=== PATIENT | female | born 1965 | race Two or more races ===

== ENCOUNTER 2022-08-26 19:22 | Inpatient (IN) | payer MEDICAID, OTHER ==
[~2022-08-26] VITALS: Ht 160 cm; Wt 41.3 kg
--- NOTE | 2022-08-26 19:35 | NUR ---
GALILEA CHOWDHURY FROM [facility] C/O POOR PO INTAKE SINCE 08/17. POSSIBLE GT PLACEMENT. PT A/OX1. TOLERATING O2 5LPM VIA N/C AT 100%. DENIES PAIN. SAFETY MEASURES IN PLACE.
[2022-08-26] MEDS ORDERED: IV NS 0.9% 500 ML BAG IV ONE (20:30)
--- NOTE | 2022-08-26 20:58 | NUR ---
COVID SWAB COLLECTED AND SENT TO LAB
[2022-08-26 21:05] LABS: BASOPHILS # (AUTO) 0.1 K/uL (0.0-0.2); BASOPHILS % (AUTO) 0.5 % (0.0-2.0); HEMATOCRIT 30 % (33-45); HEMOGLOBIN 9.6 g/dL (11.5-14.8); LYMPHOCYTES # (AUTO) 2.8 K/uL (0.8-4.8); LYMPHOCYTES % (AUTO) 23.8 % (20.0-44.0); MEAN CORPUSCULAR HGB CONC 32 g/dl (31.0-36.0); MEAN CORPUSCULAR VOLUME 94 fL (82-100); MONOCYTES # (AUTO) 0.9 K/uL (0.1-1.30); MONOCYTES % (AUTO) 7.5 % (2.0-12.0); NEUTROPHILS # (AUTO) 7.6 K/uL (1.8-8.9); NEUTROPHILS % (AUTO) 64.2 % (43.0-81.0); PLATELET COUNT (AUTO) 458 K/uL (150-450); RED BLOOD CELL COUNT(AUTO) 3.18 MIL/uL (4.0-5.2); WHITE BLOOD COUNT (AUTO) 11.8 K/uL (4.3-11.0)
--- NOTE | 2022-08-26 21:14 | NUR ---
IV LINE ESTABLISHED, RWRIST 22G
[2022-08-26 21:21] LABS: ALBUMIN 2.2 g/dL (3.4-5.0); BILIRUBIN,DIRECT 0.2 mg/dL (0.0-0.2); BILIRUBIN,TOTAL 0.4 mg/dL (0.2-1.0); CREATININE 3.7 mg/dL (0.6-1.3); POTASSIUM 3.2 mmol/L (3.5-5.1); TOTAL PROTEIN, SERUM 8.1 g/dL (6.4-8.2)
--- NOTE | 2022-08-26 22:08 | NUR ---
S/W DAVIE MEDTERI CASEMANAGER, VERBAL AUTH TO ADMIT PT
[2022-08-26] MEDS ORDERED: ACETAMINOPHEN 325 MG TABLET PO PRN (23:00)
[2022-08-26] MEDS ORDERED: ONDANSETRON HCL/PF 4 MG/2 ML VIAL IVP PRN (23:00)
[2022-08-26] MEDS ORDERED: DEXTROSE 50%-WATER 50 ML DISP.SYRIN IV PRN (23:00)
[2022-08-27] MEDS: BLOOD SUGAR DIAGNOSTIC 1 EACH STRIP IN SCH ×4 (02:00→17:02)
[2022-08-27] MEDS ORDERED: CEFEPIME 2 GM in IV D5W 100 ML IV ONE (02:00)
[2022-08-27] MEDS ORDERED: CEFEPIME 1 GM VIAL ONE ×2 (02:03→02:07)
--- NOTE | 2022-08-27 03:14 | NUR ---
PT IS RESTING IN BED WITH EYES CLOSED. RR EVEN AND NON LABORED. CONNECTED TO MONITOR. VITAL SIGNS WITHIN LIMITS
[2022-08-27 05:09] LABS: CALCIUM, SERUM 8.5 mg/dL (8.5-10.1); CREATININE 3.8 mg/dL (0.6-1.3); MAGNESIUM 2.2 mg/dL (1.8-2.4); PHOSPHORUS 3.1 mg/dL (2.5-4.9); POTASSIUM 3.5 mmol/L (3.5-5.1)
--- NOTE | 2022-08-27 07:21 | NUR ---
REPORT GIVEN TO MELISSA CHEN FOR TAYE
[2022-08-27] MEDS ORDERED: IPRA3AMP23 IH (08:00)
[2022-08-27] MEDS ORDERED: LOSA25TA27 PO (08:00)
[2022-08-27] MEDS ORDERED: ACET-868 PO (08:00)
[2022-08-27] MEDS ORDERED: APIX5TAB PO (08:00)
[2022-08-27] MEDS ORDERED: ONDA4TAB5 PO (08:00)
[2022-08-27] MEDS ORDERED: GLUC1KIT IM (08:00)
[2022-08-27] MEDS ORDERED: LEVO50TA8 PO (08:00)
[2022-08-27] MEDS ORDERED: ACET200V4 INH (08:00)
[2022-08-27] MEDS ORDERED: HYDR-4076 PO (08:00)
[2022-08-27] MEDS ORDERED: BISA10SU11 RC (08:00)
[2022-08-27] MEDS ORDERED: NIFE60TA2 PO (08:00)
[2022-08-27] MEDS ORDERED: ASPI-1169 PO (08:00)
[2022-08-27] MEDS ORDERED: BENZ-13 PO (08:00)
[2022-08-27] MEDS ORDERED: MELA3TAB41 PO (08:00)
[2022-08-27] MEDS ORDERED: MIRT-90 PO (08:00)
[2022-08-27] MEDS ORDERED: SENN-261 PO (08:00)
[2022-08-27] MEDS ORDERED: ROSU40TA PO (08:00)
[2022-08-27] MEDS ORDERED: FOLI0.8T2 PO (08:00)
[2022-08-27] MEDS ORDERED: POLY17PO4 PO (08:00)
[2022-08-27] MEDS ORDERED: INSU100V42 SQ (08:00)
--- NOTE | 2022-08-27 08:00 | NUR ---
PT REPORT GIVEN TO APRIL WESTON
[2022-08-27 08:20] LABS: BASOPHILS % (AUTO) 0.2 % (0.0-2.0); HEMATOCRIT 30 % (33-45); HEMOGLOBIN 9.7 g/dL (11.5-14.8); LYMPHOCYTES # (AUTO) 1.5 K/uL (0.8-4.8); LYMPHOCYTES % (AUTO) 10.8 % (20.0-44.0); MEAN CORPUSCULAR HGB CONC 33 g/dl (31.0-36.0); MEAN CORPUSCULAR VOLUME 94 fL (82-100); MONOCYTES % (AUTO) 7.1 % (2.0-12.0); NEUTROPHILS % (AUTO) 79.9 % (43.0-81.0); PLATELET COUNT (AUTO) 412 K/uL (150-450); RED BLOOD CELL COUNT(AUTO) 3.18 MIL/uL (4.0-5.2); WHITE BLOOD COUNT (AUTO) 13.8 K/uL (4.3-11.0)
--- NOTE | 2022-08-27 09:05 | NUR ---
PT TRANSFERRED TO UNIT VIA GURNEY. WARM HANDOFF GIVEN TO RN ASSIGNED.
[2022-08-27] MEDS: IV D5/ 0.9% NACL 1,000 ML IV PRN (11:03)
[2022-08-27] MEDS: PANTOPRAZOLE 40 MG VIAL IV SCH (11:09)
[2022-08-27 16:56] VITALS: BP 116/68
--- NOTE | 2022-08-27 18:28 | NUR ---
MS RN CLOSING NOTE PATIENT ADMITTED TO UNIT @ 0840 FROM ED VIA GURNEY. UNABLE TO TRANSFER WITHOUT ASSIST. PATIENT OBSERVED TO BE EXTREMELY WEAK TO BILATERAL EXTREMITIES. IV ACCESS TO R-WRIST 22G INTACT AND PATENT. D5NS RUNNING CONTINUOUSLY @ 75ML/HR. RECEIVED BEDSIDE HEMODIALYSIS WITH 2L OF FLUIDS TAKEN OFF. PERMA-CATH TO R-UPPER CHEST INTACT WITH NO S/SX OF BLEEDING OR TRAUMA. PATIENT REMAINS ON NPO STATUS SHE IS AWAITING SWALLOW EVALUATION DUE TO POOR ORAL INTAKE. RECEIVING SUPPLEMENTAL OXYGEN VIA NASAL CANNULA @ 2L. PATIENT TOLERATED WELL. SAFETY MEASURES IN PLACE WITH BED LOW AND LOCKED. SIDERAIL UP X2. CALL LIGHT WITHIN REACH. WILL CONTINUE TO MONITOR.
--- NOTE | 2022-08-27 19:30 | NUR ---
noc rn opening received patient in bed, with eyes closed, easy to arouse. not exhibiting pain via flacc. IV access on R. wrist 22g running D5NS @75mls/hr. call light within reach. Patient noted to have RCW permacath clean, dry and intact. will continue with the plan of care for patient.
[2022-08-27 20:00] VITALS: BP 110/59
[2022-08-28] MEDS: INSULIN REGULAR, HUMAN 100 UNIT/ML 3 ML VIAL SQ PRN ×2 (00:11→06:22)
[2022-08-28] MEDS: BLOOD SUGAR DIAGNOSTIC 1 EACH STRIP IN SCH ×4 (00:11→18:11)
[2022-08-28] MEDS: CEFEPIME 2 GM in IV D5W 100 ML IV SCH (02:30)
[2022-08-28 07:00] VITALS: BP 142/65
--- NOTE | 2022-08-28 07:36 | NUR ---
noc rn closing report given to APRIL Irby for continuity of patient care.
[2022-08-28] MEDS: IV D5/ 0.9% NACL 1,000 ML IV PRN (08:10)
[2022-08-28] MEDS: PANTOPRAZOLE 40 MG VIAL IV SCH (08:49)
--- NOTE | 2022-08-28 10:06 | NUR ---
WOUND CARE CONSULT: PT PRESENTS WITH SACRAL DEEP TISSUE INJURY WHICH IS INTACT AND BILATERAL LOWER LEG DRY ESCHARS (NECROTIC TISSUE), PRESENT ON ADMISSION. PT IS CACHECTIC. DPM CONSULT CALLED TO DR VALDEZ. DISCUSSED SKIN PROTECTION WITH NURSING STAFF. IN AGREEMENT WITH PLAN OF CARE. PT IS ON [facility] B[facility]. Addendum: 08/28/22 at 1007 by NGOC BATISTA WNDNU Amended: Links added.
[2022-08-28] MEDS ORDERED: Z GUARD REMEDY 4 OZ OINT TP PRN (10:30)
[2022-08-28 11:08] LABS: BASOPHILS % (AUTO) 0.2 % (0.0-2.0); EOSINOPHILS % (AUTO) 5.3 % (0.0-6.0); HEMATOCRIT 28 % (33-45); HEMOGLOBIN 9.2 g/dL (11.5-14.8); LYMPHOCYTES # (AUTO) 1.6 K/uL (0.8-4.8); LYMPHOCYTES % (AUTO) 17.3 % (20.0-44.0); MEAN CORPUSCULAR HGB CONC 32 g/dl (31.0-36.0); MEAN CORPUSCULAR VOLUME 95 fL (82-100); MONOCYTES # (AUTO) 0.6 K/uL (0.1-1.30); MONOCYTES % (AUTO) 6.6 % (2.0-12.0); NEUTROPHILS # (AUTO) 6.4 K/uL (1.8-8.9); NEUTROPHILS % (AUTO) 70.6 % (43.0-81.0); PLATELET COUNT (AUTO) 423 K/uL (150-450)
[2022-08-28 11:22] LABS: CALCIUM, SERUM 9.4 mg/dL (8.5-10.1); CREATININE 2.7 mg/dL (0.6-1.3); POTASSIUM 3.1 mmol/L (3.5-5.1)
[2022-08-28 12:04] LABS: THYROID STIMULATING HORMONE 1.461 uIU/mL (0.358-3.74)
[2022-08-28] MEDS: Z GUARD REMEDY 4 OZ OINT TP SCH (12:25)
[2022-08-28] MEDS: POTASSIUM CL. PREMIX PERIPHER. 50 ML IV SCH ×2 (14:02→15:24)
[2022-08-28] MEDS: GENTAMICIN 0.1% OINT 15 GM TUBE TP SCH (16:11)
--- NOTE | 2022-08-28 18:35 | NUR ---
MS RN CLOSING NOTE PATIENT RECEIVED IN BED AND RESTING; INTERMITTENTLY AWAKE. NO S/SX OF PAIN OR OR DISTRESS OBSERVED; NO FACIAL GRIMACING OR MOANING. PATIENT REMAINS EXTREMELY WEAK TO BILATERAL EXTREMITIES AND NEEDING MAXIMUM ASSISTANCE FOR ALL CARE. . IV ACCESS TO R-WRIST 22G INTACT AND PATENT WITH D5NS RUNNING CONTINUOUSLY @ 75ML/HR. PERMA-CATH TO R-UPPER CHEST REMAINS INTACT WITH NO S/SX OF BLEEDING OR TRAUMA. PATIENT REMAINS ON NPO STATUS AT THIS TIME SHAHRIAR TO POOR ORAL INTAKE AND POOR RESULTS FROM SWALLOW EVALUATION PERFORMED BY SPEECH THERAPY. PATIENT CONTINUES TO RECEIVING SUPPLEMENTAL OXYGEN VIA NASAL CANNULA @ 2L. BLOOD SUGAR LEVELS STABLE AND WNL ON SHIFT @ 83 & 95. BLOOD CX RESULTS PENDING AT THIS TIME. SAFETY MEASURES IN PLACE WITH BED LOW AND LOCKED. SIDERAIL UP X2. CALL LIGHT WITHIN REACH. WILL CONTINUE TO MONITOR.
--- NOTE | 2022-08-28 19:30 | NUR ---
noc rn opening received patient in bed, a/ox1 to name only. no s/s of apparent distress on 2lpm of o2 via nc. denies pain. IV access on R. wrist 22g running D5NS. call light within reach. Patient noted to have RCW permacath clean, dry and intact. safety in place. will continue with the plan of care for patient.
[2022-08-28 20:00] VITALS: BP 118/65
[2022-08-29] VITALS: BP 120/65
[2022-08-29] MEDS: INSULIN REGULAR, HUMAN 100 UNIT/ML 3 ML VIAL SQ PRN (00:02)
[2022-08-29] MEDS: BLOOD SUGAR DIAGNOSTIC 1 EACH STRIP IN SCH ×4 (00:02→17:27)
[2022-08-29] MEDS: CEFEPIME 2 GM in IV D5W 100 ML IV SCH (01:52)
--- NOTE | 2022-08-29 06:15 | NUR ---
noc rn note patient c/o severe chest pain, non-radiating with complaints of dizziness. front end architect Armin Sanchez NP made aware. STAT EKG ordered and TROPONIN. will monitor. bp 142/89 and hr 97. saturation 98% on 3lp of o2 via nc.
[2022-08-29] MEDS ORDERED: NITROGLYCERIN 0.4 MG/TAB BOTTLE SL PRN (06:30)
--- NOTE | 2022-08-29 07:28 | NUR ---
noc rn closing patient stable for now. no c/o chest pain now. report given to APRIL Dorado for continuity of care.
--- NOTE | 2022-08-29 07:35 | NUR ---
RN OPENING NOTES PATIENT AWAKE IN BED RESTING, A/O X 1. NO S/S OF PAIN NOTED AT THIS TIME. ON 2L OXYGEN VIA NC, NO DISTRESS OR SHORTNESS OF BREATH NOTED. IV ACCESS R WRIST #22G, INTACT, PATENT, FLUSHING WELL. FALL AND SAFETY MEASURES IN PLACE, BED ALARM ON, BED IN LOW LOCK POSITION, CALL LIGHT AND TABLE WITHIN EASY REACH, SIDE RAILS UP X2. WILL CONTINUE TO MONITOR.
[2022-08-29 08:00] VITALS: BP 155/72
[2022-08-29] MEDS: GENTAMICIN 0.1% OINT 15 GM TUBE TP SCH ×2 (08:37→17:28)
[2022-08-29] MEDS: PANTOPRAZOLE 40 MG VIAL IV SCH (08:37)
[2022-08-29] MEDS: Z GUARD REMEDY 4 OZ OINT TP SCH (08:38)
[2022-08-29] MEDS: ACETYLCYSTEINE 20% SOLN 800 MG/4 ML VIAL NEB SCH ×3 (08:43→18:01)
[2022-08-29] MEDS: IV D5/ 0.9% NACL 1,000 ML IV PRN (08:45)
[2022-08-29 12:00] VITALS: BP 129/61
--- NOTE | 2022-08-29 13:00 | NUR ---
RN NOTE PATIENT GLUCOSE AT 12:00 WAS 88, SMALL AMOUNT OF JUICE WAS GIVEN, PATIENT REFUSED TO DRINK. WILL CONTINUE TO MONITOR.
[2022-08-29 16:00] VITALS: BP 184/71
--- NOTE | 2022-08-29 18:37 | NUR ---
RN CLOSING NOTES PATIENT AWAKE IN BED RESTING, A/O X 1. NO S/S OF PAIN NOTED AT THIS TIME. ON 2L OXYGEN VIA NC, NO DISTRESS OR SHORTNESS OF BREATH NOTED. IV ACCESS R WRIST #22G, INTACT, PATENT, FLUSHING WELL. SCHEDULE MEDICATIONS ADMINISTERED. ALL NEEDS ATTENDED AND ANTICIPATED. WOUND CARE IMPLEMENTED. PATIENT WAS TURNED AND REPOSITIONED PER PROTOCOL. FALL AND SAFETY MEASURES IN PLACE, BED ALARM ON, BED IN LOW LOCK POSITION, CALL LIGHT AND TABLE WITHIN EASY REACH, SIDE RAILS UP X2. WILL ENDORSE TO PROCUREMENT ACCOUNTANT.
[2022-08-29 20:00] VITALS: BP 117/64
--- NOTE | 2022-08-29 20:39 | NUR ---
HD TREATMENT Dialysis treatment at bedside done with output 1L, patient tolerated treatment BP 117/64 HR 88 post HD treatment. Per RN Lalo/HD nurse, new order Albumin IV PRN during dialysis faxed to pharmacy.
[2022-08-30] VITALS: BP 134/56
[2022-08-30] MEDS: BLOOD SUGAR DIAGNOSTIC 1 EACH STRIP IN SCH ×5 (00:50→23:37)
[2022-08-30] MEDS: INSULIN REGULAR, HUMAN 100 UNIT/ML 3 ML VIAL SQ PRN ×3 (00:50→23:37)
--- NOTE | 2022-08-30 00:51 | NUR ---
ACCU CHECK Bld glucose 94mg/dl. Hold insulin per level ordered.
--- NOTE | 2022-08-30 02:48 | NUR ---
NO IV ACCESS IV Right wrist infiltrate. Unable to re insert new IV line, unsuccessful attempt. No IV access, patient hard stick. Notified IT ARCHITECT Armin with order MIDLINE.
[2022-08-30] MEDS: CEFEPIME 2 GM in IV D5W 100 ML IV SCH (03:51)
[2022-08-30] MEDS: IV D5/ 0.9% NACL 1,000 ML IV PRN ×2 (05:22→21:46)
--- NOTE | 2022-08-30 05:29 | NUR ---
ACCU CHECK Bld glucose 92mg/dl. Hold insulin per level ordered.
--- NOTE | 2022-08-30 06:12 | NUR ---
END OF SHIFT REPORT Patient in bed, A/O x1 to self only. New IV line in left hand, IVF infusing. On IV abx. Afebrile. Oxygen sat 94% in 2L NC. Patient appears very weak, poor appetite. Incontinent care done, turned and repositioned q 2h. BLE dressing C/D/I. MIDLINE placement in am. Plan for Debridement BLE wound. Consent in the chart. Fall/skin precaution maintained. Will endorse to oncoming RN.
--- NOTE | 2022-08-30 07:10 | NUR ---
ms rn received on bed, awake,oriented x1,no distress noted, on 2 liters nc, w/ adequate saturation noted, iv infusing well at left hand, no s/s of pain, repositioned for comfort, fall precaution, observed,all needs attended.
[2022-08-30 08:00] VITALS: BP 125/52
[2022-08-30 08:03] LABS: CREATININE 2.1 mg/dL (0.6-1.3); MAGNESIUM 1.8 mg/dL (1.8-2.4); PHOSPHORUS 1.3 mg/dL (2.5-4.9); POTASSIUM 3.6 mmol/L (3.5-5.1)
[2022-08-30] MEDS: ACETYLCYSTEINE 20% SOLN 800 MG/4 ML VIAL NEB SCH ×3 (08:14→16:42)
[2022-08-30 10:03] LABS: BASOPHILS % (AUTO) 0.3 % (0.0-2.0); EOSINOPHILS % (AUTO) 3.8 % (0.0-6.0); HEMATOCRIT 24 % (33-45); LYMPHOCYTES # (AUTO) 1.1 K/uL (0.8-4.8); LYMPHOCYTES % (AUTO) 10.7 % (20.0-44.0); MEAN CORPUSCULAR HGB CONC 33 g/dl (31.0-36.0); MEAN CORPUSCULAR VOLUME 95 fL (82-100); MONOCYTES # (AUTO) 0.7 K/uL (0.1-1.30); MONOCYTES % (AUTO) 6.5 % (2.0-12.0); NEUTROPHILS # (AUTO) 8.1 K/uL (1.8-8.9); NEUTROPHILS % (AUTO) 78.7 % (43.0-81.0); PLATELET COUNT (AUTO) 325 K/uL (150-450); RED BLOOD CELL COUNT(AUTO) 2.53 MIL/uL (4.0-5.2); WHITE BLOOD COUNT (AUTO) 10.3 K/uL (4.3-11.0)
[2022-08-30] MEDS: PANTOPRAZOLE 40 MG VIAL IV SCH (10:04)
[2022-08-30] MEDS: GENTAMICIN 0.1% OINT 15 GM TUBE TP SCH ×2 (10:48→17:29)
[2022-08-30] MEDS: Z GUARD REMEDY 4 OZ OINT TP SCH (10:48)
[2022-08-30] MEDS ORDERED: ALBUMIN 25% 25 GM in PREMIX 1 EA IV PRN (11:30)
--- NOTE | 2022-08-30 12:00 | NUR ---
ms rn patient refusing to eat,blood sugar wnl. repositioned for comfort.
[2022-08-30] MEDS ORDERED: NEUTRA PHOS 1 POWD.PACKET PO ONE (13:00)
[2022-08-30] MEDS: ENSURE ENLIVE 237 ML LIQUID (VANILLA) PO SCH ×2 (14:00→17:00)
[2022-08-30 16:00] VITALS: BP 97/71
--- NOTE | 2022-08-30 18:00 | NUR ---
ms rn bs- 147- coverage was not given, patient is refusing dinner, no distress noted,all needs attended.
--- NOTE | 2022-08-30 19:30 | NUR ---
MS RN NOTES RECEIVED PATIENT LAYING IN BED UNDERGOING HEMODIALYSIS. A/O X1. OPENS EYES TO STIMULI BUT DOESN'T ANSWER QUESTIONS. BREATHING EVEN AND NON-LABORED. ON O2 AT 2LPM VIA NASAL CANULA. NOT IN APPARENT DISTRESS. NO PAIN NOTED. HAS THE FF IV ACCESS: LEFT HAND #22G AND SALINE LOCKED, AND LEFT FOREARM #20G WITH D5 NS RUNNING AT 75 ML/HR. NO S/S OF INFILTRATION NOTED. HAS RIGHT CHEST WALL IJ HD CATHETER. BILATERAL LEGS WOUND DRESSING C/D/I. SAFETY PRECAUTIONS IN PLACE: BED LOW AND LOCKED, SIDE RAILS UP X2, CALL LIGHT WITHIN REACH. WILL CONTINUE POC.
[2022-08-30 20:00] VITALS: BP 105/61
--- NOTE | 2022-08-30 21:30 | NUR ---
MS RN NOTES HD DONE OUTPUT OF 500 ML, RECORDED BY HD NURSE.
[2022-08-31] MEDS: CEFEPIME 2 GM in IV D5W 100 ML IV SCH (02:31)
[2022-08-31] MEDS: INSULIN REGULAR, HUMAN 100 UNIT/ML 3 ML VIAL SQ PRN (05:43)
[2022-08-31] MEDS: BLOOD SUGAR DIAGNOSTIC 1 EACH STRIP IN SCH ×2 (05:43→12:26)
--- NOTE | 2022-08-31 06:26 | NUR ---
MS RN CLOSING NOTES PATIENT LAYING IN BED ASLEEP. RESPONSIVE TO TACTILE STIMULI. A/O X1, ANSWERED NO WHEN I ASKED IF SHE HAS PAIN AND DIFFICULTY OF BREATHING. ON O2 AT 2LPM VIA NASAL CANULA. NO RESPIRATORY DISTRESS NOTED. AFEBRILE. HAS THE FF IV ACCESS: LEFT HAND #22G AND SALINE LOCKED, AND LEFT FOREARM #20G WITH D5 NS RUNNING AT 75 ML/HR. INTACT, PATENT AND FLUSHING. RIGHT CHEST WALL IJ HD CATHETER DRESSING C/D/I. WOUND CARE RENDERED. ALL DUE MEDS GIVEN AND NEEDS ATTENDED. SAFETY PRECAUTIONS MAINTAINED. WILL ENDORSE TO NEXT SHIFT FOR TAYE.
[2022-08-31 07:00] VITALS: BP 118/70
--- NOTE | 2022-08-31 07:05 | NUR ---
ms rn received on bed, awake,oriented x1-2,not in any form of distress, respirations even and unlabored,no sob noted, lungs have crackles bilaterally,abdomen soft,positive bowel sounds, denies pain a this time, failure to thrive, still refusing to eat, son declines peg tube placement, repositione for comfort,all needs attended.
[2022-08-31] MEDS: ENSURE ENLIVE 237 ML LIQUID (VANILLA) PO SCH (08:00)
[2022-08-31] MEDS: ACETYLCYSTEINE 20% SOLN 800 MG/4 ML VIAL NEB SCH ×2 (08:24→14:23)
--- NOTE | 2022-08-31 08:30 | NUR ---
ms rn refused break fast and oral meds,all needs attended.
[2022-08-31 09:00] LABS: CALCIUM, SERUM 8.1 mg/dL (8.5-10.1); CREATININE 1.9 mg/dL (0.6-1.3); MAGNESIUM 1.7 mg/dL (1.8-2.4); PHOSPHORUS 1.2 mg/dL (2.5-4.9); POTASSIUM 3.1 mmol/L (3.5-5.1)
[2022-08-31] MEDS ORDERED: PANTOPRAZOLE 40 MG/PACK PACK PO SCH (09:00)
[2022-08-31 09:15] LABS: BASOPHILS % (AUTO) 0.3 % (0.0-2.0); EOSINOPHILS % (AUTO) 2.3 % (0.0-6.0); HEMATOCRIT 26 % (33-45); HEMOGLOBIN 8.6 g/dL (11.5-14.8); LYMPHOCYTES # (AUTO) 1.6 K/uL (0.8-4.8); LYMPHOCYTES % (AUTO) 11.2 % (20.0-44.0); MEAN CORPUSCULAR HGB CONC 33 g/dl (31.0-36.0); MEAN CORPUSCULAR VOLUME 93 fL (82-100); MONOCYTES # (AUTO) 0.9 K/uL (0.1-1.30); MONOCYTES % (AUTO) 6.5 % (2.0-12.0); NEUTROPHILS % (AUTO) 79.7 % (43.0-81.0); PLATELET COUNT (AUTO) 343 K/uL (150-450); RED BLOOD CELL COUNT(AUTO) 2.79 MIL/uL (4.0-5.2); WHITE BLOOD COUNT (AUTO) 13.9 K/uL (4.3-11.0)
--- NOTE | 2022-08-31 11:00 | NUR ---
ms rn was seen by zonia flowers/ radha to go back to snf today.
[2022-08-31] MEDS ORDERED: AMOX600S16 PO (11:41)
[2022-08-31] MEDS ORDERED: NEUTRA PHOS 1 POWD.PACKET PO ONE (13:00)
[2022-08-31] MEDS: GENTAMICIN 0.1% OINT 15 GM TUBE TP SCH (13:19)
[2022-08-31] MEDS: Z GUARD REMEDY 4 OZ OINT TP SCH (13:19)
--- NOTE | 2022-08-31 15:05 | NUR ---
ms rn patient transferred to [facility], all needs attended.
== END 2022-08-31 15:15 | DRG 137 ==
LOC: ER 19:24 → TRANSITION 08-27 00:48 → MED 08-27 08:02 → TELE 08-28 21:22 → MED 08-29 05:42 → TELE 08-29 07:08 → MED 08-30 01:21
PROVIDERS: ADMIT Nurse Practitioner Acute Care; ATTEND Nurse Practitioner Acute Care
PROC: 5A1D70Z Performance of Urinary Filtration, Intermittent, Less than 6 Hours Per Day (ICD-10-PCS; principal; 2022-08-27)
DX: J69.0 Pneumonitis due to inhalation of food and vomit (principal); I12.0 Hypertensive chronic kidney disease with stage 5 chronic kidney disease or end stage renal disease; E43 Unspecified severe protein-calorie malnutrition; R64 Cachexia; E88.09 Other disorders of plasma-protein metabolism, not elsewhere classified; D63.8 Anemia in other chronic diseases classified elsewhere; L97.919 Non-pressure chronic ulcer of unspecified part of right lower leg with unspecified severity; E11.22 Type 2 diabetes mellitus with diabetic chronic kidney disease; N18.6 End stage renal disease; R62.7 Adult failure to thrive; E03.9 Hypothyroidism, unspecified; D72.829 Elevated white blood cell count, unspecified; E78.5 Hyperlipidemia, unspecified; Z86.718 Personal history of other venous thrombosis and embolism; Z99.2 Dependence on renal dialysis; F32.A Depression, unspecified; I69.398 Other sequelae of cerebral infarction; E87.6 Hypokalemia; J15.6 Pneumonia due to other Gram-negative bacteria; L97.929 Non-pressure chronic ulcer of unspecified part of left lower leg with unspecified severity; M89.8X9 Other specified disorders of bone, unspecified site; J15.9 Unspecified bacterial pneumonia
CPT/HCPCS: 36415; 71045-TC; 80048-TC; 80061-TC; 80076-TC; 82962-TC; 83690-TC; 83735-TC; 84100-TC; 84443-TC; 84484-TC; 85025-TC; 86706; 87040-TC; 87081-TC; 87340; 90935-TC; 92526; 92611-TC; 94799-TC; A6403; C9113; C9803; G0378; J0692; J1815; J2405; J3480; J7030; J7040; J7042; J7060

== ENCOUNTER 2022-09-01 19:53 | Inpatient (IN) | payer MEDICAID ==
[~2022-09-01] VITALS: Ht 167.6 cm; Wt 44.9 kg
[~2022-09-01 19:53] MED LIST: ACET-868 GT; ACET200V4 INH; AMOX600S16 PO; APIX5TAB GT; ASPI-1169 GT; BENZ-13 GT; BISA10SU11 RC; FOLI0.8T2 PO; GLUC1KIT IM; HYDR-4076 PO; INSU100V42 SQ; IPRA3AMP23 IH; LEVO50TA8 GT; LOSA25TA27 GT; MELA3TAB41 PO; MIRT-90 GT; NIFE60TA2 GT; ONDA4TAB5 PO; POLY17PO4 PO; ROSU40TA PO; SENN-261 PO
--- NOTE | 2022-09-01 20:10 | NUR ---
Patient bibpa from snf failure to thrive. On room air, breathing evenly and unlabored. Kept comfortable, will continue to monitor accordingly.
--- NOTE | 2022-09-01 20:14 | NUR ---
COVID SWAB COLLECTED
--- NOTE | 2022-09-01 20:26 | NUR ---
in and out f/c inserted, Pt is a HD, no urine output
[2022-09-01] MEDS ORDERED: IV NS 0.9% 500 ML BAG IV ONE (20:30)
[2022-09-01 20:42] LABS: CALCIUM, SERUM 8.6 mg/dL (8.5-10.1); CARBON DIOXIDE 27 mmol/L (21-32); CHLORIDE 108 mmol/L (98-107); GLUCOSE 69 mg/dL (74-106); SODIUM SERUM 144 mmol/L (136-145); UREA NITROGEN, BLOOD 20 mg/dL (7-18)
[2022-09-01 20:45] LABS: POTASSIUM 2.5 mmol/L (3.5-5.1)
[2022-09-01 20:49] LABS: ALANINE AMINOTRANSFERASE < 6 U/L (12-78); ALBUMIN 1.5 g/dL (3.4-5.0); ALKALINE PHOSPHATASE 143 U/L (46-116); ASPARTATE AMINOTRANSFERASE 16 U/L (15-37); BILIRUBIN,DIRECT 0.1 mg/dL (0.0-0.2); BILIRUBIN,TOTAL 0.4 mg/dL (0.2-1.0); TOTAL PROTEIN, SERUM 6.4 g/dL (6.4-8.2)
--- NOTE | 2022-09-01 21:01 | NUR ---
SPOKE TO RIMA THE FIELD OBSERVER. PT CAN STAY HERE.
[2022-09-01] MEDS ORDERED: POTASSIUM CL. PREMIX PERIPHER. 50 ML ONE (21:40)
[2022-09-01] MEDS: POTASSIUM CL. PREMIX PERIPHER. 50 ML IV SCH ×2 (21:45→22:40)
[2022-09-01 21:46] LABS: BASOPHILS # (AUTO) 0.1 K/uL (0.0-0.2); BASOPHILS % (AUTO) 0.3 % (0.0-2.0); EOSINOPHILS % (AUTO) 0.4 % (0.0-6.0); HEMATOCRIT 25 % (33-45); HEMOGLOBIN 8.5 g/dL (11.5-14.8); LYMPHOCYTES # (AUTO) 1.4 K/uL (0.8-4.8); LYMPHOCYTES % (AUTO) 6.3 % (20.0-44.0); MEAN CORPUSCULAR HGB CONC 34 g/dl (31.0-36.0); MEAN CORPUSCULAR VOLUME 91 fL (82-100); MONOCYTES # (AUTO) 1.1 K/uL (0.1-1.30); PLATELET COUNT (AUTO) 364 K/uL (150-450); RED BLOOD CELL COUNT(AUTO) 2.76 MIL/uL (4.0-5.2); WHITE BLOOD COUNT (AUTO) 21.6 K/uL (4.3-11.0)
[2022-09-01 22:09] LABS: BAND % (MANUAL) 3 % (0.0-5.0); LYMPHOCYTES % (MANUAL) 6 % (16-48); MONOCYTES % (MANUAL) 3 % (0-11.0); NEUTROPHILS % (MANUAL) 88 (42-76)
--- NOTE | 2022-09-01 22:48 | NUR ---
BED 323-2
--- NOTE | 2022-09-01 23:09 | NUR ---
report given to RR RN to continue care.
[2022-09-01] MEDS ORDERED: Z GUARD REMEDY 4 OZ OINT TP PRN (23:30)
[2022-09-01] MEDS ORDERED: ACETAMINOPHEN 325 MG TABLET PO PRN (23:30)
[2022-09-01] MEDS ORDERED: DEXTROSE 50%-WATER 50 ML DISP.SYRIN IV PRN (23:30)
[2022-09-01] MEDS ORDERED: IV D5/0.45 NACL 1,000 ML IV PRN (23:30)
[2022-09-01] MEDS ORDERED: ONDANSETRON HCL/PF 4 MG/2 ML VIAL IVP PRN (23:30)
--- NOTE | 2022-09-01 23:30 | NUR ---
RN ADMITTING NOTES RECEIVED PATIENT VIA GURNEY FROM ER, ACCOMPANIED BY RN AND LENS SHAPER GRINDER. A/0 X1, DROWSY. ATTACHED TO 02 2LPM VIA NASAL CANNULA, TOLERATING WELL. NOTED PRODUCTIVE COUGH. WITH IV ACCESS LEFT HAND #18, SALINE LOCK, PATENT AND INTACT. WITH MULTIPLE SKIN IMPAIRMENT NOTED, PHOTOGRAPHED AND DOCUMENTED, KEPT DRY AND INTACT. HD ACCESS PERM CATH AT RIGHT UPPER CHEST, INTACT. SAFETY PRECAUTIONS INITIATED, SIDE RAILS UP, BED LOCKED AND LOWERED. WILL CONTINUE TO MONITOR.
--- NOTE | 2022-09-01 23:39 | NUR ---
TRANSERRED TO 323 UNDER ACLS IN STABLE CONDITION
[2022-09-02] MEDS ORDERED: ZOSYN IVPB 3.375 G in IV D5W 50ml IV ONE ×2
[2022-09-02] MEDS ORDERED: VANCOMYCIN 1.25 GM in IV D5W 250 ML IV ONE (00:30)
--- NOTE | 2022-09-02 01:30 | NUR ---
BLOOD SUGAR LEVEL: 57. GIVEN D50 50. WILL CONTINUE TO MONITOR.
[2022-09-02] MEDS: BLOOD SUGAR DIAGNOSTIC 1 EACH STRIP IN SCH ×4 (02:04→17:33)
--- NOTE | 2022-09-02 02:30 | NUR ---
RECHECKED BLOOD SUGAR LEVEL: 124. NO SIGNS AND SYMPTOMS OF HYPOGLYCEMIA. KEPT COMFORTABLE.
[2022-09-02] MEDS: POTASSIUM CL. PREMIX PERIPHER. 50 ML IV SCH ×2 (03:24→06:25)
[2022-09-02] MEDS ORDERED: POTASSIUM CL. PREMIX PERIPHER. 50 ML ONE (06:20)
[2022-09-02] MEDS ORDERED: VANCOMYCIN 1 GM in IV D5W 250 ML IV ONE (06:30)
[2022-09-02 07:00] VITALS: BP 135/82
[2022-09-02 07:04] LABS: CALCIUM, SERUM 8.5 mg/dL (8.5-10.1); CREATININE 3.1 mg/dL (0.6-1.3); MAGNESIUM 1.7 mg/dL (1.8-2.4); PHOSPHORUS 1.7 mg/dL (2.5-4.9)
[2022-09-02 07:50] LABS: BASOPHILS % (AUTO) 0.2 % (0.0-2.0); EOSINOPHILS % (AUTO) 0.4 % (0.0-6.0); HEMATOCRIT 25 % (33-45); LYMPHOCYTES # (AUTO) 1.7 K/uL (0.8-4.8); MEAN CORPUSCULAR HGB CONC 33 g/dl (31.0-36.0); MEAN CORPUSCULAR VOLUME 93 fL (82-100); MONOCYTES # (AUTO) 0.6 K/uL (0.1-1.30); MONOCYTES % (AUTO) 3.7 % (2.0-12.0); NEUTROPHILS # (AUTO) 14.6 K/uL (1.8-8.9); NEUTROPHILS % (AUTO) 85.7 % (43.0-81.0); PLATELET COUNT (AUTO) 334 K/uL (150-450); RED BLOOD CELL COUNT(AUTO) 2.64 MIL/uL (4.0-5.2)
--- NOTE | 2022-09-02 07:54 | NUR ---
RN CLOSING NOTES PATIENT IS LYING AWAKE IN BED. A/0 X1, DROWSY. ATTACHED TO 02 2LPM VIA NASAL CANNULA, TOLERATING WELL. NOTED PRODUCTIVE COUGH. WITH IV ACCESS LEFT HAND #18, SALINE LOCK, PATENT AND INTACT. WITH MULTIPLE SKIN IMPAIRMENT NOTED, PHOTOGRAPHED AND DOCUMENTED, KEPT DRY AND INTACT. HD ACCESS PERM CATH AT RIGHT UPPER CHEST, INTACT. SAFETY PRECAUTIONS INITIATED, SIDE RAILS UP, BED LOCKED AND LOWERED. DUE MEDS GIVEN. WILL ENDORSE TO DAY SHIFT RN FOR TAYE
--- NOTE | 2022-09-02 08:36 | NUR ---
RN OPENING NOTES PATIENT NOTED SLEEPING, ALERT AND RESPONSIVE WHEN AWAKEN,ON 02 2LPM VIA NASAL CANNULA, TOLERATING WELL, NO SOB NOTED, NOT IN DISTRESS, NO FACIAL GRIMACING NOTED, NO COUGHING NOTED AT THIS TIME. WITH MULTIPLE SKIN IMPAIRMENT NOTED. HD ACCESS PERM CATH AT RIGHT UPPER CHEST, INTACT. NOTED POTASSIUM, PHOSPHOROUS AND MAGNESIUM LEVEL IS LOW, DR. PRASAD NOTIFIED, WITH NEW ORDER NOTED. SAFETY PRECAUTIONS INITIATED, SIDE RAILS UP, BED LOCKED AND LOWERED. DUE MEDS GIVEN. WILL CONTINUE PLAN OF CARE.
[2022-09-02] MEDS: PANTOPRAZOLE 40 MG VIAL IV SCH (08:38)
[2022-09-02] MEDS: PIPERACILLIN /TAZOBACTAM 2.25 G in IV D5W 50 ML IV SCH ×5 (08:39→18:00)
[2022-09-02] MEDS ORDERED: POTASSIUM PHOSPHATE MM 7.5 MMOL in IV NS 0.9% 100 ML IV ONE (09:00)
[2022-09-02] MEDS: HEPARIN SODIUM, PORCINE 5000 UNITS/1 ML VIAL SQ SCH ×2 (10:22→22:03)
[2022-09-02] MEDS: IV D5/0.45 NACL 1,000 ML IV PRN (10:57)
--- NOTE | 2022-09-02 12:10 | NUR ---
RN NOTES SUGAR= 88MG/DL, NO S/X OF HYPOGLYCEMIA, NO INSULIN COVERAGE.
--- NOTE | 2022-09-02 14:28 | NUR ---
RN NOTES FAMILY MEMBER AT THE BEDSIDE, REQUESTING ABOUT PATIENT UPDATES, PER SON RAINA ON THE PHONE NOBODY NOTIFY THEM ABOUT PATIENT BEING DISCHARGE BACK TO THE SNF ON 08/31, CALLED BOARDING KENNEL OR CATTERY OPERATOR, GAVE BOARDING KENNEL OR CATTERY OPERATOR NO. TO RAINA. WILL CONTINUE PLAN OF CARE.
--- NOTE | 2022-09-02 16:01 | NUR ---
RN NOTES URINE COLLECTED VIA STRAIGHT CATH, PLACED AT THE FRIDGE FOR LAB TO COLLECT, WILL CONTINUE PLAN OF CARE.
--- NOTE | 2022-09-02 18:51 | NUR ---
RN CLOSING NOTES: PATIENT NOTED AWAKE, ALERT AND RESPONSIVE, FAMILY AT THE BEDSIDE, ON 02 2LPM VIA NASAL CANNULA, TOLERATING WELL, NO SOB NOTED, NOT IN DISTRESS, COUGHING NOTED, PATIENT UNABLE TO EXPECTORATE, NOTIFIED, WITH NEW ORDER ALBUTEROL PRN AND DEEP SUCTIONING PRN, VASYL RT NOTIFIED, PER VASYL THEY ARE ENDORSING RIGHT NOW, WILL LET THE INCOMING RT KNOW. BLE WOUNDS NOTED COVERED WITH MEPILEX, AWAITING FOR WOUND CONSULT. HD ACCESS PERM CATH AT RIGHT UPPER CHEST, C/D/I. LEFT ARM PIV FLUSHED, PATIENT C/O OF PAIN, MULTPLE ATTEMPTS TO REINSERT A NEW PIV LINE, UNSUCCESSFUL, DR. PRASAD NOTIFIED, WITH ORDER TO INSERT MIDLINE, SEARCH MARKETING ANALYST NOTIFIED. SAFETY PRECAUTIONS INITIATED, SIDE RAILS UP, BED LOCKED AND LOWERED.CALL LIGHT WITHIN REACH. WILL ENDORSE TO WAITRESS NURSE.
--- NOTE | 2022-09-02 18:59 | NUR ---
RN NOTES UNABLE TO HANG 1800 IV ATB DUE TO NO PERIPHERAL LINE AVAILABLE, WILL ENDORSE TO INSULATION TECHNICIAN NURSE.
--- NOTE | 2022-09-02 19:30 | NUR ---
RN OPENING NOTE RECEIVED PATIENT AWAKE , RESTING IN BED. PT ALERT AND RESPONSIVE WHEN AWAKEN. ON 02 2 LPM VIA NASAL CANNULA, TOLERATING WELL, NO SOB NOTED, NOT IN DISTRESS, NO FACIAL GRIMACING NOTED, NO COUGHING AT THIS TIME. PT HAS MULTIPLE SKIN IMPAIRMENT. HD ACCESS PERM CATH AT RIGHT UPPER CHEST, INTACT. SAFETY PRECAUTIONS INITIATED, SIDE RAILS UP X 3, BED LOCKED AND LOWERED. DUE MEDS GIVEN. WILL CONTINUE TO MONITOR PT.
[2022-09-02] MEDS: ALBUTEROL FS 2.5 MG/3 ML VIAL.NEB NEB PRN (19:47)
--- NOTE | 2022-09-02 20:28 | NUR ---
Pt recvd on 3lpm NC, no SOB or respiratory distress noted. PRN tx given and lópez well.
[2022-09-02 20:45] VITALS: BP 156/67
[2022-09-02 21:29] LABS: BILIRUBIN,URINE NEGATIVE (NEGATIVE); COLOR,URINE YELLOW (YELLOW); LEUKOCYTE ESTERASE ,URINE 1+ (NEGATIVE); NITRITE, URINE NEGATIVE (NEGATIVE); PROTEIN,URINE 3+ mg/dl (NEGATIVE); UGLUCOSE TRACE mg/dL (NEGATIVE); UROBILINOGEN,URINE 0.2 EU/dL (0.2)
[2022-09-02 21:36] LABS: BACTERIA,URINE 2+ /HPF (None Seen); RBC,URINE 21-50 /HPF (0-2); SQUAMOUS EPITHELIAL CELL,UR Moderate /HPF (None Seen)
[2022-09-03] MEDS: PIPERACILLIN /TAZOBACTAM 2.25 G in IV D5W 50 ML IV SCH ×4 (00:23→17:44)
[2022-09-03] MEDS: BLOOD SUGAR DIAGNOSTIC 1 EACH STRIP IN SCH ×4 (00:57→17:13)
[2022-09-03] MEDS: INSULIN REGULAR, HUMAN 100 UNIT/ML 3 ML VIAL SQ PRN ×2 (00:58→11:39)
[2022-09-03 06:31] LABS: CREATININE 3.5 mg/dL (0.6-1.3)
[2022-09-03 06:52] LABS: POTASSIUM 2.6 mmol/L (3.5-5.1)
--- NOTE | 2022-09-03 07:15 | NUR ---
MS RN CLOSING NOTE LEFT PATIENT IS SLEEPING IN BED. A/0 X1, DROWSY. ON 02 2 LPM VIA NASAL CANNULA, TOLERATING WELL. PT HAS PRODUCTIVE COUGH. WITH IV ACCESS TO RIGHT HAND # 24 G, PATENT AND INTACT. HAS MULTIPLE SKIN IMPAIRMENT. KEPT DRY AND INTACT. HD ACCESS PERM CATH AT RIGHT UPPER CHEST, INTACT. SAFETY PRECAUTIONS INITIATED, SIDE RAILS UP, BED LOCKED, AND IN LOW POSITION. DUE MEDS GIVEN ON TIMELY MANNER. WILL ENDORSE TO DAY SHIFT RN FOR TAYE.
--- NOTE | 2022-09-03 07:35 | NUR ---
RN OPENING NOTE RECEIVED PATIENT AWAKE , RESTING IN BED. AOX1, APPEARS TO BE LETHARGIC, RESPONSIVE WHEN AWAKEN. ON 2 LPM VIA NASAL CANNULA, TOLERATING WELL, NO SOB NOTED, NOT IN ANY DISTRESS NOTED, NO FACIAL GRIMACING NOTED, NO COUGHING AT THIS TIME.WITH HD ACCESS PERM CATH AT RIGHT UPPER CHEST, INTACT, COVERED WITH DRY DRESSING. SAFETY PRECAUTIONS IN PLACE: SIDE RAILS UP X 3, BED LOCKED AT LOWEST POSITION, TRAY TABLE AND CALL LIGHT WITHIN REACH. WILL CONTINUE TO MONITOR DURING MY SHIFT.
[2022-09-03 08:29] VITALS: BP 126/56
[2022-09-03] MEDS: PANTOPRAZOLE 40 MG VIAL IV SCH (08:49)
[2022-09-03] MEDS: HEPARIN SODIUM, PORCINE 5000 UNITS/1 ML VIAL SQ SCH ×2 (08:51→22:04)
--- NOTE | 2022-09-03 09:09 | NUR ---
WOUND CARE CONSULT: PT PRESENTS WITH LOWER LEG WOUNDS AND SACRAL INTACT DEEP TISSUE INJURY WITH SURROUNDING SCARRING, PRESENT ON ADMISSION. PT IS CACHECTIC. RECOMMENDATIONS MADE FOR SKIN PROTECTION. DISCUSSED WITH NURSING STAFF. DR VALDEZ CALLED FOR DPM CONSULT. IN AGREEMENT WITH PLAN OF CARE.
[2022-09-03] MEDS: IV D5/0.45 NACL 1,000 ML IV PRN (11:47)
--- NOTE | 2022-09-03 13:15 | NUR ---
RN NOTES INFORMED RENATE PRASAD ABOUT THE PATIENT'S POTASSIUM LEVEL AT 2.6, ORDERED 20 MEQ POTASSIUM CHLORIDE TO BE INFUSED OVER 2HOURS IVPB. CARRIED OUT.
[2022-09-03] MEDS ORDERED: POTASSIUM CHLORIDE 10 MEQ/50 ML PREMIXED IVPB FOR PERIPHERAL LINE IV ONE (13:30)
--- NOTE | 2022-09-03 14:54 | NUR ---
RN NOTES SIGNED CONSENTS FOR EGD WITH PEG TUBE PLACEMENT. NURSE DIRECTOR STEWART CONFIRMED WITH DIRECTOR RACHEL THAT THERE WILL BE PROCEDURE TONIGHT AT AROUND 9PM. HOSPITALIST HAS BEEN INFORMED.
[2022-09-03 16:14] VITALS: BP 174/60
[2022-09-03] MEDS ORDERED: VANCOMYCIN 0.75 GM in IV D5W 250 ML IV SCH (18:00)
--- NOTE | 2022-09-03 18:00 | NUR ---
RN NOTES - CONSENTS SIGNED FOR HEMODIALYSIS, STARTED AT 1800
--- NOTE | 2022-09-03 19:25 | NUR ---
MS RN OPENING NOTE PATIENT IS SLEEPING IN BED. A/0 X1, DROWSY. ON 02 2 LPM VIA NASAL CANNULA, TOLERATING WELL. WITH IV ACCESS TO RIGHT HAND # 24 G, PATENT AND INTACT, AND MIDLINE TO LEFT UA, PATENT. HD ACCESS PERM CATH AT RIGHT UPPER CHEST, INTACT. PT ON HEMODIALYSIS NOW. HD NURSE PRESENT AT BED SIDE. SAFETY PRECAUTIONS INITIATED, SIDE RAILS UP, BED LOCKED, AND IN LOW POSITION. WILL MONITOR PT ACCORDINGLY.
--- NOTE | 2022-09-03 19:40 | NUR ---
RN CLOSING NOTE PATIENT AWAKE , RESTING IN BED. AOX1, APPEARS TO BE LETHARGIC, RESPONSIVE WHEN AWAKEN. WITH ON-GOING HD WITH HD NURSE, ON 2 LPM VIA NASAL CANNULA, TOLERATING WELL, NO SOB NOTED, NOT IN ANY DISTRESS NOTED. WITH HD ACCESS PERM CATH AT RIGHT UPPER CHEST, INTACT, COVERED WITH DRY DRESSING. STILL WITH 24G R HAND SL AND LEFT AC MIDLINE G#18 WITH RUNNING D5 1/2 NS AT 50 ML/HR. WOUND CARE GIVEN, DUE MEDS GIVEN, ALL NEEDS MET. SAFETY PRECAUTIONS IN PLACE: SIDE RAILS UP X 3, BED LOCKED AT LOWEST POSITION, TRAY TABLE AND CALL LIGHT WITHIN REACH. ENDORSED TO THE MINERAL ECONOMIST NURSE.
[2022-09-03 20:00] VITALS: BP 118/56
[2022-09-03] MEDS: VANCOMYCIN POST DIALYSIS 500MG IV PRN ×2 (21:46)
--- NOTE | 2022-09-03 22:00 | NUR ---
SURGERY DEPARTMENT IS CALLED TO ASK WHAT TIME PT IS GETTING NG TUBE PLACEMENT. SURGERY NURSE STATES THAT SURGERY IS POSTPONED FOR TOMORROW.
[2022-09-04] MEDS: BLOOD SUGAR DIAGNOSTIC 1 EACH STRIP IN SCH ×4 (00:09→17:24)
[2022-09-04] MEDS: PIPERACILLIN /TAZOBACTAM 2.25 G in IV D5W 50 ML IV SCH ×5 (00:09→23:53)
--- NOTE | 2022-09-04 04:30 | NUR ---
PT'S POTASSIUM LEVEL IS 3.3. MD SEGURA CALLED, AND MADE AWARE. NO NEW ORDER RECEIVED.
[2022-09-04] MEDS: ALBUTEROL FS 2.5 MG/3 ML VIAL.NEB NEB PRN (06:09)
[2022-09-04 06:20] LABS: BASOPHILS # (AUTO) 0.1 K/uL (0.0-0.2); BASOPHILS % (AUTO) 0.5 % (0.0-2.0); EOSINOPHILS % (AUTO) 3.8 % (0.0-6.0); HEMATOCRIT 23 % (33-45); HEMOGLOBIN 7.5 g/dL (11.5-14.8); LYMPHOCYTES # (AUTO) 1.8 K/uL (0.8-4.8); LYMPHOCYTES % (AUTO) 14.1 % (20.0-44.0); MEAN CORPUSCULAR HGB CONC 33 g/dl (31.0-36.0); MEAN CORPUSCULAR VOLUME 93 fL (82-100); MONOCYTES # (AUTO) 0.6 K/uL (0.1-1.30); MONOCYTES % (AUTO) 4.3 % (2.0-12.0); NEUTROPHILS % (AUTO) 77.3 % (43.0-81.0); PLATELET COUNT (AUTO) 302 K/uL (150-450); RED BLOOD CELL COUNT(AUTO) 2.46 MIL/uL (4.0-5.2); WHITE BLOOD COUNT (AUTO) 12.9 K/uL (4.3-11.0)
--- NOTE | 2022-09-04 07:10 | NUR ---
MS RN CLOSING NOTE LEFT PATIENT IS SLEEPING IN BED. A/0 X1, DROWSY. ON 02 2 LPM VIA NASAL CANNULA, TOLERATING WELL. PT HAS PRODUCTIVE COUGH, RECEIVED BREATHING TREATMENT. WITH IV ACCESS TO RIGHT HAND # 24 G, AND MIDLINE TO LEFT AC , PATENT AND INTACT. HAS MULTIPLE SKIN IMPAIRMENT. KEPT DRY AND INTACT. HD ACCESS PERM CATH AT RIGHT UPPER CHEST, INTACT. SAFETY PRECAUTIONS INITIATED, SIDE RAILS UP, BED LOCKED, AND IN LOW POSITION. DUE MEDS GIVEN ON TIMELY MANNER. WILL ENDORSE TO DAY SHIFT RN FOR TAYE.
[2022-09-04 07:33] LABS: CALCIUM, SERUM 8.2 mg/dL (8.5-10.1); CREATININE 2.2 mg/dL (0.6-1.3); POTASSIUM 3.1 mmol/L (3.5-5.1)
--- NOTE | 2022-09-04 07:35 | NUR ---
MS RN OPENING NOTE RECEIVED PATIENT AWAKE , RESTING IN BED. AOX1, APPEARS TO BE LETHARGIC, RESPONSIVE WHEN AWAKEN. ON 3 LPM VIA NASAL CANNULA, TOLERATING WELL, NO SOB NOTED, NOT IN ANY DISTRESS NOTED, NO FACIAL GRIMACING NOTED, COUGHING AT THIS TIME.WITH HD ACCESS PERM CATH AT RIGHT UPPER CHEST, INTACT, COVERED WITH DRY DRESSING. SAFETY PRECAUTIONS IN PLACE: SIDE RAILS UP X 3, BED LOCKED AT LOWEST POSITION, TRAY TABLE AND CALL LIGHT WITHIN REACH. WILL CONTINUE TO MONITOR DURING MY SHIFT.
[2022-09-04 08:00] VITALS: BP 135/60
[2022-09-04] MEDS: PANTOPRAZOLE 40 MG VIAL IV SCH (08:13)
[2022-09-04] MEDS ORDERED: Medication Not On Formulary EA (Melatonin 3 MG) PO PRN (09:00)
[2022-09-04] MEDS: HEPARIN SODIUM, PORCINE 5000 UNITS/1 ML VIAL SQ SCH ×2 (09:00→21:00)
[2022-09-04] MEDS ORDERED: Medication Not On Formulary EA (Ipratropium/Albuterol Sulfate (Duoneb 2.5-0.5 Mg/3 Ml So IH PRN (09:00)
[2022-09-04] MEDS: LOSARTAN POTASSIUM 25 MG TABLET PO SCH (09:00)
[2022-09-04] MEDS ORDERED: ASPIRIN 81 MG TAB.CHEW PO SCH (09:00)
--- NOTE | 2022-09-04 09:00 | NUR ---
RN NOTES - DR GRADY PLACED A HOLD ON ALL ANTICOAGULANTS AND ORDERED POTASSIUM REPLACEMENT OF 60 MEQ IVPB BUT PHARMACY RECOMMENDED 30 MEQ ONLY D/T KIDNEY PROBLEMS. DR BAZAN.
[2022-09-04] MEDS ORDERED: IPRATROPIUM NEB FS 0.5 MG/2.5 ML AMPUL.NEB NEB PRN (09:30)
[2022-09-04] MEDS ORDERED: ALBUTEROL FS 2.5 MG/0.5 ML VIAL.NEB NEB PRN (09:30)
[2022-09-04] MEDS: NIFEdipine XL (30MG) 30 MG TAB PO SCH (09:30)
[2022-09-04] MEDS ORDERED: APIXABAN 2.5 MG TABLET PO SCH (09:30)
[2022-09-04] MEDS: MULTIVITAMINS,THERAGRAN 1 UDTAB TABLET PO SCH (09:30)
[2022-09-04] MEDS: ATORVASTATIN 40 MG TABLET PO SCH (09:30)
[2022-09-04] MEDS: ACETYLCYSTEINE 20% SOLN 800 MG/4 ML VIAL NEB SCH ×3 (10:25→15:59)
[2022-09-04] MEDS: POTASSIUM CL. PREMIX PERIPHER. 50 ML IV SCH ×3 (10:34→12:30)
[2022-09-04] MEDS ORDERED: GLUCERNA 1.2 1,000 ML BOTTLE NG PRN (11:00)
--- NOTE | 2022-09-04 11:00 | NUR ---
RN NOTES - SOFT RESTRAINTS WERE ORDERED BY DR GRADY PATIENT IS PULLING HER NGT. WILL MONITOR EVERY 2 HOURS FOR CIRCULATION AND SAFETY
--- NOTE | 2022-09-04 11:15 | NUR ---
RN NOTES - NGT INSERTED SUCCESSFULLY PER DR GRADY'S RECOMMENDATION, ORDERED XRAY FOR PLACEMENT AND WILL DO DIET CONSULT FOR TUBE FEEDING.
[2022-09-04] MEDS ORDERED: NEPRO 1,000 ML BOTTLE GT PRN (13:00)
[2022-09-04] MEDS ORDERED: NEPRO 1,000 ML BOTTLE NG PRN (13:30)
[2022-09-04] MEDS ORDERED: SEVOFLURANE 250 ML BOTTLE IH ONE (13:31)
--- NOTE | 2022-09-04 13:52 | NUR ---
RN NOTES - NEPHRO 35 ML/HR VIA NGT WAS ORDERED BY REGULATORY AFFAIRS SPEC BUT WAS PLACED ON HOLD PT MIGHT HAVE A PEG TUBE INSERTION TONIGHT. AWAITING A CALL FROM SURGERY.
--- NOTE | 2022-09-04 15:11 | NUR ---
RN NOTES COVID ANTIGEN RETEST REQUESTED.
--- NOTE | 2022-09-04 15:38 | NUR ---
CONSENTS FOR WOUND DEBRIDEMENT DONE
[2022-09-04 16:00] VITALS: BP 123/60
[2022-09-04] MEDS: THERAHONEY GEL 1.5 OZ TUBE TP SCH (18:21)
--- NOTE | 2022-09-04 18:30 | NUR ---
RN NOTES PEG TUBE INSERTION HAS BEEN MOVED TO NEXT MORNING PER CHARGE NURSE, WILL START NGT FEEDING OF NEPHRO AT 10 ML/HR THEN ADVANCE TO 10 ML PER HOUR TO REACH 35 ML/HR GOAL.
--- NOTE | 2022-09-04 19:37 | NUR ---
MS RN CLOSING NOTE PATIENT AWAKE , RESTING IN BED. AOX1, APPEARS TO BE LETHARGIC, RESPONSIVE WHEN AWAKEN. STILL ON 3 LPM VIA NASAL CANNULA, TOLERATING WELL, NO SOB NOTED, NOT IN ANY DISTRESS NOTED, NO FACIAL GRIMACING NOTED. WITH HD ACCESS PERM CATH AT RIGHT UPPER CHEST, INTACT, COVERED WITH DRY DRESSING. WITH NGT WITH RUNNING NEPHRO AT 10 ML/HR AT THIS TIME. PATIENT STILL WITH RESTRAINTS, CHECKED Q2H FOR COMFORT AND SAFETY. WOUND CARE PROVIDED, ALL DUE MEDS GIVEN, ALL NEEDS MET. SAFETY PRECAUTIONS MAINTAINED: SIDE RAILS UP X 3, BED LOCKED AT LOWEST POSITION, TRAY TABLE AND CALL LIGHT WITHIN REACH. ENDORSED TO CIGAR BANDER NURSE.
--- NOTE | 2022-09-04 19:40 | NUR ---
MS RN OPENING NOTE; RECEIVED PATIENT IN BED SLEPPING BUT EASY TO AROUSED,OWEN WELL ON 3 LPM VIA NASAL CANNULA, TOLERATING WELL, NO SOB/DISTRESS NOTED, HD ACCESS PERM CATH AT RIGHT UPPER CHEST, INTACT, COVERED WITH DRY DRESSING. WITH NGT WITH RUNNING NEPHRO AT 10 ML/HR AT THIS TIME.OWEN WELL,NO RESIDUAL NOTED, PATIENT STILL WITH RESTRAINTS,SAFETY PRECAUTIONS MAINTAINED: SIDE RAILS UP X 3, BED LOCKED AT LOWEST,WILL CONTINUE TO MONITOR.
[2022-09-04 20:00] VITALS: BP 134/57
[2022-09-04] MEDS: MIRTAZAPINE 15 MG TABLET PO SCH (21:20)
[2022-09-05] MEDS: BLOOD SUGAR DIAGNOSTIC 1 EACH STRIP IN SCH ×4 (00:12→17:50)
[2022-09-05] MEDS: IV D5/0.45 NACL 1,000 ML IV PRN ×2 (02:06→20:08)
[2022-09-05 04:00] VITALS: BP 133/61
[2022-09-05] MEDS: PIPERACILLIN /TAZOBACTAM 2.25 G in IV D5W 50 ML IV SCH ×4 (05:07→23:35)
[2022-09-05 05:14] LABS: CALCIUM, SERUM 8.2 mg/dL (8.5-10.1); CREATININE 2.8 mg/dL (0.6-1.3); POTASSIUM 3.5 mmol/L (3.5-5.1)
--- NOTE | 2022-09-05 06:14 | NUR ---
MS RN CLOSING NOTES;323 PATIENT IN BED SLEEPING BUT EASY TO AROUSED,OWEN WELL ON 2 LPM VIA NASAL CANNULA, TOLERATING WELL, NO SOB/DISTRESS NOTED,NO SIGN OF PAIN/DISCOFORT DURING SHIFT,DUE MEDS GIVEN ORDER,ALL NEEDS ATTENDED,HD ACCESS PERM CATH AT RIGHT UPPER CHEST, INTACT, PATIENT ON RESTRAIN PROCTOCOL FOLLOW,CALL LIGHT WITHIN REACH,SAFETY PRECAUTIONS MAINTAINED: SIDE RAILS UP X 3, BED LOCKED AT LOWEST,WILL ENDORSED TO NEXT SHIFT.
[2022-09-05 07:06] LABS: CALCIUM, SERUM 8.1 mg/dL (8.5-10.1); CREATININE 2.8 mg/dL (0.6-1.3); POTASSIUM 3.5 mmol/L (3.5-5.1)
[2022-09-05] MEDS: LEVOTHYROXINE SODIUM 50 MCG TABLET PO SCH (07:30)
[2022-09-05 08:00] VITALS: BP 155/78
[2022-09-05] MEDS: ATORVASTATIN 40 MG TABLET PO SCH (08:56)
[2022-09-05] MEDS: MULTIVITAMINS,THERAGRAN 1 UDTAB TABLET PO SCH (08:56)
[2022-09-05] MEDS: POTASSIUM CL. PREMIX PERIPHER. 50 ML IV SCH ×2 (08:57→09:57)
[2022-09-05] MEDS: PANTOPRAZOLE 40 MG/PACK PACK NG SCH (08:58)
[2022-09-05] MEDS: LOSARTAN POTASSIUM 25 MG TABLET PO SCH (08:59)
[2022-09-05] MEDS: NIFEdipine XL (30MG) 30 MG TAB PO SCH (08:59)
[2022-09-05] MEDS: HEPARIN SODIUM, PORCINE 5000 UNITS/1 ML VIAL SQ SCH (09:00)
[2022-09-05] MEDS ORDERED: PANTOPRAZOLE 40 MG/PACK PACK GT SCH (09:00)
[2022-09-05] MEDS: ACETYLCYSTEINE 20% SOLN 800 MG/4 ML VIAL NEB SCH ×3 (09:06→17:23)
[2022-09-05 16:00] VITALS: BP 126/64
--- NOTE | 2022-09-05 19:15 | NUR ---
MS RN OPENING NOTE RECEIVED REPORT FROM DAY SHIFT RN, ENDORSED THAT THE PATIENT JUST RECEIVED NEW PEG-TUBE. WAS TOLD THAT THE NEW PEG-TUBE CAN BE USED FOR GIVING MEDICATION ONLY. WAIT FOR PHYSICIAN'S ORDER TO START THE G-TUBE FEEDING. PATIENT HAS DM2. DISCUSSED WITH CHARGE NURSE, SUKHWINDER, WITH THIS SITUATION. WAS TOLD TO MONITOR THE PATIENT'S CONDITION AND WAIT FOR PHYSICIAN'S FURTHER ORDER RELATED TO THE FEEDING. PATIENT IS ON IV FLUID D5 1/2 NS @ 50 ML/ HOUR. WILL CLOSELY MONITOR PATIENT'S CONDITION.
[2022-09-05 20:00] VITALS: BP 131/49
[2022-09-05] MEDS: MUPIROCIN OINT 2% 22 GM TUBE NS SCH (21:55)
[2022-09-05] MEDS: MIRTAZAPINE 15 MG TABLET PO SCH (22:00)
--- NOTE | 2022-09-06 | NUR ---
MS RN NOTE PATIENT'S BS LEVEL IS 86, 100 ML OF APPLE JUICE GIVEN THROUGH G-TUBE. CHARGE NURSE, SUKHWINDER, NOTIFIED. WILL CONTINUE MONITOR PATIENT'S CONDITION.
[2022-09-06] MEDS: BLOOD SUGAR DIAGNOSTIC 1 EACH STRIP IN SCH ×4 (00:03→18:18)
--- NOTE | 2022-09-06 06:00 | NUR ---
MS RN NOTE PATIENT'S BS LEVEL IS 80, 100 ML OF APPLE JUICE GIVEN THROUGH G-TUBE. CHARGE NURSE, SUKHWINDER, NOTIFIED. WILL CONTINUE MONITOR PATIENT'S CONDITION.
[2022-09-06] MEDS: PIPERACILLIN /TAZOBACTAM 2.25 G in IV D5W 50 ML IV SCH ×3 (07:08→18:18)
--- NOTE | 2022-09-06 07:30 | NUR ---
MS RN CLOSING NOTE PATIENT IS ON 2 LPM OF OXYGEN VIA NC, TOLERATED WELL. NO S/S OF SOB OR DISTRESS. CHANGE REPORT GIVEN TO APRIL GROSS. ENDORSED TO FOLLOW UP WITH THE PATIENT'S FEEDING ORDER.
--- NOTE | 2022-09-06 07:35 | NUR ---
ms rn patient is awake, oriented x1,not in any form of distress, respirations even and unlabored,no sob noted, no s/s of pain at this time, g tube intact, will start feeding today, repositioned for comfort,all needs attended.
[2022-09-06 07:58] LABS: CALCIUM, SERUM 7.8 mg/dL (8.5-10.1); CREATININE 2.1 mg/dL (0.6-1.3); POTASSIUM 3.2 mmol/L (3.5-5.1)
[2022-09-06 08:26] VITALS: BP 140/54
[2022-09-06] MEDS: ACETYLCYSTEINE 20% SOLN 800 MG/4 ML VIAL NEB SCH ×3 (08:51→16:33)
[2022-09-06] MEDS: APIXABAN 2.5 MG TABLET PO SCH ×3 (09:00→16:43)
[2022-09-06] MEDS: NIFEdipine XL (30MG) 30 MG TAB PO SCH (09:00)
[2022-09-06] MEDS: LOSARTAN POTASSIUM 25 MG TABLET PO SCH (09:00)
--- NOTE | 2022-09-06 09:00 | NUR ---
ms laura due meds given,via g tube,tolerated well.
[2022-09-06] MEDS: ATORVASTATIN 40 MG TABLET PO SCH (09:23)
[2022-09-06] MEDS: PANTOPRAZOLE 40 MG/PACK PACK NG SCH (09:23)
[2022-09-06] MEDS: MULTIVITAMINS,THERAGRAN 1 UDTAB TABLET PO SCH (09:23)
[2022-09-06] MEDS: ASPIRIN EC 81 MG TABLET.DR PO SCH (09:23)
[2022-09-06] MEDS: LEVOTHYROXINE SODIUM 50 MCG TABLET PO SCH (09:29)
[2022-09-06] MEDS ORDERED: POTASSIUM CHLORIDE 10 MEQ TABLET.SA GT ONE (10:30)
[2022-09-06] MEDS ORDERED: POTASSIUM CHLORIDE 20 MEQ POWDER PACKET PO ONE (11:00)
--- NOTE | 2022-09-06 11:30 | NUR ---
ms rn was seen by kavon rodriguez/ orders made and carried out.
[2022-09-06] MEDS ORDERED: NEPRO 1,000 ML BOTTLE GT PRN (12:00)
--- NOTE | 2022-09-06 12:54 | NUR ---
THORACENTESIS WILL BE DONE TOMORROW, PATIENT HAD ELIQUIS AT 9.00 AM, APRIL GROSS AWARE SHE WILL NOTIFY THE ORDERING MD
--- NOTE | 2022-09-06 16:00 | NUR ---
ms rn feeding increased to 20ml/hour,tolerated well w/o residual.repositioned for comfort.
[2022-09-06 16:18] VITALS: BP 125/54
[2022-09-06] MEDS: THERAHONEY GEL 1.5 OZ TUBE TP SCH (18:33)
[2022-09-06] MEDS: MUPIROCIN OINT 2% 22 GM TUBE NS SCH ×2 (18:34→21:44)
--- NOTE | 2022-09-06 18:51 | NUR ---
ms rn on bed,nodistress noted,allneeds attended.
--- NOTE | 2022-09-06 19:42 | NUR ---
MS RN OPENING NOTES: RECEIVED PATIENT IN BED, BED IN LOW POSITION CALL LIGHTS WITHIN REACH, NO COMPLAIN OF PAIN AND DISCOMFORT AT THIS TIME, ON O2 INHALATION AT 2LPM SATURATING WELL, ON G TUBE FEEDING OF NEPHRO@20ML/HR TO INCREASE TO 50 ML TOLERATING WELL, WITH IV LINE AT LFA ML WITH ONGOING D5 1/2 NSS@50ML/HR INFUSING WELL, TO HOLD ELIQUIS DUE TO SCHEDULE ULTRASOUND GUIDED THORACENTESIS CONSENT SIGNED, ON BILATERAL SOFT RESTRAINT, PATIENT KEPT CLEAN AND DRY ALL NEEDS MET WILL CONTINUE TO MONITOR.
[2022-09-06 20:00] VITALS: BP 111/51
[2022-09-06 20:36] VITALS: BP 111/51
[2022-09-06] MEDS: MIRTAZAPINE 15 MG TABLET PO SCH (22:46)
[2022-09-07] MEDS: PIPERACILLIN /TAZOBACTAM 2.25 G in IV D5W 50 ML IV SCH ×5 (00:26→23:46)
--- NOTE | 2022-09-07 00:26 | NUR ---
RN NOTES: BLOOD SUGAR FRO [id number]-[id number] NO INSULIN GIVEN PER SLIDING SCALE.
[2022-09-07] MEDS: IV D5/0.45 NACL 1,000 ML IV PRN (03:39)
[2022-09-07] MEDS: BLOOD SUGAR DIAGNOSTIC 1 EACH STRIP IN SCH ×4 (06:00→17:45)
--- NOTE | 2022-09-07 06:05 | NUR ---
RN NOTES: BLOOD SUGAR-127/ NO INSULIN GIVEN PER SLIDING SCALE.
--- NOTE | 2022-09-07 06:37 | NUR ---
MS RN CLOSING NOTES: PATIENT SLEEP IN BED COMFORTABLY, AROUSABLE TO VERBAL, TACTILE STIMULI, BED IN LOW POSITION CALL LIGHTS WITHIN REACH, NO COMPLAIN OF PAIN AND DISCOMFORT AT THIS TIME, ON O2 INHALATION AT 3LPM SATURATING WELL, WITH RCW HD PERMCATH, ON G TUBE FEEDING SATURATING WELL, WITH IV LINE OF D5 1/2 NN@50ML/HR INFUSING WELL, PATIENT KEPT CLEAN AND DRY ALL NEEDS MET ENDORSE TO INCOMING SHIFT,
[2022-09-07 07:22] LABS: BASOPHILS % (AUTO) 0.4 % (0.0-2.0); EOSINOPHILS % (AUTO) 5.8 % (0.0-6.0); HEMATOCRIT 21 % (33-45); LYMPHOCYTES # (AUTO) 1.9 K/uL (0.8-4.8); LYMPHOCYTES % (AUTO) 20.3 % (20.0-44.0); MEAN CORPUSCULAR HGB CONC 33 g/dl (31.0-36.0); MEAN CORPUSCULAR VOLUME 92 fL (82-100); MONOCYTES # (AUTO) 0.6 K/uL (0.1-1.30); MONOCYTES % (AUTO) 6.2 % (2.0-12.0); NEUTROPHILS # (AUTO) 6.2 K/uL (1.8-8.9); NEUTROPHILS % (AUTO) 67.3 % (43.0-81.0); PLATELET COUNT (AUTO) 200 K/uL (150-450); RED BLOOD CELL COUNT(AUTO) 2.28 MIL/uL (4.0-5.2); WHITE BLOOD COUNT (AUTO) 9.3 K/uL (4.3-11.0)
--- NOTE | 2022-09-07 08:00 | NUR ---
PER RN,RENATO PT WAS GIVEN APIXABAN(ELIQUIS) ON 09/06/22 AT 09:00. RN IS AWARE THAT BLOOD THINNER NEEDS TO BE ON HOLD FOR 48 HOURS. RN CONTACTED ORDERING MD. TO GET HIS CONSENT ACCEPTING RISKS IF MD WANTS TO PROCEED WITH THORACENTESIS TODAY. OTHERWISE IT WILL BE DONE TOMORROW.
[2022-09-07 08:01] LABS: CALCIUM, SERUM 7.7 mg/dL (8.5-10.1); CREATININE 2.6 mg/dL (0.6-1.3); POTASSIUM 3.2 mmol/L (3.5-5.1)
[2022-09-07] MEDS: ACETYLCYSTEINE 20% SOLN 800 MG/4 ML VIAL NEB SCH ×3 (08:18→17:00)
--- NOTE | 2022-09-07 08:20 | NUR ---
ms rn received on bed, awake,oriented x1,not in any form of distress, respirations even and unlabored, no sob noted, lungs have crackles bilaterally, denies pain, g tube intact w/ 40ml /hour rate tolerated well w/o residual, repositioned for comfort,all needs attended
[2022-09-07 08:38] VITALS: BP 144/56
[2022-09-07] MEDS: THERAHONEY GEL 1.5 OZ TUBE TP SCH (09:00)
[2022-09-07] MEDS: ASPIRIN EC 81 MG TABLET.DR PO SCH (09:00)
--- NOTE | 2022-09-07 09:30 | NUR ---
ms rn meds held at this time, patient is having dialysis at this time.
[2022-09-07] MEDS ORDERED: Magnesium 1GM/D5W 100ML PREMIX 100 ML IV SCH ×2 (10:00→17:00)
[2022-09-07] MEDS ORDERED: POTASSIUM PHOSPHATE MM 7.5 MMOL in IV NS 0.9% 100 ML IV SCH (12:00)
[2022-09-07] MEDS: INSULIN REGULAR, HUMAN 100 UNIT/ML 3 ML VIAL SQ PRN ×2 (12:34→17:48)
[2022-09-07] MEDS: PANTOPRAZOLE 40 MG/PACK PACK NG SCH (13:01)
[2022-09-07] MEDS: LEVOTHYROXINE SODIUM 50 MCG TABLET PO SCH (13:01)
[2022-09-07] MEDS: ATORVASTATIN 40 MG TABLET PO SCH (13:01)
[2022-09-07] MEDS: BENZONATATE 100 MG CAPSULE PO PRN (13:01)
[2022-09-07] MEDS: MIRTAZAPINE 15 MG TABLET PO SCH (13:01)
[2022-09-07] MEDS: LOSARTAN POTASSIUM 25 MG TABLET PO SCH (13:02)
[2022-09-07] MEDS: MULTIVITAMINS,THERAGRAN 1 UDTAB TABLET PO SCH (13:02)
[2022-09-07] MEDS: NIFEdipine XL (30MG) 30 MG TAB PO SCH (13:02)
[2022-09-07] MEDS: MUPIROCIN OINT 2% 22 GM TUBE NS SCH ×2 (13:05→21:24)
[2022-09-07] MEDS: THERAHONEY GEL 1.5 OZ TUBE TP PRN (13:05)
[2022-09-07] MEDS: ALBUTEROL FS 2.5 MG/3 ML VIAL.NEB NEB PRN (13:41)
[2022-09-07 14:24] LABS: BAND % (MANUAL) 3 % (0.0-5.0); EOSINOPHILS % (MANUAL) 11 % (0-4); LYMPHOCYTES % (MANUAL) 21 % (16-48); MONOCYTES % (MANUAL) 2 % (0-11.0); NEUTROPHILS % (MANUAL) 63 (42-76)
[2022-09-07 14:36] LABS: HEMOGLOBIN 7.5 g/dL (11.5-14.8)
--- NOTE | 2022-09-07 15:00 | NUR ---
ms laura hd done w/ 500ml output . all needs attended.
[2022-09-07 15:47] VITALS: BP 118/44
[2022-09-07] MEDS ORDERED: NEUTRA PHOS 1 POWD.PACKET NG ONE (17:00)
--- NOTE | 2022-09-07 17:35 | NUR ---
laura came back from surgery, awake,alert,oriented x4,not in any form of distress, respirations even and unlabored,no sob noted, specimen sent to lab.all needs attended. Addendum: 09/07/22 at 1936 by RENATO BLANDON RN disregard this notes, wrong patient entry.
--- NOTE | 2022-09-07 18:00 | NUR ---
ms rn bilateral venous doppler done w/ result- positive dvt for both legs, will let md know.
--- NOTE | 2022-09-07 19:00 | NUR ---
ms rn on bed,no distress noted, all needs attended.endorse to slot shift supervisor for paty.
[2022-09-07] MEDS: POTASSIUM PHOSPHATE MM 7.5 MMOL in IV NS 0.9% 100 ML IV SCH ×2 (19:06→21:24)
[2022-09-07] MEDS: VANCOMYCIN POST DIALYSIS 500MG IV PRN ×2 (19:08)
[2022-09-07 20:00] VITALS: BP 125/44
--- NOTE | 2022-09-07 20:00 | NUR ---
RN NOTES: PER AM NURSE RENATO RECEIVED A CALL THAT PATIENT IS POSITIVE WITH DVT ON BLE NOTIFIED DR YSABEL HOUSER AND ORDERED TO CONTINUE TO HOLD ANTICOAGULANT NOTED AND CARRIED OUT.
--- NOTE | 2022-09-07 20:09 | NUR ---
MS RN OPENING NOTES: RECEIVED PATIENT SLEEP IN BED COMFORTABLY, AROUSABLE TO VERBAL STIMULI, BED IN LOW POSITION CALL LIGHTS WITHIN REACH, NO COMPLAIN OF PAIN AND DISCOMFORT AT THIS TIME, ON O2 INHALATION AT 3LPM SATURATING WELL, PATIENT ON G TUBE OF NEPRO @40ML/HR INFUSING WELL, WITH IV LINE AT LFA ML WITH ONGOING D5 1/2 NSS@50ML/HR INFUSING WELL, WITH RCW PERMACATH DIALYSIS DONE WITH 500CC OUTPUT TODAY, PATIENT KEPT CLEAN AND DRY ALL NEEDS MET WILL CONTINUE TO MONITOR.
[2022-09-07] MEDS: NEPRO 1,000 ML BOTTLE GT PRN (22:16)
--- NOTE | 2022-09-07 22:46 | NUR ---
RN NOTES: PATIENT REFUSED SERIAL H AND H AT 2200 TRIED TO CONVINCED EXPLAIN THE RISK AND BENEFITS APPROACH CN AND CONVINCED PATIENT ALSO BUT PATIENT STRONGLY REFUSED, KEPT ON SCREAMING NO, MOST RECENT HGB WAS 7.5 WILL CONTINUE TO MONITOR.
[2022-09-08] MEDS: INSULIN REGULAR, HUMAN 100 UNIT/ML 3 ML VIAL SQ PRN ×3 (00:18→23:32)
[2022-09-08] MEDS: BLOOD SUGAR DIAGNOSTIC 1 EACH STRIP IN SCH ×5 (00:22→23:24)
--- NOTE | 2022-09-08 00:22 | NUR ---
RN NOTES: 12:00 MN BLOOD SUGAR- 204/ 4 UNITS REGULAR INSULIN GIVEN PER SLIDING SCALE
[2022-09-08] MEDS: PIPERACILLIN /TAZOBACTAM 2.25 G in IV D5W 50 ML IV SCH (05:51)
--- NOTE | 2022-09-08 06:22 | NUR ---
RN NOTES: 0600AM BLOOD SUGAR-91/ NO INSULIN GIVEN PER SLIDING SCALE.
--- NOTE | 2022-09-08 06:23 | NUR ---
MS RN CLOSING NOTES: PATIENT SLEEP IN BED COMFORTABLY, BED IN LOW POSITION, CALL LIGHTS WITHIN REACH, NO COMPLAIN OF PAIN AND DISCOMFORT AT THIS TIME ON O2 INHALATION AT 3LPM SATURATING WELL, NO SOB WAS OBSERVED, ON G TUBE FEEDING OF NEPRO 1.8@ 35 ML PER HOUR INFUSING WELL, IV LINE AT LFA ML WITH ONGOING D5 1/2 NSS@50ML/HR INFUSING WELL, WITH RCW PERMACATH CLEAN AND SACRAL DRESSING CHANGE, ON SOFT WRIST RESTRAINT, PATIENT KEPT CLEAN AND DRY ALL NEEDS MET ENDORSE TO INCOMING SHIFT.
--- NOTE | 2022-09-08 07:15 | NUR ---
MS RN RECEIVED ON BED, AWAKE,ORIENTED X1,NOT IN ANY FORM OF DISTRESS, RESPIRATIONS EVEN AND UNLABORED, NO SOB NOTED, LUNGS HAVE BILATERAL CRACKLES WHEN COUGHING, ABDOMEN SOFT, GTUBE ON AT 40 ML /HOUR,TOLERATING WELL W/O RESIDUAL, DENIES PAIN AT THIS TIME,REPOSITIONED FOR COMFORT,ALL NEEDS ATTENDED.
[2022-09-08 07:37] LABS: CALCIUM, SERUM 8.2 mg/dL (8.5-10.1); CARBON DIOXIDE 25 mmol/L (21-32); CHLORIDE 103 mmol/L (98-107); CREATININE 2.2 mg/dL (0.6-1.3); GLUCOSE 94 mg/dL (74-106); MAGNESIUM 1.9 mg/dL (1.8-2.4); PHOSPHORUS 1.7 mg/dL (2.5-4.9); POTASSIUM 3.5 mmol/L (3.5-5.1); SODIUM SERUM 135 mmol/L (136-145); UREA NITROGEN, BLOOD 13 mg/dL (7-18)
[2022-09-08 08:00] VITALS: BP 143/75
[2022-09-08] MEDS: ACETYLCYSTEINE 20% SOLN 800 MG/4 ML VIAL NEB SCH ×3 (08:19→15:32)
[2022-09-08] MEDS: THERAHONEY GEL 1.5 OZ TUBE TP SCH (09:00)
[2022-09-08] MEDS ORDERED: APIXABAN 2.5 MG TABLET PO SCH (09:00)
[2022-09-08] MEDS: ASPIRIN EC 81 MG TABLET.DR PO SCH (09:00)
[2022-09-08 09:22] LABS: ALKALINE PHOSPHATASE 112 U/L (46-116); ASPARTATE AMINOTRANSFERASE 16 U/L (15-37); BILIRUBIN,TOTAL 0.2 mg/dL (0.2-1.0); TOTAL PROTEIN, SERUM 5.4 g/dL (6.4-8.2)
[2022-09-08 09:31] LABS: ALANINE AMINOTRANSFERASE < 6 U/L (12-78)
[2022-09-08 09:36] LABS: ALBUMIN 1.2 g/dL (3.4-5.0)
[2022-09-08] MEDS ORDERED: POTASSIUM PHOSPHATE MM 15 MMOL in IV NS 0.9% 250 ML IV SCH ×4 (10:00)
--- NOTE | 2022-09-08 10:00 | NUR ---
ms rn was seen by w/ orders made and carried out.
[2022-09-08] MEDS: MULTIVITAMINS,THERAGRAN 1 UDTAB TABLET PO SCH (10:07)
[2022-09-08] MEDS: BENZONATATE 100 MG CAPSULE PO PRN (10:07)
[2022-09-08] MEDS: LEVOTHYROXINE SODIUM 50 MCG TABLET PO SCH (10:08)
[2022-09-08] MEDS: LOSARTAN POTASSIUM 25 MG TABLET PO SCH (10:09)
[2022-09-08] MEDS: NIFEdipine XL (30MG) 30 MG TAB PO SCH (10:09)
[2022-09-08] MEDS: ATORVASTATIN 40 MG TABLET PO SCH (10:09)
[2022-09-08] MEDS: PANTOPRAZOLE 40 MG/PACK PACK NG SCH (10:10)
[2022-09-08] MEDS: MUPIROCIN OINT 2% 22 GM TUBE NS SCH ×2 (10:20→20:40)
[2022-09-08] MEDS: THERAHONEY GEL 1.5 OZ TUBE TP PRN (10:20)
--- NOTE | 2022-09-08 11:30 | NUR ---
ms laura u/s tech called that thoracentesis can not be done today, will be done in am, told her to contact doctor jasmyne.
[2022-09-08] MEDS: IV D5/0.45 NACL 1,000 ML IV PRN (11:47)
[2022-09-08] MEDS: POTASSIUM PHOSPHATE MM 7.5 MMOL in IV NS 0.9% 100 ML IV SCH ×2 (11:48→14:27)
--- NOTE | 2022-09-08 12:00 | NUR ---
ms rn blood sugar - 137 - did not gave coverage, patient tends to go low at 65-69.
[2022-09-08 12:06] LABS: BASOPHILS % (AUTO) 0.5 % (0.0-2.0); EOSINOPHILS % (AUTO) 5.9 % (0.0-6.0); HEMATOCRIT 22 % (33-45); HEMOGLOBIN 7.4 g/dL (11.5-14.8); LYMPHOCYTES # (AUTO) 1.9 K/uL (0.8-4.8); LYMPHOCYTES % (AUTO) 23.5 % (20.0-44.0); MEAN CORPUSCULAR HGB CONC 33 g/dl (31.0-36.0); MEAN CORPUSCULAR VOLUME 92 fL (82-100); MONOCYTES # (AUTO) 0.5 K/uL (0.1-1.30); MONOCYTES % (AUTO) 6.2 % (2.0-12.0); NEUTROPHILS # (AUTO) 5.2 K/uL (1.8-8.9); NEUTROPHILS % (AUTO) 63.9 % (43.0-81.0); PLATELET COUNT (AUTO) 185 K/uL (150-450); WHITE BLOOD COUNT (AUTO) 8.1 K/uL (4.3-11.0)
--- NOTE | 2022-09-08 14:05 | NUR ---
ms rn u/s called, dr. hawthorne is aware that procedure will be in am.
[2022-09-08 14:14] LABS: HEMOGLOBIN 7.1 g/dL (11.5-14.8)
[2022-09-08 16:00] VITALS: BP 138/70
--- NOTE | 2022-09-08 19:28 | NUR ---
ms rn on bed, no distress noted.
[2022-09-08 19:37] VITALS: BP 138/61
[2022-09-08 20:00] VITALS: BP 138/61
[2022-09-08 22:37] LABS: HEMOGLOBIN 6.6 g/dL (11.5-14.8)
[2022-09-08] MEDS: MIRTAZAPINE 15 MG TABLET PO SCH (23:15)
[2022-09-09] VITALS (12 sets, daily range): BP systolic 99–186; BP diastolic 47–75
[2022-09-09] MEDS: NEPRO 1,000 ML BOTTLE GT PRN ×2 (00:35→23:56)
--- NOTE | 2022-09-09 00:50 | NUR ---
Called the blood bank to inquire about the 1 unit of PRBCs needed to be infused [facility] [place] stated give me 15 minutes I'll call you Waited until 0110 spoke to a [place] and she stated that they were unable to get the blood will come by to try again noted blood band is on the patient left arm ? will inquire when lab get here
--- NOTE | 2022-09-09 02:00 | NUR ---
lab here to draw blood for type and screen unable to get from the midline flushes easily no blood draws back
--- NOTE | 2022-09-09 03:00 | NUR ---
Peg tube feeding placed on HOLD d/t pending Thoracentisis this am 09/09 peg flushed feeding off
--- NOTE | 2022-09-09 03:28 | NUR ---
Called Blood [facility] to inquire about the blood unit stated he is working on it will call me when ready
--- NOTE | 2022-09-09 03:57 | NUR ---
Call from the blood bank the blood is ready vitals signs taken off to get the unit of blood
--- NOTE | 2022-09-09 04:16 | NUR ---
Blood transfusion started as ordered B/P elevated will monitor
--- NOTE | 2022-09-09 05:27 | NUR ---
Notified MD Mendoza about the elevated B/P 172/65 178/67 he is okay with giving her AM dose or Procardia Xl early.
[2022-09-09] MEDS: NIFEdipine XL (30MG) 30 MG TAB PO SCH (05:30)
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
[2022-09-09] MEDS: BLOOD SUGAR DIAGNOSTIC 1 EACH STRIP IN SCH ×4 (06:24→23:54)
[2022-09-09] MEDS: ACETYLCYSTEINE 20% SOLN 800 MG/4 ML VIAL NEB SCH ×3 (07:21→16:56)
--- NOTE | 2022-09-09 07:50 | NUR ---
RN OPENING NOTE PATIENT RECEIVED IN BED AND ASLEEP. A/O X0-1; UNABLE TO VERBALIZE NEEDS. IV ACCESS TO TAMIKO-MIDLINE, INTACT AND PATENT. G-TUBE INTACT AND RUNNING @ 50ML/HR. NO S/SX OF PAIN OT DISTRESS OBSERVED. SAFETY MEASURES IN TACT WITH BED LOW AND LOCKED AND SIDERAIL UP X2. CALL LIGHT WITHIN REACH. WILL CONT TO MONITOR.
[2022-09-09] MEDS: THERAHONEY GEL 1.5 OZ TUBE TP SCH (09:00)
[2022-09-09] MEDS: LEVOTHYROXINE SODIUM 50 MCG TABLET PO SCH (10:41)
[2022-09-09] MEDS: LOSARTAN POTASSIUM 25 MG TABLET PO SCH (10:41)
[2022-09-09] MEDS: ATORVASTATIN 40 MG TABLET PO SCH (10:41)
[2022-09-09] MEDS: MULTIVITAMINS,THERAGRAN 1 UDTAB TABLET PO SCH (10:41)
[2022-09-09] MEDS: ASPIRIN EC 81 MG TABLET.DR PO SCH (10:41)
[2022-09-09] MEDS: PANTOPRAZOLE 40 MG VIAL IV SCH ×3 (10:42→17:40)
[2022-09-09 12:02] LABS: BASOPHILS % (AUTO) 0.3 % (0.0-2.0); EOSINOPHILS % (AUTO) 4.4 % (0.0-6.0); HEMATOCRIT 26 % (33-45); HEMOGLOBIN 8.6 g/dL (11.5-14.8); LYMPHOCYTES # (AUTO) 1.6 K/uL (0.8-4.8); LYMPHOCYTES % (AUTO) 15.5 % (20.0-44.0); MEAN CORPUSCULAR HGB CONC 33 g/dl (31.0-36.0); MEAN CORPUSCULAR VOLUME 92 fL (82-100); MONOCYTES # (AUTO) 0.5 K/uL (0.1-1.30); MONOCYTES % (AUTO) 4.6 % (2.0-12.0); NEUTROPHILS # (AUTO) 7.7 K/uL (1.8-8.9); NEUTROPHILS % (AUTO) 75.2 % (43.0-81.0); PLATELET COUNT (AUTO) 191 K/uL (150-450); RED BLOOD CELL COUNT(AUTO) 2.78 MIL/uL (4.0-5.2); WHITE BLOOD COUNT (AUTO) 10.2 K/uL (4.3-11.0)
[2022-09-09] MEDS: ALBUMIN 25% 25 GM in PREMIX 1 EA IV SCH ×2 (12:17→21:03)
[2022-09-09] MEDS: THERAHONEY GEL 1.5 OZ TUBE TP PRN (12:18)
[2022-09-09] MEDS: MUPIROCIN OINT 2% 22 GM TUBE NS SCH ×2 (12:19→21:08)
[2022-09-09 12:28] LABS: ALANINE AMINOTRANSFERASE < 6 U/L (12-78); ALKALINE PHOSPHATASE 122 U/L (46-116); ASPARTATE AMINOTRANSFERASE 17 U/L (15-37); BILIRUBIN,TOTAL 0.3 mg/dL (0.2-1.0); CALCIUM, SERUM 8.1 mg/dL (8.5-10.1); CARBON DIOXIDE 24 mmol/L (21-32); CREATININE 2.8 mg/dL (0.6-1.3); GLUCOSE 129 mg/dL (74-106); PHOSPHORUS 2.4 mg/dL (2.5-4.9); POTASSIUM 3.7 mmol/L (3.5-5.1); SODIUM SERUM 135 mmol/L (136-145); TOTAL PROTEIN, SERUM 5.8 g/dL (6.4-8.2); UREA NITROGEN, BLOOD 20 mg/dL (7-18)
[2022-09-09 12:44] LABS: ALBUMIN 1.3 g/dL (3.4-5.0)
[2022-09-09] MEDS ORDERED: NEUTRA PHOS 1 POWD.PACKET GT ONE (16:00)
[2022-09-09] MEDS: INSULIN REGULAR, HUMAN 100 UNIT/ML 3 ML VIAL SQ PRN (17:39)
--- NOTE | 2022-09-09 18:55 | NUR ---
RN CLOSING NOTE PATIENT REMAINED BEDBOUND, A/OX0-1 AND UNABLE TO VERBALIZE NEEDS, HOWEVER DID VERBALLY REFUSE LAB DRAW ON SHIFT YELLING "NO BLOOD" DURING POTENTIAL LAB PROCEDURE. CHARGE NURSE MADE AWARE. IV ACCESS TO TAIMKO AND R-HAND BOTH REMAIN INTACT AND PATENT. ALBUMIN LEVELS DECREASED , HOWEVER REPLACED ON SHIFT. THORACENTESIS COMPLETED AT BEDSIDE WITH 650CC BODILY FLUID REMOVED AND SENT TO LAB FOR FURTHER TESTING. TUBE FEEDING RESUMED AFTER PROCEDURE. BLOOD SUGAR LEVELS STABLE ON SHIFT. EGD SCHEDULED FOR 09/10/22-CONSENT SIGNED AND PLACED IN CHART. SAFETY PRECAUTIONS REMAIN INTACT WITH BED LOW AND LOCKED. CALL LIGHT WITHIN REACH. WILL CONTINUE TO MONITOR.
--- NOTE | 2022-09-09 19:00 | NUR ---
received in bed awake and alert more keenly alert and awake then 24 hours prior
[2022-09-09] MEDS: IV D5/0.45 NACL 1,000 ML IV PRN (19:36)
[2022-09-09] MEDS: MIRTAZAPINE 15 MG TABLET PO SCH (21:30)
[2022-09-10] MEDS: INSULIN REGULAR, HUMAN 100 UNIT/ML 3 ML VIAL SQ PRN (00:13)
--- NOTE | 2022-09-10 04:29 | NUR ---
closing notes: alert and orientated x2 refusing labs to be drawn explained to her the importance her dentures were removed and placed in a labeled cup she is kept dry and repositioned q 2 hours max assist needed NPO since 2400 scheduled for EGD this am
[2022-09-10] MEDS: BLOOD SUGAR DIAGNOSTIC 1 EACH STRIP IN SCH ×3 (05:32→18:05)
--- NOTE | 2022-09-10 05:53 | NUR ---
Made SURTASS ANALYST Ranjit Mendoza aware that her Blood sugar this AM is 75 from 138 last night That her feeding is on hold D/T being NPO for the AM procedure EGD and my concern that her sugar level my drop waiting for a response
[2022-09-10 06:28] LABS: BASOPHILS # (AUTO) 0.1 K/uL (0.0-0.2); BASOPHILS % (AUTO) 0.5 % (0.0-2.0); EOSINOPHILS % (AUTO) 4.5 % (0.0-6.0); HEMATOCRIT 21 % (33-45); HEMOGLOBIN 7.2 g/dL (11.5-14.8); LYMPHOCYTES # (AUTO) 2.5 K/uL (0.8-4.8); LYMPHOCYTES % (AUTO) 17.7 % (20.0-44.0); MEAN CORPUSCULAR HGB CONC 34 g/dl (31.0-36.0); MEAN CORPUSCULAR VOLUME 92 fL (82-100); MONOCYTES # (AUTO) 0.9 K/uL (0.1-1.30); MONOCYTES % (AUTO) 6.6 % (2.0-12.0); NEUTROPHILS % (AUTO) 70.7 % (43.0-81.0); PLATELET COUNT (AUTO) 178 K/uL (150-450); RED BLOOD CELL COUNT(AUTO) 2.33 MIL/uL (4.0-5.2); WHITE BLOOD COUNT (AUTO) 14.2 K/uL (4.3-11.0)
[2022-09-10 06:58] LABS: CALCIUM, SERUM 7.5 mg/dL (8.5-10.1); CARBON DIOXIDE 24 mmol/L (21-32); CHLORIDE 101 mmol/L (98-107); GLUCOSE 75 mg/dL (74-106); POTASSIUM 3.2 mmol/L (3.5-5.1); SODIUM SERUM 135 mmol/L (136-145); UREA NITROGEN, BLOOD 25 mg/dL (7-18)
[2022-09-10] MEDS: LEVOTHYROXINE SODIUM 50 MCG TABLET PO SCH (07:30)
[2022-09-10 07:39] LABS: BILIRUBIN,TOTAL 0.3 mg/dL (0.2-1.0)
[2022-09-10 07:40] LABS: ALBUMIN 1.9 g/dL (3.4-5.0); ALKALINE PHOSPHATASE 94 U/L (46-116); ASPARTATE AMINOTRANSFERASE 12 U/L (15-37); TOTAL PROTEIN, SERUM 5.3 g/dL (6.4-8.2)
[2022-09-10 08:00] VITALS: BP 152/74
[2022-09-10 08:06] LABS: ALANINE AMINOTRANSFERASE < 6 U/L (12-78)
[2022-09-10] MEDS: ACETYLCYSTEINE 20% SOLN 800 MG/4 ML VIAL NEB SCH ×3 (08:39→17:00)
[2022-09-10] MEDS: ASPIRIN EC 81 MG TABLET.DR PO SCH (09:00)
[2022-09-10] MEDS: MULTIVITAMINS,THERAGRAN 1 UDTAB TABLET PO SCH (09:00)
[2022-09-10] MEDS: NIFEdipine XL (30MG) 30 MG TAB PO SCH (10:26)
[2022-09-10] MEDS: LOSARTAN POTASSIUM 25 MG TABLET PO SCH (10:26)
[2022-09-10] MEDS: PANTOPRAZOLE 40 MG VIAL IV SCH ×2 (10:27→18:05)
[2022-09-10] MEDS: ATORVASTATIN 40 MG TABLET PO SCH (10:34)
[2022-09-10] MEDS: MUPIROCIN OINT 2% 22 GM TUBE NS SCH (10:44)
[2022-09-10] MEDS: THERAHONEY GEL 1.5 OZ TUBE TP SCH (10:45)
[2022-09-10] MEDS: IV D5/0.45 NACL 1,000 ML IV PRN (15:36)
[2022-09-10 16:00] VITALS: BP 98/80
[2022-09-10] MEDS: APIXABAN 5 MG TABLET PO SCH (17:00)
[2022-09-10] MEDS ORDERED: NEUTRA PHOS 1 POWD.PACKET GT ONE ×2 (18:00→19:30)
--- NOTE | 2022-09-10 19:04 | NUR ---
RN CLOSING NOTE PATIENT RECEIVED IN BED AND SLEEPING. A/OX0-1 AND UNABLE TO VERBALIZE NEEDS. IV ACCESS TO TAMIKO AND R-HAND BOTH REMAIN INTACT AND PATENT. REMAINS NPO STATUS AT THIS TIME DUE TO SCHEDULED EGD PROCEDURE ALBUMIN LEVELS DECREASED , HOWEVER REPLACED ON SHIFT. THORACENTESIS COMPLETED AT BEDSIDE WITH 650CC BODILY FLUID REMOVED AND SENT TO LAB FOR FURTHER TESTING. TUBE FEEDING RESUMED AFTER PROCEDURE. BLOOD SUGAR LEVELS STABLE ON SHIFT. EGD SCHEDULED FOR 09/10/22-CONSENT SIGNED AND PLACED IN CHART. SAFETY PRECAUTIONS REMAIN INTACT WITH BED LOW AND LOCKED. CALL LIGHT WITHIN REACH. WILL CONTINUE TO MONITOR. Addendum: 09/10/22 at 1909 by ENIRCO TSAI RN RN CLOSING NOTE PATIENT RECEIVED IN BED AND SLEEPING. A/OX0-1 AND UNABLE TO VERBALIZE NEEDS. IV ACCESS TO TAMIKO AND R-HAND BOTH REMAIN INTACT AND PATENT. REMAINS NPO STATUS AT THIS TIME DUE TO SCHEDULED EGD PROCEDURE; G-TUBE FEEDING HELD. BLOOD SUGAR LEVELS STABLE ON SHIFT @ 86 & 85. HEMODIALYSIS BEING STARTED AT BEDSIDE ( WILL COMPLETE AT FOLLOWING SHIFT). SAFETY PRECAUTIONS REMAIN INTACT WITH BED LOW AND LOCKED. CALL LIGHT WITHIN REACH. WILL CONTINUE TO MONITOR.
--- NOTE | 2022-09-10 19:45 | NUR ---
MS RN NOTE SURGERY RN ON FLOOR TO TAKE PATIENT FOR EGD, HOWEVER, PATIENT CURRENTLY UNDERGOING DIALYSIS. RN SPOKE TO DR. POLLOCK, PER RN PATIENT WILL NOT BE GOING FOR EGD D/T DIALYSIS AT THIS TIME
[2022-09-10 20:00] VITALS: BP 86/56
--- NOTE | 2022-09-10 20:25 | NUR ---
MS RN OPENING NOTE PATIENT SLEEPING IN BED, PATIENT ALERT/ORIENTED X 0-1, PT UNABLE TO MAKE NEEDS KNOWN. PT STABLE ON 2LPM OF O2 VIA NASAL CANNULA, NO S/S OF DISTRESS OR SOB NOTED, BREATHING EVEN AND UNLABORED. IV ACCESS ON TAMIKO MIDLINE INTACT AND INFUSING D5 1/2 NS @ 50 ML/HR. PT NPO AT THIS TIME, AWAITING EGD. DIALYSIS FINISHED, 500 ML OUT. SAFETY MEASURES IN PLACE: CALL LIGHT WITHIN REACH, SIDE RAILS UP X 2, BED LOCKED IN LOWEST POSITION, BED ALARM ON. WILL CONTINUE TO MONITOR PATIENT
[2022-09-10 20:30] VITALS: BP 128/59
[2022-09-10] MEDS: MIRTAZAPINE 15 MG TABLET PO SCH (21:30)
[2022-09-10 22:39] LABS: HEMOGLOBIN 7.2 g/dL (11.5-14.8)
[2022-09-11] MEDS: BLOOD SUGAR DIAGNOSTIC 1 EACH STRIP IN SCH ×5 (00:45→23:58)
[2022-09-11] MEDS: INSULIN REGULAR, HUMAN 100 UNIT/ML 3 ML VIAL SQ PRN ×2 (00:46→06:49)
[2022-09-11] MEDS: IV D5/0.45 NACL 1,000 ML IV PRN ×2 (04:57→21:42)
[2022-09-11 06:20] LABS: BASOPHILS % (AUTO) 0.6 % (0.0-2.0); EOSINOPHILS % (AUTO) 5.1 % (0.0-6.0); HEMATOCRIT 21 % (33-45); HEMOGLOBIN 7.1 g/dL (11.5-14.8); LYMPHOCYTES # (AUTO) 2.1 K/uL (0.8-4.8); LYMPHOCYTES % (AUTO) 24.5 % (20.0-44.0); MEAN CORPUSCULAR HGB CONC 34 g/dl (31.0-36.0); MEAN CORPUSCULAR VOLUME 92 fL (82-100); MONOCYTES # (AUTO) 0.6 K/uL (0.1-1.30); MONOCYTES % (AUTO) 7.6 % (2.0-12.0); NEUTROPHILS # (AUTO) 5.2 K/uL (1.8-8.9); NEUTROPHILS % (AUTO) 62.2 % (43.0-81.0); PLATELET COUNT (AUTO) 197 K/uL (150-450); WHITE BLOOD COUNT (AUTO) 8.4 K/uL (4.3-11.0)
[2022-09-11 07:00] LABS: ALANINE AMINOTRANSFERASE < 6 U/L (12-78); ALKALINE PHOSPHATASE 89 U/L (46-116); ASPARTATE AMINOTRANSFERASE 17 U/L (15-37); BILIRUBIN,TOTAL 0.3 mg/dL (0.2-1.0); CALCIUM, SERUM 7.7 mg/dL (8.5-10.1); CARBON DIOXIDE 27 mmol/L (21-32); CHLORIDE 106 mmol/L (98-107); CREATININE 1.9 mg/dL (0.6-1.3); GLUCOSE 79 mg/dL (74-106); PHOSPHORUS 2.3 mg/dL (2.5-4.9); POTASSIUM 3.3 mmol/L (3.5-5.1); SODIUM SERUM 138 mmol/L (136-145); TOTAL PROTEIN, SERUM 4.7 g/dL (6.4-8.2); UREA NITROGEN, BLOOD 13 mg/dL (7-18)
--- NOTE | 2022-09-11 07:01 | NUR ---
MS RN CLOSING NOTE PATIENT SLEEPING IN BED, PATIENT ALERT/ORIENTED X 0-1, PT UNABLE TO MAKE NEEDS KNOWN. PT STABLE ON 2LPM OF O2 VIA NASAL CANNULA, NO S/S OF DISTRESS OR SOB NOTED, BREATHING EVEN AND UNLABORED. IV ACCESS ON TAMIKO MIDLINE INTACT AND INFUSING D5 1/2 NS @ 50 ML/HR. GT FEEDING STILL ON HOLD, AWAITING EGD, PT WAS SUPPOSED TO GET EGD YESTERDAY BUT WHEN SURGERY RN CAME PATIENT WAS GETTING DIALYSIS AND COULDN'T GET IT DONE. SAFETY MEASURES IN PLACE: CALL LIGHT WITHIN REACH, SIDE RAILS UP X 2, BED LOCKED IN LOWEST POSITION, BED ALARM ON. WILL ENDORSE TO DAYSHIFT RN FOR CONTINUITY OF CARE
[2022-09-11 07:05] LABS: ALBUMIN 1.4 g/dL (3.4-5.0)
[2022-09-11] MEDS: LEVOTHYROXINE SODIUM 50 MCG TABLET PO SCH (07:30)
--- NOTE | 2022-09-11 07:30 | NUR ---
RN MS NOTES PT IN BED, ASLEEP, EASY TO AROUSE, NO SIGN OF PAIN, NOT IN DISTRESS, IV FLUIDS INFUSING WELL, CALL LIGHT WITHIN REACH, KEPT CLEAN, DRY AND COMFORTABLE.
[2022-09-11 08:00] VITALS: BP 156/66
[2022-09-11] MEDS: APIXABAN 5 MG TABLET PO SCH ×2 (08:44→17:00)
[2022-09-11] MEDS: NIFEdipine XL (30MG) 30 MG TAB PO SCH (09:00)
[2022-09-11] MEDS: ATORVASTATIN 40 MG TABLET PO SCH (09:00)
[2022-09-11] MEDS: LOSARTAN POTASSIUM 25 MG TABLET PO SCH (09:00)
[2022-09-11] MEDS: MULTIVITAMINS,THERAGRAN 1 UDTAB TABLET PO SCH (09:00)
[2022-09-11] MEDS: ASPIRIN EC 81 MG TABLET.DR PO SCH (09:00)
[2022-09-11] MEDS: PANTOPRAZOLE 40 MG/PACK PACK GT SCH ×2 (09:00→17:25)
[2022-09-11] MEDS: ACETYLCYSTEINE 20% SOLN 800 MG/4 ML VIAL NEB SCH ×3 (09:02→16:03)
[2022-09-11] MEDS: THERAHONEY GEL 1.5 OZ TUBE TP SCH (09:37)
--- NOTE | 2022-09-11 10:00 | NUR ---
RN MS NOTES CALLED O.R. SPOKE WITH AIRAM PT NOT IN THE SCHEDULE FOR EGD OF THIS TIME, WILL FOLLOW UP.
[2022-09-11 14:56] LABS: HEMOGLOBIN 7.1 g/dL (11.5-14.8)
[2022-09-11] MEDS ORDERED: K PHOS NEUTRAL 250 MG TABLET PO ONE (15:00)
[2022-09-11] MEDS ORDERED: NEUTRA PHOS 1 POWD.PACKET PO ONE (15:00)
[2022-09-11 16:00] VITALS: BP 162/71
[2022-09-11 16:57] VITALS: BP 151/47
[2022-09-11] MEDS: NEPRO 1,000 ML BOTTLE GT PRN (17:30)
[2022-09-11] MEDS ORDERED: POTASSIUM PHOSPHATE MM 7.5 MMOL in IV NS 0.9% 100 ML IV SCH (18:00)
--- NOTE | 2022-09-11 18:52 | NUR ---
RN MS NOTES PT IN BED, RESTING, ALERT AND VERBALLY RESPONSIVE, NO COMPLAINT AT THIS TIME, RESPIRATIONS NORMAL, CALL LIGHT WITHIN REACH RESTARTED GT FEEDING PER MD ORDER, WILL BE NPO AFTER MIDNIGHT FOR GI FOLLOW UP/POSSIBLE EGD, PM CARE PROVIDED, BS CHECKED, NO S/S OF HYPER/HYPOGLYCEMIA NOTED, ALL NEEDS ATTENDED.
--- NOTE | 2022-09-11 19:00 | NUR ---
MS RN OPENING NOTE PATIENT IS SLEEPING IN BED, EASILY BEING AROUSED BY CALLING HER NAME OR BY TOUCH. ALERT/ORIENTED X 0-1, PT IS UNABLE TO MAKE NEEDS KNOWN. PT IS STABLE ON 2LPM OF O2 VIA NASAL CANNULA, NO S/S OF DISTRESS OR SOB. BREATHING EVENLY AND UNLABORED. IV ACCESS IS ON LFA , MIDLINE, PATENT AND INTACT. IV RUNNING D5 1/2 NS @ 50 ML/HR. PT IS ON G-TUBE FEEDING , NEPRO, ZERO RESIDUAL. TOLERATED WELL. PATIENT WILL HAVE EGD TOMORROW, SO SHE WILL BE ON NPO AFTER 2300 TONIGHT. SAFETY MEASURES IN PLACE: CALL LIGHT WITHIN REACH, SIDE RAILS UP X 3, BED LOCKED IN LOWE POSITION, HOB IS ELEVATED ABOVE 45 DEGREE. BED ALARM IS SET. WILL CONTINUE TO MONITOR PATIENT'S CONDITION.
[2022-09-11 20:00] VITALS: BP 149/45
[2022-09-11] MEDS: MIRTAZAPINE 15 MG TABLET PO SCH (21:40)
--- NOTE | 2022-09-11 22:56 | NUR ---
MS RN NOTE RECEIVED PHONE CALL FROM [facility], GIVING REPORT THAT PATIENT HAS LAB VALUE HEMOGLOBIN / HEMATOCRIT WAS 05/10. CHARGE NURSE, JODEE NOTIFIED.
[2022-09-12] MEDS: BLOOD SUGAR DIAGNOSTIC 1 EACH STRIP IN SCH ×3 (06:33→18:16)
--- NOTE | 2022-09-12 07:28 | NUR ---
MS RN CLOSING NOTE PATIENT IS SLEEPING IN BED, EASILY BEING AROUSED BY CALLING HER NAME OR BY TOUCH. ALERT/ORIENTED X 0-1, PT IS UNABLE TO MAKE NEEDS KNOWN. PT IS STABLE ON 2LPM OF O2 VIA NASAL CANNULA, NO S/S OF DISTRESS OR SOB. BREATHING EVENLY AND UNLABORED. IV ACCESS IS ON LFA , MIDLINE, PATENT AND INTACT. IV RUNING D5 1/2 NS @ 50 ML/HR. PT IS ON G-TUBE FEEDING , NEPRO, ZERO RESIDUAL. TOLERATED WELL. NPO AFTER 2300 ON 09/11/2022 PER MD ORDER. PATIENT WILL HAVE EGD TODAY. SAFETY MEASURES IN PLACE: CALL LIGHT WITHIN REACH, SIDE RAILS UP X 3, BED LOCKED IN LOW POSITION, HOB IS ELEVATED ABOVE 45 DEGREE. BED ALARM IS SET. WILL ENDORSE NEXT SHIFT NURSE FOR CONTINUING PATIENT CARE AND CLOSELY MONITOR PATIENT'S BLOOD SUGAR LEVEL DUE TO NPO.
--- NOTE | 2022-09-12 07:48 | NUR ---
RN MS NOTES PT IN BED, ASLEEP, EASY TO AROUSE, NO SIGN OF PAIN OR DISTRESS, IV FLUIDS INFUSING WELL, CALL LIGHT WITHIN REACH, KEPT WARM AND COMFORTABLE IN BED.
[2022-09-12 08:00] VITALS: BP 150/79
[2022-09-12] MEDS: LEVOTHYROXINE SODIUM 50 MCG TABLET PO SCH (08:01)
[2022-09-12] MEDS: APIXABAN 5 MG TABLET PO SCH ×2 (09:00→16:55)
[2022-09-12] MEDS: ACETYLCYSTEINE 20% SOLN 800 MG/4 ML VIAL NEB SCH ×3 (09:00→17:00)
[2022-09-12] MEDS: LOSARTAN POTASSIUM 25 MG TABLET PO SCH (10:53)
[2022-09-12] MEDS: ATORVASTATIN 40 MG TABLET PO SCH (10:56)
[2022-09-12] MEDS: NIFEdipine XL (30MG) 30 MG TAB PO SCH (10:57)
[2022-09-12] MEDS: MULTIVITAMINS,THERAGRAN 1 UDTAB TABLET PO SCH (10:57)
[2022-09-12] MEDS: PANTOPRAZOLE 40 MG/PACK PACK GT SCH ×2 (11:03→17:48)
[2022-09-12] MEDS: ASPIRIN EC 81 MG TABLET.DR PO SCH (11:04)
[2022-09-12] MEDS: THERAHONEY GEL 1.5 OZ TUBE TP SCH (11:12)
[2022-09-12 16:00] VITALS: BP 115/64
--- NOTE | 2022-09-12 18:29 | NUR ---
RN MS NOTES PT IN BED, RESTING, NO COMPLAINT OF PAIN OR ANY DISCOMFORT, RESPIRATIONS NORMAL, CALL LIGHT WITHIN REACH, PM CARE PROVIDED, PM MEDS GIVEN, ALL NEEDS ATTENDED.
--- NOTE | 2022-09-12 19:25 | NUR ---
MS RN OPENING NOTE PATIENT RESTING IN BED, WITH EYES OPENED. ALERT/ORIENTED X 1. PT STABLE ON 2LPM OF O2 VIA NASAL CANNULA, NO S/S OF DISTRESS OR SOB NOTED, BREATHING EVEN AND UNLABORED. IV ACCESS TO LEFT UA MIDLINE INTACT, AND INFUSING D5 1/2 NS @ 50 ML/HR. PT ON G TUBE FEEDING. SAFETY MEASURES IN PLACE: CALL LIGHT WITHIN REACH, SIDE RAILS UP X 2, BED LOCKED IN LOWEST POSITION, BED ALARM ON. WILL CONTINUE TO MONITOR PATIENT.
[2022-09-12 20:00] VITALS: BP 146/62
[2022-09-12] MEDS: MIRTAZAPINE 15 MG TABLET PO SCH (22:51)
--- NOTE | 2022-09-13 | NUR ---
MS RN NOTE PT NPO AT THIS TIME, AWAITING EGD SCHEDULED IN MORNING.
[2022-09-13] MEDS: BLOOD SUGAR DIAGNOSTIC 1 EACH STRIP IN SCH ×5 (00:53→23:30)
[2022-09-13] MEDS: INSULIN REGULAR, HUMAN 100 UNIT/ML 3 ML VIAL SQ PRN ×4 (00:54→23:30)
[2022-09-13 06:02] LABS: BASOPHILS # (AUTO) 0.1 K/uL (0.0-0.2); BASOPHILS % (AUTO) 0.6 % (0.0-2.0); EOSINOPHILS % (AUTO) 3.5 % (0.0-6.0); HEMATOCRIT 22 % (33-45); HEMOGLOBIN 7.4 g/dL (11.5-14.8); LYMPHOCYTES # (AUTO) 2.1 K/uL (0.8-4.8); LYMPHOCYTES % (AUTO) 17.6 % (20.0-44.0); MEAN CORPUSCULAR HGB CONC 33 g/dl (31.0-36.0); MEAN CORPUSCULAR VOLUME 92 fL (82-100); MONOCYTES # (AUTO) 0.7 K/uL (0.1-1.30); MONOCYTES % (AUTO) 6.2 % (2.0-12.0); NEUTROPHILS # (AUTO) 8.5 K/uL (1.8-8.9); NEUTROPHILS % (AUTO) 72.1 % (43.0-81.0); PLATELET COUNT (AUTO) 287 K/uL (150-450); RED BLOOD CELL COUNT(AUTO) 2.42 MIL/uL (4.0-5.2); WHITE BLOOD COUNT (AUTO) 11.9 K/uL (4.3-11.0)
--- NOTE | 2022-09-13 07:05 | NUR ---
MS RN CLOSING NOTE PATIENT IS SLEEPING IN BED, EASILY AROUSED. ALERT/ORIENTED X1. STABLE ON 2LPM OF O2 VIA NASAL CANNULA, NO S/S OF DISTRESS OR SOB. BREATHING EVEN AND UNLABORED. IV ACCESS TO LEFT FA , MIDLINE, PATENT AND INTACT, RUNNING D5 1/2 NS @ 50 ML/HR. PT IS NPO. PATIENT WILL HAVE EGD TODAY. SAFETY MEASURES IN PLACE: CALL LIGHT WITHIN REACH, SIDE RAILS UP X 3, BED LOCKED IN LOW POSITION, HOB IS ELEVATED ABOVE 45 DEGREE. BED ALARM ON. WILL ENDORSE TO NEXT SHIFT NURSE FOR CONTINUING OF CARE.
[2022-09-13] MEDS: LEVOTHYROXINE SODIUM 50 MCG TABLET PO SCH (07:30)
--- NOTE | 2022-09-13 07:30 | NUR ---
MS RN OPENING NOTE RECEIVED PATIENT RESTING ON BED, WITH EYES OPENED AND A/O X1. ON 2LPM OF O2 VIA NASAL CANNULA, NO S/S OF DISTRESS OR SOB NOTED, BREATHING EVEN AND UNLABORED. WITH IV ACCESS AT LEFT UPPER ARM MIDLINE INTACT WITH D5 1/2 NS @ 50 ML/HR. ON NPO AWAITING FOR EGD PROCEDURE. SAFETY MEASURES IN PLACED: CALL LIGHT WITHIN REACH, SIDE RAILS UP X 2, BED LOCKED IN LOWEST POSITION, BED ALARM ON. WILL CONTINUE TO MONITOR.
[2022-09-13 08:00] VITALS: BP 151/71
[2022-09-13 08:14] LABS: CALCIUM, SERUM 7.6 mg/dL (8.5-10.1); CREATININE 2.9 mg/dL (0.6-1.3); MAGNESIUM 1.7 mg/dL (1.8-2.4); PHOSPHORUS 3.9 mg/dL (2.5-4.9); POTASSIUM 3.5 mmol/L (3.5-5.1)
[2022-09-13] MEDS: APIXABAN 5 MG TABLET PO SCH ×2 (09:00→17:00)
[2022-09-13] MEDS: LOSARTAN POTASSIUM 25 MG TABLET PO SCH (09:00)
[2022-09-13] MEDS: NIFEdipine XL (30MG) 30 MG TAB PO SCH (09:00)
[2022-09-13] MEDS: ACETYLCYSTEINE 20% SOLN 800 MG/4 ML VIAL NEB SCH ×2 (10:04→14:17)
[2022-09-13] MEDS: MULTIVITAMINS,THERAGRAN 1 UDTAB TABLET PO SCH (11:11)
[2022-09-13] MEDS: PANTOPRAZOLE 40 MG/PACK PACK GT SCH ×2 (11:11→17:10)
[2022-09-13] MEDS: ASPIRIN EC 81 MG TABLET.DR PO SCH (11:12)
[2022-09-13] MEDS: THERAHONEY GEL 1.5 OZ TUBE TP SCH (11:12)
[2022-09-13] MEDS: ATORVASTATIN 40 MG TABLET PO SCH (11:12)
--- NOTE | 2022-09-13 13:30 | NUR ---
RN NOTE S/P HEMODIALYSIS WITH 1L OUTPUT.
[2022-09-13 16:00] VITALS: BP 157/77
--- NOTE | 2022-09-13 18:47 | NUR ---
MS RN CLOSING NOTE PATIENT RESTING ON BED, WITH EYES OPENED AND A/O X1. ON 2LPM OF O2 VIA NASAL CANNULA, NO S/S OF DISTRESS OR SOB NOTED, BREATHING EVEN AND UNLABORED. WITH IV ACCESS AT LEFT UPPER ARM MIDLINE INTACT AND AT LEFT HAND G20 WITH D5 1/2 NS @ 50 ML/HR.DUE MEDS GIVEN. SAFETY MEASURES IN PLACED: CALL LIGHT WITHIN REACH, SIDE RAILS UP X 2, BED LOCKED IN LOWEST POSITION, BED ALARM ON. WILL ENDORSE TO NEXT SHIFT FOR TAYE.
--- NOTE | 2022-09-13 19:40 | NUR ---
RN OPENING NOTES RECEIVED PT IN BED, AWAKE, CONFUSED. AOx2, WITH PERIODS OF CONFUSION. ON NC 2LPM AND TOLERATING WELL. NO SOB NOTED. NO S/SX OF RESPIRATORY DISTRESS NOTED. IV ACCESS IN L WRIST #20G RUNNING D51/2NS @ 50 ML/HR. SAFETY PRECAUTIONS IN PLACE: BED IN LOWEST, LOCKED POSITION, SIDERAILS UPx2, AND BRAKES ON. TABLE AND CALL LIGHT WITHIN REACH. ALL NEEDS MET AT THIS TIME.
[2022-09-13 20:14] VITALS: BP 147/78
[2022-09-13] MEDS: MIRTAZAPINE 15 MG TABLET PO SCH (21:08)
[2022-09-13] MEDS: NEPRO 1,000 ML BOTTLE GT PRN (21:10)
[2022-09-14] MEDS: INSULIN REGULAR, HUMAN 100 UNIT/ML 3 ML VIAL SQ PRN ×3 (06:03→17:14)
[2022-09-14] MEDS: BLOOD SUGAR DIAGNOSTIC 1 EACH STRIP IN SCH ×3 (06:03→17:13)
[2022-09-14 06:27] LABS: BASOPHILS # (AUTO) 0.1 K/uL (0.0-0.2); BASOPHILS % (AUTO) 0.5 % (0.0-2.0); EOSINOPHILS % (AUTO) 3.3 % (0.0-6.0); HEMATOCRIT 21 % (33-45); HEMOGLOBIN 7.1 g/dL (11.5-14.8); LYMPHOCYTES % (AUTO) 19.4 % (20.0-44.0); MEAN CORPUSCULAR HGB CONC 34 g/dl (31.0-36.0); MEAN CORPUSCULAR VOLUME 94 fL (82-100); MONOCYTES # (AUTO) 0.7 K/uL (0.1-1.30); MONOCYTES % (AUTO) 6.3 % (2.0-12.0); NEUTROPHILS # (AUTO) 7.4 K/uL (1.8-8.9); NEUTROPHILS % (AUTO) 70.5 % (43.0-81.0); PLATELET COUNT (AUTO) 297 K/uL (150-450); RED BLOOD CELL COUNT(AUTO) 2.25 MIL/uL (4.0-5.2); WHITE BLOOD COUNT (AUTO) 10.5 K/uL (4.3-11.0)
[2022-09-14 06:44] LABS: CALCIUM, SERUM 8.3 mg/dL (8.5-10.1); CREATININE 1.9 mg/dL (0.6-1.3); MAGNESIUM 1.8 mg/dL (1.8-2.4); PHOSPHORUS 2.9 mg/dL (2.5-4.9); POTASSIUM 3.6 mmol/L (3.5-5.1)
--- NOTE | 2022-09-14 06:46 | NUR ---
RN CLOSING NOTES PT IN BED, ASLEEP, AWAKENS TO VERBAL STIMULI. AOx2, WITH PERIODS OF CONFUSION. ON NC 2LPM AND TOLERATING WELL. NO SOB NOTED. NO S/SX OF RESPIRATORY DISTRESS NOTED. IV ACCESS IN L WRIST #20G RUNNING D51/2NS @ 50 ML/HR. ALL ORDERS CARRIED OUT. ALL NEEDS MET. PT KEPT CLEAN AND DRY. SAFETY PRECAUTIONS IN PLACE: BED IN LOWEST, LOCKED POSITION, SIDERAILS UPx2, AND BRAKES ON. TABLE AND CALL LIGHT WITHIN REACH. WILL ENDORSE TO ONCOMING SHIFT FOR TAYE.
[2022-09-14 07:00] VITALS: BP 152/77
--- NOTE | 2022-09-14 07:30 | NUR ---
MS RN OPENING NOTES RECEIVED PATIENT RESTING ON BED, WITH EYES OPENED AND A/O X1. ON 2LPM OF O2 VIA NASAL CANNULA, NO S/S OF DISTRESS OR SOB NOTED, BREATHING EVEN AND UNLABORED. WITH IV ACCESS AT THE LEFT WRIST G20 WITH D5 1/2 NS @ 50 ML/HR. SAFETY MEASURES IN PLACED: CALL LIGHT WITHIN REACH, SIDE RAILS UP X 2, BED LOCKED IN LOWEST POSITION, BED ALARM ON. WILL CONTINUE TO MONITOR.
[2022-09-14] MEDS: LEVOTHYROXINE SODIUM 50 MCG TABLET PO SCH (07:57)
[2022-09-14] MEDS: ATORVASTATIN 40 MG TABLET PO SCH (08:01)
[2022-09-14] MEDS: LOSARTAN POTASSIUM 25 MG TABLET PO SCH (08:01)
[2022-09-14] MEDS: NIFEdipine XL (30MG) 30 MG TAB PO SCH (08:01)
[2022-09-14] MEDS: PANTOPRAZOLE 40 MG/PACK PACK GT SCH ×2 (08:01→16:19)
[2022-09-14] MEDS: MULTIVITAMINS,THERAGRAN 1 UDTAB TABLET PO SCH (08:01)
[2022-09-14] MEDS: APIXABAN 5 MG TABLET PO SCH ×2 (08:02→16:52)
[2022-09-14] MEDS: THERAHONEY GEL 1.5 OZ TUBE TP SCH (08:02)
[2022-09-14] MEDS: ASPIRIN EC 81 MG TABLET.DR PO SCH (08:02)
[2022-09-14] MEDS: ACETYLCYSTEINE 20% SOLN 800 MG/4 ML VIAL NEB SCH ×3 (09:22→17:00)
[2022-09-14 16:00] VITALS: BP 101/53
--- NOTE | 2022-09-14 17:25 | NUR ---
RECEIVED PATIENT ON 2LNC SATURATIONS AT 96%. TID HHN TXS OWEN WELL WITH NO ADVERSE REACTION NOTED. NO SOB NOTED.
--- NOTE | 2022-09-14 18:27 | NUR ---
MS RN CLOSING NOTE PATIENT RESTING ON BED, WITH EYES OPENED AND A/O X1. ON 2LPM OF O2 VIA NASAL CANNULA, NO S/S OF DISTRESS OR SOB NOTED, BREATHING EVEN AND UNLABORED. WITH IV ACCESS AT LEFT UPPER ARM MIDLINE INTACT AND AT LEFT WRIST G20 WITH D5 1/2 NS @ 50 ML/HR.DUE MEDS GIVEN. SAFETY MEASURES IN PLACED: CALL LIGHT WITHIN REACH, SIDE RAILS UP X 2, BED LOCKED IN LOWEST POSITION, BED ALARM ON. WILL ENDORSE TO NEXT SHIFT FOR TAYE.
[2022-09-14] MEDS: IV D5/0.45 NACL 1,000 ML IV PRN (18:31)
--- NOTE | 2022-09-14 19:25 | NUR ---
MS RN OPENING NOTE RECEIVED PATIENT IN BED; AWAKE, ALERT AND ORIENTED X 1-2. ON O2 INHALATION @ 2LPM VIA NASAL CANNULA; TOLERATING WELL. BREATHING EVEN AND NONLABORED. NOT IN ANY FORM OF RESPIRATORY DISTRESS. NO S/S OF ANY PAIN OR DISCOMFORT NOTED AT THIS TIME. WITH IV ACCESS ON LEFT WRIST 20g; PATENT AND INTACT RUNNING WITH D5 1/2 NS 1L REGULATED @ 50 ML/HR; FLUSHING WELL. WITH GTUBE IN PLACE; PATENT AND INTACT. DRESSING C/D/I. ON NEPRO FEEDING INFUSING @ 35 ML/HR. NEEDS ANTICIPATED. SAFETY AND ASPIRATION PRECAUTIONS IMPLEMENTED: HEAD OF BED ELEVATED @ 30-45 DEGREES, CALL LIGHT AND TABLE WITHIN REACH, SIDE RAILS UP X 3, BED IN LOWEST LOCKED POSITION. WILL CONTINUE PLAN OF CARE.
[2022-09-14 20:00] VITALS: BP_SYST 126; BP_DIAS 24; BP_DIAS 54
[2022-09-14] MEDS: MIRTAZAPINE 15 MG TABLET PO SCH (22:24)
[2022-09-15] MEDS: BLOOD SUGAR DIAGNOSTIC 1 EACH STRIP IN SCH ×3 (00:58→12:04)
--- NOTE | 2022-09-15 00:58 | NUR ---
RN NOTE BLOOD SUGAR CHECKED - 118 MG/DL; NO INSULIN COVERAGE GIVEN PER SLIDING SCALE. WILL CONTINUE TO MONITOR FOR S/S OF HYPOGLYCEMIA/HYPERGLYCEMIA.
[2022-09-15] MEDS: INSULIN REGULAR, HUMAN 100 UNIT/ML 3 ML VIAL SQ PRN (01:15)
[2022-09-15] MEDS: NEPRO 1,000 ML BOTTLE GT PRN (05:14)
--- NOTE | 2022-09-15 06:45 | NUR ---
MS RN CLOSING NOTE PATIENT IN BED; AWAKE, A/O X 2. ON O2 INHALATION @ 2LPM VIA NASAL CANNULA; WELL TOLERATED. IN NO APPARENT DISTRESS. NO S/S OF ANY PAIN OR DISCOMFORT NOTED AT THIS TIME. WITH IV ACCESS ON LEFT WRIST 20g; PATENT AND INTACT RUNNING WITH D5 1/2 NS 1L REGULATED @ 50 ML/HR; FLUSHING WELL. WITH PICC LINE @ LEFT FOREARM 18g; INTACT AND SALINE LOCKED. WITH G-TUBE IN PLACE; PATENT AND INTACT. DRESSING C/D/I. ON NEPRO FEEDING INFUSING @ 35 ML/HR. ALL NEEDS ATTENDED. SAFETY AND ASPIRATION PRECAUTIONS MAINTAINED: HEAD OF BED ELEVATED @ 30-45 DEGREES, CALL LIGHT AND TABLE WITHIN REACH, SIDE RAILS UP X 3, BED IN LOWEST LOCKED POSITION. ENDORSED TO APRIL BELTRE FOR TAYE.
[2022-09-15 07:00] VITALS: BP 164/71
--- NOTE | 2022-09-15 07:11 | NUR ---
MS CHEN OPENING NOTES RECEIVED PATIENT RESTING IN BED ON 4 L VIA NC, NO S/S OF RESPIRATORY DISTRESS. PATIENT IS A/Ox2. IV ACCESS PICC L FA #18 SL, L WRIST #20G RUNNING D5 1/2NS @50 ML/HR. INTACT AND PATENT. PATIENT HAS RCW PERMACATH FOR HD, DRESSING INTACT. SKIN ISSUES: SACRAL ULCER AND BILATERAL LEG WOUNDS, DRESSINGS INTACT. ON NEPHRO @35 ML/HR, TOLERATING WELL. SAFETY PRECAUTIONS IN PLACE: BED LOCKED AND IN LOWEST POSITION, SIDE RAILS UPx2, HOB ELEVATED, CALL LIGHT WITHIN REACH. WILL CONTINUE TO MONITOR. Addendum: 09/15/22 at 1055 by PATT PEARSON RN PT HAS MIDLINE NOT PICC LINE
[2022-09-15] MEDS: ATORVASTATIN 40 MG TABLET PO SCH (08:16)
[2022-09-15] MEDS: PANTOPRAZOLE 40 MG/PACK PACK GT SCH (08:16)
[2022-09-15] MEDS: LOSARTAN POTASSIUM 25 MG TABLET PO SCH (08:16)
[2022-09-15 08:17] VITALS: BP 164/71
[2022-09-15] MEDS: NIFEdipine XL (30MG) 30 MG TAB PO SCH (08:17)
[2022-09-15] MEDS: APIXABAN 5 MG TABLET PO SCH (08:17)
[2022-09-15] MEDS: LEVOTHYROXINE SODIUM 50 MCG TABLET PO SCH (08:17)
[2022-09-15] MEDS: MULTIVITAMINS,THERAGRAN 1 UDTAB TABLET PO SCH (08:17)
[2022-09-15] MEDS: THERAHONEY GEL 1.5 OZ TUBE TP SCH (08:18)
[2022-09-15] MEDS: ACETYLCYSTEINE 20% SOLN 800 MG/4 ML VIAL NEB SCH (08:18)
[2022-09-15] MEDS: ASPIRIN EC 81 MG TABLET.DR PO SCH (08:20)
[2022-09-15] MEDS ORDERED: ALBUMIN 25% 25 GM in PREMIX 1 EA IV PRN (11:30)
--- NOTE | 2022-09-15 12:36 | NUR ---
GALLERY DIRECTOR NOTES PATIENT D/C TO SNF, STABLE, A/Ox2. PATIENT IS STABLE ON 2L OF O2 VIA NC, NO S/S OF RESPIRATORY DISTRESS. PATIENT HAS GTUBE FEEDING, TOLERATING WELL, SITE CLEAN AND DRESSING IN PLACE. PATIENT UNABLE TO SIGN FORMS, TWO RN SIGNED FORM FOR PATIENT. CALLED SNF, BUT NO ONE WAS AVAILABLE FOR REPORT, GIVEN PHONE NUMBER TO CALL IF THERE ARE ANY QUESTIONS. IV SITES REMOVED, PRESSURE DRESSINGS APPLIED. PHOTOS OF SKIN ISSUES TAKEN AND FILED INTO CHART. PATIENT LEFT UNIT WITH scholastic aptitude test grader @1215, CHARGE KATERINA AND AWARE OF DISCHARGE.
== END 2022-09-15 12:15 | DRG 720 ==
LOC: ER 20:02 → MED 23:07
PROVIDERS: ADMIT Nurse Practitioner Family; ATTEND Nurse Practitioner Acute Care
PROC: 5A1D70Z Performance of Urinary Filtration, Intermittent, Less than 6 Hours Per Day (ICD-10-PCS; 2022-09-03)
PROC: 05HF33Z Insertion of Infusion Device into Left Cephalic Vein, Percutaneous Approach (ICD-10-PCS; 2022-09-03)
PROC: 0DH63UZ Insertion of Feeding Device into Stomach, Percutaneous Approach (ICD-10-PCS; principal; 2022-09-05)
PROC: 30233N1 Transfusion of Nonautologous Red Blood Cells into Peripheral Vein, Percutaneous Approach (ICD-10-PCS; 2022-09-08)
PROC: 0W9B3ZZ Drainage of Left Pleural Cavity, Percutaneous Approach (ICD-10-PCS; 2022-09-09)
PROC: 0DJ08ZZ Inspection of Upper Intestinal Tract, Via Natural or Artificial Opening Endoscopic (ICD-10-PCS; 2022-09-13)
DX: A41.9 Sepsis, unspecified organism (principal); J69.0 Pneumonitis due to inhalation of food and vomit; G93.40 Encephalopathy, unspecified; E43 Unspecified severe protein-calorie malnutrition; R64 Cachexia; I82.413 Acute embolism and thrombosis of femoral vein, bilateral; R53.2 Functional quadriplegia; D68.59 Other primary thrombophilia; I12.0 Hypertensive chronic kidney disease with stage 5 chronic kidney disease or end stage renal disease; D63.8 Anemia in other chronic diseases classified elsewhere; E83.39 Other disorders of phosphorus metabolism; J90 Pleural effusion, not elsewhere classified; T17.990A Other foreign object in respiratory tract, part unspecified in causing asphyxiation, initial encounter; N18.6 End stage renal disease; E88.09 Other disorders of plasma-protein metabolism, not elsewhere classified; I69.351 Hemiplegia and hemiparesis following cerebral infarction affecting right dominant side; R62.7 Adult failure to thrive; Z20.822 Contact with and (suspected) exposure to COVID-19; K29.70 Gastritis, unspecified, without bleeding; E11.22 Type 2 diabetes mellitus with diabetic chronic kidney disease; E78.5 Hyperlipidemia, unspecified; Z79.899 Other long term (current) drug therapy; Z79.4 Long term (current) use of insulin; Z79.01 Long term (current) use of anticoagulants; Z79.82 Long term (current) use of aspirin; E87.6 Hypokalemia; E03.9 Hypothyroidism, unspecified; Z99.2 Dependence on renal dialysis; Z86.718 Personal history of other venous thrombosis and embolism; R13.10 Dysphagia, unspecified; E83.42 Hypomagnesemia; M89.8X9 Other specified disorders of bone, unspecified site; F03.90 Unspecified dementia, unspecified severity, without behavioral disturbance, psychotic disturbance, mood disturbance, and anxiety; Z68.1 Body mass index [BMI] 19.9 or less, adult; X58.XXXA Exposure to other specified factors, initial encounter; Y92.9 Unspecified place or not applicable; J98.11 Atelectasis; E87.70 Fluid overload, unspecified
CPT/HCPCS: 36410; 36415; 43760; 71045-TC; 71250-TC; 74018; 76604-TC; 80048-TC; 80053-TC; 80076-TC; 80202-TC; 81001; 82962-TC; 83605-TC; 83735-TC; 84100-TC; 84132-TC; 85025-TC; 85027-TC; 85610-TC; 85730-TC; 86850-TC; 87040-TC; 87070-TC; 87081-TC; 87086-TC; 90935-TC; 93970-TC; 94799-TC; A4216; A6253; A6403; C9113; C9803; G0378; J0690; J1644; J1815; J2543; J2704; J3370; J3475; J3480; J3490; J7030; J7040; J7050; J7060; P9016; P9047

== ENCOUNTER 2022-09-19 15:10 | Inpatient (IN) | payer MEDICAID, OTHER ==
[~2022-09-19] VITALS: Ht 165.1 cm; Wt 50.4 kg
[~2022-09-19 15:10] MED LIST changes: -AMOX600S16 PO
--- NOTE | 2022-09-19 15:15 | NUR ---
RECEIVE PT 57YRS FEMALE CAME FROM SNF FOR LOW H&H NO ACTIVE BLEEDING PT ON HD EYES open fallow command
--- NOTE | 2022-09-19 15:30 | NUR ---
BLOOD DROW BY LAB TACH AT BED
[2022-09-19] MEDS ORDERED: PANT40SU2 GT (15:54)
[2022-09-19] MEDS ORDERED: NUT.237L67 GT (15:54)
[2022-09-19] MEDS ORDERED: ATOR40TA GT (15:54)
[2022-09-19] MEDS ORDERED: ZINC57OI4 TP (15:54)
[2022-09-19] MEDS ORDERED: INSU100V3 SQ (15:54)
[2022-09-19] MEDS ORDERED: MULT-447 GT (15:54)
--- NOTE | 2022-09-19 16:07 | NUR ---
MOVE SHEET SUBMITTED.
[2022-09-19 16:20] LABS: BASOPHILS # (AUTO) 0.1 K/uL (0.0-0.2); BASOPHILS % (AUTO) 0.6 % (0.0-2.0); LYMPHOCYTES % (AUTO) 17.6 % (20.0-44.0); MEAN CORPUSCULAR HGB CONC 33 g/dl (31.0-36.0); MEAN CORPUSCULAR VOLUME 94 fL (82-100); MONOCYTES # (AUTO) 0.6 K/uL (0.1-1.30); MONOCYTES % (AUTO) 5.2 % (2.0-12.0); NEUTROPHILS # (AUTO) 8.3 K/uL (1.8-8.9); NEUTROPHILS % (AUTO) 73.6 % (43.0-81.0); PLATELET COUNT (AUTO) 494 K/uL (150-450); WHITE BLOOD COUNT (AUTO) 11.3 K/uL (4.3-11.0)
[2022-09-19 16:37] LABS: BILIRUBIN,DIRECT 0.1 mg/dL (0.0-0.2); BILIRUBIN,TOTAL 0.2 mg/dL (0.2-1.0); CALCIUM, SERUM 8.4 mg/dL (8.5-10.1); CREATININE 2.7 mg/dL (0.6-1.3); POTASSIUM 3.3 mmol/L (3.5-5.1); TOTAL PROTEIN, SERUM 6.1 g/dL (6.4-8.2)
[2022-09-19 16:38] LABS: RED BLOOD CELL COUNT(AUTO) 1.98 MIL/uL (4.0-5.2)
[2022-09-19 16:40] LABS: HEMATOCRIT 19 % (33-45); HEMOGLOBIN 6.1 g/dL (11.5-14.8)
[2022-09-19 16:42] LABS: ALBUMIN 1.4 g/dL (3.4-5.0)
--- NOTE | 2022-09-19 17:41 | NUR ---
MADI LOZA SENT TO LAB
--- NOTE | 2022-09-19 18:55 | NUR ---
NO ACTIVE BLEEDING VS SABLE
--- NOTE | 2022-09-19 19:20 | NUR ---
CALLED (KAREN CONNER ) ABOUT CONSENT FOR BLOOD TRANSUTION WITH 2 ND NURSE (ELIA CHEN
--- NOTE | 2022-09-19 19:25 | NUR ---
HAND OFF SANTY RN
[2022-09-19] MEDS ORDERED: ACETAMINOPHEN 325 MG TABLET PO PRN ×2 (20:00→20:30)
[2022-09-19] MEDS ORDERED: BENZONATATE 100 MG CAPSULE PO PRN (20:00)
[2022-09-19] MEDS ORDERED: Z GUARD REMEDY 4 OZ OINT TP PRN (20:30)
[2022-09-19] MEDS ORDERED: ZOLPIDEM TARTRATE 5 MG TABLET PO PRN (20:30)
[2022-09-19] MEDS ORDERED: DEXTROSE 50%-WATER 50 ML DISP.SYRIN IV PRN (20:30)
[2022-09-19] MEDS ORDERED: MAG HYDROX/AL HYDROX/SIMETH 30 ML UDC PO PRN (20:30)
[2022-09-19] MEDS ORDERED: MAGNESIUM HYDROXIDE 30 ML UDC PO PRN (20:30)
--- NOTE | 2022-09-19 21:14 | NUR ---
BED GIVEN 325-1
[2022-09-19 21:57] LABS: EOSINOPHILS % (MANUAL) 1 % (0-4); LYMPHOCYTES % (MANUAL) 17 % (16-48); MONOCYTES % (MANUAL) 5 % (0-11.0); NEUTROPHILS % (MANUAL) 77 (42-76)
--- NOTE | 2022-09-19 22:55 | NUR ---
DR TINOCO ON THE PHONE WITH DR JULIO FROM INSURANCE WHOAUTHORIZED THE PT TO STAY...
[2022-09-19 23:15] VITALS: BP 139/75
[2022-09-19 23:30] VITALS: BP 151/74
--- NOTE | 2022-09-19 23:59 | NUR ---
PT TRANSPORTED TO ROOM 325 ON CARDIAC PER ACLS
[2022-09-20] VITALS (7 sets, daily range): BP systolic 146–160; BP diastolic 60–82
--- NOTE | 2022-09-20 | NUR ---
PARTICLEBOARD FACTORY WORKER NOTES RECEIVED PATIENT FROM ER VIA GURNEY, ACCOMPANIED BY RN AND PEDIATRIC DENTAL ASSISTANT. ON 02 2LPM VIA NASAL CANNULA, SATURATING 100%, TOLERATING WELL. ONGOING TRANSFUSION WITH 1 UNIT OF PRBC, INFUSING WELL AT RIGHT FA #18. BLOOD PRODUCT HAS BEEN VERIFIED TOGETHER WITH APRIL CASTRO. NO INITIAL TRANSFUSION REACTIONS NOTED. WITH G-TUBE IN PLACED, PATENCY CHECKED, HYPOACTIVE BOWEL SOUNDS ALL QUADRANTS. VERIFIED WITH DR. FRANKLIN, ENGINEERING LECTURER FOR DIET ORDERS, TO CONTINUE NEPRO 1L FOR TO RUN 60ML/H. DUE MEDS GIVEN. INITIAL ANTIBIOTIC GIVEN. SKIN ASSESSMENT DONE. WITH HD ACCESS AT RIGHT CHEST PERMACATH, HD EVERY MWF, MISSED HD YESTERDAY 09/19. WILL CONTINUE TO MONITOR.
[2022-09-20] MEDS: BLOOD SUGAR DIAGNOSTIC 1 EACH STRIP IN SCH ×5 (00:22→23:21)
[2022-09-20] MEDS ORDERED: CEFEPIME 1 GM VIAL ONE (00:40)
[2022-09-20] MEDS: IPRATROPIUM NEB FS 0.5 MG/2.5 ML AMPUL.NEB NEB PRN (01:34)
[2022-09-20] MEDS: ALBUTEROL FS 2.5 MG/3 ML VIAL.NEB NEB PRN ×4 (01:34→23:44)
[2022-09-20] MEDS: ACETYLCYSTEINE 20% SOLN 800 MG/4 ML VIAL NEB SCH ×4 (01:34→23:44)
--- NOTE | 2022-09-20 02:10 | NUR ---
RN NOTES - BLOOD TRANSFUSION ENDED WITH STABLE VITAL SIGNS. NO REACTIONS NOTED.
[2022-09-20] MEDS: CEFEPIME 1 GM in IV D5W 50 ML IV SCH ×2 (02:15→23:11)
[2022-09-20] MEDS: NEPRO 1,000 ML BOTTLE GT SCH (02:33)
[2022-09-20] MEDS: MIRTAZAPINE 15 MG TABLET GT SCH ×2 (03:12→21:36)
[2022-09-20] MEDS ORDERED: MAG HYDROX/AL HYDROX/SIMETH 30 ML UDC GT PRN (06:36)
[2022-09-20] MEDS ORDERED: MAGNESIUM HYDROXIDE 30 ML UDC GT PRN (06:37)
--- NOTE | 2022-09-20 06:59 | NUR ---
RN CLOSING NOTES PATIENT IS SLEEPING IN BED. ON 02 2LPM VIA NASAL CANNULA, SATURATING 100%, TOLERATING WELL. IV ACCESS AT RIGHT FA #18. WITH G-TUBE IN PLACED, PATENCY CHECKED, HYPOACTIVE BOWEL SOUNDS ALL QUADRANTS. DUE MEDS GIVEN. INITIAL ANTIBIOTIC GIVEN. WITH HD ACCESS AT RIGHT CHEST PERMACATH, HD EVERY MWF, MISSED HD YESTERDAY 09/19. WILL ENDORSE TO DAY SHIFT FOR TAYE.
[2022-09-20] MEDS ORDERED: BENZONATATE 100 MG CAPSULE PO PRN (07:00)
--- NOTE | 2022-09-20 07:56 | NUR ---
RN OPENING NOTES PATIENT IS SLEEPING IN BED. ON 02 2LPM VIA NASAL CANNULA, SATURATING 99%, TOLERATING WELL. IV ACCESS AT RIGHT FA #18. WITH G-TUBE IN PLACED, PATENCY CHECKED, HYPOACTIVE BOWEL SOUNDS ALL QUADRANTS. WITH HD ACCESS AT RIGHT CHEST PERMACATH, HD EVERY MWF, MISSED HD YESTERDAY 09/19. ALL SAFETY PRECAUTIONS RENDERED. WILL CONTINUE TO MONITOR.
[2022-09-20] MEDS: ASPIRIN 81 MG TAB.CHEW GT SCH (08:30)
[2022-09-20] MEDS: PANTOPRAZOLE 40 MG/PACK PACK GT SCH (08:30)
[2022-09-20] MEDS: LOSARTAN POTASSIUM 25 MG TABLET GT SCH (08:30)
--- NOTE | 2022-09-20 08:49 | NUR ---
WOUND CARE CONSULT: PT PRESENTS WITH SACRAL INTACT DEEP TISSUE INJURY AND DRY WOUNDS TO LOWER LEGS, PRESENT ON ADMISSION. DR VALDEZ CALLED FOR DPM CONSULT. RECOMMENDATIONS MADE FOR SKIN PROTECTION. DISCUSSED WITH NURSING STAFF. PT TO BE PLACED ON ISOFLEX LOW AIRLOSS BED. MD IN AGREEMENT WITH PLAN OF CARE.
[2022-09-20] MEDS: MULTIVITAMINS,THERAGRAN 1 UDTAB TABLET GT SCH (08:54)
[2022-09-20] MEDS ORDERED: NIFEdipine XL (30MG) 30 MG TAB PO SCH (09:00)
[2022-09-20] MEDS ORDERED: APIXABAN 5 MG TABLET GT SCH (09:00)
[2022-09-20] MEDS ORDERED: PANTOPRAZOLE 40 MG VIAL IV SCH (09:00)
[2022-09-20 11:39] LABS: BASOPHILS # (AUTO) 0.1 K/uL (0.0-0.2); BASOPHILS % (AUTO) 1.1 % (0.0-2.0); EOSINOPHILS % (AUTO) 3.2 % (0.0-6.0); HEMATOCRIT 24 % (33-45); HEMOGLOBIN 8.3 g/dL (11.5-14.8); LYMPHOCYTES # (AUTO) 1.5 K/uL (0.8-4.8); LYMPHOCYTES % (AUTO) 15.6 % (20.0-44.0); MEAN CORPUSCULAR HGB CONC 34 g/dl (31.0-36.0); MEAN CORPUSCULAR VOLUME 91 fL (82-100); MONOCYTES # (AUTO) 0.6 K/uL (0.1-1.30); MONOCYTES % (AUTO) 5.8 % (2.0-12.0); NEUTROPHILS # (AUTO) 7.3 K/uL (1.8-8.9); NEUTROPHILS % (AUTO) 74.3 % (43.0-81.0); PLATELET COUNT (AUTO) 528 K/uL (150-450); RED BLOOD CELL COUNT(AUTO) 2.67 MIL/uL (4.0-5.2); WHITE BLOOD COUNT (AUTO) 9.8 K/uL (4.3-11.0)
[2022-09-20 13:02] LABS: ALBUMIN 1.5 g/dL (3.4-5.0); BILIRUBIN,DIRECT 0.1 mg/dL (0.0-0.2); BILIRUBIN,TOTAL 0.3 mg/dL (0.2-1.0); CALCIUM, SERUM 9.3 mg/dL (8.5-10.1); CREATININE 3.1 mg/dL (0.6-1.3); MAGNESIUM 2.3 mg/dL (1.8-2.4); PHOSPHORUS 2.1 mg/dL (2.5-4.9); POTASSIUM 3.3 mmol/L (3.5-5.1); TOTAL PROTEIN, SERUM 6.5 g/dL (6.4-8.2)
[2022-09-20 13:16] LABS: THYROID STIMULATING HORMONE 4.394 uIU/mL (0.358-3.74)
[2022-09-20] MEDS: LEVOTHYROXINE SODIUM 50 MCG TABLET GT SCH (13:56)
[2022-09-20] MEDS ORDERED: POTASSIUM CHLORIDE 20 MEQ POWDER PACKET GT SCH (16:00)
--- NOTE | 2022-09-20 16:15 | NUR ---
NOTIFIED DR. PRASAD OF THE LATEST LAB TEST, CARRIED OUT NEW ORDERS PRESCRIBED. TO MONITOR.
[2022-09-20] MEDS ORDERED: NEUTRA PHOS 1 POWD.PACKET PO ONE (17:00)
[2022-09-20] MEDS ORDERED: POTASSIUM CHLORIDE 20 MEQ POWDER PACKET GT ONE (17:00)
[2022-09-20] MEDS: ATORVASTATIN 40 MG TABLET GT SCH (17:50)
[2022-09-20] MEDS: INSULIN REGULAR, HUMAN 100 UNIT/ML 3 ML VIAL SQ PRN ×2 (17:54→23:26)
--- NOTE | 2022-09-20 18:25 | NUR ---
RN CLOSING NOTES PATIENT IS SLEEPING IN BED. ON 02 2LPM VIA NASAL CANNULA, SATURATING 100%, TOLERATING WELL. IV ACCESS AT RIGHT FA #18. WITH G-TUBE IN PLACED, PATENCY CHECKED, HYPOACTIVE BOWEL SOUNDS ALL QUADRANTS. DUE MEDS GIVEN. WITH HD ACCESS AT RIGHT CHEST PERMACATH, HD EVERY MWF, MISSED HD YESTERDAY 09/19. WILL ENDORSE TO WOODWORK TEACHER FOR TAYE.
--- NOTE | 2022-09-20 19:20 | NUR ---
MS RN OPENING NOTE PATIENT IS SLEEPING IN BED. EASILY BEING AROUSED BY CALLING HER NAME AND BY TOUCHING HER SHOULDER. A/O X 1. SHE IS ON 02 2 LPM VIA NASAL CANNULA, OXYGENT SATURATING RATE IS 99%, TOLERATING WELL. NO S/S OF SOB ORE DISTRESS. IV ACCESS IS AT RIGHT FA #18. INFILTRATED. APPLIED WITH ONE ICE PACK. INSERTED A NEW IV ACCESS AT PATIENT'S LEFT FOREARM, #22G, SL. G-TUBE IS FLUSHED WITH 30 ML OF WATER; G-TUBE PLACEMENT IS CHECKED AND IS IN PLACED, RUNNING NEPRO @ 60 ML/HR. PATENT AND INTACT. ZERO RESIDUAL. HD ACCESS IS AT HER RIGHT CHEST, IJ PERMCATH. HD EVERY M W F, MISSED HD YESTERDAY 09/19. ACCORDING TO CHANGE SHIFT REPORT, TRANSPORTATION OFFICER, DR. ANTONIO AWARE. SAFETY MEASURES ARE IN PLACE: BED IS IN LOWEST AND LOCKED POSITION; HOB IS ELEVATED > 45 DEGREE DURING FEEDING; BED ALARM IS SET, SIDE RAILS UP X 3. WILL CONTINUE MONITOR PATIENT'S CONDITION AND THE CARE PATIENT NEEDS THROUGHOUT THE SHIFT.
--- NOTE | 2022-09-21 02:00 | NUR ---
MS RN NOTE G-TUBE FEEDING STOPPED AFTER THE FEEDING VOLUMN REACHES 1200ML DURING THE PAST 24 HOURS PER MD ORDER. G-TUBE IS FLUSHED WITH 30 ML OF WATER. PATIENT AND INTACT.
[2022-09-21] MEDS: NEPRO 1,000 ML BOTTLE GT SCH (05:47)
--- NOTE | 2022-09-21 05:58 | NUR ---
MS RN NOTE CHECKED THE G-TUBE, ZERO RESIDUAL. FLUSHED WITH 30 ML OF WATER. PATIENT AND INTACT. G-TUBE FEEDING IS RESUMED PER MD ORDER.
[2022-09-21 06:53] LABS: BASOPHILS # (AUTO) 0.1 K/uL (0.0-0.2); BASOPHILS % (AUTO) 0.7 % (0.0-2.0); EOSINOPHILS % (AUTO) 4.3 % (0.0-6.0); HEMATOCRIT 22 % (33-45); HEMOGLOBIN 7.3 g/dL (11.5-14.8); LYMPHOCYTES # (AUTO) 1.9 K/uL (0.8-4.8); LYMPHOCYTES % (AUTO) 19.7 % (20.0-44.0); MEAN CORPUSCULAR HGB CONC 34 g/dl (31.0-36.0); MEAN CORPUSCULAR VOLUME 92 fL (82-100); MONOCYTES # (AUTO) 0.6 K/uL (0.1-1.30); MONOCYTES % (AUTO) 6.5 % (2.0-12.0); NEUTROPHILS # (AUTO) 6.6 K/uL (1.8-8.9); NEUTROPHILS % (AUTO) 68.8 % (43.0-81.0); PLATELET COUNT (AUTO) 479 K/uL (150-450); RED BLOOD CELL COUNT(AUTO) 2.34 MIL/uL (4.0-5.2); WHITE BLOOD COUNT (AUTO) 9.6 K/uL (4.3-11.0)
[2022-09-21] MEDS: BLOOD SUGAR DIAGNOSTIC 1 EACH STRIP IN SCH ×4 (06:55→23:23)
--- NOTE | 2022-09-21 07:39 | NUR ---
MS RN CLOSING NOTE PATIENT IS SLEEPING IN BED. EASILY BEING AROUSED BY CALLING HER NAME AND BY TOUCHING HER SHOULDER. A/O X 1. SHE IS ON 02 2 LPM VIA NASAL CANNULA, OXYGENT SATURATING RATE IS 99%, TOLERATING WELL. NO S/S OF SOB ORE DISTRESS. IV ACCESS AT PATIENT'S LEFT FOREARM, #22G, SL. G-TUBE IS PATENT AND INTACT, RUNNING NEPRO @ 60 ML/HR. TOLERATED WELL. HD ACCESS IS AT HER RIGHT CHEST, IJ PERMCATH. HD EVERY M W , MISSED HD YESTERDAY 09/19. NOTIFIED DAY SHIFT NURSE TO F/U WITH THE HD AND DOCTOR'S ORDER. SAFETY MEASURES ARE IN PLACE: BED IS IN LOWEST AND LOCKED POSITION; HOB IS ELEVATED > 45 DEGREE DURING FEEDING; BED ALARM IS SET, SIDE RAILS UP X 3. ENDORSED THE NEXT SHIFT NURSE FOR CONTINUE PATIENT CARE.
[2022-09-21 07:43] LABS: CALCIUM, SERUM 8.4 mg/dL (8.5-10.1); CREATININE 3.1 mg/dL (0.6-1.3); MAGNESIUM 2.3 mg/dL (1.8-2.4); PHOSPHORUS 2.6 mg/dL (2.5-4.9); POTASSIUM 3.5 mmol/L (3.5-5.1)
[2022-09-21] MEDS: ACETYLCYSTEINE 20% SOLN 800 MG/4 ML VIAL NEB SCH ×3 (08:08→23:11)
[2022-09-21 08:30] VITALS: BP 120/68
[2022-09-21] MEDS: MULTIVITAMINS,THERAGRAN 1 UDTAB TABLET GT SCH (09:32)
[2022-09-21] MEDS: PANTOPRAZOLE 40 MG/PACK PACK GT SCH (09:32)
[2022-09-21] MEDS: LOSARTAN POTASSIUM 25 MG TABLET GT SCH (09:32)
[2022-09-21] MEDS: ASPIRIN 81 MG TAB.CHEW GT SCH (09:32)
[2022-09-21] MEDS: LEVOTHYROXINE SODIUM 50 MCG TABLET GT SCH (14:13)
[2022-09-21 16:32] VITALS: BP 150/74
[2022-09-21] MEDS: ATORVASTATIN 40 MG TABLET GT SCH (17:22)
--- NOTE | 2022-09-21 19:20 | NUR ---
MS RN OPENING NOTE PATIENT IS IN BED. AWAKE. A/O X 1. SHE IS ON 02 2 LPM VIA NASAL CANNULA, OXYGENT SATURATING RATE IS 99%, TOLERATING WELL. NO S/S OF SOB ORE DISTRESS. IV ACCESS IS AT HER LEFT FOREARM, #22G, SL. G-TUBE IS G-TUBE PLACEMENT IS CHECKED AND IS IN PLACED;PATENT AND INTACT. FLUSHED WITH 30 ML OF WATER. PATIENT HAS NEPRO @ 60 ML/HR RUNNING THROUGH G-TUBE. ZERO RESIDUAL. HD ACCESS IS AT HER RIGHT CHEST, IJ PERMCATH. SAFETY MEASURES ARE IN PLACE: BED IS IN LOWEST AND LOCKED POSITION; HOB IS ELEVATED > 45 DEGREE DURING FEEDING; BED ALARM IS SET, SIDE RAILS UP X 3. WILL CONTINUE MONITOR PATIENT'S CONDITION AND THE CARE PATIENT NEEDS THROUGHOUT THE SHIFT.
--- NOTE | 2022-09-21 19:30 | NUR ---
MS RN NOTE ACCORDING TO CHANGE SHIFT NURSE REPORT, PATIENT DID NOT HAVE HEMO DIALYSIS TODAY. NOTIFIED CHARGE NURSE, AND WRITE IT DOWN ON CHANGE SHIFT REPORT TO LET NEXT SHIFT DAYTIME NURSE FOLLOW UP AND SCHEDULE THE DIALYSIS.
--- NOTE | 2022-09-21 19:41 | NUR ---
RN NOTES PATIENT RESTING IN BED, EASY TO AROUSE, A AND O X 1 , OXYGEN 2 LPM VIA NASAL CANNULA, OXYGENT SATURATING RATE IS 98%, TOLERATING WELL. NO SOB NOTED, NO DISTRESS, IV PATENT FOREARM # 22 GAUGE FLUSHING WELL, G-TUBE IS PATENT AND INTACT, RUNNING NEPRO @ 60 ML/HR. TOLERATING WELL. HD ACCESS IS AT HER RIGHT CHEST, IJ PERMCATH. HD EVERY M W F, SAFETY MEASURES ARE IN PLACE: BED IS IN LOWEST POSITIN ALL WHEELS LOCKED AND SIDE RAILS UP X 2, HOB IS ELEVATED > 45 DEGREE DURING FEEDING; ENDORSED THE NEXT SHIFT NURSE FOR CONTINUE PATIENT CARE, ALL NEEDS MET AND PT KEPT DRY AND CLEAN DURING AM SHIFT.
[2022-09-21] MEDS: MIRTAZAPINE 15 MG TABLET GT SCH (21:24)
--- NOTE | 2022-09-21 22:30 | NUR ---
MS RN ADMITTING NOTE PATIENT ARRIVED FROM ER IN [facility]. HE IS ALERT, AO X 2, KNOWING HIS NAME AND WHERE HE IS. PATIENT DOES NOT KNOW HIS BIRTHDAY AND WHAT THE DATE IS TODAY. IV ACCESS IS AT HIS LEFT AC, #20G, SL. IV ACCESS IS PATENT AND INTACT. HE IS ON RA, NO S/S OF SOB OR DISTRESS. HE HAS GENERALIZED RASHES ON HIS LOWER LEGS BILATERAL; BOTH HANDS. REDNESS ON HIS RIGHT ELBOW. SCARS ON HIS ABDOMEN. PICTURES ARE TAKEN AND PUT IN PATIENT'S CHART. UPON ARRIVING, VITAL SIGNS WERE TAKEN. BS IS 91. PROVIDED PATIENT A SANDWICH AND A CARTON OF MILK. ORIENTED PATIENT WITH THE SURROUNDINGS, HOW TO MAKE PHONE CALLS, AND HOW TO USE CALL ZHENG AND REMOTE CONTROL. INSTRUCTED PATIENT TO CALL FOR HELP WHEN HE NEEDS. SAFETY MEASURES ARE IN PLACE: BED IS IN LOWEST AND LOCKED POSITION; SIDE RAILS UP X 2; CALL ZHENG AND BEDSIDE TABLE ARE IN REACH. WILL CONTINUE MONITORING THE PATIENT AND PROVIDE THE CARE HE NEEDS. Addendum: 09/22/22 at 0101 by SHANE HAWKINS RN THE NOTE IS NOT FOR THIS PATIENT. ERROR
[2022-09-21] MEDS: CEFEPIME 1 GM in IV D5W 50 ML IV SCH (23:22)
[2022-09-22] MEDS: NEPRO 1,000 ML BOTTLE GT SCH (04:43)
[2022-09-22] MEDS: BLOOD SUGAR DIAGNOSTIC 1 EACH STRIP IN SCH ×4 (06:22→23:34)
[2022-09-22] MEDS: INSULIN REGULAR, HUMAN 100 UNIT/ML 3 ML VIAL SQ PRN ×3 (06:29→23:42)
--- NOTE | 2022-09-22 06:48 | NUR ---
MS RN CLOSING NOTE PATIENT IS IN BED. AWAKE. A/O X 1. SHE IS ON 02 2 LPM VIA NASAL CANNULA, OXYGENT SATURATING RATE IS 99%, TOLERATING WELL. NO S/S OF SOB ORE DISTRESS. IV ACCESS IS AT HER LEFT FOREARM, #22G, SL. G-TUBE PLACEMENT IS CHECKED AND IS IN PLACED; PATENT AND INTACT. 30 ML RESIDUAL. RETURNED THE FORMULA THROUGH G-TUBE AND FLUSHED WITH 30 ML OF WATER. RESUME THE FEEDING OF NEPRO @ 60 ML/HR RUNNING THROUGH G-TUBE. HD ACCESS IS AT HER RIGHT CHEST, CLEAN, DRY, AND INTACT. IJ PERMCATH. SAFETY MEASURES ARE IN PLACE: BED IS IN LOWEST AND LOCKED POSITION; HOB IS ELEVATED > 45 DEGREE DURING FEEDING; BED ALARM IS SET, SIDE RAILS UP X 3. PATIENT IS ON SCHEDULED HEMO DIALYSIS ON MONDAYS, WEDNESDAYS, AND FRIDAYS. HOWEVER, PATIENT MISSED THE DIALYSIS ON 09/19 AND 09/21 . CHARGE NURSE, JODEE NOTIFIED. WILL ENDORSE NEXT SHIFT NURSE FOR CONTINUING PATIENT CARE AND FOLLOW UP WITH THE SCHEDULE OF THE DIALYSIS.
[2022-09-22 06:57] LABS: BASOPHILS % (AUTO) 0.4 % (0.0-2.0); EOSINOPHILS % (AUTO) 5.9 % (0.0-6.0); HEMATOCRIT 22 % (33-45); HEMOGLOBIN 7.6 g/dL (11.5-14.8); LYMPHOCYTES # (AUTO) 1.6 K/uL (0.8-4.8); MEAN CORPUSCULAR HGB CONC 35 g/dl (31.0-36.0); MEAN CORPUSCULAR VOLUME 92 fL (82-100); MONOCYTES # (AUTO) 0.8 K/uL (0.1-1.30); MONOCYTES % (AUTO) 8.2 % (2.0-12.0); NEUTROPHILS # (AUTO) 6.5 K/uL (1.8-8.9); NEUTROPHILS % (AUTO) 68.5 % (43.0-81.0); PLATELET COUNT (AUTO) 490 K/uL (150-450); RED BLOOD CELL COUNT(AUTO) 2.38 MIL/uL (4.0-5.2); WHITE BLOOD COUNT (AUTO) 9.5 K/uL (4.3-11.0)
[2022-09-22 07:30] LABS: CALCIUM, SERUM 8.6 mg/dL (8.5-10.1); CREATININE 3.5 mg/dL (0.6-1.3); MAGNESIUM 2.2 mg/dL (1.8-2.4); PHOSPHORUS 2.2 mg/dL (2.5-4.9); POTASSIUM 3.4 mmol/L (3.5-5.1)
--- NOTE | 2022-09-22 07:30 | NUR ---
MS RN AM NOTE PATIENT IS IN BED. AWAKE. A/O X 1. ON 2 LPM VIA NASAL CANNULA, NO SOB, NO DISTRESS, O2 SAT 97%.NO SIGNS OF PAIN/DISCOMFORT. IV ACCESS ON LEFT FOREARM, #22G, FLUSHES WELL, SITE CLEAR. WITH RIGHT IJ PERMACATH, CDI DRESSING. ONGOING GT FEEDING NEPRO 60 ML/HR. CHECKED FOR PLACEMENT, 10ML RESIDUAL. ON 444 OFF 44, SEE NURSING FLOWSHEET FOR SKIN ISSUES. RIGHT SIDED WEAKNESS. SAFETY MEASURES ARE IN PLACE: BED IS IN LOWEST AND LOCKED POSITION; HOB IS ELEVATED > 45 DEGREE DURING FEEDING; BED ALARM ON, SIDE RAILS UP X 3. PT WITH HD SCHEDULE OF MWF.PATIENT MISSED THE DIALYSIS ON 09/19 AND 09/21 . WILL FOLLOW UP WITH DR. STRANGE. WILL TURN AND REPOSITION Q 2 HOURS. SKIN CARE, WILL CONT TO MONITOR.
[2022-09-22] MEDS: PANTOPRAZOLE 40 MG/PACK PACK GT SCH (07:50)
[2022-09-22 08:00] VITALS: BP 141/72
[2022-09-22] MEDS: ALBUTEROL FS 2.5 MG/3 ML VIAL.NEB NEB PRN ×2 (08:20→16:16)
[2022-09-22] MEDS: ACETYLCYSTEINE 20% SOLN 800 MG/4 ML VIAL NEB SCH ×3 (08:20→23:56)
[2022-09-22] MEDS: MULTIVITAMINS,THERAGRAN 1 UDTAB TABLET GT SCH (08:33)
[2022-09-22] MEDS: LOSARTAN POTASSIUM 25 MG TABLET GT SCH (08:33)
[2022-09-22] MEDS: ASPIRIN 81 MG TAB.CHEW GT SCH (08:33)
[2022-09-22] MEDS: THERAHONEY GEL 1.5 OZ TUBE TP SCH (08:34)
--- NOTE | 2022-09-22 09:30 | NUR ---
RN NOTES DUE MEDS GIVEN
[2022-09-22] MEDS ORDERED: POTASSIUM CL. PREMIX PERIPHER. 50 ML IV SCH (11:00)
[2022-09-22] MEDS ORDERED: POTASSIUM CHLORIDE 20 MEQ POWDER PACKET GT ONE (11:00)
[2022-09-22] MEDS ORDERED: NEUTRA PHOS 1 POWD.PACKET GT ONE (11:00)
--- NOTE | 2022-09-22 12:46 | NUR ---
RN NOTES ARIELLE BAKER, HD NURSE AT BEDSIDE FOR DIALYSIS
[2022-09-22] MEDS: LEVOTHYROXINE SODIUM 50 MCG TABLET GT SCH (14:53)
--- NOTE | 2022-09-22 15:46 | NUR ---
RN NOTE HD COMPLETED 1 LITER OUT
[2022-09-22 16:00] VITALS: BP_SYST 139; BP_SYST 155; BP_DIAS 100; BP_DIAS 81
[2022-09-22] MEDS: ATORVASTATIN 40 MG TABLET GT SCH (18:22)
--- NOTE | 2022-09-22 19:30 | NUR ---
MS RN CLOSING NOTE PATIENT RESTING. A/O X 1. ON 02 2 LPM VIA NASAL CANNULA, NO SOB, NO DISTRESS, O2 SAT 97%.NO SIGNS OF PAIN/DISCOMFORT. IV ACCESS ON LEFT FOREARM, #22G, FLUSHES WELL, SITE CLEAR. WITH RIGHT IJ PERMACATH, CDI DRESSING. ONGOING GT FEEDING NEPRO 60 ML/HR. CHECKED FOR PLACEMENT, 10ML RESIDUAL. ON 444 OFF 5, RIGHT SIDED WEAKNESS. SAFETY MEASURES ARE IN PLACE: BED IS IN LOWEST AND LOCKED POSITION; HOB IS ELEVATED > 45 DEGREE DURING FEEDING; BED ALARM ON, SIDE RAILS UP X 3. TURNED AND REPOSITIONED Q 2 HOURS. SKIN CARE, ALLNEEDS MET AT THIS TIME. WILL ENDORSE TO NEXT SHIFT FOR TAYE.
--- NOTE | 2022-09-22 19:40 | NUR ---
MS RN NOTES RECEIVED ON BED SLEEPING,AROUSABLE TO VERBAL STIMULI,BREATHING NON LABORED,O2 IN USED AT 2L/NC TO KEEP O2 SAT ABOVE 90%.INCONTINENT OF URINE.WITH RIGHT CHEST WALL PERMA CATH FOR HD ACCESS.HAD TREATMENT TODAY,1 LITER OUT.WITH GT FEEDING OF NEPRO AT 60ML/HR RATE X20 HOURS,OFF AT 0045,ON AT 0445.HOB ELEVATED FOR ASPIRATION PRECAUTION.FLUSHED WITH H2O 150ML,NO RESIDUAL VOLUME NOTED.WILL CONTINUE TO MONITOR STATUS.
[2022-09-22 20:00] VITALS: BP 137/63
[2022-09-22] MEDS: MIRTAZAPINE 15 MG TABLET GT SCH (22:13)
[2022-09-22] MEDS: CEFEPIME 1 GM in IV D5W 50 ML IV SCH (23:34)
--- NOTE | 2022-09-23 05:30 | NUR ---
MS RN NOTES ACCU-CHECK BLOOD SUGAR CHECK 96,NO INSULIN COVERAGE.
[2022-09-23] MEDS: BLOOD SUGAR DIAGNOSTIC 1 EACH STRIP IN SCH ×4 (06:01→23:51)
--- NOTE | 2022-09-23 06:32 | NUR ---
MS RN NOTES NO SIGNIFICANT CHANGE IN STATUS.GT FEEDING TOLERATED WELL,NO N/V/D NOTED.NO DISTRESS.CALL LIGHT IN REACH NEEDS ATTENDED.
[2022-09-23 06:46] LABS: CALCIUM, SERUM 8.8 mg/dL (8.5-10.1); CREATININE 2.5 mg/dL (0.6-1.3); MAGNESIUM 2.1 mg/dL (1.8-2.4); PHOSPHORUS 1.8 mg/dL (2.5-4.9)
[2022-09-23] MEDS: NEPRO 1,000 ML BOTTLE GT SCH (06:46)
[2022-09-23 06:52] LABS: BASOPHILS # (AUTO) 0.1 K/uL (0.0-0.2); BASOPHILS % (AUTO) 0.9 % (0.0-2.0); EOSINOPHILS % (AUTO) 6.3 % (0.0-6.0); HEMATOCRIT 22 % (33-45); HEMOGLOBIN 7.2 g/dL (11.5-14.8); LYMPHOCYTES # (AUTO) 2.1 K/uL (0.8-4.8); LYMPHOCYTES % (AUTO) 24.2 % (20.0-44.0); MEAN CORPUSCULAR HGB CONC 33 g/dl (31.0-36.0); MEAN CORPUSCULAR VOLUME 93 fL (82-100); MONOCYTES # (AUTO) 0.7 K/uL (0.1-1.30); MONOCYTES % (AUTO) 8.3 % (2.0-12.0); NEUTROPHILS # (AUTO) 5.3 K/uL (1.8-8.9); NEUTROPHILS % (AUTO) 60.3 % (43.0-81.0); PLATELET COUNT (AUTO) 453 K/uL (150-450); RED BLOOD CELL COUNT(AUTO) 2.34 MIL/uL (4.0-5.2); WHITE BLOOD COUNT (AUTO) 8.7 K/uL (4.3-11.0)
[2022-09-23 07:05] LABS: OCCULT BLOOD STOOL NEGATIVE (NEGATIVE)
[2022-09-23] MEDS: ACETYLCYSTEINE 20% SOLN 800 MG/4 ML VIAL NEB SCH ×3 (07:33→23:02)
[2022-09-23 08:00] VITALS: BP 123/69
[2022-09-23] MEDS: PANTOPRAZOLE 40 MG/PACK PACK GT SCH (08:44)
[2022-09-23] MEDS: ASPIRIN 81 MG TAB.CHEW GT SCH (08:44)
[2022-09-23] MEDS: MULTIVITAMINS,THERAGRAN 1 UDTAB TABLET GT SCH (08:45)
[2022-09-23] MEDS: THERAHONEY GEL 1.5 OZ TUBE TP SCH (08:45)
[2022-09-23] MEDS: LOSARTAN POTASSIUM 25 MG TABLET GT SCH (08:45)
[2022-09-23] MEDS ORDERED: K PHOS NEUTRAL 250 MG TABLET PO ONE (09:00)
[2022-09-23] MEDS: INSULIN REGULAR, HUMAN 100 UNIT/ML 3 ML VIAL SQ PRN ×2 (12:27→17:33)
[2022-09-23] MEDS: LEVOTHYROXINE SODIUM 50 MCG TABLET GT SCH (13:43)
[2022-09-23 16:00] VITALS: BP 132/73
[2022-09-23] MEDS ORDERED: NEUTRA PHOS 1 POWD.PACKET PO ONE (16:00)
[2022-09-23] MEDS: ATORVASTATIN 40 MG TABLET GT SCH (17:31)
--- NOTE | 2022-09-23 18:21 | NUR ---
END OF SHIFT SUMMARY PATIENT IS A/O X1-2. OPENS EYES. ON 02 AT 2 LPM VIA NC FOR SUPPORT. IV ACCESS ON . INTACT AND PATENT. RCW PERMA CATH, DRESSING C/D/I. GTF RUNNING AT 60 ML/HR, TOLERATING FEEDING WELL. REPOSITIONED EVERY 2 HRS FOR COMFORT. SAFETY MEASURES MAINTAINED. BED IN LOWEST POSITION, BRAKES LOCKED. SIDE RAILS UP X. CALL LIGHT WITHIN REACH. WILL ENDORSE CONTINUITY OF CARE TO ONCOMING SHIFT.
--- NOTE | 2022-09-23 20:00 | NUR ---
MS RN OPENING NOTES PATIENT IS IN BED. AWAKE. A/O X 1. ON 02 2 LPM VIA NASAL CANNULA, NO SOB, NO DISTRESS, O2 SAT 97%.NO SIGNS OF PAIN/DISCOMFORT. IV ACCESS ON LEFT FOREARM, #22G, FLUSHES WELL, SITE CLEAR. WITH RIGHT IJ PERMACATH, CDI DRESSING. ONGOING GT FEEDING NEPRO 60 ML/HR. RIGHT SIDED WEAKNESS. SAFETY MEASURES ARE IN PLACE: BED IS IN LOWEST AND LOCKED POSITION; HOB IS ELEVATED > 45 DEGREE DURING FEEDING; BED ALARM ON, SIDE RAILS UP X 3. WILL TURN AND REPOSITION Q 2 HOURS. SKIN CARE, WILL CONT TO MONITOR.
[2022-09-23 21:11] VITALS: BP 147/74
[2022-09-23] MEDS: MIRTAZAPINE 15 MG TABLET GT SCH (22:36)
[2022-09-23] MEDS: IPRATROPIUM NEB FS 0.5 MG/2.5 ML AMPUL.NEB NEB PRN (23:02)
[2022-09-23] MEDS: ALBUTEROL FS 2.5 MG/3 ML VIAL.NEB NEB PRN (23:02)
--- NOTE | 2022-09-23 23:17 | NUR ---
Q8 Mucomyst given with PRN Albuterol & Atrovent. Done to dilate passageways and prevent possible bronchospasm from only giving Mucomyst. RN notified and aware. Pt is stable and no adverse reactions to nebulizer Tx.
[2022-09-23] MEDS: CEFEPIME 1 GM in IV D5W 50 ML IV SCH (23:50)
[2022-09-24] VITALS (8 sets, daily range): BP systolic 130–160; BP diastolic 65–79
[2022-09-24] MEDS: INSULIN REGULAR, HUMAN 100 UNIT/ML 3 ML VIAL SQ PRN ×2 (00:17→19:25)
[2022-09-24 05:11] LABS: BASOPHILS # (AUTO) 0.1 K/uL (0.0-0.2); EOSINOPHILS % (AUTO) 4.9 % (0.0-6.0); HEMATOCRIT 21 % (33-45); LYMPHOCYTES # (AUTO) 1.8 K/uL (0.8-4.8); LYMPHOCYTES % (AUTO) 18.2 % (20.0-44.0); MEAN CORPUSCULAR HGB CONC 33 g/dl (31.0-36.0); MEAN CORPUSCULAR VOLUME 92 fL (82-100); MONOCYTES # (AUTO) 0.7 K/uL (0.1-1.30); MONOCYTES % (AUTO) 6.9 % (2.0-12.0); PLATELET COUNT (AUTO) 428 K/uL (150-450); RED BLOOD CELL COUNT(AUTO) 2.28 MIL/uL (4.0-5.2); WHITE BLOOD COUNT (AUTO) 10.1 K/uL (4.3-11.0)
[2022-09-24 05:23] LABS: CREATININE 2.3 mg/dL (0.6-1.3); POTASSIUM 3.8 mmol/L (3.5-5.1)
[2022-09-24 05:32] LABS: HEMOGLOBIN 6.9 g/dL (11.5-14.8)
--- NOTE | 2022-09-24 05:38 | NUR ---
RN NOTES - HGB 6.9, HCT 21 LAB CALLED TO REPORT VALUES ABOVE. INFORMED WALLPAPERER HELPER RIGOBERTO FOR ORDERS. TO TRANSFUSE 1 BAG PRBC ORDERED.
[2022-09-24] MEDS: BLOOD SUGAR DIAGNOSTIC 1 EACH STRIP IN SCH ×3 (06:57→18:57)
--- NOTE | 2022-09-24 07:11 | NUR ---
MS RN CLOSING NOTE PATIENT RESTING. A/O X 1. ON 02 2 LPM VIA NASAL CANNULA, NO SOB, NO DISTRESS, O2 SAT 97%.NO SIGNS OF PAIN/DISCOMFORT. ONGOING DIALYSIS AT THIS TIME. IV ACCESS ON LEFT FOREARM, #22G, FLUSHES WELL, SITE CLEAR. WITH RIGHT IJ PERMACATH, CDI DRESSING. ONGOING GT FEEDING NEPRO 60 ML/HR. CHECKED FOR PLACEMENT, 10ML RESIDUAL. ON 444 OFF 5, RIGHT SIDED WEAKNESS. SAFETY MEASURES ARE IN PLACE: BED IS IN LOWEST AND LOCKED POSITION; HOB IS ELEVATED > 45 DEGREE DURING FEEDING; BED ALARM ON, SIDE RAILS UP X 3. TURNED AND REPOSITIONED Q 2 HOURS. SKIN CARE, ALL NEEDS MET AT THIS TIME. WILL ENDORSE TO NEXT SHIFT FOR TAYE.
[2022-09-24] MEDS: ACETYLCYSTEINE 20% SOLN 800 MG/4 ML VIAL NEB SCH ×3 (07:35→23:30)
[2022-09-24] MEDS: NEPRO 1,000 ML BOTTLE GT SCH (07:42)
[2022-09-24 08:36] LABS: BAND % (MANUAL) 2 % (0.0-5.0); EOSINOPHILS % (MANUAL) 4 % (0-4); LYMPHOCYTES % (MANUAL) 25 % (16-48); MONOCYTES % (MANUAL) 4 % (0-11.0); NEUTROPHILS % (MANUAL) 65 (42-76)
[2022-09-24] MEDS: PANTOPRAZOLE 40 MG/PACK PACK GT SCH (08:47)
[2022-09-24] MEDS: THERAHONEY GEL 1.5 OZ TUBE TP SCH (08:47)
[2022-09-24] MEDS: LOSARTAN POTASSIUM 25 MG TABLET GT SCH (08:47)
[2022-09-24] MEDS: MULTIVITAMINS,THERAGRAN 1 UDTAB TABLET GT SCH (08:47)
[2022-09-24] MEDS: ASPIRIN 81 MG TAB.CHEW GT SCH (08:47)
[2022-09-24] MEDS ORDERED: NEUTRA PHOS 1 POWD.PACKET GT ONE (10:00)
[2022-09-24] MEDS: LEVOTHYROXINE SODIUM 50 MCG TABLET GT SCH (14:46)
[2022-09-24] MEDS: ATORVASTATIN 40 MG TABLET GT SCH (18:57)
--- NOTE | 2022-09-24 19:00 | NUR ---
RN CLOSING NOTE PATIENT RESTING. A/O X 1. ON 02 2 LPM VIA NASAL CANNULA, NO SOB, NO DISTRESS, O2 SAT 96%.NO SIGNS OF PAIN/DISCOMFORT. IV ACCESS ON RIGHT HAND 20 G, FLUSHES WELL, SITE CLEAR 1 UNIT OF RBC ADMINISTERED TO PATIENT DUE TO HGB 6.9 STARTED AT 1157 FINISHED AT 1530 PATIENT TOLERATED WELL NO FEVER NO ALLERGIC REACTION. RIGHT IJ PERMACATH, CDI DRESSING. ONGOING GT FEEDING NEPRO 60 ML/HR. CHECKED FOR PLACEMENT, 10ML RESIDUAL. ON 444 OFF 44, RIGHT SIDED WEAKNESS. SAFETY MEASURES ARE IN PLACE: BED IS IN LOWEST AND LOCKED POSITION; HOB IS ELEVATED > 45 DEGREE DURING FEEDING; BED ALARM ON, SIDE RAILS UP X 3. PATIENT HAS DVT ON BOTH LEGS PATIENT IS GOING TO BE ON HEPARIN DRIP STARTING FROM NEXT SHIFT FOR 24 HRS.TURNED AND REPOSITIONED Q 2 HOURS. SKIN CARE, ALL NEEDS MET AT THIS TIME. WILL ENDORSE TO CMO & PRESIDENT FOR TAYE.
[2022-09-24] MEDS ORDERED: HEPARIN SODIUM, PORCINE 5000 UNITS/1 ML VIAL IV ONE (19:30)
--- NOTE | 2022-09-24 21:00 | NUR ---
RN NOTES - HEPARIN DRIP STARTED AND VERIFIED WITH APRIL DAVE. ORDERED LABS AFTER 6 HOURS. WILL TITRATE ORDERED. WILL CONTINUE TO MONITOR.
[2022-09-24] MEDS: HEPARIN INFUSION/D5W 500 ML IV PRN (21:02)
[2022-09-24 22:14] LABS: IRON, SERUM 20 ug/dl (50-175); TOTAL IRON BINDING CAPACITY 107 ug/dl (250-450)
[2022-09-24] MEDS: MIRTAZAPINE 15 MG TABLET GT SCH (22:58)
--- NOTE | 2022-09-24 23:25 | NUR ---
MS RN OPENING NOTES PATIENT IS IN BED. AWAKE. A/O X 1. ON 02 2 LPM VIA NASAL CANNULA, NO SOB, NO DISTRESS, O2 SAT 98%.NO SIGNS OF PAIN/DISCOMFORT. IV ACCESS ON RIGHT HAND #20, FLUSHES WELL. WITH RIGHT IJ PERMACATH, CDI DRESSING. ONGOING GT FEEDING NEPRO 60 ML/HR. RIGHT SIDED WEAKNESS. SAFETY MEASURES ARE IN PLACE: BED IS IN LOWEST AND LOCKED POSITION; HOB IS ELEVATED > 45 DEGREE DURING FEEDING; BED ALARM ON, SIDE RAILS UP X 3. WILL TURN AND REPOSITION Q 2 HOURS. SKIN CARE, WILL CONT TO MONITOR.
[2022-09-25] MEDS: CEFEPIME 1 GM in IV D5W 50 ML IV SCH ×2 (00:41→23:35)
[2022-09-25] MEDS: BLOOD SUGAR DIAGNOSTIC 1 EACH STRIP IN SCH ×5 (00:42→23:33)
[2022-09-25] MEDS: INSULIN REGULAR, HUMAN 100 UNIT/ML 3 ML VIAL SQ PRN ×4 (01:07→23:53)
[2022-09-25 02:03] LABS: FERRITIN 831 ng/mL (8-388)
--- NOTE | 2022-09-25 03:40 | NUR ---
RN NOTES - CALLED LABORATORY TO FOLLOW UP BLOOD EXTRACTION FOR PTT AND PT.
[2022-09-25] MEDS: NEPRO 1,000 ML BOTTLE GT SCH (04:00)
--- NOTE | 2022-09-25 05:31 | NUR ---
RN NOTES - RESULT FOR PT/PTT STILL PENDING. WILL FOLLOW UP LAB FOR VALUES.
--- NOTE | 2022-09-25 06:51 | NUR ---
RN NOTES - RECEIVED COAGULATION RESULTS (APTT/PTT) FOR HEPARIN DRIP AFTER 6 HOURS. NO CHANGES TO THE NUMBER OF DOSE PER PROTOCOL FOR NON CORONARY SYNDROME. HEPARIN DRIP: 1150 UNITS/ HOUR
--- NOTE | 2022-09-25 07:04 | NUR ---
RN CLOSING NOTE PATIENT RESTING. A/O X 1. ON 02 2 LPM VIA NASAL CANNULA, NO SOB, NO DISTRESS, O2 SAT 96%.NO SIGNS OF PAIN/DISCOMFORT. IV ACCESS ON RIGHT HAND 20 G, FLUSHES WELL. RIGHT IJ PERMACATH, CDI DRESSING. ONGOING GT FEEDING NEPRO 60 ML/HR. CHECKED FOR PLACEMENT, 5ML RESIDUAL. ON 444 OFF 5, RIGHT SIDED WEAKNESS. SAFETY MEASURES ARE IN PLACE: BED IS IN LOWEST AND LOCKED POSITION; HOB IS ELEVATED > 45 DEGREE DURING FEEDING; BED ALARM ON, SIDE RAILS UP X 3. PATIENT HAS DVT ON BOTH LEGS PATIENT IS GOING TO BE ON HEPARIN DRIP STARTING FROM NEXT SHIFT FOR 24 HRS.TURNED AND REPOSITIONED Q 2 HOURS. SKIN CARE, ALL NEEDS MET AT THIS TIME. WILL ENDORSE TO DAY SHIFT FOR TAYE.
--- NOTE | 2022-09-25 07:20 | NUR ---
MS RN OPENING NOTES PATIENT RECEIVED AWAKE IN BED IN NO ACUTE SIGNS OF DISTRESS. A/O X 2. ABLE TO MAKE NEEDS KNOWN, DENIES PAIN OR ANY DISCOMFORTS AT THIS TIME. ON SUPPLEMENTAL 02 @ 2 LPM VIA N/C, TOLERATING WELL, BREATHING EVEN AND UNLABORED. IV ACCESS ON RIGHT HAND #20G WITH HEPATIN DRIP AT 1150 U/HR ( 23ML/HR) INFUSING WELL, NO S/S OF INFILTRATION AT SITE NOTED. RIGHT IJ PERMACATH IN PLACE WITH C/D/I DRESSING. GT FEEDING OF NEPRO @ 60 ML/HR ONGOING, TOLERATING WELL. ASPIRATION AND ALL SAFETY MEASURES ARE IN PLACE: BED IS IN LOWEST LOCKED POSITION; HOB IS ELEVATED, BED ALARM ON, SIDE RAILS UP X 3. WILL CONTINUE TO MONITOR PT.
[2022-09-25] MEDS: ACETYLCYSTEINE 20% SOLN 800 MG/4 ML VIAL NEB SCH ×3 (07:35→23:42)
[2022-09-25 08:00] VITALS: BP 158/74
[2022-09-25 08:15] LABS: BASOPHILS # (AUTO) 0.1 K/uL (0.0-0.2); BASOPHILS % (AUTO) 0.6 % (0.0-2.0); EOSINOPHILS % (AUTO) 5.7 % (0.0-6.0); HEMATOCRIT 27 % (33-45); LYMPHOCYTES # (AUTO) 2.2 K/uL (0.8-4.8); LYMPHOCYTES % (AUTO) 21.4 % (20.0-44.0); MEAN CORPUSCULAR HGB CONC 33 g/dl (31.0-36.0); MEAN CORPUSCULAR VOLUME 89 fL (82-100); MONOCYTES % (AUTO) 9.4 % (2.0-12.0); NEUTROPHILS # (AUTO) 6.5 K/uL (1.8-8.9); NEUTROPHILS % (AUTO) 62.9 % (43.0-81.0); PLATELET COUNT (AUTO) 445 K/uL (150-450); RED BLOOD CELL COUNT(AUTO) 3.02 MIL/uL (4.0-5.2); WHITE BLOOD COUNT (AUTO) 10.3 K/uL (4.3-11.0)
[2022-09-25] MEDS: ASPIRIN 81 MG TAB.CHEW GT SCH (08:35)
[2022-09-25] MEDS: PANTOPRAZOLE 40 MG/PACK PACK GT SCH (08:35)
[2022-09-25] MEDS: MULTIVITAMINS,THERAGRAN 1 UDTAB TABLET GT SCH (08:35)
[2022-09-25] MEDS: LOSARTAN POTASSIUM 25 MG TABLET GT SCH (08:36)
[2022-09-25] MEDS: THERAHONEY GEL 1.5 OZ TUBE TP SCH (09:32)
[2022-09-25] MEDS: LEVOTHYROXINE SODIUM 50 MCG TABLET GT SCH (14:02)
[2022-09-25] MEDS: ALBUTEROL FS 2.5 MG/3 ML VIAL.NEB NEB PRN (15:50)
[2022-09-25 16:00] VITALS: BP 156/78
[2022-09-25] MEDS: ATORVASTATIN 40 MG TABLET GT SCH (17:37)
[2022-09-25] MEDS: HEPARIN INFUSION/D5W 500 ML IV PRN (18:03)
[2022-09-25] MEDS: ONDANSETRON HCL/PF 4 MG/2 ML VIAL IVP PRN (18:29)
--- NOTE | 2022-09-25 18:34 | NUR ---
RN NOTES PT COUGHING INTERMITTENTLY ACCOMPANIED WITH THROWING UP THICK CLEAR SECRETIONS MIXED WITH UNDIGESTED FEEDING. GAVE PRN IV ZOFRAN 4MG AND HOLDING FEEDING AT THIS TIME. SAT UP AND TURNED TO SIDE TO PREVENT ASPIRATION. WILL CONTINUE TO MONITOR.
--- NOTE | 2022-09-25 18:41 | NUR ---
MS RN CLOSING NOTES PATIENT IN BED RESTING AT MODERATE HIGH BACKREST POSITION. A/O X 2. VERBALLY RESPONSIVE WITH PERIODS OF CONFUSION AND FORGETFULNESS NOTED. ON 02 @ 2 LPM VIA N/C, TOLERATING WELL, BREATHING EVEN AND UNLABORED. IV ACCESS ON RIGHT HAND #20G INTACT WITH HEPATIN DRIP AT 1150 U/HR ( 23ML/HR) INFUSING WELL, NO S/S OF INFILTRATION AT SITE NOTED. RIGHT IJ PERMACATH IN PLACE WITH C/D/I DRESSING. GT FEEDING OF NEPRO @ 60 ML/HR HELD AT THIS TIME, PT JUST VOMITED FEW MINUTES AGO. PT TURNED AND REPOSITIONED Q 2HRS AND PRN. ALL NEEDS ANTICIPATED AND MET. ASPIRATION AND ALL SAFETY MEASURES KEPT IN PLACE: BED IN LOWEST LOCKED POSITION, HOB IS ELEVATED, BED ALARM ON, SIDE RAILS UP X 3. WILL ENDORSE TAYE TO SHIFT SUPERINTENDENT NURSE.
--- NOTE | 2022-09-25 20:00 | NUR ---
MS RN OPENING NOTES PATIENT RECEIVED AWAKE IN BED IN NO ACUTE SIGNS OF DISTRESS. A/O X 2. ON SUPPLEMENTAL 02 @ 2 LPM VIA N/C, TOLERATING WELL, BREATHING EVEN AND UNLABORED. IV ACCESS ON RIGHT HAND #20G WITH HEPARIN DRIP AT 1150 U/HR ( 23ML/HR) INFUSING WELL, NO S/S OF INFILTRATION AT SITE NOTED. RIGHT IJ PERMACATH IN PLACE WITH C/D/I DRESSING. GT FEEDING OF NEPRO @ 60 ML/HR. HELD FEEDING FOR NOW. EPISODES OF PRODUCTIVE EMESIS DURING THE DAY. ASPIRATION AND ALL SAFETY MEASURES ARE IN PLACE: BED IS IN LOWEST LOCKED POSITION; HOB IS ELEVATED, BED ALARM ON, SIDE RAILS UP X 3. WILL CONTINUE TO MONITOR PATIENT.
[2022-09-25 20:53] VITALS: BP 142/64
[2022-09-25] MEDS: MIRTAZAPINE 15 MG TABLET GT SCH (23:23)
--- NOTE | 2022-09-26 04:20 | NUR ---
RN NOTES - PRODUCTIVE EMESIS PATIENT HAS PRODUCTIVE EMESIS OF APPROXIMATELY 250CC OF FOOD RESIDUAL. FEEDING WAS OFF FOR 8 HOURS PRIOR TO VOMITING. GIVEN ZOFRAN 4MG IV PRN. WILL CONTINUE TO MONITOR.
[2022-09-26] MEDS: ONDANSETRON HCL/PF 4 MG/2 ML VIAL IVP PRN (04:44)
[2022-09-26] MEDS: NEPRO 1,000 ML BOTTLE GT SCH (05:36)
[2022-09-26] MEDS: BLOOD SUGAR DIAGNOSTIC 1 EACH STRIP IN SCH ×3 (06:04→17:31)
[2022-09-26 06:51] LABS: BASOPHILS % (AUTO) 0.2 % (0.0-2.0); EOSINOPHILS % (AUTO) 0.5 % (0.0-6.0); HEMATOCRIT 26 % (33-45); HEMOGLOBIN 8.7 g/dL (11.5-14.8); LYMPHOCYTES # (AUTO) 0.7 K/uL (0.8-4.8); LYMPHOCYTES % (AUTO) 6.1 % (20.0-44.0); MEAN CORPUSCULAR HGB CONC 34 g/dl (31.0-36.0); MEAN CORPUSCULAR VOLUME 88 fL (82-100); MONOCYTES # (AUTO) 1.1 K/uL (0.1-1.30); MONOCYTES % (AUTO) 9.5 % (2.0-12.0); NEUTROPHILS # (AUTO) 9.9 K/uL (1.8-8.9); NEUTROPHILS % (AUTO) 83.7 % (43.0-81.0); PLATELET COUNT (AUTO) 391 K/uL (150-450); RED BLOOD CELL COUNT(AUTO) 2.98 MIL/uL (4.0-5.2); WHITE BLOOD COUNT (AUTO) 11.9 K/uL (4.3-11.0)
--- NOTE | 2022-09-26 07:03 | NUR ---
MS APRIL OPENING NOTES PATIENT IS AWAKE IN BED IN NO ACUTE SIGNS OF DISTRESS. A/O X 2. ON SUPPLEMENTAL 02 @ 2 LPM VIA N/C, TOLERATING WELL, BREATHING EVEN AND UNLABORED. IV ACCESS ON RIGHT HAND #20G WITH HEPARIN DRIP AT 1150 U/HR ( 23ML/HR) INFUSING WELL, NO S/S OF INFILTRATION AT SITE NOTED. RIGHT IJ PERMACATH IN PLACE WITH C/D/I DRESSING. ONGOING DIALYSIS WITH HD NURSE AT BEDSIDE. GT FEEDING OF NEPRO @ 60 ML/HR. ASPIRATION AND ALL SAFETY MEASURES ARE IN PLACE: BED IS IN LOWEST LOCKED POSITION; HOB IS ELEVATED, BED ALARM ON, SIDE RAILS UP X 3. WILL ENDORSE TO NEXT SHIFT TAYE. Addendum: 09/26/22 at 0708 by KENNY PAIZ RN ERROR PLEASE DISREGARD
--- NOTE | 2022-09-26 07:08 | NUR ---
MS RN CLOSING NOTES PATIENT IS AWAKE IN BED IN NO ACUTE SIGNS OF DISTRESS. A/O X 2. ON SUPPLEMENTAL 02 @ 2 LPM VIA N/C, TOLERATING WELL, BREATHING EVEN AND UNLABORED. IV ACCESS ON RIGHT HAND #20G WITH HEPARIN DRIP AT 1150 U/HR ( 23ML/HR) INFUSING WELL, NO S/S OF INFILTRATION AT SITE NOTED. RIGHT IJ PERMACATH IN PLACE WITH C/D/I DRESSING. ONGOING DIALYSIS WITH HD NURSE AT BEDSIDE. GT FEEDING OF NEPRO @ 60 ML/HR. ASPIRATION AND ALL SAFETY MEASURES ARE IN PLACE: BED IS IN LOWEST LOCKED POSITION; HOB IS ELEVATED, BED ALARM ON, SIDE RAILS UP X 3. WILL ENDORSE TO NEXT SHIFT TAYE.
[2022-09-26 07:22] LABS: CALCIUM, SERUM 9.3 mg/dL (8.5-10.1); CREATININE 2.2 mg/dL (0.6-1.3); POTASSIUM 3.9 mmol/L (3.5-5.1)
--- NOTE | 2022-09-26 07:25 | NUR ---
MS RN OPENING NOTES PATIENT RECEIVED AWAKE IN BED WITH ONGOING HEMODIALYSIS VIA RIGHT IJ PERMACATH, NO ACUTE DISTRESS NOTED. PT IS A/O X 2. VERBALLY RESPONSIVE, DENIES PAIN OR ANY DISCOMFORTS AT THIS TIME. ON SUPPLEMENTAL 02 @ 2 LPM VIA N/C, TOLERATING WELL, BREATHING EVEN AND UNLABORED. IV ACCESS ON RIGHT HAND #20G INTACT WITH HEPARIN DRIP AT 1150 U/HR ( 23ML/HR) INFUSING WELL, NO S/S OF INFILTRATION AT SITE NOTED. GT IN PLACE WITH FEEDING OF NEPRO @ 60 ML/HR IN PROGRESS, TOLERATING AT THIS TIME. ASPIRATION AND ALL SAFETY MEASURES IN PLACE: BED IS IN LOWEST LOCKED POSITION, HOB IS ELEVATED, BED ALARM ON, SIDE RAILS UP X 3 AND CALL LIGHT W/I REACH. WILL CONTINUE TO MONITOR PATIENT THROUGHOUT THE SHIFT.
[2022-09-26] MEDS: PANTOPRAZOLE 40 MG/PACK PACK GT SCH (07:41)
[2022-09-26 08:00] VITALS: BP 139/75
[2022-09-26] MEDS: HEPARIN INFUSION/D5W 500 ML IV PRN (08:06)
[2022-09-26 08:07] LABS: IMMUNOGLOBULIN A, SERUM 812 mg/dL (87-352); IMMUNOGLOBULIN G, SERUM 1291 mg/dL (586-1602); IMMUNOGLOBULIN M, SERUM 73 mg/dL (26-217)
--- NOTE | 2022-09-26 08:12 | NUR ---
RN NOTES LATEST PTT 64.3 TODAY, NO CHANGED IN HEPARIN DRIP DOSAGE, STILL 1150 U/HR (23 ML/H). NEXT PTT DRAW WILL BE TOMORROW MORNING,09/27/22.
[2022-09-26] MEDS: ACETYLCYSTEINE 20% SOLN 800 MG/4 ML VIAL NEB SCH ×2 (08:16→15:30)
[2022-09-26] MEDS: MULTIVITAMINS,THERAGRAN 1 UDTAB TABLET GT SCH (08:31)
[2022-09-26] MEDS: ASPIRIN 81 MG TAB.CHEW GT SCH (08:31)
[2022-09-26] MEDS: LOSARTAN POTASSIUM 25 MG TABLET GT SCH (08:31)
--- NOTE | 2022-09-26 08:49 | NUR ---
RN NOTES HEMODIALYSIS VIA RCW PERMACATH JUST COMPLETED WITH 1,000ML OUTPUT. V/S S/P HD: BP 151/72, P 90, R 18 AND TEMP 98.3f AND SP02 99%.
[2022-09-26] MEDS: THERAHONEY GEL 1.5 OZ TUBE TP SCH (09:15)
[2022-09-26] MEDS ORDERED: CEFEPIME 1 GM in IV D5W 50 ML IV SCH (10:00)
[2022-09-26 11:07] LABS: *SPE A/G RATIO 0.5 (0.7-1.7); *SPE ALPHA-1-GLOBULIN 0.3 g/dL (0.0-0.4); *SPE ALPHA-2-GLOBULIN 0.9 g/dL (0.4-1.0); *SPE BETA GLOBULIN 1.2 g/dL (0.7-1.3); *SPE M-SPIKE Not Observed g/dL (Not Observed)
[2022-09-26] MEDS: INSULIN REGULAR, HUMAN 100 UNIT/ML 3 ML VIAL SQ PRN ×2 (11:12→17:34)
[2022-09-26] MEDS: ALBUTEROL FS 2.5 MG/3 ML VIAL.NEB NEB SCH ×2 (13:47→20:32)
[2022-09-26] MEDS: IPRATROPIUM NEB FS 0.5 MG/2.5 ML AMPUL.NEB NEB SCH ×2 (13:47→20:32)
[2022-09-26] MEDS: LEVOTHYROXINE SODIUM 50 MCG TABLET GT SCH (14:55)
[2022-09-26 16:00] VITALS: BP 149/70
[2022-09-26] MEDS: ATORVASTATIN 40 MG TABLET GT SCH (17:10)
--- NOTE | 2022-09-26 18:52 | NUR ---
MS RN CLOSING NOTES PATIENT IN BED ASLEEP AT THIS TIME, EASILY AROUSABLE. HOB ELEVATED. A/O X 2. VERBALLY RESPONSIVE WITH PERIODS OF CONFUSION AND FORGETFULNESS NOTED. ON 02 @ 2 LPM VIA N/C, TOLERATING WELL, BREATHING EVEN AND UNLABORED. IV ACCESS ON RIGHT HAND #20G INTACT WITH HEPATIN DRIP AT 1150 U/HR ( 23ML/HR) INFUSING WELL, NO S/S OF INFILTRATION AT SITE NOTED. RIGHT IJ PERMACATH IN PLACE WITH C/D/I DRESSING. G-TUBE IN PLACE WITH FEEDING OF NEPRO @ 60 ML/HR IN PROGRESS, TOLERATING WELL. PT TURNED AND REPOSITIONED Q 2HRS AND PRN. ALL NEEDS ANTICIPATED AND MET. ASPIRATION AND ALL SAFETY MEASURES KEPT IN PLACE: BED IN LOWEST LOCKED POSITION, HOB IS ELEVATED, BED ALARM ON, SIDE RAILS UP X 3. WILL ENDORSE TAYE TO AGRICULTURAL ENGINEER NURSE.
--- NOTE | 2022-09-26 19:15 | NUR ---
MS RN NOTES RECEIVED ON BED ASLEEP,EASILY AROUSABLE TO VERBAL STIMULI,BREATHING EVEN AND UNLABORED,O2 IN USED AT 2L/NC TO KEEP O2 SAT ABOVE 90%.O2 SAT 100 THIS TIME.ON HEPARIN DRIP AT 23ML/HR RATE,INFUSING WELL ON RIGHT HAND SALINE LOCK VIA IV PUMP,FOR POSITIVE DVT ON BLE AND RIGHT UPPER ARM.WITH NEPRO GT FEEDING AT 60ML/HR RATE,NOTED 5ML RESIDUAL VOLUME.HOB ELEVATED FOR ASPIRATION.WITH RIGHT PERMA CATH FOR HD ACCESS/TREATMENT.SACRAL DTI DRESSING INTACT AND DRY.WILL REPOSITION PER PROTOCOL,CALL LIGHT IN REACH,NEEDS ANTICIPATED.
[2022-09-26] MEDS: MIRTAZAPINE 15 MG TABLET GT SCH (21:41)
[2022-09-26 23:13] VITALS: BP 122/60
[2022-09-27] MEDS: BLOOD SUGAR DIAGNOSTIC 1 EACH STRIP IN SCH ×4 (00:23→17:34)
[2022-09-27] MEDS: INSULIN REGULAR, HUMAN 100 UNIT/ML 3 ML VIAL SQ PRN ×3 (00:27→17:35)
[2022-09-27] MEDS: ACETYLCYSTEINE 20% SOLN 800 MG/4 ML VIAL NEB SCH ×4 (01:24→23:54)
[2022-09-27] MEDS: IPRATROPIUM NEB FS 0.5 MG/2.5 ML AMPUL.NEB NEB SCH ×4 (01:24→20:15)
[2022-09-27] MEDS: ALBUTEROL FS 2.5 MG/3 ML VIAL.NEB NEB SCH ×4 (01:24→20:15)
[2022-09-27] MEDS: NEPRO 1,000 ML BOTTLE GT SCH (04:23)
[2022-09-27 04:32] VITALS: BP 108/58
--- NOTE | 2022-09-27 05:15 | NUR ---
MS RN NOTES ACCU-CHECK BLOOD SUGAR CHECKED 128MG/DL,NO INSULIN COVERAGE.GT FEEDING OG NEPRO IN PROGRESS VIA IV PUMP.HOB ELEVATED.
--- NOTE | 2022-09-27 06:53 | NUR ---
MS RN NOTES MORNING CARE RENDERED,TOLERATED WELL.GT FEEDING IN PROGRESS,WITH FIVE ML RESIDUAL VOLUME.HOB ELEVATED.NEGATIVE FOR ASPIRATION.IN NO ACUTE DISTRESS.WILL ENDORSE TO FOLLOW UP REGARDING HEPARIN DRIP TO BE DISCONTINUED PER DR BAHENA.NO ACTIVE BLEEDING NOTED.
[2022-09-27 07:12] LABS: BASOPHILS % (AUTO) 0.4 % (0.0-2.0); EOSINOPHILS % (AUTO) 1.4 % (0.0-6.0); HEMATOCRIT 25 % (33-45); HEMOGLOBIN 8.2 g/dL (11.5-14.8); LYMPHOCYTES # (AUTO) 1.2 K/uL (0.8-4.8); LYMPHOCYTES % (AUTO) 10.2 % (20.0-44.0); MEAN CORPUSCULAR HGB CONC 33 g/dl (31.0-36.0); MEAN CORPUSCULAR VOLUME 89 fL (82-100); MONOCYTES # (AUTO) 1.5 K/uL (0.1-1.30); MONOCYTES % (AUTO) 12.4 % (2.0-12.0); NEUTROPHILS # (AUTO) 9.1 K/uL (1.8-8.9); NEUTROPHILS % (AUTO) 75.6 % (43.0-81.0); PLATELET COUNT (AUTO) 355 K/uL (150-450)
[2022-09-27 07:34] LABS: CALCIUM, SERUM 9.2 mg/dL (8.5-10.1); CREATININE 2.2 mg/dL (0.6-1.3); POTASSIUM 3.7 mmol/L (3.5-5.1)
[2022-09-27 08:00] VITALS: BP 142/82
[2022-09-27] MEDS: HEPARIN INFUSION/D5W 500 ML IV PRN ×2 (08:00→11:36)
--- NOTE | 2022-09-27 08:00 | NUR ---
RN OPENING NOTE PATIENT RECEIVED ASLEEP IN BED, EASILY AWAKENED. PT IS A/O X 2. VERBALLY RESPONSIVE, DENIES PAIN OR ANY DISCOMFORTS AT THIS TIME. ON SUPPLEMENTAL 02 @ 2 LPM VIA N/C, TOLERATING WELL, BREATHING EVEN AND NONLABORED. IV ACCESS: RIGHT HAND #20G INTACT WITH HEPARIN DRIP AT 1000 U/HR ( 20ML/HR) INFUSING WELL STARTING @0800, NO S/S OF INFILTRATION AT SITE NOTED. GT IN PLACE WITH FEEDING OF NEPRO @ 60 ML/HR IN PROGRESS, TOLERATING WELL AT THIS TIME. ASPIRATION AND ALL SAFETY MEASURES IN PLACE: BED IS IN LOWEST LOCKED POSITION, HOB IS ELEVATED, BED ALARM ON, SIDE RAILS UP X 3 AND CALL LIGHT WITHIN REACH. WILL CONTINUE TO MONITOR PATIENT THROUGHOUT THE SHIFT.
[2022-09-27] MEDS: LOSARTAN POTASSIUM 25 MG TABLET GT SCH (09:17)
[2022-09-27] MEDS: PANTOPRAZOLE 40 MG/PACK PACK GT SCH (09:17)
[2022-09-27] MEDS: ASPIRIN 81 MG TAB.CHEW GT SCH (09:18)
[2022-09-27] MEDS: MULTIVITAMINS,THERAGRAN 1 UDTAB TABLET GT SCH (09:18)
[2022-09-27] MEDS: THERAHONEY GEL 1.5 OZ TUBE TP SCH (10:01)
[2022-09-27] MEDS: LEVOTHYROXINE SODIUM 50 MCG TABLET GT SCH (13:43)
[2022-09-27 16:00] VITALS: BP 134/79
[2022-09-27] MEDS: APIXABAN 2.5 MG TABLET PO SCH (17:12)
[2022-09-27] MEDS: ATORVASTATIN 40 MG TABLET GT SCH (17:21)
--- NOTE | 2022-09-27 18:35 | NUR ---
RN CLOSING NOTE PT ASLEEP IN BED AT THIS TIME, EASILY AROUSAL. A/O X 2. PT ON 02 @ 2 LPM VIA N/C, TOLERATING WELL, BREATHING EVEN AND NON-LABORED. IV ACCESS: R HAND #20G INTACT, PATENT, AND FLUSHING WELL, NO S/S OF INFILTRATION AT SITE NOTED. G-TUBE IN PLACE WITH FEEDING OF NEPRO 1.8 @ 60 ML/HR IN PROGRESS, TOLERATING WELL. SAFETY PRECAUTIONS IN PLACE AT ALL TIMES. BED IN LOWEST LOCKED POSITION, HOB ELEVATED, SIDE RAILS UP X2, AND CALL LIGHT AND TABLE WITHIN REACH. ALL NEEDS MET AT THIS TIME AND WILL ENDORSE TO ONCOMING NURSE FOR TAYE.
--- NOTE | 2022-09-27 19:20 | NUR ---
MS RN NOTES RECEIVED ON BED ON SUPINE POSITION,SLEEPING,AROUSABLE TO VERBAL STIMULI.A/OP X2-3,WITJ LIMITS VERBAL RESPONSE.SALINE LOCK RIGHT INTACT AND PATENT.PRESENT GT FEEDING OF NEPRO IN PROGRESS AT 60ML/HR RATE X20 HOURS,TOLERATED WELL.NO RESIDUAL VOLUME NOTED.HOB ELEVATED FOR ASPIRATION PRECAUTION.INCONTINENT OF B/B WITH RIGHT UPPER ARM PERMA CATH FOR HD ACCESS.DRESSING DRY AND INTACT.CALL LIGHT IN REACH,NEEDS ANTICIPATED.
[2022-09-27 20:00] VITALS: BP 119/63
[2022-09-27] MEDS: MIRTAZAPINE 15 MG TABLET GT SCH (21:31)
[2022-09-28] MEDS: BLOOD SUGAR DIAGNOSTIC 1 EACH STRIP IN SCH ×4 (00:27→17:24)
--- NOTE | 2022-09-28 00:28 | NUR ---
MS RN NOTES ACCU-CHECK BLOOD SUGAR CHECK 128MG/DL,NO INSULIN COVERAGE.
[2022-09-28] MEDS: ALBUTEROL FS 2.5 MG/3 ML VIAL.NEB NEB SCH ×4 (01:21→20:15)
[2022-09-28] MEDS: IPRATROPIUM NEB FS 0.5 MG/2.5 ML AMPUL.NEB NEB SCH ×4 (01:21→20:15)
[2022-09-28] MEDS: NEPRO 1,000 ML BOTTLE GT SCH (04:10)
[2022-09-28 04:59] LABS: BASOPHILS % (AUTO) 0.5 % (0.0-2.0); EOSINOPHILS % (AUTO) 5.7 % (0.0-6.0); HEMATOCRIT 23 % (33-45); HEMOGLOBIN 7.5 g/dL (11.5-14.8); LYMPHOCYTES # (AUTO) 1.4 K/uL (0.8-4.8); LYMPHOCYTES % (AUTO) 14.1 % (20.0-44.0); MEAN CORPUSCULAR HGB CONC 32 g/dl (31.0-36.0); MEAN CORPUSCULAR VOLUME 90 fL (82-100); MONOCYTES % (AUTO) 10.3 % (2.0-12.0); NEUTROPHILS # (AUTO) 6.8 K/uL (1.8-8.9); NEUTROPHILS % (AUTO) 69.4 % (43.0-81.0); PLATELET COUNT (AUTO) 335 K/uL (150-450); RED BLOOD CELL COUNT(AUTO) 2.57 MIL/uL (4.0-5.2); WHITE BLOOD COUNT (AUTO) 9.8 K/uL (4.3-11.0)
[2022-09-28 05:04] LABS: CALCIUM, SERUM 9.2 mg/dL (8.5-10.1); CREATININE 2.3 mg/dL (0.6-1.3); POTASSIUM 3.8 mmol/L (3.5-5.1)
--- NOTE | 2022-09-28 05:30 | NUR ---
MS RN NOTES HD TREATMENT COMPLETED TOLERATED WELL,TAKEN OUT 2LITERS.ON BED AWAKE,ALERT,ORIENTED X3
--- NOTE | 2022-09-28 06:50 | NUR ---
MS RN NOTES ACCU-CHECK BLOOD SUGAR CHECK 107,NO INSULIN COVERAGE.
--- NOTE | 2022-09-28 07:23 | NUR ---
RN OPENING NOTE RECEIVED PATIENT IN BED AWAKE, A/O X2, VERBALLY RESPONSIVE. NO SIGNS OF ACUTE DISTRESS NOTED. ON O2 INHALATION @ 2LPM VIA N/C, NO SOB NOTED, BREATHING EVEN AND UNLABORED. NOTED WITH IV ACCESS ON RIGHT HAND #20G, INTACT AND PATENT SALINE LOCKED. ALSO NOTED WITH RIGHT CHEST WALL PERMACATH WITH DRESSING C/D/I. WITH G-TUBE INTACT AND PATENT. NEPRO @ 60ML/HR RUNNING, OWEN WELL. HOB ELEVATED. PATIENT WITHOUT ANY S/SX OF PAIN. SAFETY MEASURE IN PLACE. BED IN LOWEST AND LOCKED POSITION. SIDE RAILS UP X3, CALL LIGHT PLACED WITHIN EASY REACH. WILL CONTINUE TO MONITOR PATIENT.
--- NOTE | 2022-09-28 07:26 | NUR ---
MS RN NOTES CALM AND QUIET ON BED.HD TREATMENT TOLERATED WELL,GT FEEDING TOLERATED WELL,NO DIARRHEA NOTED.ENDORSED TO MICHELET FOR TAYE.
[2022-09-28] MEDS: ACETYLCYSTEINE 20% SOLN 800 MG/4 ML VIAL NEB SCH ×2 (08:37→14:44)
[2022-09-28] MEDS: LOSARTAN POTASSIUM 25 MG TABLET GT SCH (09:27)
[2022-09-28] MEDS: MULTIVITAMINS,THERAGRAN 1 UDTAB TABLET GT SCH (09:27)
[2022-09-28] MEDS: PANTOPRAZOLE 40 MG/PACK PACK GT SCH ×2 (09:27→21:53)
[2022-09-28] MEDS: ASPIRIN 81 MG TAB.CHEW GT SCH (09:27)
[2022-09-28] MEDS: APIXABAN 2.5 MG TABLET PO SCH ×2 (09:29→17:24)
[2022-09-28] MEDS: THERAHONEY GEL 1.5 OZ TUBE TP SCH (09:41)
[2022-09-28] MEDS: INSULIN REGULAR, HUMAN 100 UNIT/ML 3 ML VIAL SQ PRN ×2 (11:27→17:25)
[2022-09-28] MEDS: LEVOTHYROXINE SODIUM 50 MCG TABLET GT SCH (14:40)
[2022-09-28] MEDS: ATORVASTATIN 40 MG TABLET GT SCH (17:22)
--- NOTE | 2022-09-28 18:37 | NUR ---
RN CLOSING NOTE PATIENT IN BED AWAKE, VERBALLY RESPONSIVE. NO SIGNS OF ACUTE DISTRESS NOTED. REMAINS STABLE ON O2 @ 2LPM VIA N/C, NO SOB NOTED, BREATHING EVEN AND UNLABORED. IV ACCESS ON RIGHT HAND #20G, INTACT AND PATENT SALINE LOCKED. ALSO NOTED WITH RIGHT CHEST WALL PERMACATH WITH DRESSING C/D/I. WITH G-TUBE INTACT AND PATENT. NEPRO @ 60ML/HR RUNNING, OWEN WELL. HOB ELEVATED. ALL DUE MEDS GIVEN, TAKEN WELL. PATIENT WITHOUT ANY S/SX OF PAIN. SAFETY MEASURE MAINTAINED. BED IN LOWEST AND LOCKED POSITION. SIDE RAILS UP X3, CALL LIGHT PLACED WITHIN EASY REACH. WILL ENDORSE TO NEXT SHIFT FOR CONTINUITY OF CARE.
--- NOTE | 2022-09-28 19:45 | NUR ---
RN OPENING NOTE PATIENT AWAKE IN BED. A/OX1 (NAME). NO S/S OF DISTRESS, BREATHING WITHOUT DIFFICULTY ON 2L NC. PATIENT HAS PULLED OUT HER IV ACCESS. PRESSURE DRESSING APPLIED. ON-CALL NOTIFIED AND RESTRAINTS REQUESTED. ORDER GIVEN FOR RESTRAINTS. SAFETY MEASURES IN PLACE: BED LOCKED AND AT LOWEST POSITION, RAILS UP X2, CALL ZHENG WITHIN REACH. WILL CONTINUE TO MONITOR PATIENT.
[2022-09-28 20:00] VITALS: BP 130/68
[2022-09-28] MEDS: MIRTAZAPINE 15 MG TABLET GT SCH (21:53)
[2022-09-29] MEDS: ACETYLCYSTEINE 20% SOLN 800 MG/4 ML VIAL NEB SCH ×3 (00:03→14:41)
[2022-09-29] MEDS: IPRATROPIUM NEB FS 0.5 MG/2.5 ML AMPUL.NEB NEB PRN (00:03)
[2022-09-29] MEDS: BLOOD SUGAR DIAGNOSTIC 1 EACH STRIP IN SCH ×4 (00:42→17:28)
[2022-09-29] MEDS: INSULIN REGULAR, HUMAN 100 UNIT/ML 3 ML VIAL SQ PRN ×4 (00:46→17:55)
[2022-09-29] MEDS: IPRATROPIUM NEB FS 0.5 MG/2.5 ML AMPUL.NEB NEB SCH ×4 (02:14→19:30)
[2022-09-29] MEDS: ALBUTEROL FS 2.5 MG/3 ML VIAL.NEB NEB SCH ×4 (02:14→19:30)
[2022-09-29] MEDS: NEPRO 1,000 ML BOTTLE GT SCH ×2 (04:03→22:30)
--- NOTE | 2022-09-29 06:54 | NUR ---
RN CLOSING NOTE PATIENT ASLEEP IN BED. A/OX1 (NAME). NO S/S OF DISTRESS, BREATHING WITHOUT DIFFICULTY ON 2L NC. LFA #22 SL INTACT AND PATENT; RCW PERMACATH INTACT W/ NO BLEEDING NOTED. SAFETY MEASURES IN PLACE: BED LOCKED AND AT LOWEST POSITION, RAILS UP X2, CALL ZHENG WITHIN REACH. WILL ENDORSE TO NEXT SHIFT FOR TAYE.
[2022-09-29 07:00] VITALS: BP 130/64
[2022-09-29 07:22] LABS: BASOPHILS # (AUTO) 0.1 K/uL (0.0-0.2); BASOPHILS % (AUTO) 0.5 % (0.0-2.0); EOSINOPHILS % (AUTO) 4.9 % (0.0-6.0); HEMATOCRIT 25 % (33-45); LYMPHOCYTES # (AUTO) 1.3 K/uL (0.8-4.8); LYMPHOCYTES % (AUTO) 10.8 % (20.0-44.0); MEAN CORPUSCULAR HGB CONC 32 g/dl (31.0-36.0); MEAN CORPUSCULAR VOLUME 90 fL (82-100); MONOCYTES # (AUTO) 1.4 K/uL (0.1-1.30); MONOCYTES % (AUTO) 11.7 % (2.0-12.0); NEUTROPHILS # (AUTO) 8.8 K/uL (1.8-8.9); NEUTROPHILS % (AUTO) 72.1 % (43.0-81.0); PLATELET COUNT (AUTO) 379 K/uL (150-450); RED BLOOD CELL COUNT(AUTO) 2.74 MIL/uL (4.0-5.2); WHITE BLOOD COUNT (AUTO) 12.1 K/uL (4.3-11.0)
--- NOTE | 2022-09-29 07:26 | NUR ---
MS RN OPENING NOTES RECEIVED PATIENT AWAKE IN BED IN NO ACUTE SIGNS OF DISTRESS. A/O X2, VERBALLY RESPONSIVE, NO S/S OF PAIN OBSERVED AT THIS TIME. ON O2 @ 2LPM VIA N/C, TOLERATING WELL, BREATHING EVEN AND UNLABORED. PT WITH B/L SOFT WRIST RESTRAINTS IN PLACE, BUE CIRCULATIONS WNL. IV ACCESS ON LFA #22G INTACT, PATENT AND SALINE LOCKED. RIGHT CHEST WALL PERMACATH WITH DRESSING C/D/I. G-TUBE IN P[LACE WITH FEEDING OF NEPRO @ 60ML/HR RUNNING, TOLERATING WELL WELL. ASPIRATION AND ALL SAFETY MEASURES IN PLACE: BED IN LOWEST LOCKED POSITION, SIDE RAILS UP X3, HOB ELEVATED AND CALL LIGHT WITHIN EASY REACH. WILL CONTINUE TO MONITOR PATIENT.
[2022-09-29 07:57] LABS: CALCIUM, SERUM 9.4 mg/dL (8.5-10.1); CREATININE 2.1 mg/dL (0.6-1.3)
[2022-09-29] MEDS: PANTOPRAZOLE 40 MG/PACK PACK GT SCH ×2 (08:55→21:31)
[2022-09-29] MEDS: APIXABAN 5 MG TABLET PO SCH ×2 (08:58→16:19)
[2022-09-29] MEDS: LOSARTAN POTASSIUM 25 MG TABLET GT SCH (08:59)
[2022-09-29] MEDS: ASPIRIN 81 MG TAB.CHEW GT SCH (08:59)
[2022-09-29] MEDS: MULTIVITAMINS,THERAGRAN 1 UDTAB TABLET GT SCH (08:59)
[2022-09-29] MEDS: THERAHONEY GEL 1.5 OZ TUBE TP SCH (09:11)
[2022-09-29] MEDS: LEVOTHYROXINE SODIUM 50 MCG TABLET GT SCH (13:47)
[2022-09-29] MEDS: ACETAMINOPHEN 650 MG/20.3 ML UDC GT PRN ×2 (16:27→22:29)
[2022-09-29] MEDS: ATORVASTATIN 40 MG TABLET GT SCH (17:11)
--- NOTE | 2022-09-29 18:40 | NUR ---
MS RN CLOSING NOTES PATIENT IN BED AWAKE AT THIS TIME AND LYING AT SEMI-[place]LLING[place]ORTH'S POSITION. A/O X2, VERBALLY RESPONSIVE, LATVIAN SPEAKING, CONFUSED AND FORGETFUL. ON O2 @ 2LPM VIA N/C, TOLERATING WELL, BREATHING EVEN AND UNLABORED. PT WITH LEFT SOFT WRIST RESTRAINTS IN PLACE, SKIN AND CIRCULATIONS WNL. IV ACCESS ON LFA #22G INTACT, PATENT AND SALINE LOCKED. RIGHT CHEST WALL PERMACATH INTACT WITH DRESSING C/D/I. G-TUBE IN PLACE WITH FEEDING OF NEPRO @ 60ML/HR IN PROGRESS, TOLERATING WELL. PT TURNED AND REPOSITIONED Q 2HRS AND PRN. KEPT CLEAN, DRY AND COMFORTABLE. ASPIRATION AND ALL SAFETY MEASURES IN PLACE: BED IN LOWEST LOCKED POSITION, SIDE RAILS UP X3, HOB ELEVATED AND CALL LIGHT WITHIN EASY REACH. WILL ENDORSE TAYE TO MOTION DESIGNER NURSE.
[2022-09-29 20:00] VITALS: BP 137/73
--- NOTE | 2022-09-29 20:05 | NUR ---
MS RN OPENING NOTE PATIENT AWAKE IN BED, ALERT/ORIENTED TO NAME. PT STABLE ON 2 LPM OF O2 VIA NASAL CANNULA, NO S/S OF DISTRESS OR SOB NOTED, BREATHING EVEN AND UNLABORED. IV ACCESS ON LFA #22G INTACT AND SALINE LOCKED. PATIENT ON GTF NEPRO @ 60 ML/HR WITH 5 ML RESIDUAL, TO BE OFF AT MIDNIGHT AND BACK ON AT 4 AM. PATIENT WITH LEFT WRIST RESTRAINT D/T PULLING ON LINES. PATIENT NOTED WITH RCW PERMACATH, CLEAN, DRY AND INTACT. SAFETY MEASURES IN PLACE: CALL LIGHT WITHIN REACH, SIDE RAILS UP X 3, BED LOCKED IN LOWEST POSITION, HOB ELEVATED, BED ALARM ON. WILL CONTINUE TO MONITOR PATIENT
[2022-09-29] MEDS: MIRTAZAPINE 15 MG TABLET GT SCH (21:32)
--- NOTE | 2022-09-29 22:30 | NUR ---
MS RN NOTE PATIENT MOANING IN BED, PATIENT REPOSITIONED AND MADE COMFORTABLE BUT CONTINUES TO MOAN. TYLENOL 650 MG GIVEN FOR PAIN
[2022-09-29] MEDS: ZOLPIDEM TARTRATE 5 MG TABLET GT PRN (23:53)
[2022-09-30] MEDS: INSULIN REGULAR, HUMAN 100 UNIT/ML 3 ML VIAL SQ PRN ×3 (00:04→16:57)
[2022-09-30] MEDS: ACETYLCYSTEINE 20% SOLN 800 MG/4 ML VIAL NEB SCH ×4 (01:59→23:30)
[2022-09-30] MEDS: ALBUTEROL FS 2.5 MG/3 ML VIAL.NEB NEB SCH ×4 (01:59→20:02)
[2022-09-30] MEDS: IPRATROPIUM NEB FS 0.5 MG/2.5 ML AMPUL.NEB NEB SCH ×4 (01:59→20:02)
[2022-09-30] MEDS: BLOOD SUGAR DIAGNOSTIC 1 EACH STRIP IN SCH ×4 (06:53→17:13)
[2022-09-30 07:00] VITALS: BP 135/81
--- NOTE | 2022-09-30 07:41 | NUR ---
MS RN CLOSING NOTE PATIENT AWAKE IN BED, ALERT/ORIENTED TO NAME, PT CONFUSED. PT STABLE ON 2 LPM OF O2 VIA NASAL CANNULA, NO S/S OF DISTRESS OR SOB NOTED, BREATHING EVEN AND UNLABORED. IV ACCESS ON LFA #22G INTACT AND SALINE LOCKED. PATIENT ON GTF NEPRO @ 60 ML/HR X 20H, TURNED OFF AT MIDNIGHT AND BACK ON AT 4 AM. LEFT WRIST RESTRAINT REMAINED OFF MOST OF SHIFT, NO PULLING OF LINES OBSERVED THIS SHIFT. PATIENT NOTED WITH RCW PERMACATH, CLEAN, DRY AND INTACT. MEDICATIONS GIVEN ORDERED, PT NEEDS MET THROUGHOUT SHIFT. SAFETY MEASURES IN PLACE: CALL LIGHT WITHIN REACH, SIDE RAILS UP X 3, BED LOCKED IN LOWEST POSITION, HOB ELEVATED, BED ALARM ON. ENDORSED TO DAYSHIFT RN FOR CONTINUITY OF CARE
--- NOTE | 2022-09-30 07:57 | NUR ---
MS RN OPENING NOTES RECEIVED PATIENT AWAKE IN BED IN NO ACUTE SIGNS OF DISTRESS. A/O X2, VERBALLY RESPONSIVE, SPEAKING ONLU AMHARIC. PT C/O SMALL AMOUNT OF STOMACH BURNING PAIN, UNABLE TO GIVE NUMERICAL SCALE TO NURSE.. ON O2 @ 2LPM VIA N/C, TOLERATING WELL, BREATHING EVEN AND UNLABORED. PT WITH B/L SOFT WRIST RESTRAINTS OFF AND BUE CIRCULATIONS WNL. IV ACCESS ON LFA #22G INTACT, PATENT AND SALINE LOCKED. RIGHT CHEST WALL PERMACATH WITH DRESSING C/D/I. G-TUBE IN P[LACE WITH FEEDING OF NEPRO @ 60ML/HR RUNNING, TOLERATING WELL. ASPIRATION PRECAUTIONS AND ALL SAFETY MEASURES IN PLACE: BED IN LOWEST LOCKED POSITION, SIDE RAILS UP X3, HOB ELEVATED. wILL CONTINUE TO MONITOR CAREFULLY AND ADDRESS PT'S NEEDS.
[2022-09-30] MEDS: ASPIRIN 81 MG TAB.CHEW GT SCH (08:38)
[2022-09-30] MEDS: LOSARTAN POTASSIUM 25 MG TABLET GT SCH (08:39)
[2022-09-30] MEDS: MULTIVITAMINS,THERAGRAN 1 UDTAB TABLET GT SCH (08:39)
[2022-09-30] MEDS: PANTOPRAZOLE 40 MG/PACK PACK GT SCH ×2 (08:39→21:13)
[2022-09-30] MEDS: APIXABAN 5 MG TABLET PO SCH ×2 (08:44→16:55)
[2022-09-30] MEDS: THERAHONEY GEL 1.5 OZ TUBE TP SCH (09:25)
[2022-09-30] MEDS: LEVOTHYROXINE SODIUM 50 MCG TABLET GT SCH (13:46)
[2022-09-30] MEDS: ATORVASTATIN 40 MG TABLET GT SCH (16:54)
--- NOTE | 2022-09-30 18:23 | NUR ---
MS RN CLOSING NOTE PATIENT IN BED AWAKE AT THIS TIME AND LYING AT SEMI-[place]LLINGSWORTH'S POSITION. A/O X2, VERBALLY RESPONSIVE, INDONESIAN SPEAKING, CONFUSED AND FORGETFUL. ON O2 @ 2LPM VIA N/C, TOLERATING WELL, BREATHING EVEN AND UNLABORED. PT DID NOT NEED USE OF SOFT WRIST RESTRAINTS ALL DAY, SKIN AND CIRCULATIONS WNL. IV ACCESS ON LFA #22G INTACT, PATENT AND SALINE LOCKED. RIGHT CHEST WALL PERMACATH INTACT WITH DRESSING C/D/I. G-TUBE IN PLACE WITH FEEDING OF NEPRO @ 60ML/HR IN PROGRESS, TOLERATING WELL. PT TURNED AND REPOSITIONED Q 2HRS AND PRN. KEPT CLEAN, DRY AND COMFORTABLE. MEDICATED X 1 WITH TYLENOL FOR MILD ABDOMINAL PAIN WITH GOOD RELIEF FROM PAIN. ALL WOUND CARE AND DRESSING CHANGES COMPLETED WITH APPROPRIATE SKIN CARE PROVIDER ORDERED. ASPIRATION PRECAUTIONS AND ALL SAFETY MEASURES IN PLACE: BED IN LOWEST LOCKED POSITION, SIDE RAILS UP X3, HOB ELEVATED AND CALL LIGHT WITHIN EASY REACH. WILL ENDORSE TAYE TO MAIL SORTER AND DELIVERY NURSE.
--- NOTE | 2022-09-30 19:58 | NUR ---
MS RN OPENING NOTE PATIENT AWAKE IN BED, ALERT/ORIENTED TO NAME, PT CONFUSED, PT STABLE ON 2 LPM OF O2 VIA NASAL CANNULA, NO S/S OF DISTRESS OR SOB NOTED, BREATHING EVEN AND UNLABORED. IV ACCESS ON LFA #22G INTACT AND SALINE LOCKED. PATIENT ON GTF NEPRO @ 60 ML/HR WITH 5 ML RESIDUAL, TO BE OFF AT MIDNIGHT AND BACK ON AT 4 AM. NO RESTRAINTS ON PATIENT AT THIS TIME. PATIENT NOTED WITH RCW PERMACATH, CLEAN, DRY AND INTACT. SAFETY MEASURES IN PLACE: CALL LIGHT WITHIN REACH, SIDE RAILS UP X 3, BED LOCKED IN LOWEST POSITION, HOB ELEVATED, BED ALARM ON. WILL CONTINUE TO MONITOR PATIENT
[2022-09-30 20:09] LABS: BASOPHILS # (AUTO) 0.1 K/uL (0.0-0.2); BASOPHILS % (AUTO) 0.9 % (0.0-2.0); EOSINOPHILS % (AUTO) 5.7 % (0.0-6.0); HEMATOCRIT 21 % (33-45); LYMPHOCYTES # (AUTO) 1.5 K/uL (0.8-4.8); LYMPHOCYTES % (AUTO) 13.9 % (20.0-44.0); MEAN CORPUSCULAR HGB CONC 33 g/dl (31.0-36.0); MEAN CORPUSCULAR VOLUME 90 fL (82-100); MONOCYTES # (AUTO) 1.1 K/uL (0.1-1.30); MONOCYTES % (AUTO) 10.1 % (2.0-12.0); NEUTROPHILS # (AUTO) 7.5 K/uL (1.8-8.9); NEUTROPHILS % (AUTO) 69.4 % (43.0-81.0); PLATELET COUNT (AUTO) 356 K/uL (150-450); RED BLOOD CELL COUNT(AUTO) 2.35 MIL/uL (4.0-5.2); WHITE BLOOD COUNT (AUTO) 10.9 K/uL (4.3-11.0)
--- NOTE | 2022-09-30 20:45 | NUR ---
MS RN NOTE LAB CALLED REGARDING HGB 7.0, HCT 21, CONTACTED PANTOGRAPHER MD WITH ORDER FOR 1 UNIT PRBC. ORDER CONFIRMED AND CARRIED OUT
[2022-09-30 21:10] VITALS: BP 138/58
[2022-09-30] MEDS: MIRTAZAPINE 15 MG TABLET GT SCH (21:13)
[2022-09-30 22:20] LABS: BAND % (MANUAL) 2 % (0.0-5.0); EOSINOPHILS % (MANUAL) 6 % (0-4); LYMPHOCYTES % (MANUAL) 13 % (16-48); MONOCYTES % (MANUAL) 8 % (0-11.0); NEUTROPHILS % (MANUAL) 71 (42-76)
--- NOTE | 2022-09-30 22:33 | NUR ---
MS RN NOTE CALLED LAB RE MY ORDER FOR PRBC ORDER BEING CANCELLED, PER LAB A NEW ORDER NEEDS TO BE PLACED
[2022-10-01] VITALS (9 sets, daily range): BP systolic 138–167; BP diastolic 54–84
[2022-10-01] MEDS: INSULIN REGULAR, HUMAN 100 UNIT/ML 3 ML VIAL SQ PRN ×2 (00:23→06:19)
[2022-10-01] MEDS: BLOOD SUGAR DIAGNOSTIC 1 EACH STRIP IN SCH ×4 (00:23→17:08)
--- NOTE | 2022-10-01 00:23 | NUR ---
Pt refused Q8 [place] Tx. RN aware.
[2022-10-01] MEDS: IPRATROPIUM NEB FS 0.5 MG/2.5 ML AMPUL.NEB NEB SCH ×4 (01:59→20:19)
[2022-10-01] MEDS: ALBUTEROL FS 2.5 MG/3 ML VIAL.NEB NEB SCH ×4 (01:59→20:19)
[2022-10-01] MEDS: NEPRO 1,000 ML BOTTLE GT SCH (04:04)
--- NOTE | 2022-10-01 05:10 | NUR ---
MS RN NOTE BLOOD TRANSFUSION FINISHED, PATIENT TOLERATED WELL, NO ADVERSE REACTIONS
--- NOTE | 2022-10-01 07:08 | NUR ---
MS RN CLOSING NOTE PATIENT AWAKE IN BED, ALERT/ORIENTED TO NAME, PT CONFUSED. PT STABLE ON 2 LPM OF O2 VIA NASAL CANNULA, NO S/S OF DISTRESS OR SOB NOTED, BREATHING EVEN AND UNLABORED. IV ACCESS ON LFA #22G INTACT AND SALINE LOCKED. PATIENT ON GTF NEPRO @ 60 ML/HR X 20H, TURNED OFF AT MIDNIGHT AND BACK ON AT 4 AM. PATIENT NOTED WITH RCW PERMACATH, CLEAN, DRY AND INTACT. MEDICATIONS GIVEN ORDERED, PT NEEDS MET THROUGHOUT SHIFT, PT TURNED Q2H. SAFETY MEASURES IN PLACE: CALL LIGHT WITHIN REACH, SIDE RAILS UP X 3, BED LOCKED IN LOWEST POSITION, HOB ELEVATED, BED ALARM ON. WILL ENDORSE TO DAYSHIFT RN FOR CONTINUITY OF CARE
[2022-10-01 07:09] LABS: BASOPHILS # (AUTO) 0.1 K/uL (0.0-0.2); BASOPHILS % (AUTO) 0.9 % (0.0-2.0); EOSINOPHILS % (AUTO) 4.2 % (0.0-6.0); HEMATOCRIT 29 % (33-45); HEMOGLOBIN 9.3 g/dL (11.5-14.8); LYMPHOCYTES # (AUTO) 1.6 K/uL (0.8-4.8); LYMPHOCYTES % (AUTO) 13.2 % (20.0-44.0); MEAN CORPUSCULAR HGB CONC 33 g/dl (31.0-36.0); MEAN CORPUSCULAR VOLUME 89 fL (82-100); MONOCYTES # (AUTO) 1.2 K/uL (0.1-1.30); MONOCYTES % (AUTO) 10.3 % (2.0-12.0); NEUTROPHILS # (AUTO) 8.6 K/uL (1.8-8.9); NEUTROPHILS % (AUTO) 71.4 % (43.0-81.0); PLATELET COUNT (AUTO) 389 K/uL (150-450); RED BLOOD CELL COUNT(AUTO) 3.19 MIL/uL (4.0-5.2); WHITE BLOOD COUNT (AUTO) 12.1 K/uL (4.3-11.0)
[2022-10-01 07:17] LABS: POTASSIUM 4.4 mmol/L (3.5-5.1)
[2022-10-01 07:18] LABS: CALCIUM, SERUM 9.2 mg/dL (8.5-10.1); CREATININE 2.9 mg/dL (0.6-1.3)
[2022-10-01] MEDS: ACETYLCYSTEINE 20% SOLN 800 MG/4 ML VIAL NEB SCH ×3 (07:35→23:28)
[2022-10-01] MEDS: ACETAMINOPHEN 650 MG/20.3 ML UDC GT PRN (08:08)
[2022-10-01] MEDS: LOSARTAN POTASSIUM 25 MG TABLET GT SCH (09:34)
[2022-10-01] MEDS: ASPIRIN 81 MG TAB.CHEW GT SCH (09:34)
[2022-10-01] MEDS: MULTIVITAMINS,THERAGRAN 1 UDTAB TABLET GT SCH (09:34)
[2022-10-01] MEDS: PANTOPRAZOLE 40 MG/PACK PACK GT SCH ×2 (09:34→21:48)
[2022-10-01] MEDS: APIXABAN 5 MG TABLET PO SCH ×2 (09:35→17:09)
[2022-10-01] MEDS: THERAHONEY GEL 1.5 OZ TUBE TP SCH (09:44)
--- NOTE | 2022-10-01 11:30 | NUR ---
MS RN NOTE SEEN BY HOSPITALIST MONA. S/P HD WITH 1L OUT. PROCEDURE TOLERATED WELL. IN STABLE CONDITION.
[2022-10-01] MEDS ORDERED: EPOETIN ALFA (10,000 UNIT) 10,000 UNIT/ML VIAL SQ ONE (13:30)
[2022-10-01] MEDS ORDERED: EPOETIN ALFA-EPBX 10,000 UNIT/ML VIAL SQ ONE ×2 (14:00→18:00)
[2022-10-01] MEDS: LEVOTHYROXINE SODIUM 50 MCG TABLET GT SCH (14:23)
[2022-10-01] MEDS: ATORVASTATIN 40 MG TABLET GT SCH (17:08)
--- NOTE | 2022-10-01 19:22 | NUR ---
MS RN CLOSING NOTE PATIENT AWAKE IN BED, ALERT/ORIENTED TO NAME. PT STABLE ON 2 LPM OF O2 VIA NASAL CANULA, NO S/S OF DISTRESS OR SOB NOTED, BREATHING EVEN AND UNLABORED. WITH IV ACCESS ON LFA #22G ON SALINE LOCK, PATENT AND INTACT. PATIENT ON GTF NEPRO @ 60 ML/HR X 20H, INFUSING WELL, AND TOLERATED WELL. WITH RIGHT CHEST WALL PERMACATH, DRY AND INTACT. SAFETY MEASURES IN PLACE: CALL LIGHT WITHIN REACH, SIDE RAILS UP X 3, BED LOCKED IN LOWEST POSITION, HOB ELEVATED, BED ALARM ON. ON NORMAL BODY ALIGNMENT. ENDORSED TO NEXT SHIFT FOR CONTINUITY OF CARE.
--- NOTE | 2022-10-01 20:32 | NUR ---
MS RN OPENING NOTE PATIENT AWAKE IN BED, ALERT/ORIENTED TO NAME. PT STABLE ON 2 LPM OF O2 VIA NASAL CANULA, NO S/S OF DISTRESS OR SOB NOTED, BREATHING EVEN AND UNLABORED. WITH IV ACCESS ON LFA #22G ON SALINE LOCK, PATENT AND INTACT. PATIENT ON GTF NEPRO @ 60 ML/HR X 20H, INFUSING WELL, AND TOLERATED WELL. WITH RIGHT CHEST WALL PERMACATH, DRY AND INTACT. SAFETY MEASURES IN PLACE: CALL LIGHT WITHIN REACH, SIDE RAILS UP X 3, BED LOCKED IN LOWEST POSITION, HOB ELEVATED, BED ALARM ON. ON NORMAL BODY ALIGNMENT. WILL CONTINUE TO MONITOR. Addendum: 10/01/22 at 2151 by KENNY PAIZ RN G-TUBE PLACEMENT CHECKED. INTACT. DUE MEDS GIVEN.
[2022-10-01] MEDS: MIRTAZAPINE 15 MG TABLET GT SCH (21:48)
[2022-10-01] MEDS: ZOLPIDEM TARTRATE 5 MG TABLET GT PRN (23:08)
[2022-10-02] MEDS: BLOOD SUGAR DIAGNOSTIC 1 EACH STRIP IN SCH ×5 (00:13→23:08)
[2022-10-02] MEDS: INSULIN REGULAR, HUMAN 100 UNIT/ML 3 ML VIAL SQ PRN ×3 (00:27→23:11)
[2022-10-02] MEDS: ALBUTEROL FS 2.5 MG/3 ML VIAL.NEB NEB SCH ×4 (02:09→20:35)
[2022-10-02] MEDS: IPRATROPIUM NEB FS 0.5 MG/2.5 ML AMPUL.NEB NEB SCH ×4 (02:09→20:35)
[2022-10-02 04:00] VITALS: BP 124/59
[2022-10-02] MEDS: NEPRO 1,000 ML BOTTLE GT SCH (04:11)
--- NOTE | 2022-10-02 06:49 | NUR ---
MS RN CLOSING NOTES PATIENT AWAKE IN BED, ALERT/ORIENTED TO NAME. PT STABLE ON 2 LPM OF O2 VIA NASAL CANULA, NO S/S OF DISTRESS OR SOB NOTED, BREATHING EVEN AND UNLABORED. WITH IV ACCESS ON LFA #22G ON SALINE LOCK, PATENT AND INTACT. PATIENT ON GTF NEPRO @ 60 ML/HR X 20H, INFUSING WELL, AND TOLERATED WELL. WITH RIGHT CHEST WALL PERMACATH, DRY AND INTACT. DUE MEDS GIVEN. WOUND CARE DONE ORDERED. SAFETY MEASURES IN PLACE: CALL LIGHT WITHIN REACH, SIDE RAILS UP X 3, BED LOCKED IN LOWEST POSITION, HOB ELEVATED, BED ALARM ON. ON NORMAL BODY ALIGNMENT.WILL ENDORSE TO NEXT SHIFT RN FOR TAYE.
[2022-10-02] MEDS: ACETYLCYSTEINE 20% SOLN 800 MG/4 ML VIAL NEB SCH ×3 (07:39→23:43)
[2022-10-02 08:00] VITALS: BP_SYST 157; BP_SYST 194; BP_DIAS 77; BP_DIAS 85
[2022-10-02] MEDS: THERAHONEY GEL 1.5 OZ TUBE TP SCH (09:00)
[2022-10-02] MEDS: ASPIRIN 81 MG TAB.CHEW GT SCH (10:35)
[2022-10-02] MEDS: MULTIVITAMINS,THERAGRAN 1 UDTAB TABLET GT SCH (10:35)
[2022-10-02] MEDS: PANTOPRAZOLE 40 MG/PACK PACK GT SCH ×2 (10:35→21:27)
[2022-10-02] MEDS: LOSARTAN POTASSIUM 25 MG TABLET GT SCH (10:36)
[2022-10-02] MEDS: APIXABAN 5 MG TABLET PO SCH ×2 (10:37→17:55)
[2022-10-02 12:08] LABS: BASOPHILS # (AUTO) 0.1 K/uL (0.0-0.2); BASOPHILS % (AUTO) 1.1 % (0.0-2.0); EOSINOPHILS % (AUTO) 4.6 % (0.0-6.0); HEMATOCRIT 31 % (33-45); HEMOGLOBIN 9.7 g/dL (11.5-14.8); LYMPHOCYTES # (AUTO) 1.5 K/uL (0.8-4.8); LYMPHOCYTES % (AUTO) 11.1 % (20.0-44.0); MEAN CORPUSCULAR HGB CONC 32 g/dl (31.0-36.0); MEAN CORPUSCULAR VOLUME 91 fL (82-100); MONOCYTES # (AUTO) 1.4 K/uL (0.1-1.30); MONOCYTES % (AUTO) 10.3 % (2.0-12.0); NEUTROPHILS # (AUTO) 10.1 K/uL (1.8-8.9); NEUTROPHILS % (AUTO) 72.9 % (43.0-81.0); PLATELET COUNT (AUTO) 443 K/uL (150-450); RED BLOOD CELL COUNT(AUTO) 3.35 MIL/uL (4.0-5.2); WHITE BLOOD COUNT (AUTO) 13.8 K/uL (4.3-11.0)
[2022-10-02] MEDS: LEVOTHYROXINE SODIUM 50 MCG TABLET GT SCH (13:39)
[2022-10-02 16:00] VITALS: BP 155/77
[2022-10-02] MEDS: ATORVASTATIN 40 MG TABLET GT SCH (17:51)
--- NOTE | 2022-10-02 19:30 | NUR ---
MS RN OPENING NOTE RECEIVED PT AWAKE IN BED. A/O X1 AND [place] CITIZ[place] SPEAKING. PT ON O2 @ 2LPM VIA NC, TOLERATING WELL. NO SOB OR S/S OF RESPIRATORY DISTRESS. BREATHING EVEN AND UNLABORED. IV ACCESS LFA 22G, INTACT AND PATENT. WITH RCW PERMACATH, DRY AND INTACT. WITH GTUBE RUNNING NEPRO @ 60 ML/HR, TOLERATING WELL. SAFETY PRECAUTIONS IN PLACE. BED IN LOWEST LOCKED POSITION, HOB ELEVATED, SIDE RAILS UP X3, AND CALL LIGHT AND TABLE WITHIN REACH. ALL NEEDS MET AT THIS TIME.
[2022-10-02 20:00] VITALS: BP 151/68
--- NOTE | 2022-10-02 21:16 | NUR ---
RN NOTE PT NOTED WITH O2 SATURATION OF 89% ON 2 LPM VIA NC. PT WAS BREATHING WITH MOUTH. DRIVER MANAGER WAS OBTAINED SINCE PT IS [place] SPEAKING ONLY AND TOLD PT TO BREATH THROUGH NOSE. PT SAID OKAY BUT CONTINUED TO BREATH THROUGH THE MOUTH. STARTED PT ON SIMPLE MASK @ 6 LPM AND CURRENT O2 SATURATION IS 97%. CHARGE NURSE ALEXY FAN.
[2022-10-02] MEDS: MIRTAZAPINE 15 MG TABLET GT SCH (21:27)
[2022-10-03] MEDS: IPRATROPIUM NEB FS 0.5 MG/2.5 ML AMPUL.NEB NEB SCH ×4 (01:32→20:46)
[2022-10-03] MEDS: ALBUTEROL FS 2.5 MG/3 ML VIAL.NEB NEB SCH ×4 (01:32→20:46)
--- NOTE | 2022-10-03 03:11 | NUR ---
RN NOTE PT O2 SATURATION 100% ON 6 LPM VIA SIMPLE MASK. RT MOVED PT BACK ONTO NC @ 4LPM, SATURATING 95%. UNABLE TO TOLERATE 2LPM VIA NC AT THIS TIME. CHARGE NURSE ALEXY FAN.
[2022-10-03] MEDS: BLOOD SUGAR DIAGNOSTIC 1 EACH STRIP IN SCH ×3 (05:15→18:00)
--- NOTE | 2022-10-03 05:18 | NUR ---
RN NOTE PT NOTED WITH O2 SATURATION 100% ON 4 LPM VIA NC. TITRATED O2 DOWN TO 3 LPM AND STILL SATURATING 99%. PT NOTED TO STILL BE BREATHING OUT OF HER MOUTH INSTEAD OF HER NOSE. ATTEMPTED TO EDUCATE PT BUT SHE IS CONFUSED AND NOT FOLLOWING DIRECTIONS AT THIS TIME. NO SOB OR S/S OF RESPIRATORY DISTRESS. BREATHING EVEN AND UNLABORED. CHARGE NURSE MARY FAN.
--- NOTE | 2022-10-03 06:50 | NUR ---
MS RN CLOSING NOTE PT AWAKE IN BED. A/O X1 AND [place]OV[place] SPEAKING. PT ON O2 @ 3LPM VIA NC, TOLERATING WELL, SATURATING 98%. NO SOB OR S/S OF RESPIRATORY DISTRESS. BREATHING EVEN AND UNLABORED. IV ACCESS LFA 22G, INTACT AND PATENT. WITH RCW PERMACATH, DRY AND INTACT. WITH GTUBE RUNNING NEPRO @ 60 ML/HR, TOLERATING WELL. ALL DUE MEDS GIVEN ORDERED. KEPT CLEAN AND DRY. SAFETY PRECAUTIONS IN PLACE AT ALL TIMES. BED IN LOWEST LOCKED POSITION, HOB ELEVATED, SIDE RAILS UP X3, AND CALL LIGHT AND TABLE WITHIN REACH. ALL NEEDS MET AT THIS TIME AND WILL ENDORSE TO ONCOMING NURSE FOR TAYE.
[2022-10-03 06:58] LABS: BASOPHILS # (AUTO) 0.1 K/uL (0.0-0.2); BASOPHILS % (AUTO) 0.8 % (0.0-2.0); EOSINOPHILS % (AUTO) 4.4 % (0.0-6.0); HEMATOCRIT 27 % (33-45); HEMOGLOBIN 8.9 g/dL (11.5-14.8); LYMPHOCYTES # (AUTO) 2.2 K/uL (0.8-4.8); LYMPHOCYTES % (AUTO) 16.3 % (20.0-44.0); MEAN CORPUSCULAR HGB CONC 33 g/dl (31.0-36.0); MEAN CORPUSCULAR VOLUME 90 fL (82-100); MONOCYTES # (AUTO) 1.6 K/uL (0.1-1.30); MONOCYTES % (AUTO) 11.8 % (2.0-12.0); NEUTROPHILS % (AUTO) 66.7 % (43.0-81.0); PLATELET COUNT (AUTO) 422 K/uL (150-450); WHITE BLOOD COUNT (AUTO) 13.5 K/uL (4.3-11.0)
[2022-10-03 07:24] LABS: CREATININE 2.5 mg/dL (0.6-1.3); MAGNESIUM 2.4 mg/dL (1.8-2.4); PHOSPHORUS 2.3 mg/dL (2.5-4.9); POTASSIUM 3.9 mmol/L (3.5-5.1)
[2022-10-03] MEDS: ACETYLCYSTEINE 20% SOLN 800 MG/4 ML VIAL NEB SCH ×2 (07:35→15:50)
[2022-10-03 08:00] VITALS: BP 137/89
[2022-10-03] MEDS: APIXABAN 5 MG TABLET PO SCH ×2 (09:00→17:50)
[2022-10-03] MEDS: LOSARTAN POTASSIUM 25 MG TABLET GT SCH (09:00)
[2022-10-03] MEDS: THERAHONEY GEL 1.5 OZ TUBE TP SCH (09:00)
[2022-10-03] MEDS: PANTOPRAZOLE 40 MG/PACK PACK GT SCH ×2 (09:00→21:17)
[2022-10-03] MEDS: ASPIRIN 81 MG TAB.CHEW GT SCH (09:00)
[2022-10-03] MEDS: MULTIVITAMINS,THERAGRAN 1 UDTAB TABLET GT SCH (09:00)
--- NOTE | 2022-10-03 10:46 | NUR ---
Am meds not administered due to patient being in Dialysis at this time
[2022-10-03] MEDS: LEVOTHYROXINE SODIUM 50 MCG TABLET GT SCH (15:02)
[2022-10-03 16:00] VITALS: BP 138/75
[2022-10-03] MEDS ORDERED: GENTAMICIN 80 MG in IV D5W 50 ML IV ONE (17:00)
[2022-10-03] MEDS: ATORVASTATIN 40 MG TABLET GT SCH (17:43)
[2022-10-03] MEDS ORDERED: VANCOMYCIN 1 GM in IV D5W 250 ML IV ONE (18:00)
[2022-10-03 20:00] VITALS: BP 145/56
--- NOTE | 2022-10-03 20:19 | NUR ---
MS RN OPENING NOTE PT AWAKE IN BED. A/O X1 AND GREEK SPEAKING. PT ON O2 @ 3LPM VIA NC,TOLERATING WELL, SATURATING 98%. NO SOB OR S/S OF RESPIRATORY DISTRESS. BREATHING EVEN AND UNLABORED. IV ACCESS LFA 22G, INTACT AND PATENT. WITH RCW PERMACATH, DRY AND INTACT. WITH G-TUBE RUNNING NEPRO @ 60 ML/HR, TOLERATING WELL. KEPT CLEAN AND DRY. SAFETY PRECAUTIONS IN PLACE AT ALL TIMES. BED IN LOWEST LOCKED POSITION, HOB ELEVATED, SIDE RAILS UP X3, AND CALL LIGHT AND TABLE WITHIN REACH. ALL NEEDS MET AT THIS TIME
[2022-10-03] MEDS: MIRTAZAPINE 15 MG TABLET GT SCH (21:17)
[2022-10-04] MEDS: BLOOD SUGAR DIAGNOSTIC 1 EACH STRIP IN SCH ×4 (00:07→17:15)
[2022-10-04] MEDS: INSULIN REGULAR, HUMAN 100 UNIT/ML 3 ML VIAL SQ PRN ×2 (00:15→05:33)
[2022-10-04] MEDS: ACETYLCYSTEINE 20% SOLN 800 MG/4 ML VIAL NEB SCH ×3 (00:33→14:39)
[2022-10-04] MEDS: ALBUTEROL FS 2.5 MG/3 ML VIAL.NEB NEB SCH ×4 (01:56→21:02)
[2022-10-04] MEDS: IPRATROPIUM NEB FS 0.5 MG/2.5 ML AMPUL.NEB NEB SCH ×4 (01:56→21:02)
--- NOTE | 2022-10-04 06:43 | NUR ---
MS RN CLOSING NOTE PT AWAKE IN BED. A/O X1 AND CROATIAN SPEAKING. PT ON O2 @ 3LPM VIA NC,TOLERATING WELL, SATURATING 98%. NO SOB OR S/S OF RESPIRATORY DISTRESS. BREATHING EVEN AND UNLABORED. IV ACCESS LFA 22G, INTACT AND PATENT. WITH RCW PERMACATH, DRY AND INTACT. WITH G-TUBE RUNNING NEPRO @ 60 ML/HR, TOLERATING WELL. KEPT CLEAN AND DRY. SAFETY PRECAUTIONS IN PLACE AT ALL TIMES. BED IN LOWEST LOCKED POSITION, HOB ELEVATED, SIDE RAILS UP X3, AND CALL LIGHT AND TABLE WITHIN REACH. ALL NEEDS MET AT THIS TIME WILL ENDORSE TAYE TO DAY SHIFT NURSE.
[2022-10-04 07:12] LABS: CALCIUM, SERUM 9.6 mg/dL (8.5-10.1); CREATININE 1.9 mg/dL (0.6-1.3); MAGNESIUM 2.3 mg/dL (1.8-2.4); PHOSPHORUS 2.3 mg/dL (2.5-4.9)
--- NOTE | 2022-10-04 07:20 | NUR ---
MS RN OPENING NOTE RECEIVED PATIENT AWAKE IN BED, ALERT/ORIENTED TO NAME. PT STABLE ON 2 LPM OF O2 VIA NASAL CANULA, NO S/S OF DISTRESS OR SOB NOTED, BREATHING EVEN AND UNLABORED. WITH IV ACCESS ON LFA #22G ON SALINE LOCK, PATENT AND INTACT. PATIENT ON GTF NEPRO @ 60 ML/HR X 20H, INFUSING WELL, AND TOLERATED WELL. WITH RIGHT CHEST WALL PERMACATH, DRY AND INTACT. SAFETY MEASURES IN PLACE: CALL LIGHT WITHIN REACH, SIDE RAILS UP X 3, BED LOCKED IN LOWEST POSITION, HOB ELEVATED, BED ALARM ON. ON NORMAL BODY ALIGNMENT. WILL CONTINUE WITH PLAN OF CARE.
[2022-10-04 07:37] LABS: BASOPHILS # (AUTO) 0.1 K/uL (0.0-0.2); EOSINOPHILS % (AUTO) 3.9 % (0.0-6.0); HEMATOCRIT 28 % (33-45); HEMOGLOBIN 8.9 g/dL (11.5-14.8); LYMPHOCYTES # (AUTO) 2.1 K/uL (0.8-4.8); LYMPHOCYTES % (AUTO) 15.1 % (20.0-44.0); MEAN CORPUSCULAR HGB CONC 32 g/dl (31.0-36.0); MEAN CORPUSCULAR VOLUME 92 fL (82-100); MONOCYTES # (AUTO) 1.7 K/uL (0.1-1.30); MONOCYTES % (AUTO) 12.1 % (2.0-12.0); NEUTROPHILS # (AUTO) 9.3 K/uL (1.8-8.9); NEUTROPHILS % (AUTO) 67.9 % (43.0-81.0); PLATELET COUNT (AUTO) 455 K/uL (150-450); RED BLOOD CELL COUNT(AUTO) 3.03 MIL/uL (4.0-5.2); WHITE BLOOD COUNT (AUTO) 13.6 K/uL (4.3-11.0)
[2022-10-04 08:00] VITALS: BP 128/68
[2022-10-04] MEDS: MULTIVITAMINS,THERAGRAN 1 UDTAB TABLET GT SCH (08:28)
[2022-10-04] MEDS: PANTOPRAZOLE 40 MG/PACK PACK GT SCH ×2 (08:28→21:46)
[2022-10-04] MEDS: ASPIRIN 81 MG TAB.CHEW GT SCH (08:28)
[2022-10-04] MEDS: APIXABAN 5 MG TABLET PO SCH ×2 (08:31→17:15)
[2022-10-04] MEDS: LOSARTAN POTASSIUM 25 MG TABLET GT SCH (08:34)
[2022-10-04] MEDS: THERAHONEY GEL 1.5 OZ TUBE TP SCH (08:35)
[2022-10-04] MEDS ORDERED: K PHOS NEUTRAL 250 MG TABLET PO ONE (11:00)
[2022-10-04] MEDS ORDERED: VANCOMYCIN 500 MG in IV D5W 100 ML IV PRN (12:30)
[2022-10-04] MEDS ORDERED: GENTAMICIN 80 MG in IV D5W 50 ML IV PRN (12:30)
[2022-10-04] MEDS: LEVOTHYROXINE SODIUM 50 MCG TABLET GT SCH (14:18)
[2022-10-04 16:00] VITALS: BP 149/74
[2022-10-04] MEDS: ATORVASTATIN 40 MG TABLET GT SCH (17:14)
[2022-10-04] MEDS: NEPRO 1,000 ML BOTTLE GT SCH (18:15)
--- NOTE | 2022-10-04 19:50 | NUR ---
MS RN OPENING NOTE RECEIVED PATIENT IN BED; AWAKE, ALERT AND ORIENTED X1. [place] SPEAKING. ON O2 INHALATION @ 3LPM VIA NC, TOLERATING WELL. NO SOB OR S/S OF RESPIRATORY DISTRESS. BREATHING EVEN AND NONLABORED. WITH IV ACCESS @ LEFT FOREARM 22G: PATENT,INTACT AND SALINE LOCKED. WITH RIGHT CHEST WALL PERMACATH; CLEAN, DRY AND INTACT. WITH G-TUBE IN PLACE RUNNING WITH NEPRO @ 60 ML/HR, TOLERATING WELL. SAFETY PRECAUTIONS IMPLEMENTED: HEAD OF BED ELEVATED @ ALL TIMES, CALL LIGHT AND TABLE WITHIN REACH, SIDE RAILS UP X 3, BED IN LOWEST LOCKED POSITION. WILL CONTINUE TO MONITOR PATIENT.
[2022-10-04 20:00] VITALS: BP 134/67
[2022-10-04 21:10] VITALS: BP 134/67
[2022-10-04] MEDS: MIRTAZAPINE 15 MG TABLET GT SCH (21:46)
[2022-10-05] MEDS: ACETYLCYSTEINE 20% SOLN 800 MG/4 ML VIAL NEB SCH ×4 (00:13→23:25)
[2022-10-05] MEDS: ALBUTEROL FS 2.5 MG/3 ML VIAL.NEB NEB SCH ×4 (01:03→19:30)
[2022-10-05] MEDS: IPRATROPIUM NEB FS 0.5 MG/2.5 ML AMPUL.NEB NEB SCH ×4 (01:03→19:30)
[2022-10-05] MEDS: BLOOD SUGAR DIAGNOSTIC 1 EACH STRIP IN SCH ×5 (01:23→23:21)
[2022-10-05] MEDS: INSULIN REGULAR, HUMAN 100 UNIT/ML 3 ML VIAL SQ PRN ×4 (01:38→23:23)
[2022-10-05 03:24] LABS: ABG BASE EXCESS -0.8 mmol/L; ABG OXYGEN SATURATION 92.5 % (92.0-98.5); ABG PCO2 31.9 mmHg (35.0-45.0); ABG PH 7.468 (7.350-7.450); ABG PO2 62.9 mmHg (75.0-100.0); AaDO2 394.7 mmHg; COHb 0.4 % (0.5-1.5); MetHb 0.2 % (0.0-1.5); O2Hb 91.9 % (94.0-97.0); SITE, ABG Right Radial; VENT MODE, BG SIMPLE MASK
--- NOTE | 2022-10-05 03:45 | NUR ---
RN NOTE PLACED BACK ON SIMPLE MASK @ 6LPM O2 INHALATION SATING @ 93%. WILL CONTINUE TO MONITOR PT.
[2022-10-05 06:09] VITALS: BP 148/86
[2022-10-05 06:12] VITALS: BP 148/86
[2022-10-05 06:59] LABS: BASOPHILS # (AUTO) 0.1 K/uL (0.0-0.2); BASOPHILS % (AUTO) 0.9 % (0.0-2.0); EOSINOPHILS % (AUTO) 3.3 % (0.0-6.0); HEMATOCRIT 24 % (33-45); HEMOGLOBIN 7.7 g/dL (11.5-14.8); LYMPHOCYTES # (AUTO) 1.6 K/uL (0.8-4.8); LYMPHOCYTES % (AUTO) 11.5 % (20.0-44.0); MEAN CORPUSCULAR HGB CONC 32 g/dl (31.0-36.0); MEAN CORPUSCULAR VOLUME 91 fL (82-100); MONOCYTES # (AUTO) 1.2 K/uL (0.1-1.30); MONOCYTES % (AUTO) 8.8 % (2.0-12.0); NEUTROPHILS # (AUTO) 10.5 K/uL (1.8-8.9); NEUTROPHILS % (AUTO) 75.5 % (43.0-81.0); PLATELET COUNT (AUTO) 466 K/uL (150-450); RED BLOOD CELL COUNT(AUTO) 2.63 MIL/uL (4.0-5.2); WHITE BLOOD COUNT (AUTO) 13.9 K/uL (4.3-11.0)
--- NOTE | 2022-10-05 07:14 | NUR ---
MS RN CLOSING NOTE PATIENT IN BED; AWAKE, A/O X1. BULGARIAN SPEAKING. ON O2 INHALATION @ 6 LPM VIA SIMPLE MASK, TOLERATING WELL. NO SOB OR S/S OF RESPIRATORY DISTRESS. BREATHING EQUAL AND UNLABORED. WITH IV ACCESS @ LEFT FOREARM 22G: PATENT,INTACT AND SALINE LOCKED. WITH RIGHT CHEST WALL PERMACATH; CLEAN, DRY AND INTACT. WITH G-TUBE IN PLACE RUNNING NEPRO @ 60 ML/HR, TOLERATING WELL. SAFETY PRECAUTIONS MAINTAINED: HEAD OF BED ELEVATED @ ALL TIMES, CALL LIGHT AND TABLE WITHIN REACH, SIDE RAILS UP X 3, BED IN LOWEST LOCKED POSITION. ENDORSED TO MORNING SHIFT FOR TAYE.
[2022-10-05 07:19] LABS: CALCIUM, SERUM 9.3 mg/dL (8.5-10.1); CREATININE 2.5 mg/dL (0.6-1.3); MAGNESIUM 2.4 mg/dL (1.8-2.4); PHOSPHORUS 3.1 mg/dL (2.5-4.9); POTASSIUM 4.1 mmol/L (3.5-5.1)
--- NOTE | 2022-10-05 07:44 | NUR ---
MS RN OPENING NOTES PATIENT LAYING IN BED, A/O X 1, ABLE TO MAKE NEEDS KNOWN, TOLERATING WELL ON 6 LPM O2 VIA SIMPLE MASK. RT AT BEDSIDE TO PERFORM BREATHING TREATMENT. IV ACCESS L FA # 22 SL CLEAN, INTACT, FLUSHING WELL. RCW PERMACATH CLEAN, DRY, INTACT. G-TUBE IN PLACE RUNNING NEPRO @ 60 ML/HR, TOLERATING WELL. SAFETY PRECAUTIONS MAINTAINED: HEAD OF BED ELEVATED @ ALL TIMES, CALL LIGHT AND TABLE WITHIN REACH, SIDE RAILS UP X 3, BED IN LOWEST LOCKED POSITION. WILL CONTINUE TO MONITOR.
[2022-10-05 08:32] VITALS: BP 145/60
[2022-10-05] MEDS: PANTOPRAZOLE 40 MG/PACK PACK GT SCH ×2 (09:14→21:15)
[2022-10-05] MEDS: ASPIRIN 81 MG TAB.CHEW GT SCH (09:14)
[2022-10-05] MEDS: MULTIVITAMINS,THERAGRAN 1 UDTAB TABLET GT SCH (09:14)
[2022-10-05] MEDS: LOSARTAN POTASSIUM 25 MG TABLET GT SCH (09:15)
[2022-10-05] MEDS: THERAHONEY GEL 1.5 OZ TUBE TP SCH (09:16)
[2022-10-05] MEDS: APIXABAN 5 MG TABLET PO SCH ×2 (09:16→17:09)
[2022-10-05 12:04] LABS: IRON, SERUM 21 ug/dl (50-175); TOTAL IRON BINDING CAPACITY 159 ug/dl (250-450)
[2022-10-05 12:43] LABS: FERRITIN 2015 ng/mL (8-388)
[2022-10-05] MEDS ORDERED: EPOETIN ALFA-EPBX 10,000 UNIT/ML VIAL SQ SCH (13:00)
[2022-10-05] MEDS: LEVOTHYROXINE SODIUM 50 MCG TABLET GT SCH (14:46)
[2022-10-05 16:00] VITALS: BP 140/84
[2022-10-05] MEDS: ATORVASTATIN 40 MG TABLET GT SCH (17:08)
--- NOTE | 2022-10-05 19:06 | NUR ---
MS RN CLOSING NOTES PATIENT LAYING IN BED, A/O X 1, TOLERATING WELL ON 8 LPM O2 VIA SIMPLE MASK. IV ACCESS L FA # 22 SL CLEAN, INTACT, FLUSHING WELL. RCW PERMACATH CLEAN, DRY, INTACT. G-TUBE IN PLACE RUNNING NEPRO @ 60 ML/HR, TOLERATING WELL. SAFETY PRECAUTIONS MAINTAINED: HEAD OF BED ELEVATED @ ALL TIMES, CALL LIGHT AND TABLE WITHIN REACH, SIDE RAILS UP X 3, BED IN LOWEST LOCKED POSITION. ALL NEEDS MET. TURNED Q2H. WILL ENDORSE TO VETERINARY ASSISTANT FOR TAYE.
--- NOTE | 2022-10-05 19:30 | NUR ---
MS RN OPENING NOTE RECEIVED PT AWAKE IN BED. A/O X1 WITH EPISODES OF CONFUSION, [place] SPEAKING. PT NOTED WITH O2 SAT 79%, PUT ON NON REBREATHER @ 15 LPM. O2 SATURATION WENT UP TO 95%. SWITCHED TO SIMPLE MASK @ 10 LPM, TOLERATING WELL. IV ACCESS LFA 22G SL, INTACT AND PATENT. WITH RCW PERMACATH, CLEAN AND DRY. WITH GTUBE RUNNING NEPRO @ 60 ML/HR, TOLERATING WELL. GAVE BED BATH AND CHANGED LINEN. SAFETY PRECAUTIONS IN PLACE. BED IN LOWEST LOCKED POSITION, HOB ELEVATED, SIDE RAILS UP X3, AND CALL LIGHT AND TABLE WITHIN REACH. ALL NEEDS MET AT THIS TIME.
[2022-10-05] MEDS: MIRTAZAPINE 15 MG TABLET GT SCH (21:15)
--- NOTE | 2022-10-05 23:23 | NUR ---
RN NOTE BS 157 AT THIS TIME. INSULIN 2 UNITS HELD D/T CURRENTLY RECEIVING DIALYSIS. CHARGE NURSE JODEE FAN.
[2022-10-06] MEDS: IPRATROPIUM NEB FS 0.5 MG/2.5 ML AMPUL.NEB NEB SCH ×4 (01:30→20:27)
[2022-10-06] MEDS: ALBUTEROL FS 2.5 MG/3 ML VIAL.NEB NEB SCH ×4 (01:30→20:27)
--- NOTE | 2022-10-06 02:21 | NUR ---
RN NOTE PT JUST FINISHED DIALYSIS AT THIS TIME. 2 L OUT, TOLERATING WELL. ADMINISTERING ANTIBIOTICS ORDERED POST HD. ALL NEEDS MET AT THIS TIME.
[2022-10-06] MEDS ORDERED: GENTAMICIN 80 MG/2 ML VIAL ONE (02:38)
[2022-10-06] MEDS: BLOOD SUGAR DIAGNOSTIC 1 EACH STRIP IN SCH ×3 (06:14→17:56)
--- NOTE | 2022-10-06 06:54 | NUR ---
MS RN CLOSING NOTE PT AWAKE IN BED. A/O X1 WITH EPISODES OF CONFUSION, WELSH SPEAKING. PT TITRATED DOWN TO 7LPM VIA NC, TOLERATING WELL, O2 SATURATION 95%. NO SOB OR S/S OF RESPIRATORY DISTRESS. BREATHING EVEN AND UNLABORED. IV ACCESS LFA 22G SL, INTACT AND PATENT. WITH RCW PERMACATH, CLEAN AND DRY. WITH GTUBE RUNNING NEPRO @ 60 ML/HR, TOLERATING WELL. KEPT CLEAN AND DRY. ALL DUE MEDS GIVEN ORDERED. SAFETY PRECAUTIONS IN PLACE AT ALL TIMES. BED IN LOWEST LOCKED POSITION, HOB ELEVATED, SIDE RAILS UP X3, AND CALL LIGHT AND TABLE WITHIN REACH. ALL NEEDS MET AT THIS TIME AND WILL ENDORSE TO ONCOMING NURSE FOR TAYE.
--- NOTE | 2022-10-06 07:15 | NUR ---
MS APRIL OPENING NOTES RECEIVED PATIENT AWAKE IN BED, A/Ox1, CONFUSED, MALIAN SPEAKING. PATIENT ON ROOM AIR NO S/S OF RESPIRATORY DISTRESS OR DISCOMFORT. PATIENT HAS IV ACCESS L FA #22G S/L. INTACT AND PATENT. PATIENT IS INCONTINENT. BEDREST. SKIN ISSUES: BILATERAL WOUNDS AND SACRAL DTI. HAS GTUBE FEEDING NEPRO @60 MK/HR. TOLERATING WELL. SAFETY MEASURES IN PLACE: BED LOCKED AND IN LOWEST POSITION, SIDE RAILS UPx2, CALL LIGHT WITHIN REACH, HOB ELEVATED. WILL CONTINUE TO MONITOR. Addendum: 10/06/22 at 0938 by PATT PEARSON RN ADDENDUM: RECEIVED PATIENT ON 7L NON-REBREATHER MASK, CURRENTLY NOW ON 6L SATURATING 97%. NO S/S OF RESPIRATORY DISTRESS OR DISCOMFORT.
[2022-10-06 08:00] VITALS: BP 150/49
[2022-10-06 08:05] LABS: BASOPHILS # (AUTO) 0.1 K/uL (0.0-0.2); BASOPHILS % (AUTO) 0.8 % (0.0-2.0); EOSINOPHILS % (AUTO) 3.5 % (0.0-6.0); HEMATOCRIT 23 % (33-45); HEMOGLOBIN 7.7 g/dL (11.5-14.8); LYMPHOCYTES # (AUTO) 1.8 K/uL (0.8-4.8); LYMPHOCYTES % (AUTO) 11.8 % (20.0-44.0); MEAN CORPUSCULAR HGB CONC 33 g/dl (31.0-36.0); MEAN CORPUSCULAR VOLUME 90 fL (82-100); MONOCYTES # (AUTO) 1.1 K/uL (0.1-1.30); NEUTROPHILS # (AUTO) 11.6 K/uL (1.8-8.9); NEUTROPHILS % (AUTO) 76.9 % (43.0-81.0); PLATELET COUNT (AUTO) 528 K/uL (150-450); RED BLOOD CELL COUNT(AUTO) 2.57 MIL/uL (4.0-5.2); WHITE BLOOD COUNT (AUTO) 15.1 K/uL (4.3-11.0)
[2022-10-06] MEDS: ACETYLCYSTEINE 20% SOLN 800 MG/4 ML VIAL NEB SCH ×3 (08:08→23:58)
[2022-10-06 08:23] LABS: CALCIUM, SERUM 9.6 mg/dL (8.5-10.1); CREATININE 1.8 mg/dL (0.6-1.3); MAGNESIUM 2.3 mg/dL (1.8-2.4); PHOSPHORUS 2.2 mg/dL (2.5-4.9); POTASSIUM 3.8 mmol/L (3.5-5.1)
[2022-10-06] MEDS: MULTIVITAMINS,THERAGRAN 1 UDTAB TABLET GT SCH (09:23)
[2022-10-06] MEDS: PANTOPRAZOLE 40 MG/PACK PACK GT SCH ×2 (09:23→21:21)
[2022-10-06] MEDS: LOSARTAN POTASSIUM 25 MG TABLET GT SCH (09:23)
[2022-10-06] MEDS: ASPIRIN 81 MG TAB.CHEW GT SCH (09:23)
[2022-10-06] MEDS: APIXABAN 5 MG TABLET PO SCH ×2 (09:26→17:41)
[2022-10-06] MEDS: THERAHONEY GEL 1.5 OZ TUBE TP SCH (09:28)
[2022-10-06] MEDS: INSULIN REGULAR, HUMAN 100 UNIT/ML 3 ML VIAL SQ PRN ×2 (12:34→17:45)
[2022-10-06] MEDS: LEVOTHYROXINE SODIUM 50 MCG TABLET GT SCH (14:13)
[2022-10-06 16:00] VITALS: BP 114/46
[2022-10-06] MEDS: ATORVASTATIN 40 MG TABLET GT SCH (17:41)
--- NOTE | 2022-10-06 18:00 | NUR ---
RN NOTES ATTEMPTED STRAIGHT CATHETERIZATION OF PT x3, NO OUTPUT HOWEVER, WILL ENDORSE TO NEXT SHIFT TO ATTEMPT.
--- NOTE | 2022-10-06 18:51 | NUR ---
MS RN CLOSING NOTES PATIENT AWAKE IN BED, A/Ox1, CONFUSED, CENTRAL AFRICAN SPEAKING. PATIENT ON NON-REBREATHER MASK ON 4L OF O2, STABLE. NO S/S OF RESPIRATORY DISTRESS OR DISCOMFORT. PATIENT HAS IV ACCESS L HAND #24 G S/L. INTACT AND PATENT. PATIENT IS INCONTINENT. BEDREST. SKIN ISSUES: BILATERAL WOUNDS AND SACRAL DTI. HAS GTUBE FEEDING NEPRO @60 MK/HR. TOLERATING WELL. SAFETY MEASURES MAINTAINED: BED LOCKED AND IN LOWEST POSITION, SIDE RAILS UPx2, CALL LIGHT WITHIN REACH, HOB ELEVATED. WILL ENDORSE TO NEXT SHIFT ANY TAYE.
--- NOTE | 2022-10-06 19:30 | NUR ---
MS RN OPENING NOTE RECEIVED PT AWAKE IN BED. A/O X1 WITH EPISODES OF CONFUSION, [place] ISLANDER SPEAKING. PT ON O2 @ 6 LPM VIA SIMPLE FACE MASK, SATURATING @ 96%. NO SOB OR S/S OF RESPIRATORY DISTRESS. BREATHING EVEN AND UNLABORED. IV ACCESS LFA 22G SL AND L HAND 24G, INTACT AND PATENT. WITH RCW PERMACATH, CLEAN AND DRY. WITH GTUBE RUNNING NEPRO @ 60 ML/HR, TOLERATING WELL. SAFETY PRECAUTIONS IN PLACE. BED IN LOWEST LOCKED POSITION, HOB ELEVATED, SIDE RAILS UP X3, AND CALL LIGHT AND TABLE WITHIN REACH. ALL NEEDS MET AT THIS TIME.
[2022-10-06 20:00] VITALS: BP 104/49
[2022-10-06] MEDS: MIRTAZAPINE 15 MG TABLET GT SCH (21:21)
[2022-10-06] MEDS: NEPRO 1,000 ML BOTTLE GT SCH (22:35)
[2022-10-07] MEDS: BLOOD SUGAR DIAGNOSTIC 1 EACH STRIP IN SCH ×5 (00:08→23:22)
[2022-10-07] MEDS: INSULIN REGULAR, HUMAN 100 UNIT/ML 3 ML VIAL SQ PRN ×3 (00:10→17:35)
[2022-10-07] MEDS: IPRATROPIUM NEB FS 0.5 MG/2.5 ML AMPUL.NEB NEB SCH ×4 (02:19→19:53)
[2022-10-07] MEDS: ALBUTEROL FS 2.5 MG/3 ML VIAL.NEB NEB SCH ×4 (02:20→19:53)
--- NOTE | 2022-10-07 06:48 | NUR ---
MS RN CLOSING NOTE PT AWAKE IN BED. A/O X1 WITH EPISODES OF CONFUSION, LEBAN[place] SPEAKING. PT ON O2 @ 6 LPM VIA SIMPLE MASK, TOLERATING WELL. NO SOB OR S/S OF RESPIRATORY DISTRESS. BREATHING EVEN AND UNLABORED. IV ACCESS LFA 22G SL, INTACT AND PATENT. WITH RCW PERMACATH, CLEAN AND DRY. WITH GTUBE RUNNING NEPRO @ 60 ML/HR, TOLERATING WELL. KEPT CLEAN AND DRY. ALL DUE MEDS GIVEN ORDERED. SAFETY PRECAUTIONS IN PLACE AT ALL TIMES. BED IN LOWEST LOCKED POSITION, HOB ELEVATED, SIDE RAILS UP X3, AND CALL LIGHT AND TABLE WITHIN REACH. ALL NEEDS MET AT THIS TIME AND WILL ENDORSE TO ONCOMING NURSE FOR TAYE.
[2022-10-07] MEDS: ACETYLCYSTEINE 20% SOLN 800 MG/4 ML VIAL NEB SCH ×3 (07:54→23:40)
[2022-10-07 07:59] LABS: BASOPHILS # (AUTO) 0.1 K/uL (0.0-0.2); BASOPHILS % (AUTO) 0.8 % (0.0-2.0); HEMATOCRIT 22 % (33-45); HEMOGLOBIN 7.1 g/dL (11.5-14.8); LYMPHOCYTES % (AUTO) 12.3 % (20.0-44.0); MEAN CORPUSCULAR HGB CONC 32 g/dl (31.0-36.0); MEAN CORPUSCULAR VOLUME 92 fL (82-100); MONOCYTES # (AUTO) 1.5 K/uL (0.1-1.30); MONOCYTES % (AUTO) 9.1 % (2.0-12.0); NEUTROPHILS # (AUTO) 11.6 K/uL (1.8-8.9); NEUTROPHILS % (AUTO) 72.8 % (43.0-81.0); PLATELET COUNT (AUTO) 476 K/uL (150-450)
--- NOTE | 2022-10-07 08:16 | NUR ---
MS RN OPENING NOTE Patient in bed, awake. A/O x 1, Portuguese speaking. On O2 at 6 LPM via simple mask. No SOB or s/s of distress noted. G-tube in place running Nepro at 60 ml/hr. IV access on LFA #22 SL, intact and patent. Safety precautions in place: bed in low, locked position; siderails up x2; call light within reach. Will continue to monitor.
[2022-10-07 08:20] LABS: CALCIUM, SERUM 9.2 mg/dL (8.5-10.1); CREATININE 2.5 mg/dL (0.6-1.3); MAGNESIUM 2.2 mg/dL (1.8-2.4); PHOSPHORUS 2.9 mg/dL (2.5-4.9); POTASSIUM 4.1 mmol/L (3.5-5.1)
[2022-10-07] MEDS: APIXABAN 5 MG TABLET PO SCH ×2 (09:00→17:00)
--- NOTE | 2022-10-07 09:00 | NUR ---
RN NOTE Eliquis scheduled for 0900 held, hgb is 7.1. Dr. Marie notified. No new orders for now.
[2022-10-07] MEDS: MULTIVITAMINS,THERAGRAN 1 UDTAB TABLET GT SCH (09:02)
[2022-10-07] MEDS: LOSARTAN POTASSIUM 25 MG TABLET GT SCH (09:02)
[2022-10-07] MEDS: PANTOPRAZOLE 40 MG/PACK PACK GT SCH ×2 (09:02→21:24)
[2022-10-07] MEDS: ASPIRIN 81 MG TAB.CHEW GT SCH (09:02)
[2022-10-07] MEDS: THERAHONEY GEL 1.5 OZ TUBE TP SCH (09:03)
[2022-10-07] MEDS: LEVOTHYROXINE SODIUM 50 MCG TABLET GT SCH (14:26)
--- NOTE | 2022-10-07 17:00 | NUR ---
RN NOTE Shira scheduled for 1700 held, hgb is 7.1. Dr. Marie notified. No new orders for now.
[2022-10-07] MEDS: ATORVASTATIN 40 MG TABLET GT SCH (17:08)
[2022-10-07] MEDS: NEPRO 1,000 ML BOTTLE GT SCH (18:39)
--- NOTE | 2022-10-07 19:31 | NUR ---
MS RN CLOSING NOTE Patient in bed, resting. A/O x 1, Citizen Of [place] speaking. On O2 at 6 LPM via NC. No SOB or s/s of distress noted. G-tube in place running Nepro at 60 ml/hr. IV access on LFA #22 SL, intact and patent. Safety precautions in place: bed in low, locked position; siderails up x2; call light within reach. Will endorse to shift superintendent nurse for TAYE.
[2022-10-07 21:12] VITALS: BP 119/62
[2022-10-07] MEDS: MIRTAZAPINE 15 MG TABLET GT SCH (21:24)
[2022-10-08] MEDS: ALBUTEROL FS 2.5 MG/3 ML VIAL.NEB NEB SCH ×4 (01:55→20:20)
[2022-10-08] MEDS: IPRATROPIUM NEB FS 0.5 MG/2.5 ML AMPUL.NEB NEB SCH ×4 (01:55→20:21)
[2022-10-08] MEDS: BLOOD SUGAR DIAGNOSTIC 1 EACH STRIP IN SCH ×3 (06:12→17:27)
[2022-10-08] MEDS: INSULIN REGULAR, HUMAN 100 UNIT/ML 3 ML VIAL SQ PRN ×2 (06:31→11:45)
--- NOTE | 2022-10-08 07:49 | NUR ---
MS RN OPENING NOTE Patient in bed, asleep. A/O x 1, Latvian speaking. On O2 at 6 LPM via simple mask. No SOB or s/s of distress noted. G-tube in place running Nepro at 60 ml/hr. IV access on LFA #22 SL, intact and patent. Safety precautions in place: bed in low, locked position; siderails up x2; call light within reach. Will continue to monitor.
[2022-10-08 08:00] VITALS: BP 146/70
[2022-10-08] MEDS: ACETYLCYSTEINE 20% SOLN 800 MG/4 ML VIAL NEB SCH ×3 (08:20→23:14)
[2022-10-08 08:30] LABS: CREATININE 3.1 mg/dL (0.6-1.3); MAGNESIUM 2.4 mg/dL (1.8-2.4); POTASSIUM 4.2 mmol/L (3.5-5.1)
[2022-10-08 08:31] LABS: BASOPHILS # (AUTO) 0.1 K/uL (0.0-0.2); BASOPHILS % (AUTO) 0.6 % (0.0-2.0); EOSINOPHILS % (AUTO) 5.4 % (0.0-6.0); HEMATOCRIT 22 % (33-45); HEMOGLOBIN 7.2 g/dL (11.5-14.8); LYMPHOCYTES # (AUTO) 1.7 K/uL (0.8-4.8); LYMPHOCYTES % (AUTO) 11.5 % (20.0-44.0); MEAN CORPUSCULAR HGB CONC 33 g/dl (31.0-36.0); MEAN CORPUSCULAR VOLUME 91 fL (82-100); MONOCYTES # (AUTO) 1.2 K/uL (0.1-1.30); MONOCYTES % (AUTO) 8.3 % (2.0-12.0); NEUTROPHILS # (AUTO) 11.1 K/uL (1.8-8.9); NEUTROPHILS % (AUTO) 74.2 % (43.0-81.0); PLATELET COUNT (AUTO) 492 K/uL (150-450); RED BLOOD CELL COUNT(AUTO) 2.42 MIL/uL (4.0-5.2); WHITE BLOOD COUNT (AUTO) 14.9 K/uL (4.3-11.0)
[2022-10-08 09:00] LABS: GENTAMICIN,TROUGH 2.6 ug/ml (0.2-2.0)
[2022-10-08] MEDS: APIXABAN 5 MG TABLET PO SCH ×2 (09:00→17:00)
--- NOTE | 2022-10-08 09:07 | NUR ---
RN NOTE Received call from [facility] from lab, Gentamicin level is 2.6. Cristine Pharmacist notified.
[2022-10-08] MEDS: MULTIVITAMINS,THERAGRAN 1 UDTAB TABLET GT SCH (09:12)
[2022-10-08] MEDS: PANTOPRAZOLE 40 MG/PACK PACK GT SCH ×2 (09:12→21:38)
[2022-10-08] MEDS: ASPIRIN 81 MG TAB.CHEW GT SCH (09:13)
[2022-10-08] MEDS: LOSARTAN POTASSIUM 25 MG TABLET GT SCH (09:13)
[2022-10-08] MEDS: THERAHONEY GEL 1.5 OZ TUBE TP SCH (09:14)
[2022-10-08] MEDS: LEVOTHYROXINE SODIUM 50 MCG TABLET GT SCH (14:18)
[2022-10-08] MEDS: EPOETIN ALFA-EPBX 10,000 UNIT/ML VIAL SQ SCH (15:30)
[2022-10-08 16:00] VITALS: BP 135/43
--- NOTE | 2022-10-08 17:30 | NUR ---
RN NOTE Patient's Hgb is 7.2 today, Eliquis scheduled for 0900 and 1700 held. Cyndee, charge nurse aware.
[2022-10-08] MEDS: ATORVASTATIN 40 MG TABLET GT SCH (17:31)
[2022-10-08] MEDS: NEPRO 1,000 ML BOTTLE GT SCH (17:53)
--- NOTE | 2022-10-08 19:28 | NUR ---
MS RN CLOSING NOTE Patient in bed, resting. A/O x 1, Martiniquais speaking. On O2 at 6 LPM via simple mask. No SOB or s/s of distress noted. G-tube in place running Nepro at 60 ml/hr. IV access on LFA #22 SL, intact and patent. Patient kept clean and dry. Due meds given. Safety precautions in place: bed in low, locked position; siderails up x2; call light within reach. Will endorse to shift supervisor nurse for TAYE.
[2022-10-08 20:00] VITALS: BP 140/50
[2022-10-08] MEDS: MIRTAZAPINE 15 MG TABLET GT SCH (21:38)
[2022-10-08] MEDS: ZOLPIDEM TARTRATE 5 MG TABLET GT PRN (22:51)
[2022-10-09] MEDS: BLOOD SUGAR DIAGNOSTIC 1 EACH STRIP IN SCH ×5 (00:09→23:19)
[2022-10-09] MEDS: INSULIN REGULAR, HUMAN 100 UNIT/ML 3 ML VIAL SQ PRN ×5 (00:11→23:20)
[2022-10-09] MEDS: IPRATROPIUM NEB FS 0.5 MG/2.5 ML AMPUL.NEB NEB SCH ×4 (02:10→20:04)
[2022-10-09] MEDS: ALBUTEROL FS 2.5 MG/3 ML VIAL.NEB NEB SCH ×4 (02:10→20:04)
--- NOTE | 2022-10-09 06:15 | NUR ---
END OF SHIFT REPORT Patient in bed, Alert Oriented x1 to self only. On supplemental Oxygen 6L NC. Tolerating GTube feeding, minimal gastric residual. 6 hours sleep with Ambien. Turned and repositioned q 2h. No acute distress during the shift. Plan for dc back to [facility]. Will endorse to oncoming RN.
[2022-10-09] MEDS: NEPRO 1,000 ML BOTTLE GT SCH (06:52)
[2022-10-09 07:06] LABS: BASOPHILS # (AUTO) 0.1 K/uL (0.0-0.2); BASOPHILS % (AUTO) 0.8 % (0.0-2.0); EOSINOPHILS % (AUTO) 4.9 % (0.0-6.0); HEMATOCRIT 26 % (33-45); HEMOGLOBIN 7.9 g/dL (11.5-14.8); LYMPHOCYTES # (AUTO) 1.8 K/uL (0.8-4.8); MEAN CORPUSCULAR HGB CONC 31 g/dl (31.0-36.0); MEAN CORPUSCULAR VOLUME 96 fL (82-100); MONOCYTES # (AUTO) 1.2 K/uL (0.1-1.30); MONOCYTES % (AUTO) 7.5 % (2.0-12.0); NEUTROPHILS # (AUTO) 12.4 K/uL (1.8-8.9); NEUTROPHILS % (AUTO) 75.8 % (43.0-81.0); PLATELET COUNT (AUTO) 519 K/uL (150-450); RED BLOOD CELL COUNT(AUTO) 2.67 MIL/uL (4.0-5.2); WHITE BLOOD COUNT (AUTO) 16.3 K/uL (4.3-11.0)
[2022-10-09 07:18] LABS: CALCIUM, SERUM 9.2 mg/dL (8.5-10.1); CREATININE 2.1 mg/dL (0.6-1.3); MAGNESIUM 2.7 mg/dL (1.8-2.4); PHOSPHORUS 2.5 mg/dL (2.5-4.9); POTASSIUM 4.1 mmol/L (3.5-5.1)
[2022-10-09 08:00] VITALS: BP 156/63
[2022-10-09] MEDS: ACETYLCYSTEINE 20% SOLN 800 MG/4 ML VIAL NEB SCH ×3 (08:45→23:59)
[2022-10-09] MEDS: LOSARTAN POTASSIUM 25 MG TABLET GT SCH (08:53)
[2022-10-09] MEDS: MULTIVITAMINS,THERAGRAN 1 UDTAB TABLET GT SCH (08:53)
[2022-10-09] MEDS: ASPIRIN 81 MG TAB.CHEW GT SCH (08:53)
[2022-10-09] MEDS: PANTOPRAZOLE 40 MG/PACK PACK GT SCH ×2 (08:53→21:29)
[2022-10-09] MEDS: APIXABAN 5 MG TABLET PO SCH ×2 (08:54→17:05)
[2022-10-09] MEDS: THERAHONEY GEL 1.5 OZ TUBE TP SCH (08:55)
[2022-10-09] MEDS: LEVOTHYROXINE SODIUM 50 MCG TABLET GT SCH (13:15)
[2022-10-09 16:00] VITALS: BP 149/50
[2022-10-09] MEDS: ATORVASTATIN 40 MG TABLET GT SCH (17:05)
--- NOTE | 2022-10-09 17:56 | NUR ---
END OF SHIFT SUMMARY PATIENT IS A/O X1. ON 02 AT 5 LPM VIA NC, SATURATING WELL. IV ACCESS ON L FA #22G SL, INTACT AND PATENT. GT FEEDING NEPRO RUNNING AT 60 ML/HR, TOLERATING FEEDING WELL. BLOOD GLUCOSE MONITORED, INSULIN GIVEN PER MD-SLIDING SCALE. INCONTINENCE CARE PROVIDED. AWAITING AUTH FROM INSURANCE. SAFETY MEASURES MAINTAINED. BED IN LOWEST POSITION, BRAKES LOCKED. SIDE RAILS UP X2. CALL LIGHT WITHIN REACH. WILL ENDORSE CONTINUITY OF CARE TO ONCOMING SHIFT.
--- NOTE | 2022-10-09 19:56 | NUR ---
MS RN OPENING NOTE PATIENT SLEEPING IN BED, EASILY AWAKENED, PATIENT ALERT TO NAME ONLY, PT CONFUSED. PT STABLE ON 5 LPM OF 02 VIA NASAL CANNULA, NO S/S OF DISTRESS OR SOB NOTED, BREATHING EVEN AND UNLABORED, SPO2: 96%. PATIENT ON GTUBE FEEDING NEPRO @ 60 ML/HR X 20 HR TO BE TURNED OFF AT MIDNIGHT AND BACK ON AT 4 AM. IV ACCESS ON LFA #22G INTACT AND SALINE LOCKED. SAFETY MEASURES IN PLACE: CALL LIGHT WITHIN REACH, SIDE RAILS UP X 3, BED LOCKED IN LOWEST POSITION, HOB ELEVATED, BED ALARM ON . WILL CONTINUE TO MONITOR PATIENT
[2022-10-09 20:00] VITALS: BP 135/55
[2022-10-09] MEDS: MIRTAZAPINE 15 MG TABLET GT SCH (21:29)
[2022-10-09] MEDS: ZOLPIDEM TARTRATE 5 MG TABLET GT PRN (23:31)
[2022-10-10] MEDS: IPRATROPIUM NEB FS 0.5 MG/2.5 ML AMPUL.NEB NEB SCH ×4 (02:13→19:12)
[2022-10-10] MEDS: ALBUTEROL FS 2.5 MG/3 ML VIAL.NEB NEB SCH ×4 (02:13→19:12)
[2022-10-10] MEDS: BLOOD SUGAR DIAGNOSTIC 1 EACH STRIP IN SCH ×3 (07:02→17:17)
[2022-10-10] MEDS: INSULIN REGULAR, HUMAN 100 UNIT/ML 3 ML VIAL SQ PRN ×2 (07:03→17:47)
--- NOTE | 2022-10-10 07:18 | NUR ---
MS RN CLOSING NOTE PATIENT SLEEPING IN BED, EASILY AWAKENED, PATIENT ALERT TO NAME ONLY, PT CONFUSED. PT STABLE ON 5 LPM OF 02 VIA NASAL CANNULA, NO S/S OF DISTRESS OR SOB NOTED, BREATHING EVEN AND UNLABORED. PATIENT ON GTUBE FEEDING NEPRO @ 60 ML/HR X 20 HR, TURNED OFF AT MIDNIGHT AND BACK ON AT 4 AM. IV ACCESS ON LFA #22G INTACT AND SALINE LOCKED. NO SIGNIFICANT CHANGES THIS SHIFT, MEDICATIONS GIVEN ORDERED, PT NEEDS MET THROUGHOUT SHIFT. SAFETY MEASURES IN PLACE: CALL LIGHT WITHIN REACH, SIDE RAILS UP X 3, BED LOCKED IN LOWEST POSITION, HOB ELEVATED, BED ALARM ON. WILL ENDORSE TO DAYSHIFT RN FOR CONTINUITY OF CARE
--- NOTE | 2022-10-10 07:30 | NUR ---
RN Closing Note PAtient AOx1, not able to express her concerns. Patient with no signs of respiratory distress, no signs of discomfort, IV with no signs of infiltration. All safety precautions taken, call light and table within reach, bed at lowest position.
[2022-10-10] MEDS: NEPRO 1,000 ML BOTTLE GT SCH (07:41)
[2022-10-10] MEDS: ACETYLCYSTEINE 20% SOLN 800 MG/4 ML VIAL NEB SCH ×3 (08:49→22:53)
[2022-10-10] MEDS: APIXABAN 5 MG TABLET PO SCH ×3 (09:00→17:00)
[2022-10-10 09:16] LABS: BASOPHILS # (AUTO) 0.1 K/uL (0.0-0.2); BASOPHILS % (AUTO) 0.7 % (0.0-2.0); EOSINOPHILS % (AUTO) 4.7 % (0.0-6.0); HEMATOCRIT 22 % (33-45); MEAN CORPUSCULAR HGB CONC 31 g/dl (31.0-36.0); MEAN CORPUSCULAR VOLUME 94 fL (82-100); MONOCYTES # (AUTO) 1.1 K/uL (0.1-1.30); MONOCYTES % (AUTO) 6.2 % (2.0-12.0); NEUTROPHILS # (AUTO) 14.1 K/uL (1.8-8.9); NEUTROPHILS % (AUTO) 77.4 % (43.0-81.0); PLATELET COUNT (AUTO) 468 K/uL (150-450); RED BLOOD CELL COUNT(AUTO) 2.34 MIL/uL (4.0-5.2); WHITE BLOOD COUNT (AUTO) 18.2 K/uL (4.3-11.0)
[2022-10-10] MEDS: ASPIRIN 81 MG TAB.CHEW GT SCH (09:19)
[2022-10-10] MEDS: MULTIVITAMINS,THERAGRAN 1 UDTAB TABLET GT SCH (09:19)
[2022-10-10] MEDS: PANTOPRAZOLE 40 MG/PACK PACK GT SCH ×2 (09:19→22:03)
[2022-10-10] MEDS: LOSARTAN POTASSIUM 25 MG TABLET GT SCH (09:20)
[2022-10-10] MEDS: THERAHONEY GEL 1.5 OZ TUBE TP SCH (09:21)
[2022-10-10 09:28] LABS: HEMOGLOBIN 6.8 g/dL (11.5-14.8)
--- NOTE | 2022-10-10 09:31 | NUR ---
Critical results Lab called with critical hemoglobin values 6.9. Will hold eliquis per protocol, dr notified.
[2022-10-10] MEDS ORDERED: ACETAMINOPHEN 325 MG TABLET PO ONE (10:30)
[2022-10-10] MEDS ORDERED: diphenhydrAMINE HCL 50 MG/ML VIAL IV ONE (10:30)
[2022-10-10 10:41] LABS: BASOPHILS # (AUTO) 0.1 K/uL (0.0-0.2); BASOPHILS % (AUTO) 0.7 % (0.0-2.0); EOSINOPHILS % (AUTO) 4.6 % (0.0-6.0); LYMPHOCYTES # (AUTO) 1.7 K/uL (0.8-4.8); LYMPHOCYTES % (AUTO) 11.1 % (20.0-44.0); MEAN CORPUSCULAR HGB CONC 32 g/dl (31.0-36.0); MEAN CORPUSCULAR VOLUME 92 fL (82-100); MONOCYTES # (AUTO) 0.8 K/uL (0.1-1.30); MONOCYTES % (AUTO) 5.3 % (2.0-12.0); NEUTROPHILS # (AUTO) 11.9 K/uL (1.8-8.9); NEUTROPHILS % (AUTO) 78.3 % (43.0-81.0); PLATELET COUNT (AUTO) 431 K/uL (150-450); RED BLOOD CELL COUNT(AUTO) 2.09 MIL/uL (4.0-5.2); WHITE BLOOD COUNT (AUTO) 15.2 K/uL (4.3-11.0)
[2022-10-10 10:44] LABS: HEMATOCRIT 19 % (33-45); HEMOGLOBIN 6.1 g/dL (11.5-14.8)
[2022-10-10 11:12] VITALS: BP 144/52
[2022-10-10 11:27] VITALS: BP 128/72
[2022-10-10 12:36] VITALS: BP 121/78
[2022-10-10] MEDS: LEVOTHYROXINE SODIUM 50 MCG TABLET GT SCH (13:39)
[2022-10-10] MEDS: EPOETIN ALFA-EPBX 10,000 UNIT/ML VIAL SQ SCH (14:50)
[2022-10-10 17:09] LABS: BASOPHILS % (MANUAL) 1 % (0.0-2.0); EOSINOPHILS % (MANUAL) 6 % (0-4); LYMPHOCYTES % (MANUAL) 10 % (16-48); MONOCYTES % (MANUAL) 8 % (0-11.0); NEUTROPHILS % (MANUAL) 75 (42-76)
[2022-10-10] MEDS: ATORVASTATIN 40 MG TABLET GT SCH (17:16)
--- NOTE | 2022-10-10 18:02 | NUR ---
RN Closing Note Patient AOx1-2, not able to expressed her own concerns. Rounded hourly between me/nurse and OFFICE SYSTEM ANALYST. Attended to patient needs and administered mediations as prescribed, held eliquis per protocol due to patient low hemoglobin. Transfused 1 unit PRBC as ordered by physician, patient tolerated well. All safety precaution taken call light and table within reach, bed locked and at lowest position. Will endorse to night nurse for continuity of care.
--- NOTE | 2022-10-10 18:11 | NUR ---
RN Closing Note Patient AOx1-2, not able to express her own concerns. Not able to assess pts mental status, delayed speech and patient does not seem to fully comprehend questions. Patient remained safe throughout shift, medications administered as prescribed, care provided as needed. All safety precautions taken, call light and table within reach, bed at lowest position. Will endorse to night nurse for continuity of care
--- NOTE | 2022-10-10 19:17 | NUR ---
RT Pt recvd awake on 5 lpm humidified O2 via NC. neb tx given and lópez well. No SOB or respiratory distress noted at this time.
--- NOTE | 2022-10-10 19:50 | NUR ---
RN OPENING NOTES RECEIVED PT IN BED, ASLEEP, AWAKENS TO VERBAL STIMULI. AOx1, CONFUSED. ON NC 5LPM AND TOLERATING WELL. NO SOB NOTED. NO S/SX OF RESPIRATORY DISTRESS NOTED. IV ACCESS IN LFA #22G. IV IS INTACT, PATENT, AND FLUSHING WELL. SAFETY PRECAUTIONS IN PLACE: BED IN LOWEST, LOCKED POSITION, SIDERAILS UPx2, AND BRAKES ON. TABLE AND CALL LIGHT WITHIN REACH. ALL NEEDS MET AT THIS TIME.
[2022-10-10 20:00] VITALS: BP 102/56
[2022-10-10] MEDS: MIRTAZAPINE 15 MG TABLET GT SCH (22:03)
[2022-10-11] MEDS: BLOOD SUGAR DIAGNOSTIC 1 EACH STRIP IN SCH ×4 (00:37→18:01)
[2022-10-11] MEDS: INSULIN REGULAR, HUMAN 100 UNIT/ML 3 ML VIAL SQ PRN ×4 (00:39→17:29)
--- NOTE | 2022-10-11 00:39 | NUR ---
RN NOTES DID NOT ADMINISTER INSULIN BECAUSE TUBE FEEDING WILL BE HELD PER SCHEDULE.
[2022-10-11] MEDS: ACETYLCYSTEINE 20% SOLN 800 MG/4 ML VIAL NEB SCH ×3 (00:41→14:13)
[2022-10-11] MEDS: IPRATROPIUM NEB FS 0.5 MG/2.5 ML AMPUL.NEB NEB SCH ×4 (02:39→20:10)
[2022-10-11] MEDS: ALBUTEROL FS 2.5 MG/3 ML VIAL.NEB NEB SCH ×4 (02:39→20:10)
--- NOTE | 2022-10-11 06:49 | NUR ---
RN CLOSING NOTES PT IN BED, ASLEEP, AWAKENS TO VERBAL STIMULI. AOx1, CONFUSED. ON NC 5LPM AND TOLERATING WELL. NO SOB NOTED. NO S/SX OF RESPIRATORY DISTRESS NOTED. IV ACCESS IN LFA #22G. IV IS INTACT, PATENT, AND FLUSHING WELL. ALL ORDERS CARRIED OUT. ALL NEEDS MET. PT KEPT CLEAN AND DRY. SAFETY PRECAUTIONS IN PLACE: BED IN LOWEST, LOCKED POSITION, SIDERAILS UPx2, AND BRAKES ON. TABLE AND CALL LIGHT WITHIN REACH. WILL ENDORSE TO ONCOMING SHIFT FOR TAYE.
--- NOTE | 2022-10-11 07:18 | NUR ---
MS RN OPENING NOTE RECEIVED PATIENT AWAKE IN BED, ALERT/ORIENTED TO NAME. PT STABLE ON 5 LPM OF O2 VIA NASAL CANULA, NO S/S OF DISTRESS OR SOB NOTED, BREATHING EVEN AND UNLABORED. WITH IV ACCESS ON LFA #22G ON SALINE LOCK, PATENT AND INTACT. PATIENT ON GTF NEPRO @ 60 ML/HR X 20H, INFUSING WELL, AND TOLERATED WELL. SAFETY MEASURES IN PLACE: CALL LIGHT WITHIN REACH, SIDE RAILS UP X 3, BED LOCKED IN LOWEST POSITION, HOB ELEVATED, BED ALARM ON. ON NORMAL BODY ALIGNMENT. WILL CONTINUE WITH PLAN OF CARE.
[2022-10-11 07:32] LABS: BASOPHILS # (AUTO) 0.1 K/uL (0.0-0.2); BASOPHILS % (AUTO) 0.5 % (0.0-2.0); EOSINOPHILS % (AUTO) 3.9 % (0.0-6.0); HEMATOCRIT 29 % (33-45); HEMOGLOBIN 9.1 g/dL (11.5-14.8); LYMPHOCYTES % (AUTO) 12.3 % (20.0-44.0); MEAN CORPUSCULAR HGB CONC 31 g/dl (31.0-36.0); MEAN CORPUSCULAR VOLUME 92 fL (82-100); MONOCYTES % (AUTO) 6.5 % (2.0-12.0); NEUTROPHILS # (AUTO) 12.2 K/uL (1.8-8.9); NEUTROPHILS % (AUTO) 76.8 % (43.0-81.0); PLATELET COUNT (AUTO) 427 K/uL (150-450); RED BLOOD CELL COUNT(AUTO) 3.12 MIL/uL (4.0-5.2); WHITE BLOOD COUNT (AUTO) 15.9 K/uL (4.3-11.0)
[2022-10-11 07:48] LABS: ALBUMIN 1.5 g/dL (3.4-5.0); BILIRUBIN,TOTAL 0.4 mg/dL (0.2-1.0); CALCIUM, SERUM 8.7 mg/dL (8.5-10.1); CREATININE 2.1 mg/dL (0.6-1.3); MAGNESIUM 2.3 mg/dL (1.8-2.4); PHOSPHORUS 2.4 mg/dL (2.5-4.9); POTASSIUM 4.2 mmol/L (3.5-5.1); TOTAL PROTEIN, SERUM 6.8 g/dL (6.4-8.2)
[2022-10-11 08:00] VITALS: BP 121/50
[2022-10-11] MEDS: PANTOPRAZOLE 40 MG/PACK PACK GT SCH ×2 (09:49→20:39)
[2022-10-11] MEDS: LOSARTAN POTASSIUM 25 MG TABLET GT SCH (09:49)
[2022-10-11] MEDS: ASPIRIN 81 MG TAB.CHEW GT SCH (09:49)
[2022-10-11] MEDS: MULTIVITAMINS,THERAGRAN 1 UDTAB TABLET GT SCH (09:49)
[2022-10-11] MEDS: APIXABAN 5 MG TABLET PO SCH ×2 (09:51→17:12)
[2022-10-11] MEDS: THERAHONEY GEL 1.5 OZ TUBE TP SCH (09:55)
[2022-10-11] MEDS ORDERED: NEUTRA PHOS 1 POWD.PACKET GT ONE (10:00)
--- NOTE | 2022-10-11 10:10 | NUR ---
MS RN NOTE PATIENT SEEN BY DR. PIERCE WITH ORDERS MADE AND CARRIED OUT.
[2022-10-11] MEDS: FLUCONAZOLE (100 MG) 100 MG TABLET PO SCH (13:06)
[2022-10-11] MEDS: LEVOTHYROXINE SODIUM 50 MCG TABLET GT SCH (13:06)
[2022-10-11] MEDS: NEPRO 1,000 ML BOTTLE GT SCH (13:12)
--- NOTE | 2022-10-11 16:44 | NUR ---
MS RN NOTE SEEN BY DR. BELLE WITH ORDERS FOR HIDA SCAN. ORDERS MADE AND CARRIED OUT.
[2022-10-11] MEDS: ATORVASTATIN 40 MG TABLET GT SCH (17:12)
--- NOTE | 2022-10-11 18:30 | NUR ---
MS RN CLOSING NOTE PATIENT AWAKE IN BED, ALERT/ORIENTED TO NAME. PT STABLE ON 5 LPM OF O2 VIA NASAL CANULA, NO S/S OF DISTRESS OR SOB NOTED, BREATHING EVEN AND UNLABORED. WITH IV ACCESS ON LFA #22G ON SALINE LOCK, PATENT AND INTACT. PATIENT ON GTF NEPRO @ 60 ML/HR X 20H, INFUSING WELL, AND TOLERATED WELL. SAFETY MEASURES IN PLACE: CALL LIGHT WITHIN REACH, SIDE RAILS UP X 3, BED LOCKED IN LOWEST POSITION, HOB ELEVATED, BED ALARM ON. ON NORMAL BODY ALIGNMENT. WILL ENDORSE TO NEXT SHIFT FOR CONTINUITY OF CARE.
[2022-10-11] MEDS: MIRTAZAPINE 15 MG TABLET GT SCH (21:08)
[2022-10-11 23:42] VITALS: BP 111/64
[2022-10-12] MEDS: BLOOD SUGAR DIAGNOSTIC 1 EACH STRIP IN SCH ×5 (00:01→23:22)
[2022-10-12] MEDS: INSULIN REGULAR, HUMAN 100 UNIT/ML 3 ML VIAL SQ PRN ×4 (00:05→23:24)
[2022-10-12] MEDS: ACETYLCYSTEINE 20% SOLN 800 MG/4 ML VIAL NEB SCH ×4 (00:36→15:52)
[2022-10-12] MEDS: ALBUTEROL FS 2.5 MG/3 ML VIAL.NEB NEB SCH ×5 (00:39→19:30)
[2022-10-12] MEDS: IPRATROPIUM NEB FS 0.5 MG/2.5 ML AMPUL.NEB NEB SCH ×5 (00:39→19:30)
--- NOTE | 2022-10-12 06:28 | NUR ---
RN NOTES - BLOOD DRAWN POSTPONED BY LAB AT 10AM DUE TO ONGOING DIALYSIS.
--- NOTE | 2022-10-12 06:42 | NUR ---
MS RN CLOSING NOTE PATIENT AWAKE IN BED, ALERT/ORIENTED TO NAME. PT STABLE ON 5 LPM OF O2 VIA NASAL CANULA, NO S/S OF DISTRESS OR SOB NOTED, BREATHING EVEN AND UNLABORED. ONGOING DIALYSIS AT THIS TIME. WITH IV ACCESS ON LFA #22G ON SALINE LOCK, PATENT AND INTACT. PATIENT ON GTF NEPRO @ 60 ML/HR X 20H, INFUSING WELL, AND TOLERATED WELL. SAFETY MEASURES IN PLACE: CALL LIGHT WITHIN REACH, SIDE RAILS UP X 3, BED LOCKED IN LOWEST POSITION, HOB ELEVATED, BED ALARM ON. ON NORMAL BODY ALIGNMENT. WILL ENDORSE TO NEXT SHIFT RN FOR TAYE.
[2022-10-12 07:00] VITALS: BP 125/68
--- NOTE | 2022-10-12 07:33 | NUR ---
MS RN OPENING NOTE RECEIVED PATIENT AWAKE IN BED, A/O X 2. DIALYSIS AT BEDSIDE. PT STABLE ON 5 LPM OF O2 VIA NASAL CANULA, NO S/S OF RESPIRATORY DISTRESS OR SOB NOTED, BREATHING EVEN AND UNLABORED. WITH IV ACCESS ON LFA #22G PATENT AND INTACT. PATIENT ON GTF NEPRO @ 60 ML/HR X 20H, INFUSING WELL, AND TOLERATED WELL. SAFETY MEASURES IN PLACE: CALL LIGHT AND TRAY WITHIN REACH, SIDE RAILS UP X 3, BED LOCKED IN LOWEST POSITION, HOB ELEVATED, BED ALARM ON. WILL CONTINUE TO MONITOR
--- NOTE | 2022-10-12 08:43 | NUR ---
RN NOTES HEMODIALYSIS VIA RCW PERMA CATHETER COMPLETED AND TOLERATED WITH 2,000ML OUT. PT IS AWAKE WITH V/S STABLE. WILL CONTINUE TO MONITOR.
[2022-10-12] MEDS: APIXABAN 5 MG TABLET PO SCH ×2 (09:10→16:35)
[2022-10-12] MEDS: FLUCONAZOLE (100 MG) 100 MG TABLET PO SCH (09:10)
[2022-10-12] MEDS: PANTOPRAZOLE 40 MG/PACK PACK GT SCH ×2 (09:10→21:13)
[2022-10-12] MEDS: ASPIRIN 81 MG TAB.CHEW GT SCH (09:10)
[2022-10-12] MEDS: MULTIVITAMINS,THERAGRAN 1 UDTAB TABLET GT SCH (09:11)
[2022-10-12] MEDS: LOSARTAN POTASSIUM 25 MG TABLET GT SCH (09:11)
[2022-10-12] MEDS: THERAHONEY GEL 1.5 OZ TUBE TP SCH (10:14)
[2022-10-12 11:00] LABS: BASOPHILS # (AUTO) 0.1 K/uL (0.0-0.2); BASOPHILS % (AUTO) 0.6 % (0.0-2.0); EOSINOPHILS % (AUTO) 4.5 % (0.0-6.0); HEMATOCRIT 27 % (33-45); HEMOGLOBIN 8.7 g/dL (11.5-14.8); LYMPHOCYTES # (AUTO) 1.4 K/uL (0.8-4.8); LYMPHOCYTES % (AUTO) 10.7 % (20.0-44.0); MEAN CORPUSCULAR HGB CONC 32 g/dl (31.0-36.0); MEAN CORPUSCULAR VOLUME 90 fL (82-100); MONOCYTES # (AUTO) 0.8 K/uL (0.1-1.30); MONOCYTES % (AUTO) 6.2 % (2.0-12.0); NEUTROPHILS # (AUTO) 10.5 K/uL (1.8-8.9); PLATELET COUNT (AUTO) 429 K/uL (150-450); RED BLOOD CELL COUNT(AUTO) 3.02 MIL/uL (4.0-5.2); WHITE BLOOD COUNT (AUTO) 13.4 K/uL (4.3-11.0)
[2022-10-12 11:16] LABS: ALBUMIN 1.6 g/dL (3.4-5.0); BILIRUBIN,TOTAL 0.3 mg/dL (0.2-1.0); CALCIUM, SERUM 8.3 mg/dL (8.5-10.1); CREATININE 1.4 mg/dL (0.6-1.3); MAGNESIUM 2.1 mg/dL (1.8-2.4); PHOSPHORUS 1.6 mg/dL (2.5-4.9); POTASSIUM 3.8 mmol/L (3.5-5.1); TOTAL PROTEIN, SERUM 6.7 g/dL (6.4-8.2)
[2022-10-12] MEDS: LEVOTHYROXINE SODIUM 50 MCG TABLET GT SCH (13:48)
[2022-10-12] MEDS: EPOETIN ALFA-EPBX 10,000 UNIT/ML VIAL SQ SCH (14:00)
[2022-10-12 16:00] VITALS: BP 131/58
[2022-10-12] MEDS ORDERED: NEUTRA PHOS 1 POWD.PACKET GT ONE (16:00)
[2022-10-12] MEDS: ATORVASTATIN 40 MG TABLET GT SCH (17:05)
--- NOTE | 2022-10-12 18:37 | NUR ---
WOOD MACHINE CARVER CLOSING NOTE PATIENT AWAKE IN BED, A/OX1-2 WITH CONFUSION. PT STABLE ON 5 LPM OF O2 VIA NASAL CANULA, NO S/S OF RESPIRATORY DISTRESS OR SOB NOTED, BREATHING EVEN AND UNLABORED. ON TELE MONITOR, SINUS TACHY W/ PAC'S, HR 115. IV ACCESS ON LFA #22G ON SALINE LOCK, PATENT AND INTACT. PATIENT ON GTF NEPRO @ 60 ML/HR X 20H, INFUSING WELL, AND TOLERATED WELL. SAFETY MEASURES IN PLACE: CALL LIGHT WITHIN REACH, SIDE RAILS UP X 3, BED LOCKED IN LOWEST POSITION, HOB ELEVATED, BED ALARM ON. WILL ENDORSE TO NIGHT NURSE FOR TAYE.
[2022-10-12] MEDS: NEPRO 1,000 ML BOTTLE GT SCH (19:21)
[2022-10-12 20:00] VITALS: BP 112/49
[2022-10-12] MEDS: MIRTAZAPINE 15 MG TABLET GT SCH (21:13)
[2022-10-13] MEDS: ALBUTEROL FS 2.5 MG/3 ML VIAL.NEB NEB SCH ×5 (00:36→19:30)
[2022-10-13] MEDS: IPRATROPIUM NEB FS 0.5 MG/2.5 ML AMPUL.NEB NEB SCH ×5 (00:36→19:30)
[2022-10-13] MEDS: ACETYLCYSTEINE 20% SOLN 800 MG/4 ML VIAL NEB SCH ×4 (02:33→15:30)
[2022-10-13] MEDS: INSULIN REGULAR, HUMAN 100 UNIT/ML 3 ML VIAL SQ PRN ×4 (05:49→23:50)
[2022-10-13] MEDS: BLOOD SUGAR DIAGNOSTIC 1 EACH STRIP IN SCH ×4 (05:49→23:34)
--- NOTE | 2022-10-13 06:13 | NUR ---
END OF SHIFT REPORT Patient in bed, Alert Oriented x1 to self only. On supplemental Oxygen 4L NC, Oxygen sat in high 90's. Tolerating GTube feeding, zero gastric residual. Wound care done. Turned and repositioned q 2h. No acute distress during the shift. Pending dc, awaiting [facility] authorization and bed available. Will endorse to oncoming RN.
[2022-10-13 06:39] LABS: BASOPHILS # (AUTO) 0.1 K/uL (0.0-0.2); BASOPHILS % (AUTO) 0.7 % (0.0-2.0); EOSINOPHILS % (AUTO) 4.4 % (0.0-6.0); HEMATOCRIT 28 % (33-45); LYMPHOCYTES # (AUTO) 1.7 K/uL (0.8-4.8); LYMPHOCYTES % (AUTO) 11.5 % (20.0-44.0); MEAN CORPUSCULAR HGB CONC 32 g/dl (31.0-36.0); MEAN CORPUSCULAR VOLUME 92 fL (82-100); MONOCYTES # (AUTO) 1.1 K/uL (0.1-1.30); MONOCYTES % (AUTO) 7.7 % (2.0-12.0); NEUTROPHILS # (AUTO) 11.1 K/uL (1.8-8.9); NEUTROPHILS % (AUTO) 75.7 % (43.0-81.0); PLATELET COUNT (AUTO) 431 K/uL (150-450); RED BLOOD CELL COUNT(AUTO) 3.08 MIL/uL (4.0-5.2); WHITE BLOOD COUNT (AUTO) 14.7 K/uL (4.3-11.0)
[2022-10-13 07:00] VITALS: BP 152/60
[2022-10-13 07:00] LABS: ALBUMIN 1.6 g/dL (3.4-5.0); BILIRUBIN,TOTAL 0.4 mg/dL (0.2-1.0); CALCIUM, SERUM 8.7 mg/dL (8.5-10.1); MAGNESIUM 2.4 mg/dL (1.8-2.4); PHOSPHORUS 2.7 mg/dL (2.5-4.9); POTASSIUM 4.3 mmol/L (3.5-5.1); TOTAL PROTEIN, SERUM 6.8 g/dL (6.4-8.2)
--- NOTE | 2022-10-13 07:51 | NUR ---
RN OPENING NOTE PATIENT AWAKE IN BED RESTING AT THE MOMENT A/O X 1. NO S/S OF PAIN NOTED AT THIS TIME. ON 4L OXYGEN VIA NC, NO DISTRESS OR SHORTNESS OF BREATH NOTED. IV ACCESS LFA #22G, INTACT, PATENT AND FLUSHING WELL. PATIENT HAVE G-TUBE RUNNING NEPRO @60MLHR, TOLERATING IT WELL. FALL AND SAFETY MEASURES IN PLACE, BED ALARM ON, BED IN LOW AND LOCK POSITION, CALL LIGHT AND TABLE WITHIN EASY REACH, SIDE RAILS UP X2. WILL CONTINUE TO MONITOR.
[2022-10-13] MEDS: MULTIVITAMINS,THERAGRAN 1 UDTAB TABLET GT SCH (09:47)
[2022-10-13] MEDS: ASPIRIN 81 MG TAB.CHEW GT SCH (09:47)
[2022-10-13] MEDS: FLUCONAZOLE (100 MG) 100 MG TABLET PO SCH (09:47)
[2022-10-13] MEDS: PANTOPRAZOLE 40 MG/PACK PACK GT SCH ×2 (09:47→21:17)
[2022-10-13] MEDS: LOSARTAN POTASSIUM 25 MG TABLET GT SCH (09:47)
[2022-10-13] MEDS: APIXABAN 5 MG TABLET PO SCH ×2 (09:48→17:07)
[2022-10-13] MEDS: THERAHONEY GEL 1.5 OZ TUBE TP SCH (10:01)
[2022-10-13] MEDS: NEPRO 1,000 ML BOTTLE GT SCH (13:18)
[2022-10-13] MEDS: LEVOTHYROXINE SODIUM 50 MCG TABLET GT SCH (13:18)
[2022-10-13] MEDS: ATORVASTATIN 40 MG TABLET GT SCH (17:06)
--- NOTE | 2022-10-13 18:54 | NUR ---
RN CLOSING NOTE PATIENT AWAKE IN BED RESTING AT THE MOMENT A/O X 1. NO S/S OF PAIN NOTED AT THIS TIME. ON 4L OXYGEN VIA NC, NO DISTRESS OR SHORTNESS OF BREATH NOTED. IV ACCESS LFA #22G, INTACT, PATENT AND FLUSHING WELL. PATIENT HAVE G-TUBE RUNNING NEPRO @60MLHR, TOLERATING IT WELL. SCHEDULE MEDICATIONS ADMINISTERED. PATIENT WAS TURNED AND REPOSITIONED PER PROTOCOL. FALL AND SAFETY MEASURES IN PLACE, BED ALARM ON, BED IN LOW AND LOCK POSITION, CALL LIGHT AND TABLE WITHIN EASY REACH, SIDE RAILS UP X2. WILL ENDORSE TO BRANCH CHIEF.
--- NOTE | 2022-10-13 19:30 | NUR ---
MS RN NOTES RECEIVED LAYING ON BED A/O X1,OPEN EYES,BREATHING NON LABORED,O2 4L/NC IN USED ON AND OFF,GT FEEDING OF NEPRO IN PROGRESS AT 60ML/HR RATE ON GOING VIA FEEDING PUMP X 20 HOURS,OFF AT 12MN,ON AT 4AM,WITH 5ML RESIDUAL VOLUME.HOB ELEVATED FOR ASPIRATION PRECAUTION.LFA SALINE LOCK INTACT AND PATENT,RIGHT CHEST WALL PERMA CATH FOR HD ACCESS.FALL PRECAUTION OBSERVED.BED ALARM.CALL LIGHT IN REACH,NEEDS ANTICIPATED.
[2022-10-13 20:00] VITALS: BP_SYST 125; BP_SYST 142; BP_DIAS 58; BP_DIAS 69
[2022-10-13] MEDS: MIRTAZAPINE 15 MG TABLET GT SCH (21:17)
--- NOTE | 2022-10-14 | NUR ---
MS RN NOTES ACCU-CHECK BLOOD SUGAR CHECK 191MG/DL,COVERED WITH HUMULIN R 3 UNITS PER SLIDING SCALE.
[2022-10-14] MEDS: ACETYLCYSTEINE 20% SOLN 800 MG/4 ML VIAL NEB SCH ×3 (00:57→16:31)
[2022-10-14] MEDS: IPRATROPIUM NEB FS 0.5 MG/2.5 ML AMPUL.NEB NEB SCH ×4 (02:33→19:30)
[2022-10-14] MEDS: ALBUTEROL FS 2.5 MG/3 ML VIAL.NEB NEB SCH ×4 (02:33→19:30)
[2022-10-14] MEDS: ACETAMINOPHEN 650 MG/20.3 ML UDC GT PRN (04:38)
--- NOTE | 2022-10-14 04:38 | NUR ---
MS RN NOTES C/O GENERALIZED PAIN 3/10 ON PAIN SCALE,TYLENOL 650MG/GT ORDERED.
[2022-10-14] MEDS: BLOOD SUGAR DIAGNOSTIC 1 EACH STRIP IN SCH ×3 (05:26→17:24)
--- NOTE | 2022-10-14 05:30 | NUR ---
MS RN NOTES ACCU-CHECK BLOOD SUGAR CHECK 182,COVERED WITH HUMULIN R 2 UNITS PER SLIDING SCALE.GT FEEDING IN PROGRESS.
[2022-10-14] MEDS: INSULIN REGULAR, HUMAN 100 UNIT/ML 3 ML VIAL SQ PRN ×3 (05:41→17:23)
--- NOTE | 2022-10-14 07:05 | NUR ---
MS RN NOTES LAYING ON BED CALM AND QUIET,PAIN MANAGEMENT EFFECTIVE,IN NO ACUTE DISTRESS.
--- NOTE | 2022-10-14 08:00 | NUR ---
PATIENT REFUSED TX. PATIENT IS STABLE NO DISTRESS NOTED. Addendum: 10/14/22 at 0800 by CARIN MOLINA RT Amended: Links added.
[2022-10-14 08:24] VITALS: BP 160/80
[2022-10-14] MEDS: PANTOPRAZOLE 40 MG/PACK PACK GT SCH ×2 (09:11→20:41)
[2022-10-14] MEDS: MULTIVITAMINS,THERAGRAN 1 UDTAB TABLET GT SCH (09:11)
[2022-10-14] MEDS: ASPIRIN 81 MG TAB.CHEW GT SCH (09:11)
[2022-10-14] MEDS: LOSARTAN POTASSIUM 25 MG TABLET GT SCH (09:11)
[2022-10-14] MEDS: FLUCONAZOLE (100 MG) 100 MG TABLET PO SCH (09:11)
[2022-10-14] MEDS: APIXABAN 5 MG TABLET PO SCH ×2 (09:12→16:34)
[2022-10-14] MEDS: THERAHONEY GEL 1.5 OZ TUBE TP SCH (09:13)
--- NOTE | 2022-10-14 13:27 | NUR ---
PATIENT REFUSED TX. RN NOTIFIED. Addendum: 10/14/22 at 1328 by CARIN MOLINA RT Amended: Links added.
[2022-10-14] MEDS: NEPRO 1,000 ML BOTTLE GT SCH (14:05)
[2022-10-14] MEDS: LEVOTHYROXINE SODIUM 50 MCG TABLET GT SCH (14:05)
[2022-10-14 16:30] VITALS: BP 147/57
[2022-10-14] MEDS: ATORVASTATIN 40 MG TABLET GT SCH (17:20)
--- NOTE | 2022-10-14 17:43 | NUR ---
RN CLOSING NOTE PATIENT AWAKE IN BED RESTING AT THE MOMENT A/O X 1. NO S/S OF PAIN NOTED AT THIS TIME. ON 4L OXYGEN VIA NC, NO DISTRESS OR SHORTNESS OF BREATH NOTED. IV ACCESS LFA #22G, INTACT, PATENT AND FLUSHING WELL. PATIENT HAVE G-TUBE RUNNING NEPRO @60MLHR, TOLERATING IT WELL. SCHEDULE MEDICATIONS ADMINISTERED. PATIENT WAS TURNED AND REPOSITIONED PER PROTOCOL. WOUND CARE IMPLEMENTED. FALL AND SAFETY MEASURES IN PLACE, BED ALARM ON, BED IN LOW AND LOCK POSITION, CALL LIGHT AND TABLE WITHIN EASY REACH, SIDE RAILS UP X2. WILL ENDORSE TO FLATTENING PRESS OPERATOR.
[2022-10-14 20:00] VITALS: BP 144/69
--- NOTE | 2022-10-14 21:00 | NUR ---
MS RN OPENING NOTE RECEIVED PATIENT AWAKE IN BED RESTING AT THE MOMENT A/O X 1. NO S/S OF PAIN NOTED AT THIS TIME. ON 4L OXYGEN VIA NC, NO DISTRESS OR SHORTNESS OF BREATH NOTED. IV ACCESS LFA #22G, INTACT, PATENT AND FLUSHING WELL. PATIENT HAVE G-TUBE RUNNING NEPRO @60MLHR, TOLERATING IT WELL. SCHEDULE MEDICATIONS ADMINISTERED. PATIENT WAS TURNED AND REPOSITIONED PER PROTOCOL. WOUND CARE IMPLEMENTED. FALL AND SAFETY MEASURES IN PLACE, BED ALARM ON, BED IN LOW AND LOCK POSITION, CALL LIGHT AND TABLE WITHIN EASY REACH, SIDE RAILS UP X2. WILL CONT TO MONITOR.
[2022-10-14] MEDS: MIRTAZAPINE 15 MG TABLET GT SCH (21:07)
[2022-10-15] MEDS: BLOOD SUGAR DIAGNOSTIC 1 EACH STRIP IN SCH ×4 (00:38→18:21)
--- NOTE | 2022-10-15 00:51 | NUR ---
RN NOTES BLOOD SUGAR LEVEL 189. FEEDING OFF. HOLD INSULIN PER SLIDING SCALE AT THIS TIME. WILL CONT TO MONITOR.
[2022-10-15] MEDS: IPRATROPIUM NEB FS 0.5 MG/2.5 ML AMPUL.NEB NEB SCH ×4 (00:57→20:06)
[2022-10-15] MEDS: ALBUTEROL FS 2.5 MG/3 ML VIAL.NEB NEB SCH ×4 (00:57→20:06)
[2022-10-15 06:29] LABS: BASOPHILS # (AUTO) 0.1 K/uL (0.0-0.2); BASOPHILS % (AUTO) 0.8 % (0.0-2.0); EOSINOPHILS % (AUTO) 6.9 % (0.0-6.0); HEMATOCRIT 26 % (33-45); HEMOGLOBIN 8.4 g/dL (11.5-14.8); LYMPHOCYTES % (AUTO) 13.4 % (20.0-44.0); MEAN CORPUSCULAR HGB CONC 32 g/dl (31.0-36.0); MEAN CORPUSCULAR VOLUME 92 fL (82-100); MONOCYTES # (AUTO) 0.9 K/uL (0.1-1.30); MONOCYTES % (AUTO) 5.8 % (2.0-12.0); NEUTROPHILS % (AUTO) 73.1 % (43.0-81.0); PLATELET COUNT (AUTO) 436 K/uL (150-450); RED BLOOD CELL COUNT(AUTO) 2.83 MIL/uL (4.0-5.2)
[2022-10-15] MEDS: INSULIN REGULAR, HUMAN 100 UNIT/ML 3 ML VIAL SQ PRN ×3 (06:33→18:24)
[2022-10-15] MEDS: ACETAMINOPHEN 650 MG/20.3 ML UDC GT PRN (06:42)
[2022-10-15 06:46] LABS: ALBUMIN 1.6 g/dL (3.4-5.0); BILIRUBIN,TOTAL 0.4 mg/dL (0.2-1.0); CREATININE 3.2 mg/dL (0.6-1.3); MAGNESIUM 2.8 mg/dL (1.8-2.4); PHOSPHORUS 3.6 mg/dL (2.5-4.9); POTASSIUM 4.5 mmol/L (3.5-5.1); TOTAL PROTEIN, SERUM 6.8 g/dL (6.4-8.2)
--- NOTE | 2022-10-15 06:53 | NUR ---
MS RN CLOSING NOTE PATIENT AWAKE IN BED RESTING AT THE MOMENT A/O X 1. ON 4L OXYGEN VIA NC, NO DISTRESS OR SHORTNESS OF BREATH NOTED. IV ACCESS LFA #22G, INTACT, PATENT AND FLUSHING WELL. PATIENT HAVE G-TUBE RUNNING NEPRO @60MLHR, TOLERATING IT WELL. SCHEDULE MEDICATIONS ADMINISTERED. PATIENT IS IN PAIN, MOANING AND GUARDING AT ABDOMINAL AREA. GIVEN TYLENOL 650MG VIA G-TUBE. TOLERATED PROC WELL. ONGOING DIALYSIS. PATIENT WAS TURNED AND REPOSITIONED PER PROTOCOL. WOUND CARE IMPLEMENTED. FALL AND SAFETY MEASURES IN PLACE, BED ALARM ON, BED IN LOW AND LOCK POSITION, CALL LIGHT AND TABLE WITHIN EASY REACH, SIDE RAILS UP X2. WILL ENDORSE TO NEXT SHIFT RN FOR TAYE.
[2022-10-15] MEDS: ACETYLCYSTEINE 20% SOLN 800 MG/4 ML VIAL NEB SCH ×3 (07:35→23:33)
--- NOTE | 2022-10-15 07:45 | NUR ---
RN OPENING NOTE PATIENT AWAKE IN BED RESTING AT THE MOMENT A/O X 1. NO S/S OF PAIN NOTED AT THIS TIME. ON 4L OXYGEN VIA NC, NO DISTRESS OR SHORTNESS OF BREATH NOTED. IV ACCESS LFA #22G, INTACT, PATENT AND FLUSHING WELL. PATIENT HAS G-TUBE INFUSING NEPRO @60MLHR, TOLERATING IT WELL. LS CLEAR TO AUSCULTATION. APICAL HEART BEAT WNL. POT HAS POSITIVE BOWEL SOUNDS. ALL FOUR EXTRETINITES ARE WARM WITH STRONG PULSES. FALL AND SAFETY MEASURES IN PLACE, BED ALARM ON, BED IN LOW AND LOCK POSITION, CALL LIGHT AND TABLE WITHIN EASY REACH, SIDE RAILS UP X2. IDENTIFICATION BAND IS SECURE TO WRIST AND LEGIBLE. WILL CONTINUE TO MONITOR.
[2022-10-15] MEDS: LOSARTAN POTASSIUM 25 MG TABLET GT SCH (08:07)
[2022-10-15 08:21] VITALS: BP 113/60
[2022-10-15] MEDS: APIXABAN 5 MG TABLET PO SCH ×2 (09:47→18:21)
[2022-10-15] MEDS: THERAHONEY GEL 1.5 OZ TUBE TP SCH (09:48)
[2022-10-15] MEDS: ASPIRIN 81 MG TAB.CHEW GT SCH (09:48)
[2022-10-15] MEDS: MULTIVITAMINS,THERAGRAN 1 UDTAB TABLET GT SCH (09:48)
[2022-10-15] MEDS: PANTOPRAZOLE 40 MG/PACK PACK GT SCH ×2 (09:48→21:01)
[2022-10-15] MEDS: FLUCONAZOLE (100 MG) 100 MG TABLET PO SCH (09:48)
[2022-10-15] MEDS: LEVOTHYROXINE SODIUM 50 MCG TABLET GT SCH (14:24)
[2022-10-15] MEDS: EPOETIN ALFA-EPBX 10,000 UNIT/ML VIAL SQ SCH (14:43)
[2022-10-15 16:00] VITALS: BP 128/61
[2022-10-15] MEDS: ATORVASTATIN 40 MG TABLET GT SCH (18:21)
[2022-10-15] MEDS: NEPRO 1,000 ML BOTTLE GT SCH (18:40)
--- NOTE | 2022-10-15 19:02 | NUR ---
MS RN CLOSING NOTE PATIENT AWAKE IN BED RESTING AT THE MOMENT A/O X 1. NO S/S OF PAIN NOTED AT THIS TIME. ON 4L OXYGEN VIA NC, NO DISTRESS OR SHORTNESS OF BREATH NOTED. IV ACCESS LFA #22G, INTACT, PATENT AND FLUSHING WELL. PATIENT HAVE G-TUBE INFUSING NEPRO @60MLHR, TOLERATING IT WELL. SCHEDULE MEDICATIONS ADMINISTERED. PATIENT WAS TURNED AND REPOSITIONED PER PROTOCOL. WOUND CARE IMPLEMENTED. FALL AND SAFETY MEASURES IN PLACE, BED ALARM ON, BED IN LOW AND LOCKED POSITION, CALL LIGHT AND TABLE WITHIN EASY REACH, SIDE RAILS UP X2. WILL ENDORSE TO ACCORDION TUNER FOR TAYE.
[2022-10-15 20:00] VITALS: BP 127/36
--- NOTE | 2022-10-15 20:42 | NUR ---
MS RN OPENING NOTE RECEIVED PATIENT AWAKE IN BED RESTING AT THE MOMENT A/O X 1. NO S/S OF PAIN NOTED AT THIS TIME. ON 4L OXYGEN VIA NC, NO DISTRESS OR SHORTNESS OF BREATH NOTED. IV ACCESS LFA #22G, INTACT, PATENT AND FLUSHING WELL. PATIENT HAVE G-TUBE RUNNING NEPRO @60MLHR, TOLERATING WELL. SCHEDULE MEDICATIONS ADMINISTERED. PATIENT WAS TURNED AND REPOSITIONED PER PROTOCOL. WOUND CARE IMPLEMENTED. FALL AND SAFETY MEASURES IN PLACE, BED ALARM ON, BED IN LOW AND LOCK POSITION, CALL LIGHT AND TABLE WITHIN EASY REACH, SIDE RAILS UP X2. WILL CONT TO MONITOR.
[2022-10-15] MEDS: MIRTAZAPINE 15 MG TABLET GT SCH (21:01)
[2022-10-16] MEDS: BLOOD SUGAR DIAGNOSTIC 1 EACH STRIP IN SCH ×3 (00:32→12:04)
--- NOTE | 2022-10-16 00:37 | NUR ---
RN NOTES - BLOOD SUGAR LEVEL OF 167. G-TUBE FEEDING OFF AT THIS TIME. WILL HOLD INSULIN COVERAGE. WILL CONT TO MONITOR.
[2022-10-16] MEDS: IPRATROPIUM NEB FS 0.5 MG/2.5 ML AMPUL.NEB NEB SCH ×3 (00:48→13:30)
[2022-10-16] MEDS: ALBUTEROL FS 2.5 MG/3 ML VIAL.NEB NEB SCH ×3 (00:48→13:30)
--- NOTE | 2022-10-16 06:47 | NUR ---
MS RN CLOSING NOTE PATIENT AWAKE IN BED RESTING AT THE MOMENT A/O X 1. NO S/S OF PAIN NOTED AT THIS TIME. ON 4L OXYGEN VIA NC, NO DISTRESS OR SHORTNESS OF BREATH NOTED. IV ACCESS LFA #22G, INTACT, PATENT AND FLUSHING WELL. PATIENT HAVE G-TUBE RUNNING NEPRO @60MLHR, TOLERATING WELL. SCHEDULE MEDICATIONS ADMINISTERED. PATIENT WAS TURNED AND REPOSITIONED PER PROTOCOL. WOUND CARE IMPLEMENTED. FALL AND SAFETY MEASURES IN PLACE, BED ALARM ON, BED IN LOW AND LOCK POSITION, CALL LIGHT AND TABLE WITHIN EASY REACH, SIDE RAILS UP X2. WILL ENDORSE TO NEXT SHIFT RN FOR TAYE.
[2022-10-16] MEDS: ACETYLCYSTEINE 20% SOLN 800 MG/4 ML VIAL NEB SCH ×2 (07:19→13:54)
--- NOTE | 2022-10-16 07:27 | NUR ---
RN OPENING NOTE PATIENT IS AWAKE IN BED RESTING AT THE MOMENT A/O X 1. NO S/S OF PAIN NOTED AT THIS TIME. ON 4L OXYGEN VIA NC, NO DISTRESS OR SHORTNESS OF BREATH NOTED. IV ACCESS LFA #22G, INTACT, PATENT AND FLUSHING WELL. PATIENT HAS G-TUBE INFUSING NEPRO @60MLHR, TOLERATING IT WELL. LS CLEAR TO AUSCULTATION. APICAL HEART BEAT WNL. PT HAS POSITIVE BOWEL SOUNDS. ALL FOUR EXTREMITIES ARE WARM WITH STRONG PULSES. FALL AND SAFETY MEASURES IN PLACE: BED ALARM ON; BED IN LOW AND LOCKED POSITION; CALL LIGHT AND TABLE WITHIN EASY REACH; SIDE RAILS UP X2. IDENTIFICATION BAND IS SECURE TO WRIST AND LEGIBLE. WILL CONTINUE TO MONITOR.
[2022-10-16 08:00] VITALS: BP 124/47
[2022-10-16] MEDS: ASPIRIN 81 MG TAB.CHEW GT SCH (09:30)
[2022-10-16] MEDS: PANTOPRAZOLE 40 MG/PACK PACK GT SCH (09:30)
[2022-10-16] MEDS: MULTIVITAMINS,THERAGRAN 1 UDTAB TABLET GT SCH (09:30)
[2022-10-16] MEDS: FLUCONAZOLE (100 MG) 100 MG TABLET PO SCH (09:30)
[2022-10-16] MEDS: LOSARTAN POTASSIUM 25 MG TABLET GT SCH (09:35)
[2022-10-16 09:36] VITALS: BP 140/70
[2022-10-16] MEDS: APIXABAN 5 MG TABLET PO SCH (09:36)
[2022-10-16] MEDS: THERAHONEY GEL 1.5 OZ TUBE TP SCH (09:54)
[2022-10-16] MEDS: INSULIN REGULAR, HUMAN 100 UNIT/ML 3 ML VIAL SQ PRN (12:07)
[2022-10-16] MEDS ORDERED: FLUC200T GT (12:57)
[2022-10-16] MEDS ORDERED: EPOE1000 SQ (12:57)
[2022-10-16] MEDS: LEVOTHYROXINE SODIUM 50 MCG TABLET GT SCH (14:00)
[2022-10-16 16:16] VITALS: BP 136/67
--- NOTE | 2022-10-16 17:46 | NUR ---
Phone report given to receiving nursing supervisor properties at [facility]. Peripheral IV catheter removed, catheter fully intact and no complications at IV site. G -tube flushed thoroughly with warm water, clamped, and found to be patent. HD permacatheter still dry, clean, intact to right chest wall. At 15:15 hours blood glucose POC test = 130 mg/dL. Report given to [facility] ambulance costumer assistant. 16:00 hrs vital signs stable, Temp= 98.6 F oral, HR=82, RR = 18, HV=167/67, O2Sat.=97% on 3 Liters/min. nasal cannula. Patient departed via ambulance gurney to ambulance bound for SNF at 17:20 hours. Addendum: 10/16/22 at 1756 by KAELA MOORE RN FISH STRAIGHTENER NOTE
== END 2022-10-16 17:38 | DRG 194 ==
LOC: ER 15:23 → TELE 23:03 → MED 23:59
PROVIDERS: ADMIT Nurse Practitioner Acute Care; ATTEND Nurse Practitioner Acute Care
PROC: 30233N1 Transfusion of Nonautologous Red Blood Cells into Peripheral Vein, Percutaneous Approach (ICD-10-PCS; principal; 2022-09-19)
PROC: 5A1D70Z Performance of Urinary Filtration, Intermittent, Less than 6 Hours Per Day (ICD-10-PCS; 2022-09-22)
DX: I13.2 Hypertensive heart and chronic kidney disease with heart failure and with stage 5 chronic kidney disease, or end stage renal disease (principal); J69.0 Pneumonitis due to inhalation of food and vomit; G93.41 Metabolic encephalopathy; G93.49 Other encephalopathy; E44.0 Moderate protein-calorie malnutrition; I82.411 Acute embolism and thrombosis of right femoral vein; D63.1 Anemia in chronic kidney disease; E88.09 Other disorders of plasma-protein metabolism, not elsewhere classified; D68.59 Other primary thrombophilia; N18.6 End stage renal disease; E11.22 Type 2 diabetes mellitus with diabetic chronic kidney disease; I50.33 Acute on chronic diastolic (congestive) heart failure; E11.622 Type 2 diabetes mellitus with other skin ulcer; F03.90 Unspecified dementia, unspecified severity, without behavioral disturbance, psychotic disturbance, mood disturbance, and anxiety; T17.990A Other foreign object in respiratory tract, part unspecified in causing asphyxiation, initial encounter; Z99.2 Dependence on renal dialysis; I82.611 Acute embolism and thrombosis of superficial veins of right upper extremity; E03.9 Hypothyroidism, unspecified; E87.6 Hypokalemia; E83.89 Other disorders of mineral metabolism; E78.5 Hyperlipidemia, unspecified; Z93.1 Gastrostomy status; Z86.718 Personal history of other venous thrombosis and embolism; Z79.01 Long term (current) use of anticoagulants; L97.829 Non-pressure chronic ulcer of other part of left lower leg with unspecified severity; I69.398 Other sequelae of cerebral infarction; I82.431 Acute embolism and thrombosis of right popliteal vein; J98.11 Atelectasis; D75.839 Thrombocytosis, unspecified; R62.7 Adult failure to thrive; L97.819 Non-pressure chronic ulcer of other part of right lower leg with unspecified severity; I87.8 Other specified disorders of veins; I69.351 Hemiplegia and hemiparesis following cerebral infarction affecting right dominant side; Z68.1 Body mass index [BMI] 19.9 or less, adult
CPT/HCPCS: 36415; 36600; 71045-TC; 71250-TC; 74018; 76770-TC; 80048-TC; 80053-TC; 80061-TC; 80076-TC; 80170-TC; 80202-TC; 82272-TC; 82607-TC; 82728-TC; 82784; 82803-TC; 82962-TC; 83540-TC; 83690-TC; 83735-TC; 84100-TC; 84155; 84165; 84443-TC; 85025-TC; 85027-TC; 85045-TC; 85610-TC; 85730-TC; 86334; 86850-TC; 87040-TC; 87081-TC; 87086-TC; 90935-TC; 93970-TC; 94799-TC; 97110-TC; 97530-TC; 97535-TC; A6253; A6403; A6407; C9803; G0378; J0692; J0885; J1200; J1580; J1644; J1815; J2405; J3370; J7030; J7050; J7060; P9016

== ENCOUNTER 2023-01-03 19:58 | Inpatient (IN) | payer MEDICAID, OTHER ==
[~2023-01-03] VITALS: Ht 154.9 cm; Wt 52.2 kg
[~2023-01-03 19:58] MED LIST changes: -ACET200V4 INH; +ATOR40TA GT; -BISA10SU11 RC; +EPOE1000 SQ; +FLUC200T GT; -FOLI0.8T2 PO; -GLUC1KIT IM; -HYDR-4076 PO; +INSU100V3 SQ; -INSU100V42 SQ; -MELA3TAB41 PO; +MULT-447 GT; +NUT.237L67 GT; -ONDA4TAB5 PO; +PANT40SU2 GT; -POLY17PO4 PO; -ROSU40TA PO; -SENN-261 PO; +ZINC57OI4 TP
--- NOTE | 2023-01-03 20:05 | NUR ---
BIBPA FROM SNF. SOB AND FEVER X 5 DAYS. HX HD CATH RCW; INTACT. PT A/OX1; RESPONDS TO NAME / PAIN. TOLERATING R/A WELL WITH NO RESP DISTRESS. SAFETY MEASURES IN PLACE. CONNECTED PT TO POX AND MONITOR.
[2023-01-03] MEDS ORDERED: ACETAMINOPHEN 650 MG/20.3 ML UDC ONE (20:17)
--- NOTE | 2023-01-03 20:19 | NUR ---
R GUANAKO #20G S/L BLOOD COLLECTED AND SENT TO LAB
--- NOTE | 2023-01-03 20:25 | NUR ---
EMT AT PT'S BEDSIDE FOR EKG
[2023-01-03] MEDS ORDERED: ACETAMINOPHEN 650 MG/20 ML UDC- SA PATIENTS-FEVER ONLY GT ONE (20:30)
[2023-01-03 20:42] LABS: BASOPHILS % (AUTO) 0.1 % (0.0-2.0); EOSINOPHILS % (AUTO) 0.2 % (0.0-6.0); HEMATOCRIT 26 % (33-45); LYMPHOCYTES # (AUTO) 0.8 K/uL (0.8-4.8); LYMPHOCYTES % (AUTO) 3.6 % (20.0-44.0); MEAN CORPUSCULAR HGB CONC 31 g/dl (31.0-36.0); MEAN CORPUSCULAR VOLUME 94 fL (82-100); MONOCYTES # (AUTO) 2.1 K/uL (0.1-1.30); MONOCYTES % (AUTO) 9.1 % (2.0-12.0); NEUTROPHILS # (AUTO) 20.1 K/uL (1.8-8.9); PLATELET COUNT (AUTO) 374 K/uL (150-450); RED BLOOD CELL COUNT(AUTO) 2.79 MIL/uL (4.0-5.2); WHITE BLOOD COUNT (AUTO) 23.1 K/uL (4.3-11.0)
--- NOTE | 2023-01-03 20:43 | NUR ---
COVID ANTIGEN AND URINE COLLECTED AND SENT TO LAB
[2023-01-03 21:11] LABS: ALANINE AMINOTRANSFERASE 57 U/L (12-78); ALKALINE PHOSPHATASE 282 U/L (46-116); ASPARTATE AMINOTRANSFERASE 51 U/L (15-37); BILIRUBIN,DIRECT 0.3 mg/dL (0.0-0.2); BILIRUBIN,TOTAL 0.5 mg/dL (0.2-1.0); CALCIUM, SERUM 9.9 mg/dL (8.5-10.1); CARBON DIOXIDE 24 mmol/L (21-32); CHLORIDE 101 mmol/L (98-107); CREATININE 3.6 mg/dL (0.6-1.3); GLUCOSE 201 mg/dL (74-106); POTASSIUM 3.9 mmol/L (3.5-5.1); SODIUM SERUM 145 mmol/L (136-145); TOTAL PROTEIN, SERUM 6.9 g/dL (6.4-8.2); UREA NITROGEN, BLOOD 56 mg/dL (7-18)
[2023-01-03 21:17] LABS: ALBUMIN 1.4 g/dL (3.4-5.0)
[2023-01-03] MEDS ORDERED: PIPERACILLIN /TAZOBACTAM 3.375 G in IV D5W 50 ML IV ONE (21:30)
[2023-01-03] MEDS ORDERED: PIPERACILLIN /TAZOBACTAM 3.375 G VIAL IV ONE (21:42)
[2023-01-03] MEDS ORDERED: ALBUMIN 25% 100 ML IV ONE (21:55)
[2023-01-03] MEDS ORDERED: IV NS 0.9% 500 ML BAG IV ONE (22:00)
[2023-01-03] MEDS ORDERED: ALBUMIN 25% 12.5 GM/50 ML BOTTLE IV ONE (22:00)
--- NOTE | 2023-01-03 22:09 | NUR ---
CRITICAL RESULT: PROCAL 7.27 DR HALI POSADA AWARE
[2023-01-03] MEDS ORDERED: NOREPINEPHRINE 8 MG in IV NS 0.9% 250 ML IV ONE (22:30)
[2023-01-03 22:40] LABS: BILIRUBIN,URINE NEGATIVE (NEGATIVE); COLOR,URINE YELLOW (YELLOW); LEUKOCYTE ESTERASE ,URINE TRACE (NEGATIVE); NITRITE, URINE NEGATIVE (NEGATIVE); PH,URINE 6.5 (5.0-8.0); PROTEIN,URINE 3+ mg/dl (NEGATIVE); UGLUCOSE 1+ mg/dL (NEGATIVE); UROBILINOGEN,URINE 0.2 EU/dL (0.2)
--- NOTE | 2023-01-03 23:03 | NUR ---
HELENA SEGURA BOW REPAIRER CUSTOM AT PT'S BEDSIDE FOR EVAL
[2023-01-03 23:05] LABS: BACTERIA,URINE Many /HPF (None Seen); RBC,URINE 0-2 /HPF (0-2); WBC,URINE TOO NUMEROUS TO COUN /HPF (0-3)
[2023-01-03 23:06] LABS: SQUAMOUS EPITHELIAL CELL,UR Few /HPF (None Seen)
[2023-01-04] MEDS ORDERED: Z GUARD REMEDY 4 OZ OINT TP PRN
[2023-01-04] MEDS ORDERED: MAGNESIUM HYDROXIDE 30 ML UDC PO PRN
[2023-01-04] MEDS ORDERED: ONDANSETRON HCL/PF 4 MG/2 ML VIAL IVP PRN
[2023-01-04] MEDS ORDERED: DEXTROSE 50%-WATER 50 ML DISP.SYRIN IV PRN (00:30)
[2023-01-04] MEDS ORDERED: NEPRO VAN 237 ML CAN GT SCH (00:30)
--- NOTE | 2023-01-04 02:25 | NUR ---
RN NOTE RECEIVED ER ADMISSION REPORT FROM APRIL SEGOVIA. ALL PERTINENT ADMISSION INFO REGARDING PT NOTED. WILL WAIT FOR PT TO BE TRANSFERRED TO UNIT AND ADDRESS NEEDS ACCORDINGLY. MAID SUPERVISOR MADE AWARE.
--- NOTE | 2023-01-04 02:30 | NUR ---
REPORT GIVEN TO REMEDIOS [facility]IS[facility] RN FOR TAYE
[2023-01-04 03:00] VITALS: BP 105/58
--- NOTE | 2023-01-04 03:00 | NUR ---
RN NOTE RECEIVED PT FROM ER VIA QUANG ACCOMPANIED BY 2 ER STAFF AND TRANSFERRED TO BED VIA 2-3 PERSON ASSIST. PT IS A/OX1 CITIZEN OF [place] SPEAKING; PT ON 4L OF O2 VIA NC; SETTINGS PRESCRIBED WITH RESPIRATIONS EVEN AND UNLABORED. COMPREHENSIVE PHYSICAL ASSESSMENT AND PATIENT CARE DONE. CALL LIGHT WITHIN REACH, SAFETY MEASURES, WILL CONTINUE MONITOR AND ASSESS THROUGHOUT THE SHIFT. WILL CARRY OUT MD ORDERS ACCORDINGLY. APPLIED MARINE PHYSICS PROFESSOR MADE AWARE.
--- NOTE | 2023-01-04 03:05 | NUR ---
PT TRANSFERRED TO JOB 112-2 VIA ACLS PROTOCOL. VSS. ALL BELONGINGS WITH PT.
[2023-01-04] MEDS ORDERED: VANCOMYCIN 1 GM VIAL ONE (03:58)
[2023-01-04 04:00] VITALS: BP 100/53
[2023-01-04] MEDS ORDERED: VANCOMYCIN 1 GM in IV D5W 250ml IV ONE (04:00)
[2023-01-04] MEDS ORDERED: CEFEPIME 2 GM in IV D5W 100 ML IV ONE (04:00)
[2023-01-04] MEDS: BLOOD SUGAR DIAGNOSTIC 1 EACH STRIP IN SCH ×3 (05:22→17:20)
[2023-01-04] MEDS: INSULIN REGULAR, HUMAN 100 UNIT/ML 3 ML VIAL SQ PRN ×2 (05:23→12:45)
[2023-01-04] MEDS ORDERED: CEFEPIME 1 GM VIAL ONE (05:33)
--- NOTE | 2023-01-04 06:37 | NUR ---
RN CLOSING NOTE PATIENT REMAINS IN ROOM IN NO SIGNS OF RESPIRATORY DISTRESS, PATIENT STILL ON 4L OF 02 VIA NC ;TOLERATING WELL SATURATING @ >95% SP02. SAFETY MEASURES IMPLEMENTED, BED IN LOWEST POSITION, LOCKED, SIDE RAILS UP, CALL LIGHT WITHIN REACH. ALL NEEDS AND ORDERS ADDRESSED DURING THE SHIFT. IV ACCESS MAINTAINED INTACT, SECURED AND FLUSHING WELL. ALL DUE MEDS GIVEN ORDERED & SCHEDULED ; PATIENT TOLERATED WELL. PATIENT KEPT CLEAN AND COMFORTABLE WITHIN THE SHIFT. PATIENT ENDORSED TO INCOMING SHIFT RN WITH STABLE VITAL SIGN AND FOR CONTINUITY OF CARE.
[2023-01-04 07:47] LABS: BASOPHILS % (AUTO) 0.2 % (0.0-2.0); EOSINOPHILS % (AUTO) 0.7 % (0.0-6.0); HEMATOCRIT 26 % (33-45); HEMOGLOBIN 7.6 g/dL (11.5-14.8); LYMPHOCYTES # (AUTO) 0.5 K/uL (0.8-4.8); LYMPHOCYTES % (AUTO) 2.4 % (20.0-44.0); MEAN CORPUSCULAR HGB CONC 29 g/dl (31.0-36.0); MEAN CORPUSCULAR VOLUME 96 fL (82-100); MONOCYTES # (AUTO) 1.4 K/uL (0.1-1.30); MONOCYTES % (AUTO) 6.3 % (2.0-12.0); NEUTROPHILS # (AUTO) 20.2 K/uL (1.8-8.9); NEUTROPHILS % (AUTO) 90.4 % (43.0-81.0); PLATELET COUNT (AUTO) 328 K/uL (150-450); RED BLOOD CELL COUNT(AUTO) 2.72 MIL/uL (4.0-5.2); WHITE BLOOD COUNT (AUTO) 22.3 K/uL (4.3-11.0)
[2023-01-04 08:00] VITALS: BP 130/39
[2023-01-04 08:01] LABS: CALCIUM, SERUM 9.6 mg/dL (8.5-10.1); CREATININE 3.9 mg/dL (0.6-1.3); MAGNESIUM 2.4 mg/dL (1.8-2.4); POTASSIUM 3.7 mmol/L (3.5-5.1)
[2023-01-04 08:03] LABS: THYROID STIMULATING HORMONE 3.041 uIU/mL (0.358-3.74)
[2023-01-04] MEDS: ASPIRIN 81 MG TAB.CHEW GT SCH (08:52)
[2023-01-04] MEDS: MULTIVITAMINS,THERAGRAN 1 UDTAB TABLET GT SCH (08:53)
[2023-01-04] MEDS: APIXABAN 5 MG TABLET GT SCH ×2 (08:59→21:31)
[2023-01-04] MEDS: EPOETIN ALFA-EPBX 10,000 UNIT/ML VIAL SQ SCH (10:39)
--- NOTE | 2023-01-04 10:39 | NUR ---
WOUND CARE CONSULT: PT PRESENTS WITH STAGE 3 SACRAL ULCER AND BILATERAL LATERAL LOWER LEG SCARS, PRESENT ON ADMISSION. DR GARCIA CALLED FOR SURGICAL CONSULT. DISCUSSED SKIN PROTECTION AND WOUND CARE RECOMMENDATIONS WITH NURSING STAFF. IN AGREEMENT WITH PLAN OF CARE. PT [facility] L[facility] AIRLOSS BED. Addendum: 01/04/23 at 1040 by NGOC BATISTA WNDNU Amended: Links added.
[2023-01-04] MEDS: THERAHONEY GEL 1.5 OZ TUBE TP SCH ×2 (10:45→21:57)
[2023-01-04] MEDS ORDERED: DILT180C93 GT (10:56)
[2023-01-04] MEDS ORDERED: AMIN30LI2 GT (10:56)
[2023-01-04 12:00] VITALS: BP 128/98
[2023-01-04] MEDS ORDERED: IV 1/2NS 1000 ML 1,000 ML IV PRN ×2 (12:04)
[2023-01-04] MEDS ORDERED: ALBUTEROL FS 2.5 MG/3 ML VIAL.NEB NEB PRN (12:30)
[2023-01-04] MEDS: PANTOPRAZOLE 40 MG/PACK PACK GT SCH (14:21)
[2023-01-04] MEDS: LEVOTHYROXINE SODIUM 50 MCG TABLET GT SCH (14:21)
--- NOTE | 2023-01-04 15:28 | NUR ---
director television news note per andrzej rn adult health clinical nurse specialist ok to start g tube feeding , called to snfand ordered nepro at 60 ml per hour will f\u
[2023-01-04 16:00] VITALS: BP 136/42
[2023-01-04] MEDS: PROSOURCE / PROSTAT (PYXIS) 30 ML UDC GT SCH (17:02)
[2023-01-04] MEDS: ATORVASTATIN 40 MG TABLET GT SCH (17:26)
[2023-01-04] MEDS: NEPRO 1,000 ML BOTTLE GT PRN (17:52)
--- NOTE | 2023-01-04 18:56 | NUR ---
RN CLOSING NOTE PATIENT REMAINS IN ROOM WITH NO SIGNS OF RESPIRATORY DISTRESS, PATIENT ON 4L OF 02 VIA NC ;TOLERATING WELL SATURATING 97%. ALL NEEDS AND ORDERS ADDRESSED DURING THE SHIFT. IV ACCESS MAINTAINED INTACT, SECURED AND FLUSHING WELL. PATIENT ON GTUBE FEEDING NEPHRO 1.8 AND 60CC/HR. ALL DUE MEDS GIVEN ORDERED & SCHEDULED; PATIENT TOLERATED WELL. PATIENT KEPT CLEAN AND COMFORTABLE WITHIN THE SHIFT. SAFETY MEASURES IMPLEMENTED, BED IN LOWEST POSITION, LOCKED, SIDE RAILS UP, CALL LIGHT WITHIN REACH. PATIENT ENDORSED TO PM SHIFT NURSE WITH STABLE VITAL SIGN AND FOR TAYE.
--- NOTE | 2023-01-04 19:30 | NUR ---
RN NOTES RECEIVED PT FOR CONTINUITY OF CARE. PATIENT A/OX1 SERBIAN SPEAKING IN NO S/SX OF ACUTE DISTRESS AT THIS TIME; CURRENTLY ON 4L OF 02 VIA NC; WITH 02 SAT >95% AT THIS TIME. WITH IV ACCESS PATENT, INTACT AND FLUSHING WELL. WITH RUNNING 1/2NS ORDERED. ALSO HAS RUNNING TUBE FEEDING PRESCRIBED. WILL ENSURE SAFETY MEASURES WITHIN THE SHIFT. PATIENT BED ALARM IS ON. HEAD OF BED ELEVATED. BED IS LOCKED, IN LOWEST POSITION AND SIDE RAILS UP. CALL LIGHT WITHIN REACH OF THE PATIENT. WILL CONTINUE TO MONITOR AND REASSESS FOR ANY CHANGES AND WILL CARRY OUT ANY ONGOING AND ACTIVE MD ORDER.
[2023-01-04 20:00] VITALS: BP 90/52
--- NOTE | 2023-01-04 20:50 | NUR ---
RN NOTE JANE POSADA (HELENA SEGURA NP) DOING HIS ROUNDS,STATUS UPDATE GIVEN ADVISED THAT PT'S SBP MID 80s FROM THE L ARM, L LEG WAS 120S AND MANUAL BP IN LOW 90S FOR SBP. MD ACKNOWLEDGED. ORDER GIVEN FOR ALBUMIN. WILL CARRY OUT MD ORDER AND CONTINUE TO MONITOR THROUGHOUT THE SHIFT.
[2023-01-04] MEDS: MIRTAZAPINE 15 MG TABLET GT SCH (21:30)
[2023-01-04] MEDS ORDERED: ALBUMIN 25% 12.5 GM/50 ML BOTTLE IV ONE ×2 (21:30→22:30)
--- NOTE | 2023-01-04 21:30 | NUR ---
RN NOTE NOTED PT'S TEMP IS AT 102@2130; PRN MEDICATION GIVEN AND COOLING MEASURES RENDERED. PRODUCT MARKETING DIRECTOR MADE AWARE. WILL CONTINUE TO MONITOR AND ASSESS THROUGHOUT THE SHIFT.
[2023-01-04] MEDS: ACETAMINOPHEN 650 MG/20.3 ML UDC GT PRN (21:37)
[2023-01-04] MEDS ORDERED: ALBUMIN 25% 50 ML IV ONE ×2 (21:42→22:30)
[2023-01-04] MEDS: CEFEPIME 1 GM in IV D5W 50 ML IV SCH (22:15)
[2023-01-05] VITALS (61 sets, daily range): BP systolic 56–168; BP diastolic 36–85
[2023-01-05] MEDS: INSULIN REGULAR, HUMAN 100 UNIT/ML 3 ML VIAL SQ PRN ×5 (00:02→23:32)
--- NOTE | 2023-01-05 04:00 | NUR ---
RN NOTE NO NOTED CHANGES IN PATIENT CONDITION AT THIS TIME; NO SIGNS OF ACUTE RESPIRATORY DISTRESS; 02 SAT REMAINS >95%. AM PATIENT CARE RENDERED.WILL CONTINUE TO MONITOR AND REASSESS FOR ANY CHANGES THROUGHOUT THE SHIFT.
[2023-01-05] MEDS: BLOOD SUGAR DIAGNOSTIC 1 EACH STRIP IN SCH ×6 (05:07→23:29)
[2023-01-05 05:19] LABS: LYMPHOCYTES % (MANUAL) 4 % (16-48); MONOCYTES % (MANUAL) 6 % (0-11.0)
[2023-01-05 05:26] LABS: BAND % (MANUAL) 1 % (0.0-5.0); NEUTROPHILS % (MANUAL) 89 (42-76)
--- NOTE | 2023-01-05 06:35 | NUR ---
RN CLOSING NOTE PATIENT REMAINS IN ROOM IN NO SIGNS OF RESPIRATORY DISTRESS, PATIENT STILL ON 4L OF 02 VIA NC ;TOLERATING WELL SATURATING @ >95% SP02. SAFETY MEASURES IMPLEMENTED, BED IN LOWEST POSITION, LOCKED, SIDE RAILS UP, CALL LIGHT WITHIN REACH. ALL NEEDS AND ORDERS ADDRESSED DURING THE SHIFT. IV ACCESS MAINTAINED INTACT, SECURED AND FLUSHING WELL. ALL DUE MEDS GIVEN ORDERED & SCHEDULED ; PATIENT TOLERATED WELL. PATIENT KEPT CLEAN AND COMFORTABLE WITHIN THE SHIFT. CONSENT OBTAINED FOR SERIAL DEBRIDEMENT OF SACRUM. PATIENT ENDORSED TO INCOMING SHIFT RN WITH STABLE VITAL SIGN AND FOR CONTINUITY OF CARE. Addendum: 01/05/23 at 0650 by GLENYS CARRINGTON RN addendum PT NOTED TO BE HAVING EPISODES OF ST AND AFIB; NOTIFIED (DR. SEGURA) STAT EKG REQUESTED.
--- NOTE | 2023-01-05 07:20 | NUR ---
0720 EKG done, patient obtunded and pale in color. BP checked manually obtained SBP in the 70s twice. Checked with machine and obtained 64/37. TECHNICAL SUPPORT MANAGER called bolus NS 250ml started.
--- NOTE | 2023-01-05 07:36 | NUR ---
0736 Transferred to ICU on ACLS protocol, accompanied by ICU charge nurse. Endorsed to AM RN.
--- NOTE | 2023-01-05 07:36 | NUR ---
AT 0727 RAPID RESPOND CALLED FOR THIS PATIENT BP 60/36, BP TAKEN VIA AUTOMATICALLY AND MANUALLY SAME RESULT PATIENT'S BP WAS AROUND 60/37 - 66/40 PATIENT TRANSFERRED TO ICU AT 0736. BY MARILYNN OPERATING THEATRE TECHNICIAN NURSE REPORT CARDIO VERSION WAS DONE IN ICU BP 97-37 AND PATIENT WILL BE ON AMIODARONE DRIP IN ICU, PATIENT WENT FROM A-FIB TO SINUS RHYTHM IN ICU.
--- NOTE | 2023-01-05 07:40 | NUR ---
CATIA DESIGNER Note Received patient from [facility], handover was given by APRIL Garcia. Patient's GCS E4V3M4, bilateral pupils 3mm PEARRL. ekg monitor showed AF with HR 130/min, BP 93/56mmHg. Associate Professor Of Physics performed a synchronized cardioversion at 150J, administered at 0739. Cardiac rhythm converted back to SR. Right forearm IV site is intact with IV fluid running wide open as MAP cannot be maintained. Left forearm IV site is dislodged. Will continue monitoring and care. Addendum: 01/05/23 at 1054 by LIANA MEIER RN Patient was transferred to ICU for AF with RVR and hypotension.
--- NOTE | 2023-01-05 07:40 | NUR ---
PATIENT TRANSFERRED TO ICU POST COOLER MAN SECONDARY TO HYPOTENSION WITH SBP 60'S , NEW ONSET AFIB WITH RVR 160'S. DR. SCHWARZ IN FOR NEW CARDIAC CONSULT AT THIS TIME. SYNC CARDIOVERSION AT 150 J PERFORMED BY MD UPON TRANSFER SUCCESSFULLY. PATIENT NOW IN SR 90'S. PATIENT TO BE STARTED ON LEVOPHED GTT FOR BP SUPPORT PER MD AND AMIO GTT TO MAINTAIN RHYTHM .
[2023-01-05 07:54] LABS: BASOPHILS % (AUTO) 0.1 % (0.0-2.0); EOSINOPHILS % (AUTO) 2.9 % (0.0-6.0); HEMATOCRIT 23 % (33-45); LYMPHOCYTES % (AUTO) 4.8 % (20.0-44.0); MEAN CORPUSCULAR HGB CONC 31 g/dl (31.0-36.0); MEAN CORPUSCULAR VOLUME 93 fL (82-100); MONOCYTES # (AUTO) 1.7 K/uL (0.1-1.30); MONOCYTES % (AUTO) 8.4 % (2.0-12.0); NEUTROPHILS # (AUTO) 16.9 K/uL (1.8-8.9); NEUTROPHILS % (AUTO) 83.8 % (43.0-81.0); PLATELET COUNT (AUTO) 287 K/uL (150-450); RED BLOOD CELL COUNT(AUTO) 2.41 MIL/uL (4.0-5.2); WHITE BLOOD COUNT (AUTO) 20.2 K/uL (4.3-11.0)
[2023-01-05 07:55] LABS: CALCIUM, SERUM 9.6 mg/dL (8.5-10.1); CREATININE 4.6 mg/dL (0.6-1.3)
[2023-01-05 07:59] LABS: HEMOGLOBIN 6.9 g/dL (11.5-14.8)
[2023-01-05] MEDS ORDERED: NOREPINEPHRINE 8 MG in IV NS 0.9% 242 ML IV PRN (08:00)
[2023-01-05] MEDS ORDERED: AMIODARONE 150 MG in IV D5W 100 ML IV ONE (08:00)
--- NOTE | 2023-01-05 08:05 | NUR ---
EYEGLASS CUTTER Note 8mg levophed started at 08:05, will keep monitoring of blood pressure.
--- NOTE | 2023-01-05 08:30 | NUR ---
VENEER JOINER NOte Loading dose of amiodarone started.
[2023-01-05] MEDS: AMIODARONE 450 MG in IV D5W 241 ML IV PRN ×2 (08:45→14:45)
--- NOTE | 2023-01-05 08:45 | NUR ---
COATER HELPER NOte 1mg/min amiodarone drip started at 08:45, will decrease to 0.5mg/min at 14:45.
[2023-01-05] MEDS ORDERED: LOSARTAN POTASSIUM 25 MG TABLET GT SCH (09:00)
[2023-01-05] MEDS ORDERED: DILTIAZEM HCL CD 180 MG GT SCH (09:00)
[2023-01-05] MEDS: APIXABAN 5 MG TABLET GT SCH ×2 (09:00→20:55)
[2023-01-05] MEDS: MULTIVITAMINS,THERAGRAN 1 UDTAB TABLET GT SCH ×2 (10:01→10:06)
[2023-01-05] MEDS: ASPIRIN 81 MG TAB.CHEW GT SCH (10:02)
[2023-01-05] MEDS: ZINC SULFATE 220 MG CAPSULE GT SCH ×2 (10:02→10:06)
[2023-01-05] MEDS: PROSOURCE / PROSTAT (PYXIS) 30 ML UDC GT SCH ×2 (10:03→16:17)
[2023-01-05] MEDS: THERAHONEY GEL 1.5 OZ TUBE TP SCH ×2 (10:07)
[2023-01-05] MEDS ORDERED: Sodium Phosphate 30 MMOL in IV NS 0.9% 250 ML IV SCH (10:30)
--- NOTE | 2023-01-05 10:45 | NUR ---
DIVIDER OPERATOR Note As patient is now receiving the 8mg levophed titration, the previous order for levophed once is discontinued.
[2023-01-05] MEDS: Sodium Phosphate 15 MMOL in IV NS 0.9% 245 ML IV SCH ×2 (11:11→14:55)
--- NOTE | 2023-01-05 11:37 | NUR ---
PAYROLL TAX SPECIALIST not4e Blood sugar at 11:10 was 407mg/dl. Informed OVER SHORT AND DAMAGE CLERK Vincent Arboleda, who said to upgrade her to moderate sliding scale. Would continue monitoring.
[2023-01-05] MEDS ORDERED: DEXTROSE 50%-WATER 50 ML DISP.SYRIN IV PRN (12:00)
[2023-01-05] MEDS: IV NS 0.9% 250 ML IV PRN (12:10)
--- NOTE | 2023-01-05 14:00 | NUR ---
HAND ROLLER Note - Blood transfusion Hb 6.9g/dL, INTERNET SALES DIRECTOR Cuate ordered 1 unite of blood, to start blood transfusion now.
[2023-01-05] MEDS: PANTOPRAZOLE 40 MG/PACK PACK GT SCH (14:44)
[2023-01-05] MEDS: LEVOTHYROXINE SODIUM 50 MCG TABLET GT SCH (14:44)
[2023-01-05] MEDS: VANCOMYCIN POST DIALYSIS 500MG IV PRN ×2 (16:03)
[2023-01-05] MEDS: NEPRO 1,000 ML BOTTLE GT PRN (16:17)
[2023-01-05] MEDS: ATORVASTATIN 40 MG TABLET GT SCH (17:25)
--- NOTE | 2023-01-05 17:48 | NUR ---
DRAMATIC TEACHER Note Stool was collected for occult blood, await garden labourer to collect sample.
--- NOTE | 2023-01-05 18:37 | NUR ---
SANITATION LABORER note Levophed stopped for patient at 12:00. Patient remains in SR. Noted that patient's BP gradually increase and is now 177/71mmHg. Patient is calm and resting in bed. Notified Dr. Cisse about high BP. He said to keep observation for now and maintain SBP <180mmHg, will endorse it to assistant casino shift manager colleagues.
--- NOTE | 2023-01-05 19:10 | NUR ---
UROLOGY SURGEON NOTE RECEIVED PT FOR CONTINUITY OF CARE. PATIENT A/OX1 SIERRA LEONEAN SPEAKING IN NO S/SX OF ACUTE DISTRESS AT THIS TIME; CURRENTLY ON 4L OF 02 VIA NC; WITH 02 SAT >95% AT THIS TIME. WITH IV ACCESS PATENT, INTACT AND FLUSHING WELL. RECEIVED WITH RUNNING AMIO DRIP @0.5MG/MIN INFUSING PER PROTOCOL. ALSO HAS RUNNING TUBE FEEDING PRESCRIBED. WILL ENSURE SAFETY MEASURES WITHIN THE SHIFT. PATIENT BED ALARM IS ON. HEAD OF BED ELEVATED. BED IS LOCKED, IN LOWEST POSITION AND SIDE RAILS UP. CALL LIGHT WITHIN REACH OF THE PATIENT. WILL CONTINUE TO MONITOR AND REASSESS FOR ANY CHANGES AND WILL CARRY OUT ANY ONGOING AND ACTIVE MD ORDER.
[2023-01-05] MEDS: ACETAMINOPHEN 650 MG/20.3 ML UDC GT PRN (20:54)
[2023-01-05] MEDS: MIRTAZAPINE 15 MG TABLET GT SCH (21:05)
[2023-01-05] MEDS: CEFEPIME 1 GM in IV D5W 50 ML IV SCH (22:10)
[2023-01-06] VITALS (48 sets, daily range): BP systolic 122–164; BP diastolic 46–73
[2023-01-06 03:13] LABS: BAND % (MANUAL) 3 % (0.0-5.0); BASOPHILS % (MANUAL) 0 % (0.0-2.0); EOSINOPHILS % (MANUAL) 2 % (0-4); LYMPHOCYTES % (MANUAL) 5 % (16-48); MONOCYTES % (MANUAL) 9 % (0-11.0); NEUTROPHILS % (MANUAL) 81 (42-76)
--- NOTE | 2023-01-06 04:00 | NUR ---
SHIFT MECHANIC NOTE PATIENT REMAINED TO BE IN NO SIGNS OF ACUTE RESPIRATORY DISTRESS , VITAL SIGNS STABLE AT THIS TIME. REGULAR TURNING AND REPOSITIONING DONE, WOUND CARE AND AM PATIENT CARE RENDERED WILL CONTINUE TO MONITOR AND REASSESS FOR ANY CHANGES THROUGHOUT THE SHIFT.
[2023-01-06 04:04] LABS: BASOPHILS % (AUTO) 0.1 % (0.0-2.0); EOSINOPHILS % (AUTO) 2.3 % (0.0-6.0); HEMATOCRIT 24 % (33-45); HEMOGLOBIN 7.7 g/dL (11.5-14.8); LYMPHOCYTES # (AUTO) 0.7 K/uL (0.8-4.8); LYMPHOCYTES % (AUTO) 4.4 % (20.0-44.0); MEAN CORPUSCULAR HGB CONC 32 g/dl (31.0-36.0); MEAN CORPUSCULAR VOLUME 90 fL (82-100); MONOCYTES # (AUTO) 1.5 K/uL (0.1-1.30); MONOCYTES % (AUTO) 9.3 % (2.0-12.0); NEUTROPHILS # (AUTO) 13.5 K/uL (1.8-8.9); NEUTROPHILS % (AUTO) 83.9 % (43.0-81.0); PLATELET COUNT (AUTO) 250 K/uL (150-450); RED BLOOD CELL COUNT(AUTO) 2.71 MIL/uL (4.0-5.2); WHITE BLOOD COUNT (AUTO) 16.1 K/uL (4.3-11.0)
[2023-01-06 04:19] LABS: CALCIUM, SERUM 8.2 mg/dL (8.5-10.1); CREATININE 2.6 mg/dL (0.6-1.3); MAGNESIUM 1.9 mg/dL (1.8-2.4); PHOSPHORUS 2.8 mg/dL (2.5-4.9)
[2023-01-06] MEDS: BLOOD SUGAR DIAGNOSTIC 1 EACH STRIP IN SCH ×3 (05:48→18:05)
[2023-01-06] MEDS: INSULIN REGULAR, HUMAN 100 UNIT/ML 3 ML VIAL SQ PRN ×3 (05:49→18:06)
--- NOTE | 2023-01-06 06:36 | NUR ---
PERSONAL FITNESS MANAGER CLOSING NOTE PATIENT REMAINS IN ROOM IN NO SIGNS OF RESPIRATORY DISTRESS, PATIENT STILL ON 4L OF 02 VIA NC ;TOLERATING WELL SATURATING @ BETWEEN 90-95% SP02. SAFETY MEASURES IMPLEMENTED, BED IN LOWEST POSITION, LOCKED, SIDE RAILS UP, CALL LIGHT WITHIN REACH. ALL NEEDS AND ORDERS ADDRESSED DURING THE SHIFT. IV ACCESS MAINTAINED INTACT, SECURED AND FLUSHING WELL. ALL DUE MEDS GIVEN ORDERED & SCHEDULED ; PATIENT TOLERATED WELL. STILL WITH ONGOING AMIO DRIP @ 0.5MG/MIN; INFUSING PER PROTOCOL 24HRS END TIME BY 0845AM. STILL WITH RUNNING TUBE FEEDING PRESCRIBED, TOLERATES WELL. PATIENT KEPT CLEAN AND COMFORTABLE WITHIN THE SHIFT. PATIENT ENDORSED TO INCOMING SHIFT RN WITH STABLE VITAL SIGN AND FOR CONTINUITY OF CARE.
[2023-01-06] MEDS: AMIODARONE 450 MG in IV D5W 241 ML IV PRN (07:09)
[2023-01-06] MEDS ORDERED: PROSOURCE / PROSTAT (PYXIS) 30 ML UDC GT SCH (09:00)
[2023-01-06] MEDS: ASPIRIN 81 MG TAB.CHEW GT SCH (09:17)
[2023-01-06] MEDS: APIXABAN 5 MG TABLET GT SCH ×2 (09:17→21:44)
[2023-01-06] MEDS: PROSOURCE / PROSTAT (PYXIS) 30 ML UDC GT SCH ×2 (09:17→17:05)
[2023-01-06] MEDS: THERAHONEY GEL 1.5 OZ TUBE TP SCH ×2 (09:21→21:30)
[2023-01-06] MEDS: ZINC SULFATE 220 MG CAPSULE GT SCH (09:21)
[2023-01-06] MEDS: MULTIVITAMINS,THERAGRAN 1 UDTAB TABLET GT SCH (09:22)
[2023-01-06] MEDS ORDERED: NEPRO 1,000 ML BOTTLE GT PRN ×2 (09:30→10:07)
[2023-01-06] MEDS ORDERED: POTASSIUM CHLORIDE 20 MEQ POWDER PACKET GT ONE (10:00)
[2023-01-06] MEDS: AMIODARONE HCL 200 MG TABLET PO SCH ×2 (12:27→21:42)
[2023-01-06] MEDS: IV NS 0.9% 250 ML IV PRN (12:41)
--- NOTE | 2023-01-06 13:45 | NUR ---
DR. CRUZ AWARE OF PATIENT WITH INCREASED RR 40-50s, NO ORDER MADE
[2023-01-06] MEDS: LEVOTHYROXINE SODIUM 50 MCG TABLET GT SCH (14:20)
[2023-01-06] MEDS: PANTOPRAZOLE 40 MG/PACK PACK GT SCH (14:21)
[2023-01-06 16:02] LABS: OCCULT BLOOD STOOL NEGATIVE (NEGATIVE)
[2023-01-06] MEDS: ATORVASTATIN 40 MG TABLET GT SCH (17:06)
--- NOTE | 2023-01-06 19:05 | NUR ---
NO SIGNIFICANT CHANGES NOTED DURING THE SHIFT. HOURLY/PRN ROUNDING MADE BY CHIEF SECURITY OFFICER. WILL ENDORSE FOR CONTINUITY OF CARE.
[2023-01-06] MEDS: MIRTAZAPINE 15 MG TABLET GT SCH (21:42)
[2023-01-06] MEDS: ACETAMINOPHEN 650 MG/20.3 ML UDC GT PRN (22:49)
[2023-01-06] MEDS: CEFEPIME 1 GM in IV D5W 50 ML IV SCH (23:29)
[2023-01-07] VITALS (25 sets, daily range): BP systolic 86–139; BP diastolic 22–91
[2023-01-07] MEDS: BLOOD SUGAR DIAGNOSTIC 1 EACH STRIP IN SCH ×4 (00:12→18:04)
[2023-01-07] MEDS: INSULIN REGULAR, HUMAN 100 UNIT/ML 3 ML VIAL SQ PRN ×3 (00:21→18:57)
--- NOTE | 2023-01-07 00:30 | NUR ---
PT IS ASLEEP NO DISTRESS NOTED, HOB AT 4O DEGREES. ELEVATED LEGS ON PILLOWS. BS INSULIN COVERAGE ADMINISTERED ORDEED.
--- NOTE | 2023-01-07 00:35 | NUR ---
Tachhypnic. Cough is productive. O2satb 89. RT on unit notified and initiated breathing, as ordered. HR 88, SR .
--- NOTE | 2023-01-07 04:00 | NUR ---
PT IS ASLEEP AND IS RESTING WITHOUT S/S OF DISTRESS. VS AT BASELINE. REMAINS TACHYPNIC. HOB AR 40 TUBE FEEED IN PROGRESS..
[2023-01-07 04:36] LABS: EOSINOPHILS % (AUTO) 1.1 % (0.0-6.0); HEMATOCRIT 22 % (33-45); HEMOGLOBIN 7.1 g/dL (11.5-14.8); LYMPHOCYTES # (AUTO) 0.7 K/uL (0.8-4.8); LYMPHOCYTES % (AUTO) 3.2 % (20.0-44.0); MEAN CORPUSCULAR HGB CONC 32 g/dl (31.0-36.0); MEAN CORPUSCULAR VOLUME 89 fL (82-100); MONOCYTES # (AUTO) 1.6 K/uL (0.1-1.30); NEUTROPHILS # (AUTO) 20.8 K/uL (1.8-8.9); NEUTROPHILS % (AUTO) 88.7 % (43.0-81.0); PLATELET COUNT (AUTO) 228 K/uL (150-450); RED BLOOD CELL COUNT(AUTO) 2.51 MIL/uL (4.0-5.2); WHITE BLOOD COUNT (AUTO) 23.4 K/uL (4.3-11.0)
[2023-01-07 04:46] LABS: CALCIUM, SERUM 8.7 mg/dL (8.5-10.1); CREATININE 3.4 mg/dL (0.6-1.3); POTASSIUM 3.3 mmol/L (3.5-5.1)
--- NOTE | 2023-01-07 07:10 | NUR ---
STRAND FORMING MACHINE OPERATOR note Patient is resting in bed. GCS E4V3M5, bilateral pupils 3mm PEARRLA. line welder showed SR HR ~75s/min. MAP>65mmHg, not on vasopressors. On 5L oxygen via nasal cannula, Spo2 98%. Reduce oxygen to 4L and will recheck. Left upper arm PICC is dry and intact, with TKO running at 5mL/hr. G-tube feeding at 35mL/hr. Suction, mouthcare and repositioning is done.
[2023-01-07] MEDS: ZINC SULFATE 220 MG CAPSULE GT SCH (09:14)
[2023-01-07] MEDS: MULTIVITAMINS,THERAGRAN 1 UDTAB TABLET GT SCH (09:15)
[2023-01-07] MEDS: AMIODARONE HCL 200 MG TABLET PO SCH ×2 (09:15→21:26)
[2023-01-07] MEDS: ASPIRIN 81 MG TAB.CHEW GT SCH (09:15)
[2023-01-07] MEDS: PROSOURCE / PROSTAT (PYXIS) 30 ML UDC GT SCH ×2 (09:19→17:59)
[2023-01-07] MEDS: THERAHONEY GEL 1.5 OZ TUBE TP SCH ×2 (09:20→18:55)
--- NOTE | 2023-01-07 10:00 | NUR ---
IBM BPM ARCHITECT NOte Hold 0900 apixaban dose as Hb is 7.1g/dL. Informed DP Cuate, who said to continue adminsitration as patient has chronic anaemia despite workup.
[2023-01-07] MEDS: EPOETIN ALFA-EPBX 10,000 UNIT/ML VIAL SQ SCH (10:30)
[2023-01-07] MEDS: APIXABAN 5 MG TABLET GT SCH ×2 (11:08→20:09)
[2023-01-07] MEDS: IV NS 0.9% 250 ML IV PRN (11:26)
[2023-01-07] MEDS: VANCOMYCIN POST DIALYSIS 500MG IV PRN ×2 (11:28)
[2023-01-07] MEDS ORDERED: POTASSIUM CHLORIDE 20 MEQ POWDER PACKET GT ONE (13:00)
[2023-01-07] MEDS: PANTOPRAZOLE 40 MG/PACK PACK GT SCH (15:02)
[2023-01-07] MEDS: LEVOTHYROXINE SODIUM 50 MCG TABLET GT SCH (15:02)
--- NOTE | 2023-01-07 15:30 | NUR ---
CONTROL ROOM TECHNICIAN Note Bedside handover is given to APRIL Contreras. Patient's GCS at the time of handover was E4V3M5. quality assurance monitor chassis showed SR all along with MAP>65mmHg. SpO2 95% with 2L oxygen given via NC. Patient's absorption of feeding was good.
[2023-01-07] MEDS ORDERED: SILVER NITRATE APPLICATOR 1 EA BOX TP SCH (16:00)
--- NOTE | 2023-01-07 16:00 | NUR ---
CLERICAL SPECIALIST NOTE PT TRANSFERRED FROM ICU VIA GURNEY, REPORT RECEIVED FROM APRIL ADORNO. WITH NO SIGN OF DISTRESS. A/OX1, BULGARIAN SPEAKING. PT IS ON O2 VIA NC @2LPM. NO S/S OF PAIN NOTED AT THIS TIMEPT HAS GTUBE, RUNNING NEPRO@35ML/HR. IV ACCESS L UA PICC LINE, INTACT AND PATENT, SL. R CW HD ACCESS. VS TAKEN, STABLE AND RECORDED. APPLIED EXTERNAL REGISTER OF WILLS. READING SR. FALL AND SAFETY MEASURES IN PLACE, BED ALARM ON, BED UN LOW AND LOCK POSITION, CALL LIGHT AND TABLE WITHIN EASY REACH, SIDE RAILS UPX4. WILL CONTINUE TO MONITOR.
[2023-01-07] MEDS ORDERED: LIDOCAINE MPF 1%-EPI 1:200,000 30 ML VIAL IJ STA ×2 (16:05→16:29)
--- NOTE | 2023-01-07 17:45 | NUR ---
RN NOTE DR GARCIA PERFORMED SACRAL WOUND DEBRIDEMENT ON BEDSIDE @1730. WOUND CULTURE COLLECTED. CALLED LAB FOR RENEWABLE ENERGY ENGINEER. PT TOLERATED WELL.
[2023-01-07] MEDS: ATORVASTATIN 40 MG TABLET GT SCH (18:00)
[2023-01-07] MEDS ORDERED: DAKINS QUARTER STRENGTH (0.125%) 480 ML BOTTLE TOP SCH (18:00)
--- NOTE | 2023-01-07 18:56 | NUR ---
ROAD ROLLER ENGINEER CLOSING NOTE PT RESTING IN BED, WITH NO SIGN OF DISTRESS. A/OX1, FAROESE SPEAKING. PT IS ON O2 VIA NC @2LPM. NO S/S OF PAIN NOTED AT THIS TIME. PT HAS GTUBE, RUNNING NEPRO@35ML/HR. IV ACCESS L UA PICC LINE, INTACT AND PATENT, SL. R CW HD ACCESS. EXTERNAL SAND SCREENER READING SR @84 BPM. READING SR. FALL AND SAFETY MEASURES IN PLACE, BED ALARM ON, BED ON LOW AND LOCK POSITION, CALL LIGHT AND TABLE WITHIN EASY REACH, SIDE RAILS UPX4. WILL ENDORSE TO NEXT SHIFT FOR TAYE.
--- NOTE | 2023-01-07 19:36 | NUR ---
ENTRY LEVEL ACCOUNT EXECUTIVE OPENING NOTE RECEIVED PT AWAKE IN BED. A/O X1 AND KAZAKH SPEAKING. PT ON O2 @ 2LPM VIA NC, TOLERATING WELL. NO SOB OR S/S OF RESPIRATORY DISTRESS. BREATHING EVEN AND UNLABORED. ON EXTERNAL MEDIA EXECUTIVE READING SR 80 BPM. IV ACCESS TAMIKO PICC SL AND RCW PERMACATH, DRESSING C/D/I. WITH GTUBE RUNNING NEPRO @ 35 ML/HR, TOLERATING WELL. SAFETY PRECAUTIONS IN PLACE. BED IN LOWEST LOCKED POSITION, HOB ELEVATED, SIDE RAILS UP X2, AND CALL LIGHT AND TABLE WITHIN REACH. ALL NEEDS MET AT THIS TIME.
--- NOTE | 2023-01-07 20:05 | NUR ---
RN NOTE PT HAS HGB 7.1 WITH HISTORY OF A FIB WITH RVR. CURRENT TELE READING SR 80 BPM. HAD SACRAL DEBRIBEMENT TODAY AND DRESSING C/D/I, MINIMAL BLEEDING. INFORMED SPEEDER WORKER SEGURA WITH ORDER TO HOLD SCHEDULED APIXABAN 2.5 MG. HELD MEDICATION ORDERED. CHARGE NURSE ALEXY FAN.
[2023-01-07] MEDS: MIRTAZAPINE 15 MG TABLET GT SCH (21:26)
[2023-01-07] MEDS: CEFEPIME 1 GM in IV D5W 50 ML IV SCH (22:09)
--- NOTE | 2023-01-07 22:46 | NUR ---
RN NOTE REPORT GIVEN TO ROMELIA Cobos AT [facility] AT [phone]. GOING TO ROOM 109B.
--- NOTE | 2023-01-07 23:01 | NUR ---
RN NOTE SPOKE WITH JOSE AT [facility], SCHEDULED CLINICAL EDUCATOR AT 0300. INFORMED VIOLETTA AT [facility] WHO IS THE NURSE THAT WILL NOW BE ACCEPTING THE PATIENT OF CLINICAL EDUCATOR TIME.
[2023-01-08] VITALS: BP 130/57
[2023-01-08] MEDS: BLOOD SUGAR DIAGNOSTIC 1 EACH STRIP IN SCH (00:11)
[2023-01-08] MEDS: INSULIN REGULAR, HUMAN 100 UNIT/ML 3 ML VIAL SQ PRN (00:12)
--- NOTE | 2023-01-08 02:21 | NUR ---
UR COORDINATORDIRECT SUPPORT STAFF MEMBER NOTE PT TRANSFERRED ACLS PROTOCOL VIA [facility] TO [facility]. PT ON O2 @ 2LPM VIA NC, TOLERATING WELL. NO SOB OR S/S FO RESPIRATORY DISTRESS. BREATHING EVEN AND UNLABORED. IV ACCESS TAMIKO PICC AND LFA 22G. PT CLEAN AND DRY. DRESSING CHANGE RENDERED. REPORT GIVEN TO [facility] TO ROMELIA Vargas AMF MECHANIC REMOVED. CHARGE NURSE ALEXY FAN.
== END 2023-01-08 02:23 | DRG 710 ==
LOC: ER 20:04 → TELE1 01-04 02:44 → TELE-TD 01-04 03:20 → TELE1 01-04 15:24 → TELE-TD 01-04 20:36 → ICU 01-05 07:36 → TELE 01-07 15:59
PROVIDERS: ADMIT Nurse Practitioner Family; ATTEND Nurse Practitioner Acute Care
PROC: 5A1D70Z Performance of Urinary Filtration, Intermittent, Less than 6 Hours Per Day (ICD-10-PCS; principal; 2023-01-05)
PROC: 30233N1 Transfusion of Nonautologous Red Blood Cells into Peripheral Vein, Percutaneous Approach (ICD-10-PCS; 2023-01-05)
PROC: 02HV33Z Insertion of Infusion Device into Superior Vena Cava, Percutaneous Approach (ICD-10-PCS; 2023-01-05)
PROC: B548ZZA Ultrasonography of Superior Vena Cava, Guidance (ICD-10-PCS; 2023-01-05)
PROC: 5A2204Z Restoration of Cardiac Rhythm, Single (ICD-10-PCS; 2023-01-05)
PROC: 0KBN0ZZ Excision of Right Hip Muscle, Open Approach (ICD-10-PCS; 2023-01-07)
PROC: 0KBP0ZZ Excision of Left Hip Muscle, Open Approach (ICD-10-PCS; 2023-01-07)
DX: A41.89 Other specified sepsis (principal); J96.21 Acute and chronic respiratory failure with hypoxia; R65.21 Severe sepsis with septic shock; J69.0 Pneumonitis due to inhalation of food and vomit; G93.41 Metabolic encephalopathy; E43 Unspecified severe protein-calorie malnutrition; J15.6 Pneumonia due to other Gram-negative bacteria; L89.154 Pressure ulcer of sacral region, stage 4; I12.0 Hypertensive chronic kidney disease with stage 5 chronic kidney disease or end stage renal disease; N18.6 End stage renal disease; I69.351 Hemiplegia and hemiparesis following cerebral infarction affecting right dominant side; L03.818 Cellulitis of other sites; E11.22 Type 2 diabetes mellitus with diabetic chronic kidney disease; N39.0 Urinary tract infection, site not specified; Z20.822 Contact with and (suspected) exposure to COVID-19; Z99.2 Dependence on renal dialysis; Z93.1 Gastrostomy status; Z79.4 Long term (current) use of insulin; Z79.51 Long term (current) use of inhaled steroids; Z79.01 Long term (current) use of anticoagulants; Z79.82 Long term (current) use of aspirin; Z79.899 Other long term (current) drug therapy; D72.828 Other elevated white blood cell count; E88.09 Other disorders of plasma-protein metabolism, not elsewhere classified; E78.5 Hyperlipidemia, unspecified; D63.8 Anemia in other chronic diseases classified elsewhere; Z86.718 Personal history of other venous thrombosis and embolism; Z87.440 Personal history of urinary (tract) infections; Y95 Nosocomial condition; J90 Pleural effusion, not elsewhere classified; J98.11 Atelectasis; M89.8X9 Other specified disorders of bone, unspecified site; E03.9 Hypothyroidism, unspecified; D68.59 Other primary thrombophilia; Z74.09 Other reduced mobility; I48.0 Paroxysmal atrial fibrillation; F03.90 Unspecified dementia, unspecified severity, without behavioral disturbance, psychotic disturbance, mood disturbance, and anxiety; E87.6 Hypokalemia; R62.7 Adult failure to thrive; R13.10 Dysphagia, unspecified; B96.89 Other specified bacterial agents as the cause of diseases classified elsewhere; I48.91 Unspecified atrial fibrillation; I95.9 Hypotension, unspecified
CPT/HCPCS: 36415; 71045-TC; 71250-TC; 80048-TC; 80076-TC; 80202-TC; 81001; 82272-TC; 82962-TC; 83605-TC; 83735-TC; 84100-TC; 84443-TC; 84484-TC; 85025-TC; 85730-TC; 86480; 86706; 86850-TC; 87040-TC; 87081-TC; 87086-TC; 87340; 90935-TC; 93307-TC; A4223; A6253; A9563; C9803; G0378; J0282; J0692; J0885; J1815; J2543; J3370; J3490; J7030; J7040; J7050; J7060; P9016; P9047